=== PATIENT | male | born 1980 ===

== ENCOUNTER 2022-06-20 10:20 | Emergency (ER) | payer MEDICAID, BC, SELFPAY ==
[2022-06-20 10:27] VITALS: BP 155/73; PULSE 99; RESP 18; TEMP 36.6; O2SAT 99; BMI 24.3
[2022-06-20 10:41] LABS: Glucose, Whole Blood 442 mg/dL (60-115)
[2022-06-20 10:59] LABS: MANUAL DIFF FLAG NO
[2022-06-20 11:04] LABS: Basophils Percent Auto 0.3 % (0-2); Eosinophils Absolute Auto 0.1 X10*3/uL (0.0-0.4); Hematocrit 44.6 % (42.0-52.0); Hemoglobin 15.1 g/dl (14.0-18.0); Imm Gran Abs Auto 0.05 X10*3/uL (0.00-0.03); Imm Gran Pct Auto 0.4 % (0.0-0.4); Lymphocytes Absolute Auto 1.5 X10*3/uL (1.2-4.9); Lymphocytes Percent Auto 12.8 % (20-40); Mean Corpuscular HGB Conc 33.9 g/dl (31.0-36.0); Mean Corpuscular Hemoglobin 29.8 pg (27.0-33.0); Mean Platelet Volume 10.1 fL (9.4-12.4); Monocytes Absolute Auto 0.5 X10*3/uL (0.1-1.2); Monocytes Percent Auto 4.7 % (2-11); Neutrophils Absolute Auto 9.3 x10*3/uL (2.0-8.3); Neutrophils Percent Auto 80.8 % (45-73); Platelet Count 311 X10*3/uL (160-400); Red Blood Count 5.07 X10*6/uL (4.60-5.80); Red Cell Distribution Width 12.3 % (11.0-16.0); White Blood Count 11.5 X10*3/uL (4.8-10.8)
[2022-06-20 11:15] LABS: Acetone, serum QL Negative (Negative)
[2022-06-20 11:22] LABS: Anion Gap 19 (12-20); Blood Urea Nitrogen 16 mg/dL (9-16); Calcium 9.5 mg/dL (8.4-10.2); Carbon Dioxide 24 mmol/L (22-29); Chloride 99 mmol/L (96-108); Creatinine Clr Calc Pharmacy 79.2; Estimated Glomerular Filt Rate > 60; Glucose Random 430 mg/dL (60-115); Potassium 4.5 mmol/L (3.3-5.1); Sodium 137 mmol/L (135-145)
[2022-06-20 13:09] LABS: Glucose, Whole Blood 142 mg/dL (60-115)
[2022-06-20 13:39] VITALS: BP 133/93; PULSE 95; RESP 16; TEMP 37.1; O2SAT 98
--- NOTE | 2022-06-20 14:15 | ED.GENADULT ---
HPI - General Adult General Chief complaint: General Medical Stated complaint: Needs insulin does not have PCP Time Seen by Provider: 06/20/22 13:01 History of Present Illness HPI narrative: patient is a 41-year-old male with a long history of diabetes. Just came from [place]. Patient is out of his medication. Was noted to have a sugar of 400. Patient took his insulin prior to arrival. No fever no chills no chest pain or shortness breath no nausea no vomiting. Patient is looking to get his insurance set up his food stamps then set up an a refill of his prescription for insulin. Patient is on 40 units of Lantus insulin every night. On 20 units of Humalog 3 times a day. He has no belly pain no nausea no vomiting Related Data Previous Rx's Medication Instructions Recorded insulin glargine 100 unit/mL 40 unit (0.4 mL) subcut .qhs #10 mL 06/20/22 subcutaneous solution (Lantus U-100 Insulin) insulin lispro 100 unit/mL 20 unit (0.2 mL) subcut TID #10 mL 06/20/22 subcutaneous solution (Humalog U-100 Insulin) Allergies Allergy/AdvReac Type Severity Reaction Status Date / Time No Known Allergies Allergy Verified 06/20/22 10:27 Review of Systems Review of Systems: no fever no chills no chest pain or shortness breath no systemic Yes all other systems are reviewed and are negative [facility] Past Medical History Attestation statement: The following information was validated with the patient. Social History Social History Use of substances other than those prescribed or required for medical reasons: No Advance Directives: No Advance Directives Information Provided: No Physical Exam ED Vital Signs: Vital Signs - 24 hr 06/20/22 10:27 06/20/22 13:39 Temperature 98 F 98.7 F Pulse Rate 99 95 Respiratory Rate 18 16 Blood Pressure 155/73 H 133/93 H Pulse Oximetry 99 98 Oxygen Delivery Method Room Air BMI result Body Mass Index 24.3 Appearance: Alert. Oriented X3. No acute distress. Eyes: Pupils equal, round and reactive to light. ENT: Pharynx normal. Neck: Normal inspection. Neck supple. No lymph nodes noted. No crepitus CVS: Normal heart rate and rhythm. Pulses normal. Normal S1 and S2 Respiratory: No respiratory distress. Breath sounds normal. No Wheezing. No rales Abdomen: Soft and nontender. No rigidity. No distention. good BS x4 Skin: Skin warm and dry. Normal skin color. Normal skin turgor. Extremities: No lower extremity edema. Neurovascular intact to all extremities. No Lacerations. No Rash Neuro: Oriented X 3. No motor deficit. No sensory deficit. Moving all extermities. No slurred speech Medical Decision Making Differential Diagnosis Differential Diagnoses: The differential diagnosis associated with the presentation includes patient has hyperglycemia likely secondary to noncompliance. His sugar was approximately 400 on arrival. He took his own insulin. On recheck the sugar was less than 200. 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 Discussed with patient the need for follow-up here in [place]. Referred to the [facility] for follow-up. Referred to case management for additional help in obtaining his medication. Patient is in stable condition. His labs showed no evidence of diabetic ketoacidosis. He has no anion gap. He has a normal bicarb. He is well-appearing. He has no symptoms. His abdominal exam is soft nontender. Will discharge patient home close follow-up on an outpatient basis Lab Data MDM Lab Attestation statement: I reviewed the patient's lab results. 06/20/22 10:52 06/20/22 10:52 Labs: Lab Results 06/20/22 06/20/22 06/20/22 Range/Units 10:34 10:52 10:52 WBC 11.5 H (4.8-10.8) X10*3/uL RBC 5.07 (4.60-5.80) X10*6/uL Hgb 15.1 (14.0-18.0) g/dl Hct 44.6 (42.0-52.0) % MCV 88.0 (80.0-98.0) fL MCH 29.8 (27.0-33.0) pg MCHC 33.9 (31.0-36.0) g/dl RDW 12.3 (11.0-16.0) % Plt Count 311 (160-400) X10*3/uL MPV 10.1 (9.4-12.4) fL Immature Gran % (Auto) 0.4 (0.0-0.4) % Neut % (Auto) 80.8 H (45-73) % Lymph % (Auto) 12.8 L (20-40) % Swain % (Auto) 4.7 (2-11) % Eos % (Auto) 1.0 (0-4) % Baso % (Auto) 0.3 (0-2) % Lymph # (Auto) 1.5 (1.2-4.9) X10*3/uL Swain # (Auto) 0.5 (0.1-1.2) X10*3/uL Eos # (Auto) 0.1 (0.0-0.4) X10*3/uL Baso # (Auto) 0.0 (0.0-0.2) X10*3/uL Abs Immat Gran (auto) 0.05 H (0.00-0.03) X10*3/uL Absolute Neuts (auto) 9.3 H (2.0-8.3) x10*3/uL Absolute Nucleated RBC 0.000 (0.0-0.012) X10*3/uL Nucleated RBC % (auto) 0.0 (0.0-0.2) /100WBC Sodium 137 (135-145) mmol/L Potassium 4.5 (3.3-5.1) mmol/L Chloride 99 (96-108) mmol/L Carbon Dioxide 24 (22-29) mmol/L Anion Gap 19 (12-20) BUN 16 (9-16) mg/dL Creatinine 1.21 (0.5-1.4) mg/dL Estim Creat Clear Calc 79.2 Estimated GFR > 60 POC Glucose 442 H* (60-115) mg/dL Random Glucose 430 H* (60-115) mg/dL Calcium 9.5 (8.4-10.2) mg/dL Acetone, Qual (Negative) 06/20/22 06/20/22 Range/Units 10:52 13:05 WBC (4.8-10.8) X10*3/uL RBC (4.60-5.80) X10*6/uL Hgb (14.0-18.0) g/dl Hct (42.0-52.0) % MCV (80.0-98.0) fL MCH (27.0-33.0) pg MCHC (31.0-36.0) g/dl RDW (11.0-16.0) % Plt Count (160-400) X10*3/uL MPV (9.4-12.4) fL Immature Gran % (Auto) (0.0-0.4) % Neut % (Auto) (45-73) % Lymph % (Auto) (20-40) % Swain % (Auto) (2-11) % Eos % (Auto) (0-4) % Baso % (Auto) (0-2) % Lymph # (Auto) (1.2-4.9) X10*3/uL Swain # (Auto) (0.1-1.2) X10*3/uL Eos # (Auto) (0.0-0.4) X10*3/uL Baso # (Auto) (0.0-0.2) X10*3/uL Abs Immat Gran (auto) (0.00-0.03) X10*3/uL Absolute Neuts (auto) (2.0-8.3) x10*3/uL Absolute Nucleated RBC (0.0-0.012) X10*3/uL Nucleated RBC % (auto) (0.0-0.2) /100WBC Sodium (135-145) mmol/L Potassium (3.3-5.1) mmol/L Chloride (96-108) mmol/L Carbon Dioxide (22-29) mmol/L Anion Gap (12-20) BUN (9-16) mg/dL Creatinine (0.5-1.4) mg/dL Estim Creat Clear Calc Estimated GFR POC Glucose 142 H (60-115) mg/dL Random Glucose (60-115) mg/dL Calcium (8.4-10.2) mg/dL Acetone, Qual Negative (Negative) Social Determinants Patient?s care significantly limited by Social Determinants of Health including: Low income Discharge Plan Discharge Clinical Impression: Acute hyperglycemia Patient Disposition: Home, Self-Care Instructions: Diabetic Hyperglycemia (ED) Additional Instructions: Please take your insulin as prescribed Prescriptions: New insulin lispro [Humalog U-100 Insulin] 100 unit/mL solution 20 unit subcut TID Qty: 10 2RF insulin glargine [Lantus U-100 Insulin] 100 unit/mL solution 40 unit subcut .[facility] Qty: 10 2RF Referrals: [facility] [Physician] - 06/22/22
--- NOTE | 2022-06-20 14:24 | MHC.CM.ED ---
Received case management consult from Dr Kingston. Patient came to the ER due to not having insulin and needing a PCP. Met with patient in regards to discharge planning. Patient came to [place] from [place] about a week and a half ago. Patient has [place] Medicaid, doesn't have a PCP in [place], and is running out of insulin. Patient states he didn't make any plans for medication or medical needs before coming to [place] because patient thought I would just get everything I need when I came here. T/W explained patient won't qualify for [facility] until he has been a resident of [facility] for at least 60 days. Patient's [place] Medicaid will not be accepted at most of the local pharmacies. Financial counselor information provided. Information about [facility] also provided. No other services can be provided to patient at this time. Dr Kingston aware.
== END 2022-06-20 14:46 | disposition home or self-care (01) ==
PROVIDERS: Emergency Provider Emergency Medicine Emergency Medical Services
DX: E11.65 Type 2 diabetes mellitus with hyperglycemia (principal); Z79.4 Long term (current) use of insulin
CPT/HCPCS: 36415; 80048; 82009; 82947; 85025; 99284

== ENCOUNTER 2022-07-23 14:20 | Emergency (ER) | payer MEDICAID, SELFPAY ==
[2022-07-23 15:09] VITALS: BP 175/90; PULSE 87; RESP 18; TEMP 36.8; O2SAT 99; BMI 24.6
--- NOTE | 2022-07-23 15:19 | ED.GENADULT ---
HPI - General Adult General Chief complaint: General Medical Stated complaint: Medication refill-diabetic Time Seen by Provider: 07/23/22 15:18 Source: patient and old records reviewed Mode of arrival: ambulatory Limitations: no limitations History of Present Illness HPI narrative: 41 yo male with history of type 1 diabetes, diagnosed at age 5 who recently moved here from [place] presents to the ER for insulin refill. He has not been able to get a doctor in the [place] since arriving here. He last got his lantus and humalog filled here. He was seen in Jun after he ran out of insulin and his glucose was 400s. He has been taking his insulin as directed and has 2 days left. MD complaint: med refill Associated symptoms: denies other symptoms Treatments prior to arrival: none Related Data Previous Rx's Medication Instructions Recorded insulin glargine 100 unit/mL 40 unit (0.4 mL) subcut .qhs #10 mL 06/20/22 subcutaneous solution (Lantus U-100 Insulin) insulin lispro 100 unit/mL 20 unit (0.2 mL) subcut TID #10 mL 06/20/22 subcutaneous solution (Humalog U-100 Insulin) blood sugar diagnostic #100 ea 07/23/22 blood-glucose meter #1 ea 07/23/22 insulin glargine 100 unit/mL (3 40 unit (0.4 mL) subcut QPM #15 mL 07/23/22 mL) subcutaneous pen (Lantus Solostar U-100 Insulin) insulin lispro 100 unit/mL 20 unit (0.2 mL) subcut TID #10 mL 07/23/22 subcutaneous solution (Humalog U-100 Insulin) Allergies Allergy/AdvReac Type Severity Reaction Status Date / Time No Known Allergies Allergy Verified 06/20/22 10:27 Review of Systems Review of Systems: Yes all other systems are reviewed and are negative [facility] Social History Social History Advance Directives: No Advance Directives Information Provided: No Physical Exam ED Vital Signs: Vital Signs - 24 hr 07/23/22 15:09 Temperature 98.2 F Pulse Rate 87 Respiratory Rate 18 Blood Pressure 175/90 H Pulse Oximetry 99 Oxygen Delivery Method Room Air BMI result Body Mass Index 24.6 Appearance: Alert. Oriented X3. No acute distress. HEENT: normal external inspection Respiratory: No respiratory distress. Skin: Skin warm and dry. Normal skin color. Normal skin turgor. No rashes. Extremities: normal inspection, normal ROM x4 Neuro: Oriented X 3. No motor deficit. No sensory deficit. Course Course Course Narrative: 41 yo male with hx DM1 here for insulin refill. Has been med compliant. Glucose 197 in triage. Will refill lantus and humalog, send Rx for glucometer and strips. will refer to Endocrinology as well. Stable for d/c home Medical Decision Making Differential Diagnosis Differential Diagnoses: The differential diagnosis associated with the presentation includes DM1 well controlled, med compliant, DM1 poorly controlled. No evidence of DKA Lab Data MDM Lab Attestation statement: I reviewed the patient's lab results. POC 197 External Record Review External record reviewed: Outpatient record Prescription Management I considered prescription management with: Other (insulin) Chronic Conditions Patient?s care impacted by: Diabetes Social Determinants Patient?s care significantly limited by Social Determinants of Health including: Problems related to primary support group and Other Social Determinant of Health unable to get PCP. has [facility] [employer] and is awaiting provider who is accepting new patients Critical Care Time Critical Care Time Critical Care Time: No Discharge Plan Discharge Clinical Impression: Diabetes Patient Disposition: Home, Self-Care Instructions: Diabetes and Nutrition (ED) Additional Instructions: Follow up with Endocrinology or Primary Care doctor as soon as possible. Prescriptions: New insulin glargine [Lantus Solostar U-100 Insulin] 100 unit/mL (3 mL) insulin pen 40 unit subcut QPM Qty: 15 3RF insulin lispro [Humalog U-100 Insulin] 100 unit/mL solution 20 unit subcut TID Qty: 10 3RF (DME) blood-glucose meter Kit See Rx Instructions .Route Qty: 1 0RF Rx Instructions: As directed (DME) blood sugar diagnostic Strip See Rx Instructions .Route Qty: 100 0RF Rx Instructions: As directed No Action insulin lispro [Humalog U-100 Insulin] 100 unit/mL solution 20 unit subcut TID Qty: 10 2RF insulin glargine [Lantus U-100 Insulin] 100 unit/mL solution 40 unit subcut .qhs Qty: 10 2RF Referrals: Donis Lehman MD [Physician] - (DM1, recently moved here from [place] and needs prescriber)
[2022-07-23 15:22] LABS: Glucose, Whole Blood 197 mg/dL (60-115)
== END 2022-07-23 15:23 | disposition home or self-care (01) ==
LOC: HO.ED 15:21
PROVIDERS: Emergency Provider Emergency Medicine
DX: E10.9 Type 1 diabetes mellitus without complications (principal); Z79.899 Other long term (current) drug therapy
CPT/HCPCS: 82947; 99282

== ENCOUNTER 2022-08-29 09:35 | Emergency (ER) | payer MEDICAID, SELFPAY ==
[2022-08-29 09:48] VITALS: BP 156/63; PULSE 95; RESP 16; TEMP 36.7; O2SAT 99; BMI 25.7
[2022-08-29 11:15] VITALS: BP 141/76; PULSE 87; RESP 18; O2SAT 98
--- NOTE | 2022-08-29 11:47 | ED.GENADULT ---
HPI - General Adult General Chief complaint: General Medical Stated complaint: Medication refill Time Seen by Provider: 08/29/22 11:27 Source: patient Mode of arrival: ambulatory Limitations: no limitations History of Present Illness HPI narrative: 41-year-old male with history of type 1 diabetes here seeking refill for his insulin. Patient reports he still has a small amount of insulin left. His last dose this morning. He moved from [place] 2 months ago. He does have insurance but does not have a provider here. He is working on establishing a primary care. No physical complaints Related Data Previous Rx's Medication Instructions Recorded insulin glargine 100 unit/mL 40 unit (0.4 mL) subcut .qhs #10 mL 06/20/22 subcutaneous solution (Lantus U-100 Insulin) insulin lispro 100 unit/mL 20 unit (0.2 mL) subcut TID #10 mL 06/20/22 subcutaneous solution (Humalog U-100 Insulin) blood sugar diagnostic #100 ea 07/23/22 blood-glucose meter #1 ea 07/23/22 insulin glargine 100 unit/mL (3 40 unit (0.4 mL) subcut QPM #15 mL 07/23/22 mL) subcutaneous pen (Lantus Solostar U-100 Insulin) insulin lispro 100 unit/mL 20 unit (0.2 mL) subcut TID #10 mL 07/23/22 subcutaneous solution (Humalog U-100 Insulin) insulin glargine 100 unit/mL (3 40 unit (0.4 mL) subcut QPM #15 mL 08/29/22 mL) subcutaneous pen (Lantus Solostar U-100 Insulin) insulin lispro 100 unit/mL 20 unit (0.2 mL) subcut TID #15 mL 08/29/22 subcutaneous pen pen needle, diabetic 31 gauge x #120 ea 08/29/22 5/16 (BD Ultra-Fine Short Pen Needle) Allergies Allergy/AdvReac Type Severity Reaction Status Date / Time No Known Allergies Allergy Verified 08/29/22 09:51 Review of Systems Review of Systems: Yes all other systems are reviewed and are negative Constitutional: Constitutional: Reports no additional constitutional complaints, Denies body ache(s), Denies chills, Denies fever(s), Denies headache(s) and Denies weakness Eyes: Eyes: Reports no additional eye complaints and Denies change in vision ENT: Reports system reviewed and no additional complaints, except as documented, Denies dizziness, Denies headache(s), Denies nasal congestion, Denies nasal discharge and Denies neck pain Cardiovascular: Cardiovascular: Reports no additional cardiovascular complaints, Denies chest pain, Denies leg edema and Denies dyspnea Respiratory: Respiratory: Reports no additional respiratory complaints, Denies cough and Denies dyspnea Gastrointestinal: Gastrointestinal: Reports no additional gastrointestinal complaints, Denies abdominal pain, Denies diarrhea, Denies nausea and Denies vomiting Genitourinary: Genitourinary: Denies urinary incontinence Musculoskeletal: Musculoskeletal: Reports no additional musculoskeletal complaints, Denies back pain, Denies arthralgias, Denies joint swelling, Denies neck pain, Denies numbness and Denies tingling Integumentary/Breasts: Skin/Breast: Reports system reviewed and no additional complaints, except as docu and Denies rash Neurologic: Reports system reviewed and no additional complaints, except as documented, Denies dizziness, Denies headache(s), Denies numbness, Denies tingling and Denies weakness [facility] Past Medical History Attestation statement: The following information was validated with the patient. Source: old records reviewed and nursing notes reviewed Social History Social History Smoked in Last 30 Days: Yes Use of substances other than those prescribed or required for medical reasons: No Advance Directives: No Advance Directives Information Provided: Yes Physical Exam ED Vital Signs: Vital Signs - 24 hr 08/29/22 09:48 08/29/22 11:15 Temperature 98.0 F Pulse Rate 95 87 Respiratory Rate 16 18 Blood Pressure 156/63 H 141/76 H Pulse Oximetry 99 98 Oxygen Delivery Method Room Air Room Air BMI result Body Mass Index 25.7 Appearance: Alert. Oriented X3. No acute distress. HEENT: normal external inspection Respiratory: No respiratory distress. Skin: Skin warm and dry. Normal skin color. Normal skin turgor. No rashes. Extremities: normal inspection, normal ROM x4 Neuro: Oriented X 3. No motor deficit. No sensory deficit. Medical Decision Making Medical Decision Making MDM Narrative: 41-year-old male here seeking refill of all his insulin. Patient moved here recently and does not have a primary care. He does have insurance and is working on establishing primary care. He has no physical complaints. Will refill patient's Lantus and Humalog as well as his pens/needles. Differential Diagnosis Differential Diagnoses: The differential diagnosis associated with the presentation includes Social Determinants Patient?s care significantly limited by Social Determinants of Health including: Problems related to primary support group Discharge Plan Discharge Clinical Impression: Diabetes type I Patient Disposition: Home, Self-Care Instructions: Diabetes Type 1: Management (ED) Prescriptions: New insulin glargine [Lantus Solostar U-100 Insulin] 100 unit/mL (3 mL) insulin pen 40 unit subcut QPM Qty: 15 0RF insulin lispro 100 unit/mL insulin pen 20 unit subcut TID Qty: 15 0RF (DME) pen needle, diabetic [BD Ultra-Fine Short Pen Needle] 31 gauge x 5/16 needle See Rx Instructions .Route Qty: 120 0RF Rx Instructions: As directed No Action insulin lispro [Humalog U-100 Insulin] 100 unit/mL solution 20 unit subcut TID Qty: 10 2RF insulin glargine [Lantus U-100 Insulin] 100 unit/mL solution 40 unit subcut .qhs Qty: 10 2RF insulin glargine [Lantus Solostar U-100 Insulin] 100 unit/mL (3 mL) insulin pen 40 unit subcut QPM Qty: 15 3RF insulin lispro [Humalog U-100 Insulin] 100 unit/mL solution 20 unit subcut TID Qty: 10 3RF (DME) blood-glucose meter Kit See Rx Instructions .Route Qty: 1 0RF Rx Instructions: As directed (DME) blood sugar diagnostic Strip See Rx Instructions .Route Qty: 100 0RF Rx Instructions: As directed Interventions: ED Discharge Assessment Last Done: 08/29/22 11:57 Discharge Date/Time: 08/29/22 11:57
== END 2022-08-29 11:57 | disposition home or self-care (01) ==
PROVIDERS: Emergency Provider Emergency Medicine
DX: E10.9 Type 1 diabetes mellitus without complications (principal); Z76.0 Encounter for issue of repeat prescription; Z79.4 Long term (current) use of insulin; Z79.899 Other long term (current) drug therapy
CPT/HCPCS: 99283; 99284

== ENCOUNTER 2022-09-23 15:05 | Emergency (ER) | payer OTHER, SELFPAY ==
[2022-09-23 15:51] VITALS: BP 158/78; PULSE 92; RESP 18; TEMP 36.5; O2SAT 99; BMI 26.1
--- NOTE | 2022-09-23 15:53 | ED.GENADULT ---
HPI - General Adult General Chief complaint: General Medical Stated complaint: diabetic/ no insulin Time Seen by Provider: 09/23/22 15:52 Source: patient, RN notes reviewed and old records reviewed Mode of arrival: ambulatory Limitations: no limitations History of Present Illness HPI narrative: 41-year-old male with past medical history significant for type 1 diabetes presents for evaluation and medication refill Patient was family able to get a primary doctor but does not appointment until next month. He needs a refill of his insulin glargine, insulin lispro and needles He also needs Synthroid 50 mcg daily He has no somatic complaints Related Data Previous Rx's Medication Instructions Recorded insulin glargine 100 unit/mL 40 unit (0.4 mL) subcut .qhs #10 mL 06/20/22 subcutaneous solution (Lantus U-100 Insulin) insulin lispro 100 unit/mL 20 unit (0.2 mL) subcut TID #10 mL 06/20/22 subcutaneous solution (Humalog U-100 Insulin) blood sugar diagnostic #100 ea 07/23/22 blood-glucose meter #1 ea 07/23/22 insulin glargine 100 unit/mL (3 40 unit (0.4 mL) subcut QPM #15 mL 07/23/22 mL) subcutaneous pen (Lantus Solostar U-100 Insulin) insulin lispro 100 unit/mL 20 unit (0.2 mL) subcut TID #10 mL 07/23/22 subcutaneous solution (Humalog U-100 Insulin) insulin glargine 100 unit/mL (3 40 unit (0.4 mL) subcut QPM #15 mL 08/29/22 mL) subcutaneous pen (Lantus Solostar U-100 Insulin) insulin lispro 100 unit/mL 20 unit (0.2 mL) subcut TID #15 mL 08/29/22 subcutaneous pen pen needle, diabetic 31 gauge x #120 ea 08/29/22/16 (BD Ultra-Fine Short Pen Needle) insulin glargine 100 unit/mL (3 40 unit (0.4 mL) subcut .evening 09/23/22 mL) subcutaneous pen (Lantus #15 mL Solostar U-100 Insulin) insulin lispro 100 unit/mL 20 unit (0.2 mL) subcut TID #15 mL 09/23/22 subcutaneous pen levothyroxine 50 mcg tablet 50 mcg PO DAILY #30 tabs 09/23/22 (Synthroid) pen needle, diabetic 31 gauge x #120 ea 09/23/22 5/16 (BD Ultra-Fine Short Pen Needle) Allergies Allergy/AdvReac Type Severity Reaction Status Date / Time No Known Allergies Allergy Verified 09/23/22 15:51 Physical Exam ED Const General: healthy appearing, comfortable, no acute distress, alert and awake Nutritional Appearance: well nourished Orientation/consciousness: patient oriented x3 Eyes Eyelids: Yes eyelids normal Conjunctivae: conjunctivae normal Sclerae: sclerae normal Corneas: corneas normal Pupils: Equal, round and reactive pupils present EOM: EOMs intact bilaterally Resp Effort & Inspection: normal respiratory effort, able to speak in complete sentences, no audible wheezes and not labored Cardio Rate: regular rate Rhythm: regular rhythm Skin General skin exam: no rashes or lesions noted and elasticity normal Neuro General: patient oriented x3 Cranial nerves: Yes Equal, round and reactive pupils present and Yes Bilaterally intact EOM present Cognition (Neuro): normal cognition Extrem Other: Moving all extremities well without any obvious deformities Medical Decision Making Medical Decision Making MDM Narrative: Will provide the patient with a 1 month supply of his medications Differential Diagnosis Type 1 diabetes Hypothyroidism Medication refill Well visit Discharge Plan Discharge Clinical Impression: Diabetes type I, Hypothyroidism Patient Disposition: Home, Self-Care Instructions: Diabetes Type 1: Management (ED) Additional Instructions: Take all your medications as prescribed. Follow-up with your primary doctor Prescriptions: New insulin glargine [Lantus Solostar U-100 Insulin] 100 unit/mL (3 mL) insulin pen 40 unit subcut .evening Qty: 15 0RF insulin lispro 100 unit/mL insulin pen 20 unit subcut TID Qty: 15 0RF (DME) pen needle, diabetic [BD Ultra-Fine Short Pen Needle] 31 gauge x 5/16 needle See Rx Instructions .Route Qty: 120 0RF Rx Instructions: As directed levothyroxine [Synthroid] 50 mcg tablet 50 mcg PO DAILY Qty: 30 0RF No Action insulin lispro [Humalog U-100 Insulin] 100 unit/mL solution 20 unit subcut TID Qty: 10 2RF insulin glargine [Lantus U-100 Insulin] 100 unit/mL solution 40 unit subcut .qhs Qty: 10 2RF insulin glargine [Lantus Solostar U-100 Insulin] 100 unit/mL (3 mL) insulin pen 40 unit subcut QPM Qty: 15 3RF insulin lispro [Humalog U-100 Insulin] 100 unit/mL solution 20 unit subcut TID Qty: 10 3RF (DME) blood-glucose meter Kit See Rx Instructions .Route Qty: 1 0RF Rx Instructions: As directed (DME) blood sugar diagnostic Strip See Rx Instructions .Route Qty: 100 0RF Rx Instructions: As directed insulin glargine [Lantus Solostar U-100 Insulin] 100 unit/mL (3 mL) insulin pen 40 unit subcut QPM Qty: 15 0RF insulin lispro 100 unit/mL insulin pen 20 unit subcut TID Qty: 15 0RF (DME) pen needle, diabetic [BD Ultra-Fine Short Pen Needle] 31 gauge x 5/16 needle See Rx Instructions .Route Qty: 120 0RF Rx Instructions: As directed
== END 2022-09-23 16:03 | disposition home or self-care (01) ==
PROVIDERS: Emergency Provider Emergency Medicine Emergency Medical Services
DX: E10.9 Type 1 diabetes mellitus without complications (principal); E03.9 Hypothyroidism, unspecified
CPT/HCPCS: 99282

== ENCOUNTER → 2022-09-25 10:01 | Outpatient (BNVA) | payer OTHER, SELFPAY | PROVIDERS: Visit Provider Internal Medicine | DX: M75.41 Impingement syndrome of right shoulder (principal) | CPT/HCPCS: 73030; 99203 ==

== ENCOUNTER → 2022-10-02 13:04 | Outpatient (BNVA) | payer OTHER, SELFPAY | PROVIDERS: Visit Provider Internal Medicine | DX: M75.41 Impingement syndrome of right shoulder (principal) | CPT/HCPCS: 99213 ==

== ENCOUNTER → 2022-10-09 14:45 | Outpatient (BNVA) | payer OTHER, SELFPAY | PROVIDERS: Visit Provider Internal Medicine | DX: M75.41 Impingement syndrome of right shoulder (principal); S46.811D Strain of other muscles, fascia and tendons at shoulder and upper arm level, right arm, subsequent encounter; X58.XXXD Exposure to other specified factors, subsequent encounter | CPT/HCPCS: 99213 ==

== ENCOUNTER → 2022-10-16 11:41 | Outpatient (BNVA) | payer OTHER, SELFPAY | PROVIDERS: PCP Nurse Practitioner Family; Visit Provider Internal Medicine | DX: S46.011D Strain of muscle(s) and tendon(s) of the rotator cuff of right shoulder, subsequent encounter (principal); S46.811D Strain of other muscles, fascia and tendons at shoulder and upper arm level, right arm, subsequent encounter; X58.XXXD Exposure to other specified factors, subsequent encounter; R20.0 Anesthesia of skin | CPT/HCPCS: 99213 ==

== ENCOUNTER → 2022-10-23 10:46 | Outpatient (BNVA) | payer OTHER, SELFPAY | PROVIDERS: PCP Nurse Practitioner Family; Visit Provider Internal Medicine | DX: S46.011D Strain of muscle(s) and tendon(s) of the rotator cuff of right shoulder, subsequent encounter (principal); S46.811D Strain of other muscles, fascia and tendons at shoulder and upper arm level, right arm, subsequent encounter; X58.XXXD Exposure to other specified factors, subsequent encounter; R20.0 Anesthesia of skin | CPT/HCPCS: 99213 ==

== ENCOUNTER 2022-11-01 16:33 | Outpatient (REF) | payer OTHER, SELFPAY ==
--- NOTE | ~2022-11-01 | MR_ITS ---
EXAMINATION: MR SHOULDER WITHOUT CONTRAST, RIGHT CLINICAL INFORMATION: Hyperextension injury. Pain and weakness. Limited range of motion. COMPARISON: None available. TECHNIQUE: MRI of the shoulder without contrast was performed on a high-field scanner. FINDINGS: ROTATOR CUFF: Intact. No muscle atrophy or fatty infiltration. BICEPS: Normal. CORACOACROMIAL ARCH: The undersurface of the acromion is curved with no subacromial spur. Minimal edema within the acromion. The AC joint is normal. LABRUM/CAPSULE: Normal. GLENOHUMERAL JOINT/MARROW: Glenohumeral joint is normal. Minimal enthesopathic cystic change in the greater tuberosity posteriorly. No effusion. MR/MR shoulder RT wo con IMPRESSION: Minimal edema within the acromion. This could reflect bone contusion or mild stress reaction. Rotator cuff is intact.
== END 2022-11-01 16:34 | disposition home or self-care (01) ==
LOC: HO.MRI 16:33
PROVIDERS: PCP Nurse Practitioner Family; Visit Provider Internal Medicine
DX: M25.511 Pain in right shoulder (principal)
CPT/HCPCS: 73221

== ENCOUNTER 2022-11-09 07:28 | Outpatient (REF) | payer OTHER, SELFPAY ==
[2022-11-09 08:05] LABS: MANUAL DIFF FLAG NO
[2022-11-09 08:45] LABS: Basophils Absolute Auto 0.1 X10*3/uL (0.0-0.2); Basophils Percent Auto 0.5 % (0-2); Eosinophils Absolute Auto 0.1 X10*3/uL (0.0-0.4); Eosinophils Percent Auto 0.9 % (0-4); Hematocrit 47.1 % (42.0-52.0); Hemoglobin 15.6 g/dl (14.0-18.0); Imm Gran Abs Auto 0.08 X10*3/uL (0.00-0.03); Imm Gran Pct Auto 0.5 % (0.0-0.4); Lymphocytes Absolute Auto 1.5 X10*3/uL (1.2-4.9); Mean Corpuscular HGB Conc 33.1 g/dl (31.0-36.0); Mean Corpuscular Hemoglobin 28.6 pg (27.0-33.0); Mean Corpuscular Volume 86.4 fL (80.0-98.0); Mean Platelet Volume 10.2 fL (9.4-12.4); Monocytes Absolute Auto 0.7 X10*3/uL (0.1-1.2); Monocytes Percent Auto 4.6 % (2-11); Neutrophils Absolute Auto 12.5 x10*3/uL (2.0-8.3); Neutrophils Percent Auto 83.5 % (45-73); Platelet Count 320 X10*3/uL (160-400); Red Blood Count 5.45 X10*6/uL (4.60-5.80); Red Cell Distribution Width 12.8 % (11.0-16.0); White Blood Count 14.9 X10*3/uL (4.8-10.8)
[2022-11-09 09:21] LABS: Alanine Aminotransferase 17 U/L (0-40); Albumin Level 4.1 g/dL (3.5-5.0); Alkaline Phosphatase 154 U/L (39-117); Anion Gap 14 (12-20); Aspartate Amino Transferase 14 U/L (5-37); Bilirubin Total 0.5 mg/dL (0.0-1.0); Blood Urea Nitrogen 15 mg/dL (9-16); Calcium 10.2 mg/dL (8.4-10.2); Carbon Dioxide 24 mmol/L (22-29); Chloride 103 mmol/L (96-108); Cholesterol 229 mg/dL; Estimated Glomerular Filt Rate > 60; Glucose Random 286 mg/dL (60-115); HDL Cholesterol 49 mg/dL; LDL Cholesterol Calculated 153 mg/dl; Potassium 4.4 mmol/L (3.3-5.1); Sodium 137 mmol/L (135-145); Total Protein 7.5 g/dL (6.5-8.0); Triglycerides 137 mg/dL
[2022-11-09 09:42] LABS: TSH reflex Free T4 0.91 uIU/mL (0.32-4.0); Vitamin D 25-OH Total 28.5 ng/mL (>30)
[2022-11-12 15:58] LABS: TS Negative Control Passed; TS Panel A 4; TS Panel B 2; TS Positive Control Passed; TSpotTB Negative (Negative)
== END 2022-11-09 07:29 | disposition home or self-care (01) ==
LOC: HO.LAB 07:28
PROVIDERS: Visit Provider Nurse Practitioner Family
DX: Z11.1 Encounter for screening for respiratory tuberculosis (principal); Z13.220 Encounter for screening for lipoid disorders; Z13.21 Encounter for screening for nutritional disorder; Z13.0 Encounter for screening for diseases of the blood and blood-forming organs and certain disorders involving the immune mechanism; E10.9 Type 1 diabetes mellitus without complications; E03.9 Hypothyroidism, unspecified
CPT/HCPCS: 36415; 80053; 80061; 82306; 84443; 85025; 86481

== ENCOUNTER 2023-01-09 14:10 | Outpatient (AMB) | payer OTHER, SELFPAY ==
--- NOTE | 2023-01-09 14:18 | MHC.OFFVIS ---
Intake Vital Signs 01/09/23 14:19 Height 5 ft 8 in Weight 175 lb 14.862 oz BMI 26.7 BP 140/72 H Blood Pressure Location Lt brachial Position Sitting Pulse 82 Pulse Source Pulse Oximeter Intake Visit Reasons: DM1 Intake Note: New patient present for Diabetes Mellitus. Last Diabetic Eye exam: 3 years Last Podiatry Visit: none Random Glucose: 239mg/dl HgA1C: 9.7% Dead Mail Checker Required: No Accompanied by: Self / Same As Patient Allergies No Known Allergies Allergy (Verified 01/09/23 14:26) HPI HPI Comments History of Present Illness Details 42 YO M with is seen in consultation for T1DM at the request of PCP.Since age Initially diagnosed with T1DM in not sure when presented with []. Was initially started on treatment with insulin . Current regimen: Lantus 40 units Humalog 20 units TID Unfortunately, patient did not bring log book or glucometer to visit. Does not have glucometer Reports low sugars rarely . Treats lows with OJ . Not Checks sugar after to ensure it is rising. Family history of autoimmunity in lupus in mother Has eyes checked yearly, last eye exam 3 yrs . Needs to make appt , no retinopathy. Denies neuropathy,Not sees podiatry. Denies nephropathy,Not on RAINER/ARB. UAC [] measured on []. Has HLD, on statin for 1 mo . Denies history of CAD. Had diabetes education yrs ago . Diet/Carb counting: yes Denies recent prior episodes of DKA. Denies prior severe episodes of hypoglycemia requiring help or hospitalization. Labs: [facility] Medical History (Updated 11/12/22 @ 09:50 by ILYA Franklin) Hypothyroidism Social History (Updated 10/11/22 @ 13:23 by ILYA Franklin) Household Members: Family Housing: Apartment Alcohol intake: current Alcohol intake frequency: other Patient Tobacco Use Status: Current everyday Tobacco user Tobacco use type: Cigarette Cigarettes Per Day: 10 service: No Current occupational status: employed and unemployed Cognitive needs: No Hearing needs: No Vision needs: No Physical Exam Vital Signs: BMI result Body Mass Index 26.7 Absence of Cushingoid features. Absence of acromegalic features. Neck exam reveals nl size thyroid about 15 gms. No thyroid nodules palpable. No carotid bruits present. Lungs CTA. Heart S1 S2, Reg R/R. No M/R/ G. Skin exam reveals absence of vitiligo or acanthosis nigricans. Abdominal exam reveals Soft NT/ND with NA BS. No organomegaly present. Extrem Other: Visual exam of foot performed. No ulcerations or open lesions. No onchomycosis, no callouses.Pulses 2 + distally. Sensation intact to monofilament exam. Vibratory sensation sensed 10 seconds decreased in right, 10 seconds in left with 128 Hz tuning fork Results AMB Hemoglobin A1c AMB Hemoglobin A1c 9.7 % Last Edit by Nena Bo on 01/09/23 14:45 Assessment & Plan Assessment & Plan (1) Diabetes type I: Onset Date: ~09/20/22 Comment: DX age 5 Code(s): E10.9 - Type 1 diabetes mellitus without complications Plan: This is a 42-year-old male with history of longstanding-type 1 diabetes with poor glycemic control on basal-bolus insulin and no known microvascular or macrovascular complication. Age of onset raises suspicion of mono genic diabetes or BRI Plan is to have the patient check his point cares pre and post meals. Will prescribe a Dexcom G7. Will have patient see special educator and hotel front desk agent. Will check microalbumin to creatinine ratio. Went over the correlation of poor glycemic control to development and progression of complications with patient. Will also check anti-PENG 65 antibodies to confirm presence of type 1 diabetes. Also prescribed glucagon rescue [place] Orders: Orders Glutamic acid decarboxylase Ab Today E10.9 - Type 1 diabetes mellitus without complications AMB Hemoglobin A1c Today E10.9 - Type 1 diabetes mellitus without complications Referrals Diabetes Education Referral E10.9 - Type 1 diabetes mellitus without complications Nutrition/Dietitian Referral E10.9 - Type 1 diabetes mellitus without complications Medications: New blood-glucose sensor (Dexcom G7 Sensor device) As directed change every 10 days 3 ea 5RF blood-glucose meter (FreeStyle [place] Lite kit) As directed tests 4 X/day 1 ea 0RF blood sugar diagnostic (FreeStyle Lite Strips) As directed tests 4X/day 100 ea 4RF lancets (FreeStyle Lancets) As directed tests 4 X/day 100 ea 4RF glucagon 3 mg/actuation (Baqsimi) 3 mg intranasal ONCE 2 ea 5RF Coding Level of Care Code New Pt Level 5 (79215) Diagnoses Diabetes type I E10.9 Time Spent (min) 60 Comment A total of 60 minutes was spent reviewing chart, seeing patient and dictating
[2023-01-09 14:19] VITALS: BP 140/72; PULSE 82; BMI 26.7
[2023-01-09 14:36] LABS: Glucose, Whole Blood 239 mg/dL (60-115)
== END 2023-01-09 15:11 | disposition home or self-care (01) ==
PROVIDERS: PCP Nurse Practitioner Family; Visit Provider Internal Medicine Endocrinology, Diabetes & Metabolism
DX: E10.9 Type 1 diabetes mellitus without complications (principal)
CPT/HCPCS: 99205

== ENCOUNTER 2023-01-09 14:10 | Outpatient (REF) | payer OTHER, SELFPAY ==
[2023-01-13 21:54] LABS: Glutamic acid decarboxylase Ab <5 IU/mL (<5)
== END 2023-01-09 14:11 | disposition home or self-care (01) ==
LOC: HO.LAB 14:10
PROVIDERS: PCP Nurse Practitioner Family; Visit Provider Internal Medicine Endocrinology, Diabetes & Metabolism
DX: E10.9 Type 1 diabetes mellitus without complications (principal)
CPT/HCPCS: 36415; 82947; 83036; 86341; 99202

== ENCOUNTER 2023-01-24 15:00 | Outpatient (RCR) | payer OTHER, MEDICAID, SELFPAY ==
--- NOTE | 2022-10-04 16:10 | MHC.PT.EP ---
[facility] [place] Office [place] [facility] [place] [facility] [address] [phone] F: [phone] F: [phone] F: [phone] F: [phone] Physical Therapy Plan of Care Date of Evaluation: Date of Surgery: N/A Diagnosis: Impingment R trapezius strain Assessment: Pt is a pleasant 41yo M who presents to PT with R shoulder pain since 09/20/22. He presents to PT with current impairments in pain, decreased R shoulder ROM, decreased R shoulder strength, soft tissue restrictions, and impaired posture. He is extremely TTP throughout R medial scap border, R UT, R levator, and R RTC musculature. He is limited functionally by lifting, reaching, overhead ADLs, reaching behind back and sleeping. He is an excellent candidate for skilled PT in order to address current impairments to facilitate return to PLOF. He is recommended to be seen 2x/week for 4 weeks and will be reassessed at that time. Frequency and Duration: The patient will be seen 2x/week for 4 weeks Short Term Goals: Pt will be I with HEP to promote self management of symptoms Pt will improve R shoulder flexion by at least 10 degrees Pony Rougher Goals: Pt will demonstrate full ROM and strength all planes of R shoulder to assist with lifting and reaching Pt will perform overhead ADLs with minimal to no compensation Pt will demonstrate improvements in function as evidenced by statistically significant improvement in SPADI outcome measure Treatment Plan: Modalities to reduce pain, spasms and effusion. Manual therapy to restore motion and function. Therapeutic exercise to improve strength and flexibility. Neuromuscular re-education for posture and balance. Therapeutic activities to return to functional activities of daily living. Electronically signed by: Ju García, PT, DPT Please sign and return to therapist. Thank you for your referral.
--- NOTE | 2023-02-07 10:30 | MHC.PT.DC ---
[facility] [place] Office [place] Office [place] Office [address] Jonathan Coleman [address] [phone] F: [phone] F: [phone] F: [phone] F: [phone] Physical Therapy Discharge Report Diagnosis: Impingment R trapezius strain Date of Surgery: N/A Date of Evaluation: 10/04/22 Date of Discharge: 02/07/23 Treatments to Date: 19 Cancellations to Date: No Shows to Date: Discharge Status: Insurance Declined Tx Discharge Summary: Pt was seen for PT from 10/04/22-01/24/23. His last scheduled and attended appointment was 01/24/23. He overall improved ROM all planes of R shoulder throughout PT POC, however he had some limitations with end range flexion and ER ROM. He was I with HEP and compliant with HEP. He improved his score on SPADI outcome measure from 64/130 on initial PT evaluation to 20/130 at last attended session. He is being D/C from skilled PT as insurance declined further PT treatment at this time. Electronically signed by: Ju García, PT, DPT Please sign and return to therapist. Thank you for your referral.
== END 2023-02-07 10:30 | disposition home or self-care (01) ==
LOC: HO.PT 15:00
PROVIDERS: Absent Provider Physician Assistant; Visit Provider Internal Medicine
DX: M25.811 Other specified joint disorders, right shoulder (principal); S16.1XXD Strain of muscle, fascia and tendon at neck level, subsequent encounter
CPT/HCPCS: 97014; 97035; 97110; 97140; 97162; 97164; 97530

== ENCOUNTER 2023-02-02 14:52 | Emergency (ER) | payer OTHER, SELFPAY ==
--- NOTE | 2023-02-02 15:13 | ED_ITS ---
HPI - General Adult General Chief complaint: General Medical Stated complaint: med refill Time Seen by Provider: 02/02/23 15:20 Source: patient, RN notes reviewed and old records reviewed Mode of arrival: ambulatory History of Present Illness HPI narrative: 43-year-old male with past medical history of type 1 diabetes presenting to ED requesting refill of his Lispro and Lispro pen needles. Admits has enough for 1 more dose, went to pharmacy however had no more refills. Denies any other complaints at present. Admits he has enough of all of his other medications at present. Onset (ago): hour(s) Related Data Home Medications Medication Instructions Recorded Confirmed cyclobenzaprine 10 mg tablet 10 mg PO BEDTIME 01/09/23 naproxen 500 mg tablet 500 mg PO BID PRN pain 01/09/23 Previous Rx's Medication Instructions Recorded blood sugar diagnostic #100 ea 07/23/22 blood-glucose meter #1 ea 07/23/22 insulin lispro 100 unit/mL 20 unit (0.2 mL) subcut TID #15 mL 10/11/22 subcutaneous pen insulin glargine 100 unit/mL (3 40 unit (0.4 mL) subcut .evening 11/12/22 mL) subcutaneous pen (Lantus #15 mL Solostar U-100 Insulin) pen needle, diabetic 29 gauge x #100 ea 11/21/2206/04 (BD Ultra-Fine Original Pen Needle) levothyroxine 50 mcg tablet 50 mcg PO DAILY #30 tabs 01/02/23 (Synthroid) blood sugar diagnostic (FreeStyle #100 ea 01/09/23 Lite Strips) blood-glucose meter (FreeStyle #1 ea 01/09/23 [place] Lite kit) blood-glucose sensor (Dexcom G7 #3 ea 01/09/23 Sensor device) glucagon 3 mg/actuation nasal 3 mg intranasal ONCE #2 ea 01/09/23 spray (Baqsimi) lancets 28 gauge (FreeStyle #100 ea 01/09/23 Lancets) cholecalciferol (vitamin D3) 25 25 mcg PO DAILY #90 caps 02/01/23 mcg (1,000 unit) capsule (Vitamin D3) rosuvastatin 5 mg tablet 5 mg PO DAILY #90 tabs 02/01/23 insulin lispro 100 unit/mL 20 unit (0.2 mL) subcut TID #15 mL 02/02/23 subcutaneous pen pen needle, diabetic 29 gauge x #100 ea 02/02/23/2 (BD Ultra-Fine Original Pen Needle) Allergies Allergy/AdvReac Type Severity Reaction Status Date / Time No Known Allergies Allergy Verified 01/09/23 14:26 Review of Systems Review of Systems: Constitutional: No Fever, No Chills ENT/Mouth: No Ear Pain, No Nasal Congestion, No Sinus Pain, No Hoarseness, No sore throat, No Rhinorrhea, No Swallowing Difficulty Cardiovascular: No Chest Pain, No SOB Respiratory: No Cough Gastrointestinal: No Nausea, No Vomiting, No Diarrhea, No Constipation, No Abdominal pain Musculoskeletal: No joint pain, No Myalgias, No Joint Swelling Skin: No Skin Lesions, No rash Neuro: No Weakness Yes all other systems are reviewed and are negative Constitutional: Constitutional: Reports as per [facility] Past Medical History Attestation statement: The following information was validated with the patient. Source: old records reviewed Medical History Hypothyroidism Social History Social History Household Members: Family Housing: Apartment Alcohol intake: current Alcohol intake frequency: other Patient Tobacco Use Status: Current everyday Tobacco user Tobacco use type: Cigarette Cigarettes Per Day: 10 Advance Directives: No Advance Directives Information Provided: No service: No Current occupational status: employed and unemployed Cognitive needs: No Hearing needs: No Vision needs: No Physical Exam ED Vital Signs: Vital Signs - 24 hr 02/02/23 15:17 Temperature 98.4 F Pulse Rate 97 Respiratory Rate 18 Blood Pressure 146/82 H Pulse Oximetry 98 Oxygen Delivery Method Room Air BMI result Body Mass Index 26.5 Const General: cooperative, healthy appearing and no acute distress Orientation/consciousness: patient oriented x3 Limitations: no limitations HENMT Head: Yes normal to inspection and Yes atraumatic Ears: hearing grossly normal bilaterally General nose exam: Normal external nose present Face and sinus: Yes normal facial exam Eyes General: appearance normal, both eyes and all related structures EOM: EOMs intact bilaterally Neck Neck: Yes normal visual inspection and Yes no meningeal signs Resp Effort & Inspection: normal respiratory effort and no respiratory distress Cardio Rate: regular rate Skin Rashes: no rashes Wounds: no wounds Neuro General: patient oriented x3, tone normal and no meningeal signs Cranial nerves: Yes CN's II-XII intact bilaterally Gait exam (Neuro): Normal gait present Extrem General: Yes normal to inspection Medical Decision Making Medical Decision Making MDM Narrative: 43-year-old male with past medical history of type 1 diabetes presenting to ED requesting refill of his insulin and pen needles. On exam VSS, NAD, nontoxic appearing. Low suspicion for DKA at this time Plan: Refill medications, encouraged close PCP follow-up Please refer to course for remaining clinical decision making, interpretation of labs/imaging results, and discussions with consultants and/or family members. Results discussed with patient including worrisome signs and symptoms and strict return precautions, and when to return to the emergency department. They verbalized understanding and feel safe for discharge at this time. Differential Diagnosis Differential Diagnoses: The differential diagnosis associated with the presentation includes As above External Record Review External record reviewed: Inpatient record, Office record, Outpatient record, Prior outpatient labs, Prior outpatient radiology, Primary care record and Outside ED record Tests considered The following testing was considered but not selected: As above Chronic Conditions Patient?s care impacted by: Diabetes Discharge Plan Discharge Clinical Impression: Medication refill Patient Disposition: Home, Self-Care Instructions: Medicine Refill (ED) Additional Instructions: Continue to take your medications as prescribed Please follow-up with your doctor You are always welcome to return to the ED Prescriptions: New insulin lispro 100 unit/mL insulin pen 20 unit subcut TID Qty: 15 0RF (DME) pen needle, diabetic [BD Ultra-Fine Orig Pen Needle] 29 gauge x 1/2 needle See Rx Instructions .Route Qty: 100 0RF Rx Instructions: As directed- Use to test 4 Times a day No Action (DME) pen needle, diabetic [BD Ultra-Fine Orig Pen Needle] 29 gauge x 1/2 needle See Rx Instructions .Route Qty: 100 5RF Rx Instructions: test 4 times daily levothyroxine [Synthroid] 50 mcg tablet 50 mcg PO DAILY Qty: 30 3RF cholecalciferol (vitamin D3) [Vitamin D3] 25 mcg (1,000 unit) capsule 25 mcg PO DAILY Qty: 90 1RF rosuvastatin 5 mg tablet 5 mg PO DAILY Qty: 90 1RF (DME) blood-glucose meter Kit See Rx Instructions .Route Qty: 1 0RF Rx Instructions: As directed (DME) blood sugar diagnostic Strip See Rx Instructions .Route Qty: 100 0RF Rx Instructions: As directed insulin lispro 100 unit/mL insulin pen 20 unit subcut TID Qty: 15 3RF insulin glargine [Lantus Solostar U-100 Insulin] 100 unit/mL (3 mL) insulin pen 40 unit subcut .evening Qty: 15 0RF naproxen 500 mg tablet 500 mg PO BID PRN (Reason: pain) cyclobenzaprine 10 mg tablet 10 mg PO BEDTIME (DME) Dexcom G7 Sensor Device See Rx Instructions .Route Qty: 3 5RF Rx Instructions: As directed change every 10 days (DME) blood-glucose meter [FreeStyle [place] Lite] Kit See Rx Instructions .Route Qty: 1 0RF Rx Instructions: As directed tests 4 X/day (DME) FreeStyle Lite Strips Strip See Rx Instructions .Route Qty: 100 4RF Rx Instructions: As directed tests 4X/day (DME) lancets [FreeStyle Lancets] 28 gauge misc See Rx Instructions .Route Qty: 100 4RF Rx Instructions: As directed tests 4 X/day Baqsimi 3 mg/actuation spray,non-aerosol 3 mg intranasal ONCE Qty: 2 5RF Referrals: Maxine Jim FNP [Primary Care Provider] - Discharge Date/Time: 02/02/23 15:31
[2023-02-02 15:17] VITALS: BP 146/82; PULSE 97; RESP 18; TEMP 36.9; O2SAT 98; BMI 26.5
== END 2023-02-02 15:31 | disposition home or self-care (01) ==
PROVIDERS: Emergency Provider Emergency Medicine; PCP Nurse Practitioner Family
DX: Z76.0 Encounter for issue of repeat prescription (principal); E10.9 Type 1 diabetes mellitus without complications; F17.210 Nicotine dependence, cigarettes, uncomplicated; I10 Essential (primary) hypertension; E78.5 Hyperlipidemia, unspecified; Z79.4 Long term (current) use of insulin; Z79.899 Other long term (current) drug therapy
CPT/HCPCS: 99282

== ENCOUNTER 2023-02-08 13:26 | Emergency (ER) | payer OTHER, SELFPAY ==
--- NOTE | ~2023-02-08 | CT_ITS ---
EXAMINATION: CT ABDOMEN AND PELVIS WITHOUT CONTRAST CLINICAL INFORMATION: Left flank pain COMPARISON: None available. TECHNIQUE: Multidetector volumetric imaging was performed from the superior aspect of the liver through the pubic symphysis. Sagittal and coronal reformatted images were obtained on the technologist's workstation. This CT examination was performed using dose optimization techniques as appropriate, variously including the following: *Automated exposure control *Adjustment of mA and/or kV according to patient size (this includes techniques or standardized protocols for targeted exams where dose is matched to indication/reason for exam; i.e. extremities or head) *Use of iterative reconstruction technique DLP: 541 mGy-cm FINDINGS: LUNG BASES: The visualized lung bases are unremarkable. LIVER, GALLBLADDER, AND BILIARY TREE: The liver is normal in size, shape, and attenuation. No focal hepatic lesion or biliary ductal dilatation is present. The gallbladder is unremarkable with no evidence of radiopaque gallstones, gallbladder wall thickening, or obvious pericholecystic inflammatory changes. PANCREAS: Unremarkable. SPLEEN: Unremarkable. ADRENAL GLANDS: Unremarkable. KIDNEYS AND URETERS: The kidneys are normal in size, shape, and attenuation. There are bilateral nonobstructive radiopaque renal calculi in upper mid and lower poles. The largest radiopaque calculi measures 5 mm in upper pole left kidney and 5 mm in midpole right kidney. There is no caliectasis or hydronephrosis. BLADDER: Unremarkable. GASTROINTESTINAL TRACT: Scattered stool and gas is seen throughout the colon without distention. No free air or free fluid. Appendix is normal caliber. ABDOMINAL WALL: No significant hernia is appreciated. LYMPH NODES: Normal. VASCULAR: Unremarkable. PELVIC VISCERA: The prostate gland is normal size. No free fluid OSSEOUS STRUCTURES: No aggressive lytic or sclerotic process. CT/CT abdomen pelvis wo IV con IMPRESSION: 1. Bilateral nonobstructive radiopaque renal calculi. No caliectasis or hydronephrosis. 2. Mild constipation. Fleischner guidelines were followed.
[2023-02-08 14:26] VITALS: BP 189/95; PULSE 100; RESP 18; TEMP 36.8; O2SAT 98; BMI 26.6
--- NOTE | 2023-02-08 14:29 | ED_ITS ---
HPI - General Adult General Chief complaint: Back Pain/Injury Stated complaint: L Lower Back Pain No Injury Related Data Previous Rx's Medication Instructions Recorded blood-glucose meter #1 ea 07/23/22 pen needle, diabetic 29 gauge x #100 ea 11/21/2206/04 (BD Ultra-Fine Original Pen Needle) blood sugar diagnostic (FreeStyle #100 ea 01/09/23 Lite Strips) blood-glucose meter (FreeStyle #1 ea 01/09/23 [place] Lite kit) blood-glucose sensor (Dexcom G7 #3 ea 01/09/23 Sensor device) glucagon 3 mg/actuation nasal 3 mg intranasal ONCE #2 ea 01/09/23 spray (Baqsimi) cholecalciferol (vitamin D3) 25 25 mcg PO DAILY #90 caps 02/01/23 mcg (1,000 unit) capsule (Vitamin D3) pen needle, diabetic 29 gauge x #100 ea 02/02/2306/04 (BD Ultra-Fine Original Pen Needle) insulin lispro 100 unit/mL 20 unit (0.2 mL) subcut TID #90 mL 02/07/23 subcutaneous pen lancets 28 gauge (FreeStyle #100 ea 02/08/23 Lancets) insulin glargine 100 unit/mL (3 40 unit (0.4 mL) subcut .evening 03/18/23 mL) subcutaneous pen (Lantus #15 mL Solostar U-100 Insulin) pyridoxine (vitamin B6) 100 mg 100 mg PO DAILY 90 days #90 tabs 03/29/23 tablet levothyroxine 50 mcg tablet 50 mcg PO DAILY #30 tabs 05/14/23 (Synthroid) lisinopril 5 mg tablet 5 mg PO DAILY #90 tabs 05/14/23 rosuvastatin 5 mg tablet 5 mg PO DAILY #90 tabs 05/14/23 Allergies Allergy/AdvReac Type Severity Reaction Status Date / Time No Known Allergies Allergy Verified 05/14/23 10:01 [facility] Past Medical History Medical History Hypothyroidism Surgical History No pertinent past surgical history Social History Social History Household Members: Family Housing: Apartment Alcohol intake: current Alcohol intake frequency: does not drink Patient Tobacco Use Status: Current everyday Tobacco user Tobacco use type: Cigarette Cigarettes Per Day: 10 e-Cigarette/Vaping Use: Never Used Second Hand Smoke Exposure: Yes service: No Current occupational status: employed and unemployed Cognitive needs: No Hearing needs: No Vision needs: No Physical Exam ED Vital Signs: Vital Signs - 24 hr 02/08/23 14:26 Temperature 98.3 F Pulse Rate 100 Respiratory Rate 18 Blood Pressure 189/95 H Pulse Oximetry 98 Oxygen Delivery Method Room Air BMI result Body Mass Index 26.6 Course Course Course Narrative: RME- 42 year old male presents for evaluation of left flank pain. Reports history of kidney stones. Plan for labs, UA, and CT abdomen and pelvis Medical Decision Making Lab Data 02/08/23 14:42 02/08/23 14:42 Labs: Lab Results 02/08/23 02/08/23 02/08/23 Range/Units 14:42 14:45 20:59 WBC 11.8 H (4.8-10.8) X10*3/uL RBC 6.09 H (4.60-5.80) X10*6/uL Hgb 17.8 (14.0-18.0) g/dl Hct 52.3 H (42.0-52.0) % MCV 85.9 (80.0-98.0) fL MCH 29.2 (27.0-33.0) pg MCHC 34.0 (31.0-36.0) g/dl RDW 13.2 (11.0-16.0) % Plt Count 310 (160-400) X10*3/uL MPV 9.5 (9.4-12.4) fL Immature Gran % (Auto) 0.3 (0.0-0.4) % Neut % (Auto) 74.9 H (45-73) % Lymph % (Auto) 17.3 L (20-40) % [place] % (Auto) 5.3 (2-11) % Eos % (Auto) 1.6 (0-4) % Baso % (Auto) 0.6 (0-2) % Lymph # (Auto) 2.1 (1.2-4.9) X10*3/uL [place] # (Auto) 0.6 (0.1-1.2) X10*3/uL Eos # (Auto) 0.2 (0.0-0.4) X10*3/uL Baso # (Auto) 0.1 (0.0-0.2) X10*3/uL Abs Immat Gran (auto) 0.04 H (0.00-0.03) X10*3/uL Absolute Neuts (auto) 8.8 H (2.0-8.3) x10*3/uL Absolute Nucleated RBC 0.000 (0.0-0.012) X10*3/uL Nucleated RBC % (auto) 0.0 (0.0-0.2) /100WBC Sodium 142 (135-145) mmol/L Potassium 4.4 (3.3-5.1) mmol/L Chloride 107 (96-108) mmol/L Carbon Dioxide 25 (22-29) mmol/L Anion Gap 14 (12-20) BUN 13 (9-16) mg/dL Creatinine 1.01 (0.5-1.4) mg/dL Estim Creat Clear Calc 94.0 Estimated GFR > 60 POC Glucose 62 (60-115) mg/dL Random Glucose 164 H (60-115) mg/dL Calcium 11.0 H D (8.4-10.2) mg/dL Total Bilirubin 0.3 (0.0-1.0) mg/dL AST 13 (5-37) U/L ALT 14 (0-40) U/L Alkaline Phosphatase 128 H (39-117) U/L Total Protein 8.7 H (6.5-8.0) g/dL Albumin 4.7 (3.5-5.0) g/dL Lipase 13 (8-78) U/L Urine Color Yellow Urine Appearance Clear Urine pH 6.0 (5.0-9.0) Ur Specific [place] 1.020 (1.005-1.025) Urine Protein Trace (Neg-Trace) mg/dL Urine Glucose (UA) 100 H (Negative) mg/dL Urine Ketones Negative (Negative) mg/dL Urine Blood Moderate (2+) H (Negative) Urine Nitrite Negative (Negative) Ur Leukocyte Esterase Negative (Negative) Urine RBC 11-20 H (0-2) /HPF Urine WBC 0-5 (0-5) /HPF Ur Squamous Epith Cells 0-2 (0-2) /HPF Urine Bacteria None Seen (None Seen) Hyaline Casts 3-5 (0-2) /LPF Discharge Plan Discharge Clinical Impression: Acute left flank pain Patient Disposition: Elopement Prescriptions: No Action (DME) pen needle, diabetic [BD Ultra-Fine Orig Pen Needle] 29 gauge x 1/2 needle See Rx Instructions .Route Qty: 100 5RF Rx Instructions: test 4 times daily cholecalciferol (vitamin D3) [Vitamin D3] 25 mcg (1,000 unit) capsule 25 mcg PO DAILY Qty: 90 1RF insulin lispro 100 unit/mL insulin pen 20 unit subcut TID Qty: 90 3RF (DME) lancets [FreeStyle Lancets] 28 gauge misc See Rx Instructions .Route Qty: 100 4RF Rx Instructions: As directed tests 4 X/day insulin glargine [Lantus Solostar U-100 Insulin] 100 unit/mL (3 mL) insulin pen 40 unit subcut .evening Qty: 15 3RF (DME) blood-glucose meter Kit See Rx Instructions .Route Qty: 1 0RF Rx Instructions: As directed (DME) pen needle, diabetic [BD Ultra-Fine Orig Pen Needle] 29 gauge x 1/2 needle See Rx Instructions .Route Qty: 100 0RF Rx Instructions: As directed- Use to test 4 Times a day lisinopril 5 mg tablet 5 mg PO DAILY Qty: 90 1RF levothyroxine [Synthroid] 50 mcg tablet 50 mcg PO DAILY Qty: 30 3RF rosuvastatin 5 mg tablet 5 mg PO DAILY Qty: 90 1RF pyridoxine (vitamin B6) 100 mg tablet 100 mg PO DAILY 90 Days Qty: 90 3RF (DME) Dexcom G7 Sensor Device See Rx Instructions .Route Qty: 3 5RF Rx Instructions: As directed change every 10 days (DME) blood-glucose meter [FreeStyle [place] Lite] Kit See Rx Instructions .Route Qty: 1 0RF Rx Instructions: As directed tests 4 X/day (DME) FreeStyle Lite Strips Strip See Rx Instructions .Route Qty: 100 4RF Rx Instructions: As directed tests 4X/day Baqsimi 3 mg/actuation spray,non-aerosol 3 mg intranasal ONCE Qty: 2 5RF Discharge Date/Time: 02/08/23 21:40
[2023-02-08 14:46] LABS: MANUAL DIFF FLAG NO
[2023-02-08 14:56] LABS: Basophils Absolute Auto 0.1 X10*3/uL (0.0-0.2); Basophils Percent Auto 0.6 % (0-2); Eosinophils Absolute Auto 0.2 X10*3/uL (0.0-0.4); Eosinophils Percent Auto 1.6 % (0-4); Hematocrit 52.3 % (42.0-52.0); Hemoglobin 17.8 g/dl (14.0-18.0); Imm Gran Abs Auto 0.04 X10*3/uL (0.00-0.03); Imm Gran Pct Auto 0.3 % (0.0-0.4); Lymphocytes Absolute Auto 2.1 X10*3/uL (1.2-4.9); Lymphocytes Percent Auto 17.3 % (20-40); Mean Corpuscular Hemoglobin 29.2 pg (27.0-33.0); Mean Corpuscular Volume 85.9 fL (80.0-98.0); Mean Platelet Volume 9.5 fL (9.4-12.4); Monocytes Absolute Auto 0.6 X10*3/uL (0.1-1.2); Monocytes Percent Auto 5.3 % (2-11); Neutrophils Absolute Auto 8.8 x10*3/uL (2.0-8.3); Neutrophils Percent Auto 74.9 % (45-73); Platelet Count 310 X10*3/uL (160-400); Red Blood Count 6.09 X10*6/uL (4.60-5.80); Red Cell Distribution Width 13.2 % (11.0-16.0); White Blood Count 11.8 X10*3/uL (4.8-10.8)
[2023-02-08 15:02] LABS: Alanine Aminotransferase 14 U/L (0-40); Albumin Level 4.7 g/dL (3.5-5.0); Alkaline Phosphatase 128 U/L (39-117); Anion Gap 14 (12-20); Aspartate Amino Transferase 13 U/L (5-37); Bilirubin Total 0.3 mg/dL (0.0-1.0); Blood Urea Nitrogen 13 mg/dL (9-16); Carbon Dioxide 25 mmol/L (22-29); Chloride 107 mmol/L (96-108); Estimated Glomerular Filt Rate > 60; Glucose Random 164 mg/dL (60-115); Lipase 13 U/L (8-78); Potassium 4.4 mmol/L (3.3-5.1); Sodium 142 mmol/L (135-145); Total Protein 8.7 g/dL (6.5-8.0)
[2023-02-08 15:05] LABS: Appearance Urine Clear; Color Urine Yellow; Glucose Urine UA 100 mg/dL (Negative); Leukocyte Esterase Urine Negative (Negative); Nitrite Urine Negative (Negative); UMIC TRIGGER UACC YES; Urine Blood Moderate (2+) (Negative); Urine Ketones Negative (Negative); Urine Protein Trace mg/dL (Neg-Trace)
[2023-02-08 15:10] LABS: Bacteria Urine None Seen (None Seen); Squamous Epithelial Cell Urine 0-2 /HPF (0-2); WBC Urine 0-5 /HPF (0-5)
[2023-02-08 21:04] LABS: Glucose, Whole Blood 62 mg/dL (60-115)
== END 2023-02-08 21:40 | disposition left against medical advice (07) ==
PROVIDERS: Physician Assistant; Emergency Provider Emergency Medicine; PCP Nurse Practitioner Family
DX: N20.0 Calculus of kidney (principal); K59.00 Constipation, unspecified; R10.9 Unspecified abdominal pain; E10.9 Type 1 diabetes mellitus without complications; I10 Essential (primary) hypertension; E78.5 Hyperlipidemia, unspecified; F17.210 Nicotine dependence, cigarettes, uncomplicated; Z87.442 Personal history of urinary calculi; Z79.4 Long term (current) use of insulin; Z79.899 Other long term (current) drug therapy
CPT/HCPCS: 36415; 74176; 80053; 81001; 82947; 83690; 85025; 99282; 99284

== ENCOUNTER 2023-02-12 09:09 | Outpatient (AMB) | payer OTHER, SELFPAY ==
--- NOTE | 2023-02-12 09:11 | A.OFFPC_ITS ---
Vital Signs 02/12/23 09:13 Height 5 ft 8 in Weight 185 lb 6 oz BMI 28.2 BP 132/80 Blood Pressure Location Lt brachial Position Sitting Pulse 106 H Pulse Source Pulse Oximeter Pulse Oximetry (%) 96 Oxygen Delivery Method Room Air Intake Visit Reasons: DM type 1,hyperlipidemia Intake Note: Patient is here to follow up on T1DM, Hyperlipidemia. Requesting for lab results and CT scan. Bowling Ball Grader And Marker Required: No Modular Set Crew Member: Not Required per policy Accompanied by: Self / Same As Patient Allergies No Known Allergies Allergy (Verified 02/12/23 09:12) Tobacco use date assessed: 02/12/23 Dental Screening Dental Screen Date: 02/12/23 Did you have a dental visit in the last 12 months?: Yes Did you have a dental problem in the last 6 months where you did not have access to dental care?: No Was dental information given to patient?: Patient has dentist HPI HPI Comments History of Present Illness Details 41-year-old male new patient presents to [facility] to [facility] care.Patient recently moved from [place] in Jun. Past medical history significant for Type 1 DM diagnosed at age 5,hypothyroidism. Patient presents today for physical exam. Hemoglobin A1c: 9.7% in January. Review of the notes patient has been seen by roll wrapper and Dexcom meter was prescribed patient is going to see diabetic grooving lathe tender and and educator. Patient report elevated blood sugars in the morning in 200. Patient's total cholesterol elevated 229 and LDL is 153. Patient previously started on statin medication last visit. Repeat blood work ordered at that time however I do not see the results this. Patient reminded to get repeat fasting lab work completed. Patient was also seen in the emergency room on 02/08/2023 for right flank pain, patient reports felt the same as when he had a kidney stone in the past. patient reports weighted 9 hours and left without seeing a DR. abdominal CT did reveal bilateral nonobstructive renal calculi. Referral placed to urology for this. Patient also reports has been ch ecking his blood pressure daily and states that his blood pressure has been elevated in the 140 systolic we every day, will start patient on low-dose lisinopril for hypertension. [facility] Medical History (Updated 02/12/23 @ 09:41 by ILYA Franklin) Hypothyroidism Surgical History (Updated 02/12/23 @ 09:20 by DAMIAN Carrion) No pertinent past surgical history Social History (Updated 02/12/23 @ 09:20 by DAMIAN Carrion) Household Members: Family Housing: Apartment Alcohol intake: current Alcohol intake frequency: does not drink Patient Tobacco Use Status: Current everyday Tobacco user Tobacco use type: Cigarette Cigarettes Per Day: 7 e-Cigarette/Vaping Use: Never Used Second Hand Smoke Exposure: Yes service: No Current occupational status: employed and unemployed Cognitive needs: No Hearing needs: No Vision needs: No Questionnaire Thrive Questionnaire Date Thrive assessed: 10/11/22 PENG-7 AMB Questionnaire PENG-7 Date PENG - 7 assessed: 11/12/22 Source: Developed by Drs. Donis Morris, Tatyana Caldwell, Toribio Greco and colleagues, with an educational adrienne from [employer]. Review of Systems Const Denies chills, Denies fatigue, Denies fever(s) and Denies poor appetite Eyes Denies no additional complaints ENT Reports Normal hearing present Card Denies chest pain, Denies syncope, Denies rapid heart rate and Denies dyspnea Resp Denies cough and Denies dyspnea GI Denies change in stool character, Denies constipation, Denies diarrhea, Denies nausea and Denies vomiting Denies dysuria, Denies urinary frequency and Denies urinary urgency Neuro Reports Normal hearing present, Denies confusion and Denies syncope Psych Denies confusion Endo Denies fatigue Physical exam (Primary Care) Vital Signs: Last Vital Signs Pulse 106 H 02/12/23 09:13 BP 132/80 02/12/23 09:13 Pulse Ox 96 02/12/23 09:13 Oxygen Delivery Method Room Air 02/12/23 09:13 BMI result Body Mass Index 28.2 Tobacco/Smoking Status: Tobacco use Status Tobacco use date assessed 02/12/23 02/12/23 09:16 Patient Tobacco Use Status Current everyday Tobacco 02/12/23 09:20 Tobacco use type Cigarette 02/12/23 09:20 e-Cigarette/Vaping Use Never Used 02/12/23 09:20 Thrive Assessment: Date of Thrive Assessment Date Thrive assessed 10/11/22 02/12/23 09:16 Const General: No confusion Orientation/consciousness: No confusion HENMT Head: Yes normocephalic and Yes atraumatic Eyes Conjunctivae: conjunctivae normal Chest Chest palpation & inspection: normal inspection of the chest Resp Effort & Inspection: normal respiratory effort Auscultation: clear to auscultation bilaterally, no crackles, no rhonchi and no wheezes Cardio Rate: regular rate Rhythm: regular rhythm Heart sounds: S1 normal heart sound present and S2 normal heart sound present GI Inspection: Yes normal to inspection Neuro General: No confusion Cranial nerves: Yes Normal hearing present Extrem General: No edema Assessment and Plan Assessment & Plan (1) Diabetes type I: Onset Date: ~09/20/22 Comment: DX age 5 Code(s): E10.9 - Type 1 diabetes mellitus without complications Plan: Continue on insulin lispro 20 units t.i.d. and Lantus 40 units in the evening. Continue to follow with endocrinology. Hemoglobin A1c 9.7%, goal < 6.5% Patient educated to decrease the amount of carbohydrate intake such as pasta, bread, rice and potatoes are all sugar in addition to the sweet stuff. Remember that fruits are good but they also have sugar. (2) Hyperlipidemia LDL goal <100: Code(s): E78.5 - Hyperlipidemia, unspecified Plan: Patient advised to get repeat lipid panel completed. LDL goal less than 100. Continue on rosuvastatin. Avoid fried foods, chicken skin, eggs, butter,margarine, pastries and? red meat. (3) Hypothyroidism: Code(s): E03.9 - Hypothyroidism, unspecified Plan: Continue on levothyroxine 50 mcg daily. (4) Vitamin D deficiency: Code(s): E55.9 - Vitamin D deficiency, unspecified Plan: Continue on Vit D supplementation (5) Hypertension: Code(s): I10 - Essential (primary) hypertension Plan: Given patient reports elevated blood pressures daily in the 140 systolic we will start patient on low-dose lisinopril 5 mg daily. Patient advised to continue to monitor blood pressures at home after sitting down for 3-5 minutes and keep a log and notify PCP with any elevated blood pressure readings. Follow low-salt diet and exercise. (6) Renal calculi: Code(s): N20.0 - Calculus of kidney Plan: Referral placed to urology. Plan Follow up in 3 months Orders: Orders TSH reflex Free T4 Today E03.9 - Hypothyroidism, unspecified Referrals Urology Referral N20.0 - Calculus of kidney Medications: New lisinopril 5 mg PO DAILY 90 tabs 1RF I10 - Essential (primary) hypertension Coding Level of Care Code Est Pt Level 4 (52764) Diagnoses Diabetes type I E10.9 Hyperlipidemia LDL goal <100 E78.5 Hypothyroidism E03.9 Vitamin D deficiency E55.9 Hypertension I10 Renal calculi N20.0
[2023-02-12 09:13] VITALS: BP 132/80; PULSE 106; O2SAT 96; BMI 28.2
== END 2023-02-12 09:47 | disposition home or self-care (01) ==
PROVIDERS: PCP Nurse Practitioner Family; Visit Provider Nurse Practitioner Family
DX: E10.9 Type 1 diabetes mellitus without complications (principal); E03.9 Hypothyroidism, unspecified; E55.9 Vitamin D deficiency, unspecified; I10 Essential (primary) hypertension; E78.5 Hyperlipidemia, unspecified; N20.0 Calculus of kidney
CPT/HCPCS: 99214

== ENCOUNTER 2023-02-12 09:52 | Outpatient (REF) | payer OTHER, SELFPAY ==
[2023-02-12 11:05] LABS: Cholesterol 214 mg/dL (<200); HDL Cholesterol 46 mg/dL (>40); LDL Cholesterol Calculated 129 mg/dL (<100); Triglycerides 196 mg/dL (<150)
[2023-02-12 11:26] LABS: TSH reflex Free T4 3.09 uIU/mL (0.32-4.0); Vitamin D 25-OH Total 36.7 ng/mL (>30)
== END 2023-02-12 09:53 | disposition home or self-care (01) ==
LOC: HO.LAB 09:52
PROVIDERS: PCP Nurse Practitioner Family; Visit Provider Nurse Practitioner Family
DX: Z13.220 Encounter for screening for lipoid disorders (principal); Z13.21 Encounter for screening for nutritional disorder; E03.9 Hypothyroidism, unspecified
CPT/HCPCS: 36415; 80061; 82306; 84443

== ENCOUNTER 2023-02-20 14:48 | Outpatient (AMB) | payer OTHER, SELFPAY ==
--- NOTE | 2023-02-20 15:33 | MHC.AMDMED ---
Intake Intake Visit Reasons: DM, voicemail Senior Medical Transcriptionist Required: No Accompanied by: Self / Same As Patient Allergies No Known Allergies Allergy (Verified 02/12/23 09:12) HPI Comprehensive Diabetes Asmnt General Diabetes type type 1 Age of onset 5 years Most Recent Diabetes Results: Cholesterol 214 mg/dL (<200) H 02/12/23 HDL Cholesterol 46 mg/dL (>40) 02/12/23 Triglycerides 196 mg/dL (<150) H 02/12/23 Creatinine 1.01 mg/dL (0.5-1.4) 02/08/23 Blood Urea Nitrogen 13 mg/dL (9-16) 02/08/23 Sodium 142 mmol/L (135-145) 02/08/23 Potassium 4.4 mmol/L (3.3-5.1) 02/08/23 Chloride 107 mmol/L (96-108) 02/08/23 Carbon Dioxide 25 mmol/L (22-29) 02/08/23 Calcium 11.0 mg/dL (8.4-10.2) H 02/08/23 AST 13 U/L (5-37) 02/08/23 ALT 14 U/L (0-40) 02/08/23 Total Protein 8.7 g/dL (6.5-8.0) H 02/08/23 Albumin 4.7 g/dL (3.5-5.0) 02/08/23 PFSH Medical History (Updated 02/12/23 @ 09:41 by ILYA Franklin) Hypothyroidism Surgical History (Updated 02/12/23 @ 09:20 by DAMIAN Carrion) No pertinent past surgical history Social History (Updated 02/12/23 @ 09:20 by DAMIAN Carrion) Household Members: Family Housing: Apartment Alcohol intake: current Alcohol intake frequency: does not drink Patient Tobacco Use Status: Current everyday Tobacco user Tobacco use type: Cigarette Cigarettes Per Day: 7 e-Cigarette/Vaping Use: Never Used Second Hand Smoke Exposure: Yes service: No Current occupational status: employed and unemployed Cognitive needs: No Hearing needs: No Vision needs: No Assessment & Plan Assessment & Plan (1) Diabetes type I: Onset Date: ~09/20/22 Comment: DX age 5 Code(s): E10.9 - Type 1 diabetes mellitus without complications Plan Learning objectives: The patient was provided with verbal and written education on the following topics as outlined below. The patient met all learning objectives and was able to verbalize understanding and provide teach back of education topics discussed . The patient was provided with the opportunity to ask questions and all questions were answered. Patient Assessment Assess patient education level/literacy/barriers Patient questions/concerns, patient was diagnosed with type 1 diabetes at 5 years old. Patient recently moved from [place] in June 2022. He is use Dexcom G7 for approximately 1 month. Current insulin regimen is Lantus 40 units daily, Humalog 20 units before meals. Patient reports that if his glucose is in normal range she will drop Humalog dose to 15 units before meals. Patient also reports he has been taking pre meal insulin to an hour before meals if his glucose levels high and waiting to see trend down reports. Reviewed with patient action of both Lantus and Humalog Recommended to patient he take Humalog 15 minutes before meals best postprandial glucose numbers In addition we discussed if patient we interested in insulin pump therapy. Discussed patient the importance carbohydrate counting when using certain insulin pumps. At next Education visit discuss insulin pump options What is Diabetes? Pathophysiology How the body produces and uses insulin Identify type of DM Risk factors Signs of Diabetes Brief overview of Diabetes Management Monitoring blood sugar Following a meal plan Regular exercise Maintaining a healthy weight Taking medication as needed Members of the care team (PCP, RN, MA, RD, CDE, fast food manager) Blood glucose monitoring When/how often to test Target blood sugar ranges Patient is currently using Dexcom G7 Average glucose for the past 2 weeks 143 mg/dL Patient above target 27% Patient at target 63% Patient below target 10% Patient is having frequent overnight hypoglycemia with some postprandial hypoglycemia Patient reports if he does not eat in the afternoon he has frequently experienced hypoglycemia as well Patient reports he takes Lantus 40 units, will reduce Lantus to 35 units Introduction to Nutrition Importance of healthy diet in managing DM Diet is personalized to individual preference Review patient?s regular diet/food preferences Who prepares meals/does food shopping/ Dining out?/ Barriers? How diet effects glucose Eating 3 balanced meals a day with small, healthy snacks between meals Review food groups Carbohydrates: What is a carbohydrate/Which food/food groups are considered carbohydrates Effect of carbohydrates on blood glucose Portion sizes Reading food labels Basic carb counting (if applicable per nursing assessment) Plate method Meal planning Recommendations: Follow plate method, consistent carbs and read nutritional labels. Smart Goal: Patient will assess the amount of carbohydrate he is eating for meals, patient will keep meals from 45-60 g per meal Educational Materials: The patient was provided with the following written educational materials: Planning Healthy Meals Handout Patient Response to instructions: Comprehension of Instructions: Fair Readiness to make changes: Contemplation How confident they feel about making changes: Fair Patient Instructions: Reduce Lantus from 40 units to 35 units daily Coding Level of Care Code Tele Est Pt Level 1 (20570) Diagnoses Diabetes type I E10.9
== END 2023-02-20 15:41 | disposition home or self-care (01) ==
PROVIDERS: PCP Nurse Practitioner Family; Visit Provider Registered Nurse Diabetes Educator
DX: E10.9 Type 1 diabetes mellitus without complications (principal)
CPT/HCPCS: 99211

== ENCOUNTER → 2023-02-20 14:48 | Outpatient (BNVA) | payer OTHER, SELFPAY | PROVIDERS: PCP Nurse Practitioner Family; Visit Provider Registered Nurse Diabetes Educator ==

== ENCOUNTER 2023-03-20 13:44 | Outpatient (AMB) | payer OTHER, SELFPAY ==
[2023-03-20 14:16] VITALS: BMI 28.3
--- NOTE | 2023-03-20 14:16 | A.OFFVIS_ITS ---
Intake VS Expanded 03/20/23 14:16 03/28/23 20:43 Height 5 ft 8 in 5 ft 8 in Weight 186 lb 1.122 oz 186 lb BMI 28.3 28.3 Intake Visit Reasons: DM, appt confirmed Allergies No Known Allergies Allergy (Verified 02/12/23 09:12) HPI Nutrition Presentation Details Pt presents for MNT for T1 DM since age of 5 yrs old. Pt was referred by Dr. Lehman Pt reports needing review on carb counting. Typical meal B: 1, toast butter , coffee coffee with milk /sugar tsp f not , scrambled eggs with toast and coffee or 1/2 sandwich L: crackers with butter D: rice/beans/chicken /salad, water not counting carbs Not taking MVI Beverages: reg soda/coffee, water fruits: 0-1/d ve-2 serving/wk dairy : 0-1 , cheese mostly or milk in coffee prot: 10-12 oz/d starches > 22 serving/d [id number].Jeor Equation Height 5 ft 8 in Weight 186 lb Resting Metabolic Rate 1730.54 Calculated Activity Level Sedentary Calories Needed to Maintain Weight 2076.65 Diagnosis Nutrition problem #1 excessive oral intake and inadequate protein energy As related to (etiology) #1 diagnosis (A1c at 9.7% (01/2023)) As evidenced by (sign/symptom) #1 food recall and elevated HgbA1c (9.7% (01/2023)) Monitoring/Goals Nutrition problem monitoring HgbA1c, total PRO intake and total CHO intake Nutrition goal/outcome list 3 CHO foods (prot) Outcome progress verbalized understanding Learning/Education Readiness to learn good Stages of change pre-contemplation Educational materials provided Yes (meal planning, carb counting) Most Recent Diabetes Results: Cholesterol 214 mg/dL (<200) H 02/12/23 HDL Cholesterol 46 mg/dL (>40) 02/12/23 Triglycerides 196 mg/dL (<150) H 02/12/23 Creatinine 1.01 mg/dL (0.5-1.4) 02/08/23 Blood Urea Nitrogen 13 mg/dL (9-16) 02/08/23 Sodium 142 mmol/L (135-145) 02/08/23 Potassium 4.4 mmol/L (3.3-5.1) 02/08/23 Chloride 107 mmol/L (96-108) 02/08/23 Carbon Dioxide 25 mmol/L (22-29) 02/08/23 Calcium 11.0 mg/dL (8.4-10.2) H 02/08/23 AST 13 U/L (5-37) 02/08/23 ALT 14 U/L (0-40) 02/08/23 Total Protein 8.7 g/dL (6.5-8.0) H 02/08/23 Albumin 4.7 g/dL (3.5-5.0) 02/08/23 PFSH Medical History (Updated 03/28/23 @ 20:[address], LDN) Hypothyroidism Surgical History (Updated 02/12/23 @ 09:20 by DAMIAN Carrion) No pertinent past surgical history Social History (Updated 02/12/23 @ 09:20 by DAMIAN Carrion) Household Members: Family Housing: Apartment Alcohol intake: current Alcohol intake frequency: does not drink Patient Tobacco Use Status: Current everyday Tobacco user Tobacco use type: Cigarette Cigarettes Per Day: 7 e-Cigarette/Vaping Use: Never Used Second Hand Smoke Exposure: Yes service: No Current occupational status: employed and unemployed Cognitive needs: No Hearing needs: No Vision needs: No Assessment & Plan Assessment & Plan (1) Diabetes type I: Comment: DX age 5 Code(s): E10.9 - Type 1 diabetes mellitus without complications Plan: wt: 84 kg Est kcal needs as per MSJ: 2100 (40% carb, 30% protein/fat) Est fluid needs as per 25-30 ml/d: 2100 Est prot per day as per 1 g/kg bw: 84 Recommend fiber intake : 8-10 g per day and gradually increase to 25-28 g per day for women and 35-38 g for men or as tolerated Recommend sodium intake per day : less than 2000 mg Educated patient on: ( R = reviewed V = verbalizes understanding N/R = needs review N/A = not applicable * Food sources of carbohydrate, adequate serving sizes and its role in various health conditions: R * Differences between complex carbohydrates a simple carbohydrates, role of fiber in diet: R * Differences between types of fats and role in diet (mono on saturated fat fatty acids, saturated fatty acids, trans fats): R basic * Food sources of sodium in salt and healthy modifications for heart health in kidney health: R basic * Vitamins and minerals: R * Healthy plate method concept: R V * Physical activity: Benefits a precaution: R * Hypoglycemia protocol (rule of 15): R * Dietary prevention of Hyperglycemia: R Patient Instructions: Start counting carb at dinner , become familiar with portion of carbs ( goal 80 g of carbs following healthy plate method see meal ideas Coding Level of Care Code Nutr Indiv Intake (01028) Diagnoses Diabetes type I E10.9 Time Spent (min) 30
[2023-03-28 20:43] VITALS: BMI 28.3
== END 2023-03-20 15:11 | disposition home or self-care (01) ==
PROVIDERS: PCP Nurse Practitioner Family; Visit Provider Dietitian, Registered
DX: E10.9 Type 1 diabetes mellitus without complications (principal)

== ENCOUNTER → 2023-03-20 13:44 | Outpatient (BNVA) | payer OTHER, SELFPAY | PROVIDERS: PCP Nurse Practitioner Family; Visit Provider Dietitian, Registered | DX: E10.9 Type 1 diabetes mellitus without complications (principal) | CPT/HCPCS: 97802 ==

== ENCOUNTER 2023-03-29 09:42 | Outpatient (REF) | payer OTHER, SELFPAY ==
[2023-03-29 16:08] LABS: Urine Cytology See Pathology rpt
== END 2023-03-29 09:43 | disposition home or self-care (01) ==
LOC: HO.LAB 09:42
PROVIDERS: PCP Nurse Practitioner Family; Visit Provider Nurse Practitioner Family
DX: R31.9 Hematuria, unspecified (principal); N20.0 Calculus of kidney; Z79.4 Long term (current) use of insulin; Z79.899 Other long term (current) drug therapy
CPT/HCPCS: 81003; 88112

== ENCOUNTER 2023-03-29 09:42 | Outpatient (AMB) | payer OTHER, SELFPAY ==
--- NOTE | 2023-03-29 09:44 | MHC.OFFVIS ---
Intake Intake Visit Reasons: calculus of kidney Intake Note: Pt presents to the office today for a new patient appt for calculus of kidney. Urinalysis done blood thinners:None Urology Meds:None Allergies No Known Allergies Allergy (Verified 03/31/23 14:14) Medication List - Last Reconciled 03/31/23 by OMAR Washburn blood sugar diagnostic (FreeStyle Lite Strips) As directed tests 4X/day blood-glucose meter As directed blood-glucose meter (FreeStyle [place] Lite kit) As directed tests 4 X/day blood-glucose sensor (CleanTie G7 Sensor device) As directed change every 10 days cholecalciferol (vitamin D3) (Vitamin D3) 25 mcg PO DAILY glucagon 3 mg/actuation (Baqsimi) 3 mg intranasal ONCE insulin glargine (Lantus Solostar U-100 Insulin) 40 units (0.4 mL) subcut .evening insulin lispro 20 units (0.2 mL) subcut TID lancets (FreeStyle Lancets) As directed tests 4 X/day levothyroxine (Synthroid) 50 mcg PO DAILY lisinopril 5 mg PO DAILY pen needle, diabetic (BD Ultra-Fine Original Pen Needle) As directed- Use to test 4 Times a day pen needle, diabetic (BD Ultra-Fine Original Pen Needle) test 4 times daily pyridoxine (vitamin B6) 100 mg PO DAILY 90 days rosuvastatin 5 mg PO DAILY HPI HPI Comments History of Present Illness Details Juan Daniel is a very pleasant 42-year-old male patient of . He has a past medical history of hypothyroidism. He presents to the office today as a new patient for nephrolithiasis. In discussion with the patient today reports to be doing and feeling well. He reports previously following up in the emergency room for acute left-sided flank pain at which time a CT of the abdomen was ordered and performed. These results were reviewed with the patient today. The kidneys are normal in size, shape, and attenuation. There are bilateral nonobstructive radiopaque renal calculi in the upper mid and lower poles. The largest radiopaque calculi measuring 5 mm in the upper pole left kidney and 5 mm in the mid pole right kidney. There is no hydronephrosis. The bladder is unremarkable. Patient reports having left emergency room AMA as he had been waiting over 9 hours. He discusses having follow-up with his PCP status post emergency room visit thus his referral here. He reports left-sided flank pain has since subsided. Discussed at length potential causes for nephrolithiasis. Discussed and stressed the importance of drinking plenty of water daily. Patient endorses to not be drinking enough water daily. He states typically he drinks 1-2 8-16 oz bottles of water daily. He otherwise denies any bothersome urinary issues or concerns. He denies urinary urgency, urinary frequency, incontinence, nocturia, hematuria, dysuria, foul smelling urine, changes to urinary stream, flank pain, fever, and or chills. He is happy with his current voiding parameters. Discussed obtaining renal ultrasound in 3 months for surveillance monitoring versus surgical intervention. Discussed surveillance monitoring versus surgical intervention at length. Discussed risks and benefits of surveillance monitoring versus surgical intervention. In office urinalysis results reviewed with the patient today. [facility] Medical History Hypothyroidism Surgical History No pertinent past surgical history Social History (Updated 03/29/23 @ 09:51 by Katy Durán MA) Household Members: Family Housing: Apartment Alcohol intake: current Alcohol intake frequency: does not drink Patient Tobacco Use Status: Current everyday Tobacco user Tobacco use type: Cigarette Cigarettes Per Day: 10 e-Cigarette/Vaping Use: Never Used Second Hand Smoke Exposure: Yes service: No Current occupational status: employed and unemployed Cognitive needs: No Hearing needs: No Vision needs: No Review of Systems Const All systems reviewed & are unremarkable except as noted in HPI and below Reports no additional complaints Eyes Reports no additional complaints ENT Reports no additional complaints Card Reports no additional complaints Resp Reports no additional complaints GI Reports no additional complaints Reports as per HPI Musc Reports no additional complaints Neuro Reports no additional complaints Psych Reports no additional complaints Endo Reports as per HPI Physical Exam Const General: cooperative, comfortable, no acute distress, well developed, alert and awake Orientation/consciousness: patient oriented x3 HEENT Head: Yes normal to inspection, Yes normocephalic and Yes atraumatic Ears: hearing grossly normal bilaterally Eyes General: appearance normal, both eyes and all related structures Neck Neck: Yes normal visual inspection and Yes trachea midline Chest Chest palpation & inspection: normal inspection of the chest Resp Effort & Inspection: normal respiratory effort and able to speak in complete sentences Cardio Rate: regular rate GI Inspection: Yes normal to inspection General: Yes no CVA tenderness Back/Spine/Pelvis Back: no CVA tenderness Skin General skin exam: no rashes or lesions noted Neuro General: patient oriented x3 Extrem General: Yes normal to inspection Psych Appearance: grossly normal and well kempt Mental Status: mental status grossly normal Speech and movement: Normal speech and movement present and Clear speech present Affect: normal affect Attitude: cooperative Thought process: Normal thought process present Thought content: Normal thought content present Results AMB Urinalysis, Automated UA Leukoctes 0 Arielle/uL Last Edit by Katy Durán MA on 03/29/23 09:58 UA Nitrite Negative Last Edit by Katy Durán MA on 03/29/23 09:57 UA Urobilinogen 0.2 mg/dL Last Edit by Katy Durán MA on 03/29/23 09:57 UA Protein 30 mg/dL Last Edit by Katy Durán MA on 03/29/23 09:57 UA pH 5.5 Last Edit by Katy Durán MA on 03/29/23 09:57 UA Blood 200 Tico/uL Last Edit by Katy Durán MA on 03/29/23 09:57 UA Specific Jacob 1.020 Last Edit by Katy Durán MA on 03/29/23 09:57 UA Ketone Positive Last Edit by Katy Durán MA on 03/29/23 09:57 UA Bilirubin 0 mg/dL Last Edit by Katy Durán MA on 03/29/23 09:57 UA Glucose 100 mg/dL Last Edit by Katy Durán MA on 03/29/23 09:57 Results Reviewed Results Reviewed: Laboratory Last Values Urine pH (Auto) 5.5 03/29/23 09:53 Specific Jacob (Auto) 1.020 03/29/23 09:53 Urine Protein (Auto) 30 mg/dL 03/29/23 09:53 Glucose (UA)(Auto) 100 mg/dL 03/29/23 09:53 Urine Ketones (Auto) Positive 03/29/23 09:53 Urine Blood (Auto) 200 Tico/uL 03/29/23 09:53 Urine Nitrite (Auto) Negative 10/27/23 09:53 Urine Bilirubin (Auto) 0 mg/dL 03/29/23 09:53 Urine Urobilinogen (Auto) 0.2 mg/dL 03/29/23 09:53 Leukocyte Esterase (Auto) 0 Arielle/uL 03/29/23 09:53 Date of Service: 02/08/23 EXAMINATION: CT ABDOMEN AND PELVIS WITHOUT CONTRAST FINDINGS: LUNG BASES: The visualized lung bases are unremarkable. LIVER, GALLBLADDER, AND BILIARY TREE: The liver is normal in size, shape, and attenuation. No focal hepatic lesion or biliary ductal dilatation is present. The gallbladder is unremarkable with no evidence of radiopaque gallstones, gallbladder wall thickening, or obvious pericholecystic inflammatory changes. PANCREAS: Unremarkable. SPLEEN: Unremarkable. ADRENAL GLANDS: Unremarkable. KIDNEYS AND URETERS: The kidneys are normal in size, shape, and attenuation. There are bilateral nonobstructive radiopaque renal calculi in upper mid and lower poles. The largest radiopaque calculi measures 5 mm in upper pole left kidney and 5 mm in midpole right kidney. There is no caliectasis or hydronephrosis. BLADDER: Unremarkable. GASTROINTESTINAL TRACT: Scattered stool and gas is seen throughout the colon without distention. No free air or free fluid. Appendix is normal caliber. ABDOMINAL WALL: No significant hernia is appreciated. LYMPH NODES: Normal. VASCULAR: Unremarkable. PELVIC VISCERA: The prostate gland is normal size. No free fluid OSSEOUS STRUCTURES: No aggressive lytic or sclerotic process. IMPRESSION: 1. Bilateral nonobstructive radiopaque renal calculi. No caliectasis or hydronephrosis. 2. Mild constipation. Assessment & Plan Assessment & Plan (1) Renal calculi: Code(s): N20.0 - Calculus of kidney Plan In office urinalysis results reviewed with the patient today; as noted above; will send for urine cytology Discussed at length potential causes of microscopic hematuria; discussed likelihood of microscopic hematuria related to nephrolithiasis however patient does report smoking history Discussed further microscopic hematuria workup with CT urogram, cytology, and in office cystoscopy; however patient declines at this time Recent CT results reviewed with the patient today; as noted above. Discussed at length potential causes of nephrolithiasis. Start vitamin B6 as discussed and prescribed. Discussed importance of drinking plenty of water daily. Discussed adding 1 oz of lemon juice to water daily. Patient reports to be happy with current voiding parameters. Renal ultrasound in 3 months. Follow-up in 3 months with imaging to be completed prior; or sooner with any issues, concerns, and or questions. Orders: Orders US renal BI 3 Months N20.0 - Calculus of kidney Urine Cytology 03/29/23 R31.9 - Hematuria, unspecified AMB Urinalysis Automated 03/29/23 Z13.9 - Encounter for screening, unspecified Medications: New pyridoxine (vitamin B6) 100 mg PO DAILY 90 days 90 tabs 3RF N20.0 - Calculus of kidney Patient Instructions: The patient had an opportunity to ask questions regarding the treatment plan. All questions were answered. Physical exam, labs, and imaging were discussed and reviewed in detail. As well as risks, benefits, and discussion of treatment choices. No major barriers to understanding were identified. The patient expressed understanding and agreement with the above treatment plan. The patient was made aware they should contact our office by phone for worsening of their current condition, the appearance of new symptoms, or with any questions or concerns. Compliance is encouraged with any medications and follow up testing that is ordered. It is a privilege to be allowed the opportunity to participate in? your urological care.? Again, if you have any questions or concerns If you have any questions or concerns please do not hesitate to contact me. The office is [phone]. This note is constructed using voice recognition software. While every effort has been made to ensure accuracy stonemason errors may have been included. Yours sincerely, OMAR Washburn Coding Level of Care Code New Pt Level 4 (05677) Diagnoses Renal calculi N20.0
== END 2023-03-29 10:09 | disposition home or self-care (01) ==
PROVIDERS: PCP Nurse Practitioner Family; Visit Provider Nurse Practitioner Family
DX: N20.0 Calculus of kidney (principal)
CPT/HCPCS: 99204

== ENCOUNTER 2023-04-16 13:52 | Outpatient (AMB) | payer OTHER, SELFPAY ==
--- NOTE | 2023-04-16 14:09 | MHC.OFFVIS ---
Intake Vital Signs 04/16/23 14:10 Height 5 ft 8 in Weight 183 lb 10.321 oz BMI 27.9 BP 118/72 Blood Pressure Location Lt brachial Position Sitting Pulse 95 Pulse Source Pulse Oximeter Intake Visit Reasons: f/u Type 1DM-CONFIRMED Intake Note: Patient present today to follow up on Type 1 Diabetes Mellitus. Patient receives DME supplies through: Pharmacy Last Diabetic Eye exam: Few years ago. Last Podiatry Visit:None Random Glucose: 108 mg/dl HgA1C: 7.2% [place] Technician Required: No Accompanied by: Self / Same As Patient Allergies No Known Allergies Allergy (Verified 04/16/23 14:22) HPI HPI Comments History of Present Illness Details 42 YO M with is seen in consultation for T1DM at the request of PCP.Since age Initially diagnosed with T1DM in not sure when presented with []. Was initially started on treatment with insulin . Current regimen: Lantus 30 units Humalog 6 units TID Dexcom download shows using the sensor to 93% of the time. Average glucose is 157 with G mi of 7.1% and standard deviation 56. 58% range with 36% hyperglycemia and 6% hypoglycemia. Hypoglycemia is primarily occurring overnight Reports low sugars rarely . Treats lows with OJ . Not Checks sugar after to ensure it is rising. Family history of autoimmunity in lupus in mother Has eyes checked yearly, last eye exam . Needs to make appt , no retinopathy. Denies neuropathy,Not sees podiatry. Denies nephropathy,Not on RAINER/ARB. UAC [] measured on []. Has HLD, on statin for 1 mo . Denies history of CAD. Had diabetes education yrs ago . Diet/Carb counting: yes Denies recent prior episodes of DKA. Denies prior severe episodes of hypoglycemia requiring help or hospitalization. Labs: Anti-PENG 65 antibodies were negative COUNTS INCLUDE 234 BEDS AT THE [facility] Medical History Hypothyroidism Surgical History No pertinent past surgical history Social History (Updated 03/29/23 @ 09:51 by Katy Durán MA) Household Members: Family Housing: Apartment Alcohol intake: current Alcohol intake frequency: does not drink Patient Tobacco Use Status: Current everyday Tobacco user Tobacco use type: Cigarette Cigarettes Per Day: 10 e-Cigarette/Vaping Use: Never Used Second Hand Smoke Exposure: Yes service: No Current occupational status: employed and unemployed Cognitive needs: No Hearing needs: No Vision needs: No Physical Exam Vital Signs: Last Vital Signs Pulse 95 04/16/23 14:10 BP 118/72 04/16/23 14:10 BMI result Body Mass Index 27.9 Absence of Cushingoid features. Absence of acromegalic features. Neck exam reveals nl size thyroid about 15 gms. No thyroid nodules palpable. No carotid bruits present. Lungs CTA. Heart S1 S2, Reg R/R. No M/R/ G. Skin exam reveals absence of vitiligo or acanthosis nigricans. Abdominal exam reveals Soft NT/ND with NA BS. No organomegaly present. Extrem Other: Visual exam of foot performed. No ulcerations or open lesions. No onchomycosis, no callouses.Pulses 2 + distally. Sensation intact to monofilament exam. Vibratory sensation sensed 10 seconds decreased in right, 10 seconds in left with 128 Hz tuning fork Results AMB Hemoglobin A1c AMB Hemoglobin A1c 7.2 % Last Edit by Nena Bo on 04/16/23 14:44 Results Reviewed Results Reviewed: 04/16/23 14:19 Glucose, Whole Blood Routine Laboratory Last Values Glucose (Clinic) 108 mg/dL (60-115) 04/16/23 14:19 Assessment & Plan Assessment & Plan (1) Diabetes type I: Comment: DX age 5 Code(s): E10.9 - Type 1 diabetes mellitus without complications Plan: This is a 42-year-old male with history of longstanding-type 1 diabetes with improved glycemic control on basal-bolus insulin and no known microvascular or macrovascular complication. Age of onset raises suspicion of mono genic diabetes or BRI. Anti-PENG 65 AB are negative Plan is to Will have patient see 2 nd opinion at [facility] by a specialist in monogenic diabetes Víctor Resendez Will check microalbumin to creatinine ratio. . Orders: Orders AMB Hemoglobin A1c Today E10.9 - Type 1 diabetes mellitus without complications Referrals Endocrinology Referral E10.9 - Type 1 diabetes mellitus without complications Coding Level of Care Code Est Pt Level 4 (86589) Diagnoses Diabetes type I E10.9
[2023-04-16 14:10] VITALS: BP 118/72; PULSE 95; BMI 27.9
[2023-04-16 14:23] LABS: Glucose, Whole Blood 108 mg/dL (60-115)
== END 2023-04-16 15:00 | disposition home or self-care (01) ==
PROVIDERS: PCP Nurse Practitioner Family; Visit Provider Internal Medicine Endocrinology, Diabetes & Metabolism
DX: E10.9 Type 1 diabetes mellitus without complications (principal)
CPT/HCPCS: 99214

== ENCOUNTER → 2023-04-16 13:52 | Outpatient (BNVA) | payer OTHER, SELFPAY | PROVIDERS: PCP Nurse Practitioner Family; Visit Provider Internal Medicine Endocrinology, Diabetes & Metabolism | DX: E10.9 Type 1 diabetes mellitus without complications (principal) | CPT/HCPCS: 82947; 83036; 99212 ==

== ENCOUNTER 2023-04-24 09:07 | Outpatient (AMB) | payer OTHER, SELFPAY ==
--- NOTE | 2023-04-24 09:27 | MHC.AMDMED ---
Intake Intake Visit Reasons: DM-CONFIRMED [employer] Supervisor Required: No Accompanied by: Self / Same As Patient Allergies No Known Allergies Allergy (Verified 04/16/23 14:22) HPI Comprehensive Diabetes Asmnt Most Recent Diabetes Results: Cholesterol 214 mg/dL (<200) H 02/12/23 HDL Cholesterol 46 mg/dL (>40) 02/12/23 Triglycerides 196 mg/dL (<150) H 02/12/23 Creatinine 1.01 mg/dL (0.5-1.4) 02/08/23 Blood Urea Nitrogen 13 mg/dL (9-16) 02/08/23 Sodium 142 mmol/L (135-145) 02/08/23 Potassium 4.4 mmol/L (3.3-5.1) 02/08/23 Chloride 107 mmol/L (96-108) 02/08/23 Carbon Dioxide 25 mmol/L (22-29) 02/08/23 Calcium 11.0 mg/dL (8.4-10.2) H 02/08/23 AST 13 U/L (5-37) 02/08/23 ALT 14 U/L (0-40) 02/08/23 Total Protein 8.7 g/dL (6.5-8.0) H 02/08/23 Albumin 4.7 g/dL (3.5-5.0) 02/08/23 [facility] Medical History Hypothyroidism Surgical History No pertinent past surgical history Household Members: Family Housing: Apartment Alcohol intake: current Alcohol intake frequency: does not drink Patient Tobacco Use Status: Current everyday Tobacco user Tobacco use type: Cigarette Cigarettes Per Day: 10 e-Cigarette/Vaping Use: Never Used Second Hand Smoke Exposure: Yes service: No Current occupational status: employed and unemployed Cognitive needs: No Hearing needs: No Vision needs: No Assessment & Plan Assessment & Plan (1) Diabetes type I: Comment: DX age 5 Code(s): E10.9 - Type 1 diabetes mellitus without complications Plan: Pump Assessment: Type of DM: Type 1, question of BRI Dx at age: 5 Previous DKA: Denies Current Insulin Rx: MDI Patient takes insulin as prescribed: yes Patient? checks BG patient uses Dexcom G7 sensor Downloaded meter today? yes Patient's average glucose 166 mg/dL Patient above target 40% Patient at target 57% Patient below target 3% Patient? reports glycemic control as: good Most recent Hgb A1C: 7.2% Frequency of low BG:several times a day Low BG treatment: juice Frequency of high BG: several times a week Does patient check Ketones? yes Has pt been on a pump in the past? no Reviewed insulin pump basics today with Patient. Explained pros and cons of insulin pumps. Showed pt various pumps, infusion sets, and cgms currently available. Reviewed need to wear pump 24/7 and need to change infusion set every 3 days. Also stressed importance of frequent BG checks, 4x daily minimum or use pump that is integrated with CGM.? Patient demonstrated motivation for continued insulin pump education and understands the need to complete education prior to starting insulin pump for best outcome. Will follow up for continued education. Next visit will include review of Advanced Carb Counting. Patient reports he uses an insulin to carb ratio of 1-10 He also uses correction factor close to 1-10 Patient is following up with [facility] endocrinology, for labs testing for BRI Patient will follow-up after determination of type of diabetes Coding Level of Care Code Est Pt Level 1 (84268) Diagnoses Diabetes type I E10.9
== END 2023-04-24 10:14 | disposition home or self-care (01) ==
PROVIDERS: PCP Nurse Practitioner Family; Visit Provider Registered Nurse Diabetes Educator
DX: E10.9 Type 1 diabetes mellitus without complications (principal)

== ENCOUNTER → 2023-04-24 09:07 | Outpatient (BNVA) | payer OTHER, SELFPAY | PROVIDERS: PCP Nurse Practitioner Family; Visit Provider Registered Nurse Diabetes Educator | DX: E03.9 Hypothyroidism, unspecified (principal); E10.9 Type 1 diabetes mellitus without complications | CPT/HCPCS: 99211 ==

== ENCOUNTER 2023-04-30 11:00 | Outpatient (RCR) | payer OTHER, SELFPAY ==
[2023-02-28 15:06] VITALS: BP 157/91; PULSE 102
== END 2023-05-21 09:40 | disposition home or self-care (01) ==
LOC: HO.PT 11:00
PROVIDERS: PCP Nurse Practitioner Family; Visit Provider Physician Assistant
DX: M75.01 Adhesive capsulitis of right shoulder (principal)
CPT/HCPCS: 97110; 97140; 97161; 97530

== ENCOUNTER 2023-05-14 09:58 | Outpatient (AMB) | payer OTHER, SELFPAY ==
[2023-05-14 10:01] VITALS: BP 120/50; PULSE 94; O2SAT 98; BMI 26.8
--- NOTE | 2023-05-14 10:01 | A.OFFPC_ITS ---
Vital Signs 05/14/23 10:01 Height 5 ft 8 in Weight 176 lb 4 oz BMI 26.8 BP 120/50 L Blood Pressure Location Lt brachial Position Sitting Pulse 94 Pulse Source Pulse Oximeter Pulse Oximetry (%) 98 Oxygen Delivery Method Room Air Intake Visit Reasons: HTN, Type 1 DM, Hypercholestermia. Retail Shift Leader Required: No Accompanied by: Self / Same As Patient Allergies No Known Allergies Allergy (Verified 05/14/23 10:01) Tobacco use date assessed: 02/12/23 Dental Screening Dental Screen Date: 05/14/23 Did you have a dental visit in the last 12 months?: Yes Did you have a dental problem in the last 6 months where you did not have access to dental care?: No Was dental information given to patient?: Patient has dentist HPI HPI Comments History of Present Illness Details 41-year-old male new patient presents to [facility] for follow up.Past medical history significant for Type 1 DM diagnosed at age 5,hypothyroidism. Patient presents today for physical exam. Hemoglobin A1c:7.2% in Apr. Patient follow with endocrinology Review of the notes Age of onset raises suspicion of mono genic diabetes or BRI. Anti-PENG 65 AB are negative Plan is to Will have patient see 2 nd opinion at [facility] by a specialist in monogenic diabetes Víctor Resendez Will check microalbumin to creatinine ratio. Patient report elevated blood sugars in the morning in 200. Patient's total cholesterol elevated 229 and LDL is 153. (Dr. Lehman). Pateint reminded to get previously ordered fasting lipid panel completed. Patient continues to follow with ortho for Right rotator cuff syndrome, s/p multiple cortisone injection with minimal effect. Patient states will being seeing [facility] for physical therapy and if no improvement may require surgery. Patient following with urology for history of kidney stones was started on vitamin B6 and has follow-up in June. [facility] Medical History Hypothyroidism Surgical History No pertinent past surgical history Social History Household Members: Family Housing: Apartment Alcohol intake: current Alcohol intake frequency: does not drink Patient Tobacco Use Status: Current everyday Tobacco user Tobacco use type: Cigarette Cigarettes Per Day: 10 e-Cigarette/Vaping Use: Never Used Second Hand Smoke Exposure: Yes service: No Current occupational status: employed and unemployed Cognitive needs: No Hearing needs: No Vision needs: No Questionnaire Thrive Questionnaire Date Thrive assessed: 10/11/22 PENG-7 AMB Questionnaire PENG-7 Date PENG - 7 assessed: 11/12/22 Source: Developed by Drs. Donis Morris, Tatyana Caldwell, Toribio Greco and colleagues, with an educational adrienne from [employer]. Review of Systems Const Denies chills, Denies fatigue, Denies fever(s) and Denies poor appetite Eyes Denies no additional complaints ENT Reports Normal hearing present Card Denies chest pain, Denies syncope, Denies rapid heart rate and Denies dyspnea Resp Denies cough and Denies dyspnea GI Denies change in stool character, Denies constipation, Denies diarrhea, Denies nausea and Denies vomiting Denies dysuria, Denies urinary frequency and Denies urinary urgency Neuro Reports Normal hearing present, Denies confusion and Denies syncope Psych Denies confusion Endo Denies fatigue Physical exam (Primary Care) Vital Signs: Last Vital Signs Pulse 94 05/14/23 10:01 BP 120/50 L 05/14/23 10:01 Pulse Ox 98 05/14/23 10:01 Oxygen Delivery Method Room Air 05/14/23 10:01 BMI result Body Mass Index 26.8 Tobacco/Smoking Status: Tobacco use Status Tobacco use date assessed 02/12/23 05/14/23 10:01 Patient Tobacco Use Status Current everyday Tobacco 05/14/23 10:01 Tobacco use type Cigarette 05/14/23 10:01 e-Cigarette/Vaping Use Never Used 05/14/23 10:01 Thrive Assessment: Date of Thrive Assessment Date Thrive assessed 10/11/22 05/14/23 10:01 Const General: No confusion Orientation/consciousness: No confusion HENMT Head: Yes normocephalic and Yes atraumatic Eyes Conjunctivae: conjunctivae normal Chest Chest palpation & inspection: normal inspection of the chest Resp Effort & Inspection: normal respiratory effort Auscultation: clear to auscultation bilaterally, no crackles, no rhonchi and no wheezes Cardio Rate: regular rate Rhythm: regular rhythm Heart sounds: S1 normal heart sound present and S2 normal heart sound present GI Inspection: Yes normal to inspection Neuro General: No confusion Cranial nerves: Yes Normal hearing present Extrem General: No edema Assessment and Plan Assessment & Plan (1) Renal calculi: Code(s): N20.0 - Calculus of kidney Plan: Continue on vitamin B6 Continue to follow urology. (2) Hypertension: Code(s): I10 - Essential (primary) hypertension Plan: Continue on lisinopril 5 mg daily. Follow low-salt diet and exercise. (3) Hyperlipidemia LDL goal <100: Code(s): E78.5 - Hyperlipidemia, unspecified Plan: Patient reminded to get previously ordered fasting lipid panel repeated. Continue on rosuvastatin 5 mg daily. Avoid fried foods, chicken skin, eggs, butter,margarine, pastries and?? red meat. (4) Hypothyroidism: Code(s): E03.9 - Hypothyroidism, unspecified Plan: Continue on levothyroxine 50 mcg daily. (5) Rotator cuff syndrome of right shoulder: Code(s): M75.101 - Unspecified rotator cuff tear or rupture of right shoulder, not specified as traumatic Plan: Continue to proceed with physical therapy and continue to follow with orthopedic. (6) Diabetes type I: Comment: DX age 5 Code(s): E10.9 - Type 1 diabetes mellitus without complications Plan: Continue to follow with endocrinology Has noted a HPI Dr. Lehman recommended patient to [place] for 2nd opinion for possible monogenic diabetes, patient states he does not yet have a appointment for this. Continue on insulin lispro 20 units t.i.d. and Lantus 40 units in the evening. Patient educated to decrease the amount of carbohydrate intake such as pasta, bread, rice and potatoes are all sugar in addition to the sweet stuff. Remember that fruits are good but they also have sugar. Plan Follow-up in 3 months. Medications: Refilled levothyroxine (Synthroid) 50 mcg PO DAILY 30 tabs 3RF rosuvastatin 5 mg PO DAILY 90 tabs 1RF E78.5 - Hyperlipidemia, unspecified lisinopril 5 mg PO DAILY 90 tabs 1RF I10 - Essential (primary) hypertension Coding Level of Care Code Est Pt Level 4 (22133) Diagnoses Renal calculi N20.0 Hypertension I10 Hyperlipidemia LDL goal <100 E78.5 Hypothyroidism E03.9 Rotator cuff syndrome of right shoulder M75.101 Diabetes type I E10.9
== END 2023-05-14 10:19 | disposition home or self-care (01) ==
PROVIDERS: PCP Nurse Practitioner Family; Visit Provider Nurse Practitioner Family
DX: N20.0 Calculus of kidney (principal); I10 Essential (primary) hypertension; E10.9 Type 1 diabetes mellitus without complications; E78.5 Hyperlipidemia, unspecified; E03.9 Hypothyroidism, unspecified; M75.101 Unspecified rotator cuff tear or rupture of right shoulder, not specified as traumatic
CPT/HCPCS: 99214

== ENCOUNTER 2023-05-15 14:03 | Outpatient (AMB) | payer OTHER, SELFPAY ==
[2023-05-15 14:41] VITALS: BMI 27.0
--- NOTE | 2023-05-15 14:41 | A.OFFVIS_ITS ---
Intake VS Expanded 05/15/23 14:41 Height 5 ft 8 in Weight 177 lb 7.554 oz BMI 27.0 Intake Visit Reasons: [id number] Allergies No Known Allergies Allergy (Verified 05/14/23 10:01) HPI Nutrition Presentation Details Pt presents for MNT f/u for T1DM counting carbs: no dairy: 3+ serving/d fruits: 2/d vegetables: 1-2 servings/wk protein foods: fish 1x/wk, poultry4-5 x/wk, beef 1-2x/wk, eggs/cheese/yogurts Typical meal B: oatmeal made with milk, water or glass of milk lunch: fish fillet with salad or nuggets, ranch dressing dinner: rice/beans /poultry/fritter, water or juice diluted with water caffeine: 1-2 c coffee /day, tea occ, energy drinks: denies , lori occ physical activity: daily life actvities Most Recent Diabetes Results: No Data to Display PFSH Medical History Hypothyroidism Surgical History No pertinent past surgical history Social History Household Members: Family Housing: Apartment Alcohol intake: current Alcohol intake frequency: does not drink Patient Tobacco Use Status: Current everyday Tobacco user Tobacco use type: Cigarette Cigarettes Per Day: 10 e-Cigarette/Vaping Use: Never Used Second Hand Smoke Exposure: Yes service: No Current occupational status: employed and unemployed Cognitive needs: No Hearing needs: No Vision needs: No Assessment & Plan Assessment & Plan (1) Diabetes type I: Comment: DX age 5 Code(s): E10.9 - Type 1 diabetes mellitus without complications Plan: wt: 84 kg, 80 kg (05/2023) Est kcal needs as per MSJ: 2100 (40% carb, 30% protein/fat) Est fluid needs as per 25-30 ml/d: 2100 Est prot per day as per 1 g/kg bw: 84 Recommend fiber intake : 8-10 g per day and gradually increase to 25-28 g per day for women and 35-38 g for men or as tolerated Recommend sodium intake per day : less than 2000 mg Educated patient on: ( R = reviewed V = verbalizes understanding N/R = needs review N/A = not applicable * Food sources of carbohydrate, adequate serving sizes and its role in various health conditions: R * Differences between complex carbohydrates a simple carbohydrates, role of fiber in diet: R * Differences between types of fats and role in diet (mono on saturated fat fatty acids, saturated fatty acids, trans fats): R basic * Food sources of sodium in salt and healthy modifications for heart health in kidney health: R basic * Vitamins and minerals: R * Healthy plate method concept: R V * Physical activity: Benefits a precaution: R * Hypoglycemia protocol (rule of 15): R * Dietary prevention of Hyperglycemia: R Patient Instructions: Become familiar with amount of carbohydrates in your foods per serving size Count g of carbohydrates at dinner , see list of of foods /portion/amount of carb per serving size/portions Work on following healthy plate method keep hydrated by having water with meals/snacks Coding Level of Care Code Nutr Indiv Subseq (98353) Diagnoses Diabetes type I E10.9 Time Spent (min) 30
== END 2023-05-15 15:15 | disposition home or self-care (01) ==
PROVIDERS: PCP Nurse Practitioner Family; Visit Provider Dietitian, Registered
DX: E10.9 Type 1 diabetes mellitus without complications (principal)

== ENCOUNTER → 2023-05-15 14:03 | Outpatient (BNVA) | payer OTHER, SELFPAY | PROVIDERS: PCP Nurse Practitioner Family; Visit Provider Dietitian, Registered | DX: E10.9 Type 1 diabetes mellitus without complications (principal) | CPT/HCPCS: 97803 ==

== ENCOUNTER 2023-06-12 12:32 | Outpatient (REF) | payer OTHER, SELFPAY ==
--- NOTE | ~2023-06-12 | US_ITS ---
EXAMINATION: US RETROPERITONEAL LIMITED (RENAL ONLY) CLINICAL INFORMATION: Calculus of kidney. COMPARISON: CT abdomen and pelvis without contrast 02/08/2023. TECHNIQUE: Real-time imaging of the kidneys. FINDINGS: RIGHT KIDNEY: 11.3 x 5.3 x 4.9 cm (SAG x AP x TRV). The kidney is normal in size, contour, and echogenicity. Renal cortical thickness is normal. No hydronephrosis. There are at least 2 right renal calculi measuring 6 mm and 5 mm in the midpole. A 12 mm mid pole cyst is present, for which no specific follow-up is needed. LEFT KIDNEY: 12.5 x 5.6 x 4.9 cm (SAG x AP x TRV). The kidney is normal in size, contour, and echogenicity. Renal cortical thickness is normal. No focal parenchymal lesions or hydronephrosis. There are at least 2 left renal calculi, measuring 4 mm each in the midpole in the lower pole. US/US renal BI IMPRESSION: Bilateral nonobstructing renal calculi.
== END 2023-06-12 12:33 | disposition home or self-care (01) ==
LOC: HO.US 12:32
PROVIDERS: PCP Nurse Practitioner Family; Visit Provider Nurse Practitioner Family
DX: N20.0 Calculus of kidney (principal)
CPT/HCPCS: 76775

== ENCOUNTER 2023-07-08 10:10 | Outpatient (AMB) | payer OTHER, SELFPAY ==
--- NOTE | 2023-07-08 10:16 | A.OFFVIS_ITS ---
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 Required: No Accompanied by: Self / Same As Patient Allergies No Known Allergies Allergy (Verified 07/08/23 11:58) Medication List - Last Reconciled 07/08/23 by OMAR Washburn blood sugar diagnostic (FreeStyle Lite Strips) USE TO TEST 4 TIMES DAILY DIRECTED blood-glucose meter As directed blood-glucose meter (FreeStyle Tobyhanna Lite kit) As directed tests 4 X/day blood-glucose sensor (Dexcom G7 Sensor device) As directed change every 10 days cholecalciferol (vitamin D3) (Vitamin D3) 25 mcg PO DAILY glucagon 3 mg/actuation (Baqsimi) 3 mg intranasal ONCE insulin glargine (Lantus Solostar U-100 Insulin) 40 units (0.4 mL) subcut .evening insulin lispro 20 units (0.2 mL) subcut TID lancets (FreeStyle Lancets) As directed tests 4 X/day levothyroxine (Synthroid) 50 mcg PO DAILY lisinopril 5 mg PO DAILY pen needle, diabetic (BD Ultra-Fine Original Pen Needle) As directed- Use to test 4 Times a day pen needle, diabetic (BD Ultra-Fine Original Pen Needle) test 4 times daily pyridoxine (vitamin B6) 100 mg PO DAILY 90 days rosuvastatin 5 mg PO DAILY HPI HPI Comments History of Present Illness Details Juan Daniel is a very pleasant 42-year-old male patient. He has a past medical history of hypothyroidism and type 1 diabetes diagnosed at 5 years old. He presents to the office today for follow-up of his nephrolithiasis. Recent renal imaging results reviewed with the patient today. Bilateral kidneys normal in size, contour, and echogenicity. Right kidney there are at least 2 right renal calculi measuring 6 mm and 5 mm in the mid pole and a 12 mm mid pole cyst is present which requires no follow-up imaging per radiology report. Left kidney there are at least 2 left renal calculi, measuring approximately 4 mm in the mid and lower pole. In discussion with the patient today he reports to be doing and feeling well. He does report to not be drinking much water daily. Discussed at length importance in doing so with relation to history of nephrolithiasis. He discusses his ongoing therapy for his right shoulder. When asked he denies urinary urgency, urinary frequency, incontinence, nocturia, hematuria, dysuria, foul smelling urine, changes to urinary stream, flank pain, fever, and or chills. He is happy with his current voiding parameters. Discussed surveillance monitoring versus CT KUB with question of surgical intervention at length. Discussed risks and benefits of surveillance monitoring versus surgical intervention. In office urinalysis results reviewed with the patient today. PFSH Medical History Hypothyroidism Surgical History No pertinent past surgical history Social History Household Members: Family Housing: Apartment Alcohol intake: current Alcohol intake frequency: does not drink Patient Tobacco Use Status: Current everyday Tobacco user Tobacco use type: Cigarette Cigarettes Per Day: 10 e-Cigarette/Vaping Use: Never Used Second Hand Smoke Exposure: Yes service: No Current occupational status: employed and unemployed Cognitive needs: No Hearing needs: No Vision needs: No Review of Systems Const All systems reviewed & are unremarkable except as noted in HPI and below Reports no additional complaints Eyes Reports no additional complaints ENT Reports no additional complaints Card Reports no additional complaints Resp Reports no additional complaints GI Reports no additional complaints Reports as per HPI Musc Reports no additional complaints Neuro Reports no additional complaints Psych Reports no additional complaints Endo Reports as per HPI Physical Exam Const General: cooperative, healthy appearing, comfortable, no acute distress, well developed, alert and awake Orientation/consciousness: patient oriented x3 Limitations: no limitations HEENT Head: Yes normal to inspection, Yes normocephalic and Yes atraumatic Ears: hearing grossly normal bilaterally Eyes General: appearance normal, both eyes and all related structures Neck Neck: Yes normal visual inspection and Yes trachea midline Chest Chest palpation & inspection: normal inspection of the chest Resp Effort & Inspection: normal respiratory effort and able to speak in complete sentences Cardio Rate: regular rate GI Inspection: Yes normal to inspection General: Yes no CVA tenderness Back/Spine/Pelvis Back: no CVA tenderness Skin General skin exam: no rashes or lesions noted Neuro General: patient oriented x3 Extrem General: Yes normal to inspection Psych Appearance: grossly normal and well kempt Mental Status: mental status grossly normal Speech and movement: Normal speech and movement present and Clear speech present Affect: normal affect Attitude: cooperative Thought process: Normal thought process present Thought content: Normal thought content present Insight: Fair insight present (Psych) Judgement: Fair judgement present (Psych) Results AMB Urinalysis, Automated UA Leukoctes 0 Arielle/uL Last Edit by [employer] on 07/08/23 10:41 UA Nitrite Negative Last Edit by [employer] on 07/08/23 10:41 UA Urobilinogen 0.2 mg/dL Last Edit by [employer] on 07/08/23 10:41 UA Protein 15 mg/dL Last Edit by [employer] on 07/08/23 10:41 UA pH 6.0 Last Edit by [employer] on 07/08/23 10:41 UA Blood 200 Tico/uL Last Edit by [employer] on 07/08/23 10:41 UA Specific [place] 1.025 Last Edit by [employer] on 07/08/23 10:41 UA Ketone Negative Last Edit by [employer] on 07/08/23 10:41 UA Bilirubin 0 mg/dL Last Edit by [employer] on 07/08/23 10:41 UA Glucose 100 mg/dL Last Edit by [employer] on 07/08/23 10:41 Results Reviewed Results Reviewed: Laboratory Last Values Urine pH (Auto) 6.0 07/08/23 10:17 Specific [place] (Auto) 1.025 07/08/23 10:17 Urine Protein (Auto) 15 mg/dL 07/08/23 10:17 Glucose (UA)(Auto) 100 mg/dL 07/08/23 10:17 Urine Ketones (Auto) Negative 07/08/23 10:17 Urine Blood (Auto) 200 Tico/uL 07/08/23 10:17 Urine Nitrite (Auto) Negative 07/08/23 10:17 Urine Bilirubin (Auto) 0 mg/dL 07/08/23 10:17 Urine Urobilinogen (Auto) 0.2 mg/dL 07/08/23 10:17 Leukocyte Esterase (Auto) 0 Arielle/uL 07/08/23 10:17 Date of Service: 06/12/23 EXAMINATION: US RETROPERITONEAL LIMITED (RENAL ONLY) FINDINGS: RIGHT KIDNEY: 11.3 x 5.3 x 4.9 cm (SAG x AP x TRV). The kidney is normal in size, contour, and echogenicity. Renal cortical thickness is normal. No hydronephrosis. There are at least 2 right renal calculi measuring 6 mm and 5 mm in the midpole. A 12 mm mid pole cyst is present, for which no specific follow-up is needed. LEFT KIDNEY: 12.5 x 5.6 x 4.9 cm (SAG x AP x TRV). The kidney is normal in size, contour, and echogenicity. Renal cortical thickness is normal. No focal parenchymal lesions or hydronephrosis. There are at least 2 left renal calculi, measuring 4 mm each in the midpole in the lower pole. IMPRESSION: Bilateral nonobstructing renal calculi. Assessment & Plan Assessment & Plan (1) Renal calculi: Code(s): N20.0 - Calculus of kidney Plan In office urinalysis results reviewed with the patient today; as noted above. Recent renal imaging results reviewed with the patient today; as noted above. Discussed further workup verses surveillance monitoring; discussed risks and benefits at length of these treatment options Will proceed with surveillance monitoring at this time. Patient currently denies any bothersome urological issues or concerns. Will obtain renal ultrasound in 3 months. Discussed, educated, and stressed the importance of drinking plenty of water daily. Continue adding 1 oz of lemon juice to water daily. Continue vitamin B6 as discussed and prescribed. Follow-up in 3 months with imaging to be completed prior; or sooner with any issues, concerns, and or questions. Orders: Orders AMB Urinalysis Automated Today Z13.9 - Encounter for screening, unspecified US renal BI 3 Months N20.0 - Calculus of kidney Patient Instructions: The patient had an opportunity to ask questions regarding the treatment plan. All questions were answered. Physical exam, labs, and imaging were discussed and reviewed in detail. As well as risks, benefits, and discussion of treatment choices. No major barriers to understanding were identified. The patient expressed understanding and agreement with the above treatment plan. The patient was made aware they should contact our office by phone for worsening of their current condition, the appearance of new symptoms, or with any questions or concerns. Compliance is encouraged with any medications and follow up testing that is ordered. It is a privilege to be allowed the opportunity to participate in? your urological care.? Again, if you have any questions or concerns If you have any questions or concerns please do not hesitate to contact me. The office is [phone]. This note is constructed using voice recognition software. While every effort has been made to ensure accuracy systems integration analyst errors may have been included. Yours sincerely, OMAR Washburn Coding Level of Care Code Est Pt Level 3 (47704) Diagnoses Renal calculi N20.0
== END 2023-07-08 10:53 | disposition home or self-care (01) ==
PROVIDERS: PCP Nurse Practitioner Family; Visit Provider Nurse Practitioner Family
DX: N20.0 Calculus of kidney (principal); Z13.9 Encounter for screening, unspecified
CPT/HCPCS: 99213

== ENCOUNTER 2023-07-08 10:10 | Outpatient (REF) | payer OTHER, SELFPAY ==
[2023-07-08 19:44] LABS: Urine Cytology See Pathology rpt
== END 2023-07-08 10:11 | disposition home or self-care (01) ==
LOC: HO.LNP 10:10
PROVIDERS: PCP Nurse Practitioner Family; Visit Provider Nurse Practitioner Family
DX: N20.0 Calculus of kidney (principal); Z79.4 Long term (current) use of insulin; Z79.899 Other long term (current) drug therapy
CPT/HCPCS: 81003; 88112; 99212

== ENCOUNTER 2023-07-13 12:54 | Emergency (ER) | payer OTHER, SELFPAY ==
--- NOTE | ~2023-07-13 | CT_ITS ---
EXAMINATION: CT HEAD WITHOUT CONTRAST CT FACE AND CT NECK WITH CONTRAST CLINICAL INFORMATION: Left-sided unilateral swelling and pain. COMPARISON: None. TECHNIQUE: CT of the head was performed without contrast. CT of the face and neck was performed with contrast. A total of 60 mL Omnipaque 350 was intravenously administered. This CT examination was performed using dose optimization techniques as appropriate, variously including the following: *Automated exposure control *Adjustment of mA and/or kV according to patient size (this includes techniques or standardized protocols for targeted exams where dose is matched to indication/reason for exam; i.e. extremities or head) *Use of iterative reconstruction technique DLP: 1763 mGy-cm. FINDINGS: CT head: No acute intracranial abnormality. There is no intracranial hemorrhage, extra-axial collection, mass effect, or territorial infarction. The ventricles are normal in size without hydrocephalus. There is mild paranasal sinus mucosal thickening. The mastoids are clear. CT face and neck: There is mild paranasal sinus mucosal thickening without fluid levels. The orbital contents appear normal. There is periapical lucency involving the root of the endodontically treated left lateral maxillary incisor The adenoids are prominent and narrow the nasopharyngeal airway. The oropharynx appears normal. No base of tongue abnormality is seen. The larynx is difficult to evaluate due to the degree of motion artifact throughout this region. There is no retropharyngeal edema. The parotid and submandibular glands appear normal. Nonenlarged cervical chain lymph nodes are seen, slightly more prominent on the left. The thyroid gland is unremarkable. No enlarged upper mediastinal lymph nodes are seen. The upper lungs are clear without consolidation. A 6 mm perifissural nodule seen within left upper lobe. The cervical spine is intact without degenerative changes. The major neck vessels appear patent. CT/CT soft tissue neck w IV con IMPRESSION: 1. No acute intracranial abnormality. 2. No acute abnormality seen within the neck. Nonenlarged cervical chain lymph nodes are seen, slightly more prominent on the left. No neck mass or fluid collection identified. Mild paranasal sinus mucosal thickening. Incidentally noted 6 mm perifissural nodule in the left upper lobe. According to the UPDATED 2017 Fleischner Society recommendations, the advised follow-up imaging for a single 6-8 mm solid nodule is follow-up CT at 6 to 12 months. In high-risk patients, subsequent CT follow-up at 18 to 24 months is recommended. In low-risk patients, subsequent CT follow-up at 18 to 24 months is optional.
--- NOTE | 2023-07-13 13:03 | ED_ITS ---
HPI - General Adult General Chief complaint: General Medical Stated complaint: L side facial pain Time Seen by Provider: 07/13/23 13:39 Source: patient Mode of arrival: ambulatory Limitations: no limitations History of Present Illness HPI narrative: Patient is a 42 year old assigned male at with a history of DM presenting to the emergency department today with left sided face pain. Patient states that over the last 24 hours he has had left sided face pain. Patient denies any dizziness, lightheadedness, abdominal pain, nausea, vomiting, fever, chills, blurry vision, double vision, loss of vision, chest pain, difficulty breathing, shortness of breath, back pain, night sweats, pain with urination, increased urinary frequency, increased urinary urgency, blood in his urine or stool, syncope or a near syncopal episode, recent trauma or falls, bowel incontinence, bladder incontinence, bowel retention, bladder retention, or any other complaints at this time. Onset (ago): day(s) (1) Location: face and left Severity: mild Severity scale (1-10): 3 Quality: aching and dull Pain Consistency: constant Relieving factors: none Exacerbating factors: none Associated symptoms: denies other symptoms Treatments prior to arrival: none Related Data Previous Rx's Medication Instructions Recorded blood-glucose meter #1 ea 07/23/22 pen needle, diabetic 29 gauge x #100 ea 11/21/2206/04 (BD Ultra-Fine Original Pen Needle) blood-glucose meter (FreeStyle #1 ea 01/09/23 Hulen Lite kit) glucagon 3 mg/actuation nasal 3 mg intranasal ONCE #2 ea 01/09/23 spray (Baqsimi) cholecalciferol (vitamin D3) 25 25 mcg PO DAILY #90 caps 02/01/23 mcg (1,000 unit) capsule (Vitamin D3) pen needle, diabetic 29 gauge x #100 ea 02/02/23 1/2 (BD Ultra-Fine Original Pen Needle) insulin lispro 100 unit/mL 20 unit (0.2 mL) subcut TID #90 mL 02/07/23 subcutaneous pen lancets 28 gauge (FreeStyle #100 ea 02/08/23 Lancets) insulin glargine 100 unit/mL (3 40 unit (0.4 mL) subcut .evening 03/18/23 mL) subcutaneous pen (Lantus #15 mL Solostar U-100 Insulin) pyridoxine (vitamin B6) 100 mg 100 mg PO DAILY 90 days #90 tabs 03/29/23 tablet lisinopril 5 mg tablet 5 mg PO DAILY #90 tabs 05/14/23 rosuvastatin 5 mg tablet 5 mg PO DAILY #90 tabs 05/14/23 levothyroxine 50 mcg tablet 50 mcg PO DAILY #30 tabs 06/13/23 (Synthroid) blood sugar diagnostic (FreeStyle #100 strips 06/14/23 Lite Strips) blood-glucose sensor (Dexcom G7 #3 ea 07/11/23 Sensor device) amoxicillin 875 mg-potassium 1 tab PO BID 10 days #20 tabs 07/13/23 clavulanate 125 mg tablet Allergies Allergy/AdvReac Type Severity Reaction Status Date / Time No Known Allergies Allergy Verified 07/13/23 13:07 Review of Systems 2 Constitutional: Constitutional: Reports no additional constitutional complaints, Denies chills, Denies fever(s) and Denies night sweats Eyes: Eyes: Reports no additional eye complaints, Denies blurry vision, Denies change in vision, Denies diplopia, Denies eye discharge, Denies loss of vision and Denies eye pain ENT: Denies dizziness Comments: left sided face pain Cardiovascular: Cardiovascular: Reports no additional cardiovascular complaints, Denies chest pain, Denies lightheadedness, Denies Loss of Consciousness and Denies dyspnea Respiratory: Respiratory: Reports no additional respiratory complaints and Denies dyspnea Gastrointestinal: Gastrointestinal: Reports no additional gastrointestinal complaints, Denies abdominal pain, Denies melena, Denies hematochezia, Denies change in bowel habits and Denies change in stool character Genitourinary: Genitourinary: Reports no additional male genitourinary complaints, Denies hematuria, Denies oliguria, Denies difficulty urinating, Denies dysuria, Denies urinary frequency, Denies urinary hesitancy, Denies urinary incontinence and Denies urinary urgency Musculoskeletal: Musculoskeletal: Reports no additional musculoskeletal complaints, Denies numbness and Denies tingling Neurologic: Denies dizziness, Denies loss of vision, Denies numbness and Denies tingling Psychiatric: Psychiatric: Reports no additional psychiatric complaints Endocrine: Endocrine: Reports no additional endocrine complaints Hematologic/Lymphatic: Hematologic/Lymphatic: Reports no additional hematologic/lymphatic complaints Allergic/Immunologic: Allergic/Immunologic: Reports no additional allergic/immunologic complaints PMFSH Past Medical History Attestation statement: The following information was validated with the patient. Source: old records reviewed and nursing notes reviewed Medical History Hypothyroidism Surgical History No pertinent past surgical history Social History Social History Household Members: Family Housing: Apartment Alcohol intake: current Alcohol intake frequency: does not drink Patient Tobacco Use Status: Current everyday Tobacco user Tobacco use type: Cigarette Cigarettes Per Day: 10 e-Cigarette/Vaping Use: Never Used Second Hand Smoke Exposure: Yes Advance Directives: No Advance Directives Information Provided: No service: No Current occupational status: employed and unemployed Cognitive needs: No Hearing needs: No Vision needs: No Physical Exam ED Vital Signs: Vital Signs - 24 hr 07/13/23 13:04 Temperature 98.1 F Pulse Rate 105 H Respiratory Rate 20 Blood Pressure 168/87 H Pulse Oximetry 99 Oxygen Delivery Method Room Air BMI result Body Mass Index 26.9 Const General: cooperative, no acute distress, alert and awake Nutritional Appearance: well nourished Orientation/consciousness: patient oriented x3 Limitations: no limitations HENMT Head: Yes normal to inspection and Yes atraumatic Ears: hearing grossly normal bilaterally and external ears normal General nose exam: Normal external nose present, no nasal discharge noted and no epistaxis Face and sinus: No abrasion, No laceration, Yes sinus tenderness (left maxillary sinus pain) and Yes other (minimal swelling over the left maxillary sinus) Mouth: Normal oral and palatal mucosa present, no drooling and no muffled voice Eyes General: appearance normal, both eyes and all related structures Periorbital: periorbital findings normal Eyelids: Yes eyelids normal Conjunctivae: conjunctivae normal Pupils: Equal, round and reactive pupils present EOM: EOMs intact bilaterally Neck Neck: Yes normal visual inspection, Yes full ROM and Yes no lymphadenopathy Chest Chest palpation & inspection: normal inspection of the chest Resp Effort & Inspection: normal respiratory effort and able to speak in complete sentences GI Inspection: Yes normal to inspection Neuro General: patient oriented x3 and moves all extremities Cranial nerves: Yes Equal, round and reactive pupils present Cognition (Neuro): normal cognition Motor exam (neuro): 5/5 motor strength present throughout Sensory Exam: Normal double simultaneous stimulation for sensation Coordination: [id number] test normal Extrem General: Yes normal to inspection, Yes full ROM and Yes capillary refill normal Psych Appearance: grossly normal Mental Status: mental status grossly normal Affect: normal affect Attitude: cooperative Thought process: Normal thought process present Thought content: Normal thought content present Insight: Good insight present (Psych) Course Course Course Narrative: This is an RME: Additional HPI, ROS, PE not included below will be deferred to primary provider. Patient is a 42-year-old male who presents emergency department for evaluation. He reports having itchiness to the left side of his mouth that began yesterday, awoke today with swelling to the left upper lip/nose/cheek, pain. Denies recent URI symptoms, trauma. Denies dental pain associated with this. + cavity to right upper molar. Medications Administered Discontinued Medications Generic Name Dose Route Start Last Admin Trade Name Freq PRN Reason Stop Dose Admin Diphenhydramine HCl 25 mg 07/13/23 14:07 07/13/23 14:41 Diphenhydramine Hcl 50 Mg/Ml Vial IVPUSH 07/13/23 14:08 25 mg ONCE ONE Administration Ceftriaxone Sodium 1 gm/ 50 mls @ 100 mls/hr 07/13/23 15:55 07/13/23 16:59 Sodium Chloride IV 07/13/23 16:24 Infused ONCE ONE Infusion Iohexol 100 ml 07/13/23 14:37 07/13/23 14:37 Iohexol 350 Mg/Ml 100 Ml Infus..Btl IV 07/13/23 14:38 60 ml ONCE ONE Administration Methylprednisolone Sodium Succinate 60 mg 07/13/23 14:07 07/13/23 14:40 Methylprednisolone Sod Succ 125 Mg/2 Ml Vial IVPUSH 07/13/23 14:08 60 mg ONCE ONE Administration Morphine Sulfate 4 mg 07/13/23 14:07/13/23 14:40 Morphine Sulfate 4 Mg/Ml Cartridge IVPUSH 07/13/23 14:08 4 mg ONCE ONE Administration Protocol Ondansetron HCl 4 mg 07/13/23 14:07 07/13/23 14:40 Ondansetron Hcl 4 Mg/2 Ml Vial IVPUSH 07/13/23 14:08 4 mg ONCE ONE Administration Medical Decision Making Medical Decision Making [facility] Narrative: Patient is a 42 year old assigned male at with a history of DM presenting to the emergency department today with left sided face pain. Patient's physical exam was as noted in the physical exam portion of this chart. Patient's blood work showed an elevated WBC count of 12.5, ESR of 16, and CRP of 3.12. The rest of the patient's labs were unremarkable. Patient's CT head showed no acute process. Patient's facial CT showed evidence of mild paranasal sinus thickening as well as periapical lucency at the root of the left lateral maxillary incisor. I believe this to be the cause of the patient's pain / swelling. Patient's clinical presentation is most consistent with dental abscess vs. sinusitis. Patient's clinical examination is not consistent with Sepsis (@1524). Additionally, patient's CT soft tissue neck showed no acute process but did see a 6mm left upper lobe lung nodule for which they recommend follow up at 6-12 months. I explained my physical exam findings as well as all test results to the patient. I answered all questions asked by the patient. Patient received IV pain medication and antibiotic while in the department. I stressed the importance of the patient taking his medication as prescribed. I stressed the importance of the patient following up with his primary care provider and i dentist. I stressed the importance of the patient returning to the emergency department immediately if his symptoms were to worsen or if he were to develop any dizziness, shortness of breath, difficulty breathing, chest pain, blurry vision, loss of vision, nausea, vomiting, abdominal pain, fever, chills, back pain, or any other complaints. Patient verbalized agreement and understanding with this treatment plan and discharge. Differential Diagnosis Differential Diagnoses: The differential diagnosis associated with the presentation includes Dental abscess Facial pain Facial swelling Sinusitis Admission/Observation Consideration of admission/observation: Escalation of care including admission/observation considered Patient would have been admitted to the hospital had his work up had any findings where hospital admission was appropriate and his clinical presentation warranted hospital admission. Lab Data [facility] Lab Attestation statement: I reviewed the patient's lab results. My interpretation of these results are in the [facility] Rationale portion of this note. 07/13/23 13:52 07/13/23 13:52 Labs: Lab Results 07/13/23 07/13/23 Range/Units 13:52 14:39 WBC 12.5 H (4.8-10.8) X10*3/uL RBC 5.51 (4.60-5.80) X10*6/uL Hgb 16.2 (14.0-18.0) g/dl Hct 46.7 (42.0-52.0) % MCV 84.8 (80.0-98.0) fL MCH 29.4 (27.0-33.0) pg MCHC 34.7 (31.0-36.0) g/dl RDW 13.2 (11.0-16.0) % Plt Count 280 (160-400) X10*3/uL MPV 9.5 (9.4-12.4) fL Immature Gran % (Auto) 0.3 (0.0-0.4) % Neut % (Auto) 78.0 H (45-73) % Lymph % (Auto) 13.8 L (20-40) % Wright % (Auto) 6.3 (2-11) % Eos % (Auto) 1.2 (0-4) % Baso % (Auto) 0.4 (0-2) % Lymph # (Auto) 1.7 (1.2-4.9) X10*3/uL Wright # (Auto) 0.8 (0.1-1.2) X10*3/uL Eos # (Auto) 0.2 (0.0-0.4) X10*3/uL Baso # (Auto) 0.1 (0.0-0.2) X10*3/uL Abs Immat Gran (auto) 0.04 H (0.00-0.03) X10*3/uL Absolute Neuts (auto) 9.7 H (2.0-8.3) x10*3/uL Absolute Nucleated RBC 0.000 (0.0-0.012) X10*3/uL Nucleated RBC % (auto) 0.0 (0.0-0.2) /100WBC ESR 16 H (0-15) MM/HR Sodium 140 (135-145) mmol/L Potassium 4.2 (3.3-5.1) mmol/L Chloride 104 (96-108) mmol/L Carbon Dioxide 27 (22-29) mmol/L Anion Gap 13 (12-20) BUN 11 (9-16) mg/dL Creatinine 0.87 (0.5-1.4) mg/dL Estim Creat Clear Calc 109.1 Estimated GFR > 60 Random Glucose 129 H (60-115) mg/dL Calcium 9.9 D (8.4-10.2) mg/dL C-Reactive Protein 3.12 H (< or = 0.50) mg/dL COVID-19 (KRISTA) Negative (Negative) COVID-19 Clin Com See Note Monoscreen Negative (Negative) Influenza Type A (RUBIO) Negative (Negative) Influenza Type B (RUBIO) Negative (Negative) Influenza A & B Note See Note S. pyogenes GrpA RUBIO Negative (Negative) Independent Interpretation I performed an independent interpretation of an: CT Scan Interpretation: My interpretation is in agreement with the radiologist's impression of these imaging studies. - EXAMINATION: CT HEAD WITHOUT CONTRAST CT FACE AND CT NECK WITH CONTRAST CLINICAL INFORMATION: Left-sided unilateral swelling and pain. COMPARISON: None. TECHNIQUE: CT of the head was performed without contrast. CT of the face and neck was performed with contrast. A total of 60 mL Omnipaque 350 was intravenously administered. This CT examination was performed using dose optimization techniques as appropriate, variously including the following: *Automated exposure control *Adjustment of mA and/or kV according to patient size (this includes techniques or standardized protocols for targeted exams where dose is matched to indication/reason for exam; i.e. extremities or head) *Use of iterative reconstruction technique DLP: 1763 mGy-cm. FINDINGS: CT head: No acute intracranial abnormality. There is no intracranial hemorrhage, extra-axial collection, mass effect, or territorial infarction. The ventricles are normal in size without hydrocephalus. There is mild paranasal sinus mucosal thickening. The mastoids are clear. CT face and neck: There is mild paranasal sinus mucosal thickening without fluid levels. The orbital contents appear normal. There is periapical lucency involving the root of the endodontically treated left lateral maxillary incisor The adenoids are prominent and narrow the nasopharyngeal airway. The oropharynx appears normal. No base of tongue abnormality is seen. The larynx is difficult to evaluate due to the degree of motion artifact throughout this region. There is no retropharyngeal edema. The parotid and submandibular glands appear normal. Nonenlarged cervical chain lymph nodes are seen, slightly more prominent on the left. The thyroid gland is unremarkable. No enlarged upper mediastinal lymph nodes are seen. The upper lungs are clear without consolidation. A 6 mm perifissural nodule seen within left upper lobe. The cervical spine is intact without degenerative changes. The major neck vessels appear patent. CT/CT facial bones w IV con IMPRESSION: 1. No acute intracranial abnormality. 2. No acute abnormality seen within the neck. Nonenlarged cervical chain lymph nodes are seen, slightly more prominent on the left. No neck mass or fluid collection identified. Mild paranasal sinus mucosal thickening. Incidentally noted 6 mm perifissural nodule in the left upper lobe. According to the UPDATED 2017 Fleischner Society recommendations, the advised follow-up imaging for a single 6-8 mm solid nodule is follow-up CT at 6 to 12 months. In high-risk patients, subsequent CT follow-up at 18 to 24 months is recommended. In low-risk patients, subsequent CT follow-up at 18 to 24 months is optional. Dictated By: ITALO VILLALPANDO MD Signed By: Electronically signed by ITALO VILLALPANDO MD 07/13/23 1524 Radiology Impression Discussion of test interpretation with radiology: I have reviewed the radiologist's reading. Prescription Management I considered prescription management with: Antibiotic (patient prescribed an antibiotic.) Chronic Conditions Patient?s care impacted by: Diabetes Critical Care Time Critical Care Time Critical Care Time: Yes Total Critical Care Time: 45 Attestation: I spent 45 minutes of Critical Care Time with this patient. This does not include time spent on separately reported billable procedures. Discharge Plan Discharge Clinical Impression: Abscess, dental Patient Disposition: Home, Self-Care Instructions: Dental Abscess (ED) Additional Instructions: Take your antibiotic as prescribed. Your CT scan showed an incidental finding of a 6mm long nodule in the left upper lung lobe. This needs to be followed up with by your primary care provider. Follow up with your primary care provider and a dentist. Return to the emergency department immediately if your symptoms worsen or if you develop any dizziness, shortness of breath, difficulty breathing, chest pain, blurry vision, loss of vision, nausea, vomiting, abdominal pain, fever, chills, back pain, or any other complaints. Prescriptions: New amoxicillin-pot clavulanate 875-125 mg tablet 1 tab PO BID 10 Days Qty: 20 0RF No Action (DME) pen needle, diabetic [BD Ultra-Fine Orig Pen Needle] 29 gauge x 1/2 needle See Rx Instructions .Route Qty: 100 5RF Rx Instructions: test 4 times daily cholecalciferol (vitamin D3) [Vitamin D3] 25 mcg (1,000 unit) capsule 25 mcg PO DAILY Qty: 90 1RF insulin lispro 100 unit/mL insulin pen 20 unit subcut TID Qty: 90 3RF (DME) lancets [FreeStyle Lancets] 28 gauge misc See Rx Instructions .Route Qty: 100 4RF Rx Instructions: As directed tests 4 X/day insulin glargine [Lantus Solostar U-100 Insulin] 100 unit/mL (3 mL) insulin pen 40 unit subcut .evening Qty: 15 3RF levothyroxine [Synthroid] 50 mcg tablet 50 mcg PO DAILY Qty: 30 3RF (DME) FreeStyle Lite Strips Strip See Rx Instructions .ROUTE .COMPLEX Qty: 100 4RF Dose Instruction: USE TO TEST 4 TIMES DAILY DIRECTED Rx Instructions: USE TO TEST 4 TIMES DAILY DIRECTED (DME) Dexcom G7 Sensor Device See Rx Instructions .ROUTE .COMPLEX Qty: 3 5RF Dose Instruction: DIRECTED CHANGE EVERY 10 DAYS Rx Instructions: DIRECTED CHANGE EVERY 10 DAYS (DME) blood-glucose meter Kit See Rx Instructions .Route Qty: 1 0RF Rx Instructions: As directed (DME) pen needle, diabetic [BD Ultra-Fine Orig Pen Needle] 29 gauge x 1/2 needle See Rx Instructions .Route Qty: 100 0RF Rx Instructions: As directed- Use to test 4 Times a day lisinopril 5 mg tablet 5 mg PO DAILY Qty: 90 1RF rosuvastatin 5 mg tablet 5 mg PO DAILY Qty: 90 1RF pyridoxine (vitamin B6) 100 mg tablet 100 mg PO DAILY 90 Days Qty: 90 3RF (DME) blood-glucose meter [FreeStyle Hulen Lite] Kit See Rx Instructions .Route Qty: 1 0RF Rx Instructions: As directed tests 4 X/day Baqsimi 3 mg/actuation spray,non-aerosol 3 mg intranasal ONCE Qty: 2 5RF Referrals: Maxine Jim FNP [Primary Care Provider] - Stand Alone Forms: Work/School Release Interventions: ED Discharge Assessment Last Done: 07/13/23 17:21 Discharge Date/Time: 07/13/23 17:22 Print Language: Chinese
[2023-07-13 13:04] VITALS: BP 168/87; PULSE 105; RESP 20; TEMP 36.7; O2SAT 99; BMI 26.9
[2023-07-13 13:57] LABS: MANUAL DIFF FLAG NO
[2023-07-13 13:59] LABS: Basophils Absolute Auto 0.1 X10*3/uL (0.0-0.2); Basophils Percent Auto 0.4 % (0-2); Eosinophils Absolute Auto 0.2 X10*3/uL (0.0-0.4); Eosinophils Percent Auto 1.2 % (0-4); Hematocrit 46.7 % (42.0-52.0); Hemoglobin 16.2 g/dl (14.0-18.0); Imm Gran Abs Auto 0.04 X10*3/uL (0.00-0.03); Imm Gran Pct Auto 0.3 % (0.0-0.4); Lymphocytes Absolute Auto 1.7 X10*3/uL (1.2-4.9); Lymphocytes Percent Auto 13.8 % (20-40); Mean Corpuscular HGB Conc 34.7 g/dl (31.0-36.0); Mean Corpuscular Hemoglobin 29.4 pg (27.0-33.0); Mean Corpuscular Volume 84.8 fL (80.0-98.0); Mean Platelet Volume 9.5 fL (9.4-12.4); Monocytes Absolute Auto 0.8 X10*3/uL (0.1-1.2); Monocytes Percent Auto 6.3 % (2-11); Neutrophils Absolute Auto 9.7 x10*3/uL (2.0-8.3); Platelet Count 280 X10*3/uL (160-400); Red Blood Count 5.51 X10*6/uL (4.60-5.80); Red Cell Distribution Width 13.2 % (11.0-16.0); White Blood Count 12.5 X10*3/uL (4.8-10.8)
[2023-07-13 14:09] LABS: Anion Gap 13 (12-20); Blood Urea Nitrogen 11 mg/dL (9-16); Calcium 9.9 mg/dL (8.4-10.2); Carbon Dioxide 27 mmol/L (22-29); Chloride 104 mmol/L (96-108); Creatinine Clr Calc Pharmacy 109.1; Estimated Glomerular Filt Rate > 60; Glucose Random 129 mg/dL (60-115); Potassium 4.2 mmol/L (3.3-5.1); Sodium 140 mmol/L (135-145)
[2023-07-13 14:26] LABS: C Reactive Protein 3.12 mg/dL (< or = 0.50)
[2023-07-13] MEDS: iohexoL 350 MG/ML 100 ML INFUS..BTL IV (14:37)
[2023-07-13] MEDS: methylPREDNISolone Sod Succ 125 MG/2 ML VIAL 60 MG IVPUSH (14:40)
[2023-07-13] MEDS: Morphine Sulfate 4 MG/ML CARTRIDGE IVPUSH (14:40)
[2023-07-13] MEDS: ondansetron HCL 4 MG/2 ML VIAL IVPUSH (14:40)
[2023-07-13] MEDS: diphenhydrAMINE HCL 50 MG/ML VIAL 25 MG IVPUSH (14:41)
[2023-07-13 15:01] LABS: Erythrocyte Sedimentation Rate 16 MM/HR (0-15)
[2023-07-13 15:02] LABS: IDNOW Serial# 08D9AD1C; Strep A Nucleic Acid Negative (Negative)
[2023-07-13 15:08] LABS: Monotest Negative (Negative)
[2023-07-13 15:10] LABS: COVID-19 Test Negative (Negative); IDNOW Serial# 152EDE1D; IDNOW Serial# 9DB6401D; Influenza A Negative (Negative); Influenza B2 Negative (Negative)
[2023-07-13] MEDS: cefTRIAXone sodium 1 GM in 0.9 % Sodium Chloride 50 ML IV (16:19)
== END 2023-07-13 17:22 | disposition home or self-care (01) ==
PROVIDERS: Nurse Practitioner Family; Physician Assistant Medical; Emergency Provider Emergency Medicine; PCP Nurse Practitioner Family
DX: K04.7 Periapical abscess without sinus (principal); R22.9 Localized swelling, mass and lump, unspecified; Z11.52 Encounter for screening for COVID-19; Z79.4 Long term (current) use of insulin
CPT/HCPCS: 36415; 70450; 70487; 70491; 80048; 85025; 85652; 86140; 86308; 87502; 87635; 87651; 96365; 96375; 99283; 99284; J0696; J1200; J2270; J2405; J2930; Q9967

== ENCOUNTER 2023-08-06 11:04 | Outpatient (REF) | payer OTHER, SELFPAY ==
[2023-08-06 12:01] LABS: Estimated Average Glucose 146 mg/dL; Hemoglobin A1c % 6.7 % (<6.0)
[2023-08-06 12:37] LABS: Alanine Aminotransferase 15 U/L (0-40); Albumin Level 4.2 g/dL (3.5-5.0); Alkaline Phosphatase 91 U/L (39-117); Anion Gap 10 (12-20); Aspartate Amino Transferase 16 U/L (5-37); Bilirubin Total 0.5 mg/dL (0.0-1.0); Blood Urea Nitrogen 12 mg/dL (9-16); Calcium 9.9 mg/dL (8.4-10.2); Carbon Dioxide 26 mmol/L (22-29); Chloride 106 mmol/L (96-108); Cholesterol 123 mg/dL (<200); Estimated Glomerular Filt Rate > 60; Glucose Random 243 mg/dL (60-115); HDL Cholesterol 45 mg/dL (>40); LDL Cholesterol Calculated 64 mg/dL (<100); Sodium 138 mmol/L (135-145); Total Protein 7.5 g/dL (6.5-8.0); Triglycerides 71 mg/dL (<150)
[2023-08-06 12:43] LABS: Creatinine Urine 129.24 mg/dL; Microalbum/Creatinine Ratio Ur 21.6 ug/mg cr (<30)
== END 2023-08-06 11:05 | disposition home or self-care (01) ==
LOC: HO.LAB 11:04
PROVIDERS: Nurse Practitioner Family; Visit Provider Internal Medicine Endocrinology, Diabetes & Metabolism
DX: E10.9 Type 1 diabetes mellitus without complications (principal); I10 Essential (primary) hypertension; E78.5 Hyperlipidemia, unspecified
CPT/HCPCS: 36415; 80053; 80061; 82043; 82570; 83036

== ENCOUNTER 2023-08-07 13:42 | Outpatient (AMB) | payer OTHER, SELFPAY ==
--- NOTE | 2023-08-07 13:44 | MHC.OFFVIS ---
Intake Vital Signs 08/07/23 13:45 Height 5 ft 8 in Weight 180 lb 5.41 oz BMI 27.4 BP 150/82 H Blood Pressure Location Lt brachial Position Sitting Pulse 100 Pulse Source Pulse Oximeter Intake Visit Reasons: f/u ?monogenic diabetes-confirmed Intake Note: Patient presents today to follow up on D1MT. Last Diabetic Eye exam: Over 3 years Last Podiatry Visit: Doesn't have one Random Glucose: 139 mg/dl HgA1c: 6.7% 08/06/23 Inspecting Machine Adjuster Required: No Accompanied by: Self / Same As Patient Allergies No Known Allergies Allergy (Verified 08/07/23 13:49) Medication List - Last Reconciled 08/07/23 by Donis Lehman MD blood sugar diagnostic (FreeStyle Lite Strips) USE TO TEST 4 TIMES DAILY DIRECTED blood-glucose meter As directed blood-glucose meter (FreeStyle Brightwaters Lite kit) As directed tests 4 X/day blood-glucose sensor (Dexcom G7 Sensor device) DIRECTED CHANGE EVERY 10 DAYS cholecalciferol (vitamin D3) (Vitamin D3) 25 mcg PO DAILY glucagon 3 mg/actuation (Baqsimi) 3 mg intranasal ONCE insulin glargine (Lantus Solostar U-100 Insulin) 40 units (0.4 mL) subcut .evening insulin lispro 20 units (0.2 mL) subcut TID lancets (FreeStyle Lancets) As directed tests 4 X/day levothyroxine (Synthroid) 50 mcg PO DAILY lisinopril 5 mg PO DAILY pen needle, diabetic (BD Ultra-Fine Original Pen Needle) As directed- Use to test 4 Times a day pen needle, diabetic (BD Ultra-Fine Original Pen Needle) test 4 times daily pyridoxine (vitamin B6) 100 mg PO DAILY 90 days rosuvastatin 5 mg PO DAILY HPI HPI Comments History of Present Illness Details 42 YO M with is seen in consultation for T1DM at the request of PCP.Since age Initially diagnosed with T1DM in not sure when presented with []. Was initially started on treatment with insulin . Current regimen: Lantus 30 units Humalog 6-8 units TID Dexcom download shows using the sensor to 100% of the time. Average glucose is 161 with G mi of 7.2% and standard deviation 56. 60% range with 37% hyperglycemia and 3% hypoglycemia. Hypoglycemia is primarily occurring after meals Reports low sugars rarely . Treats lows with OJ . Not Checks sugar after to ensure it is rising. Family history of autoimmunity in lupus in mother Has eyes checked yearly, last eye exam . Needs to make appt , no retinopathy. Denies neuropathy,Not sees podiatry. Denies nephropathy,Not on RAINER/ARB. UAC [] measured on []. Has HLD, on statin for 1 mo . Denies history of CAD. Had diabetes education yrs ago . Diet/Carb counting: yes Denies recent prior episodes of DKA. Denies prior severe episodes of hypoglycemia requiring help or hospitalization. Labs: Anti-PENG [address] [facility] Medical History Hypothyroidism Surgical History No pertinent past surgical history Social History Household Members: Family Housing: Apartment Alcohol intake: current Alcohol intake frequency: does not drink Patient Tobacco Use Status: Current everyday Tobacco user Tobacco use type: Cigarette Cigarettes Per Day: 10 e-Cigarette/Vaping Use: Never Used Second Hand Smoke Exposure: Yes service: No Current occupational status: employed and unemployed Cognitive needs: No Hearing needs: No Vision needs: No Physical Exam Vital Signs: Last Vital Signs Pulse 100 08/07/23 13:45 BP 150/82 H 08/07/23 13:45 BMI result Body Mass Index 27.4 Absence of Cushingoid features. Absence of acromegalic features. Neck exam reveals nl size thyroid about 15 gms. No thyroid nodules palpable. No carotid bruits present. Lungs CTA. Heart S1 S2, Reg R/R. No M/R/ G. Skin exam reveals absence of vitiligo or acanthosis nigricans. Abdominal exam reveals Soft NT/ND with NA BS. No organomegaly present. Extrem Other: Visual exam of foot performed. No ulcerations or open lesions. No onchomycosis, no callouses.Pulses 2 + distally. Sensation intact to monofilament exam. Vibratory sensation sensed 10 seconds decreased in right, 10 seconds in left with 128 Hz tuning fork Results Reviewed Results Reviewed: Laboratory Last Values Glucose (Clinic) 139 mg/dL (60-115) H 08/07/23 13:55 Assessment & Plan Assessment & Plan (1) Diabetes type I: Comment: DX age 5 Code(s): E10.9 - Type 1 diabetes mellitus without complications Plan: This is a 42-year-old male with history of longstanding-type 1 diabetes with improved excellent glycemic control on basal-bolus insulin and no known microvascular or macrovascular complication. Age of onset raises suspicion of mono genic diabetes or BRI. Anti-PENG 65 AB are negative Plan is to continue the current regimen Will have patient see 2 nd opinion at [facility] by a specialist in monogenic diabetes Víctor Resendez . Coding Level of Care Code Est Pt Level 4 (56804) Diagnoses Diabetes type I E10.9
[2023-08-07 13:45] VITALS: BP 150/82; PULSE 100; BMI 27.4
[2023-08-07 14:00] LABS: Glucose, Whole Blood 139 mg/dL (60-115)
== END 2023-08-07 14:53 | disposition home or self-care (01) ==
PROVIDERS: PCP Nurse Practitioner Family; Visit Provider Internal Medicine Endocrinology, Diabetes & Metabolism
DX: E10.9 Type 1 diabetes mellitus without complications (principal)
CPT/HCPCS: 99214

== ENCOUNTER → 2023-08-07 13:42 | Outpatient (BNVA) | payer OTHER, SELFPAY | PROVIDERS: PCP Nurse Practitioner Family; Visit Provider Internal Medicine Endocrinology, Diabetes & Metabolism | DX: E10.9 Type 1 diabetes mellitus without complications (principal); Z79.4 Long term (current) use of insulin | CPT/HCPCS: 82947; 99212 ==

== ENCOUNTER 2023-08-14 13:33 | Outpatient (AMB) | payer OTHER, SELFPAY ==
--- NOTE | 2023-08-14 14:02 | A.OFFVIS_ITS ---
Intake VS Expanded 08/14/23 14:02 Weight 179 lb 10.828 oz Intake Visit Reasons: T1DM/CONFIRMED... Allergies No Known Allergies Allergy (Verified 08/07/23 13:49) HPI Nutrition Presentation Details Pt presents for MNT f/u for T1DM. Pt reports doing well carb counting : no Pt reports working on balancing meals : starch/protein/veg, but not counting carbohydrates Reports noticing increased blood glucose when less active and then noticing lower glucose level when going for walks. carries with glucose to treat hypoglycemia - no Today we will review hypoglycemia protocol/prevention and treatment, low sodium concepts and reinforce carb counting Etoh: denies smoking: denies Most Recent Diabetes Results: Microalb/Creat Ratio 21.6 ug/mg cr (<30) 08/06/23 Cholesterol 123 mg/dL (<200) 08/06/23 HDL Cholesterol 45 mg/dL (>40) 08/06/23 Triglycerides 71 mg/dL (<150) 08/06/23 Creatinine 0.96 mg/dL (0.5-1.4) 08/06/23 Blood Urea Nitrogen 12 mg/dL (9-16) 08/06/23 Sodium 138 mmol/L (135-145) 08/06/23 Potassium 4.0 mmol/L (3.3-5.1) 08/06/23 Chloride 106 mmol/L (96-108) 08/06/23 Carbon Dioxide 26 mmol/L (22-29) 08/06/23 Calcium 9.9 mg/dL (8.4-10.2) 08/06/23 AST 16 U/L (5-37) 08/06/23 ALT 15 U/L (0-40) 08/06/23 Total Protein 7.5 g/dL (6.5-8.0) 08/06/23 Albumin 4.2 g/dL (3.5-5.0) 08/06/23 [facility] Medical History Hypothyroidism Surgical History No pertinent past surgical history Social History Household Members: Family Housing: Apartment Alcohol intake: current Alcohol intake frequency: does not drink Patient Tobacco Use Status: Current everyday Tobacco user Tobacco use type: Cigarette Cigarettes Per Day: 10 e-Cigarette/Vaping Use: Never Used Second Hand Smoke Exposure: Yes service: No Current occupational status: employed and unemployed Cognitive needs: No Hearing needs: No Vision needs: No Assessment & Plan Assessment & Plan (1) Diabetes type I: Comment: DX age 5 Code(s): E10.9 - Type 1 diabetes mellitus without complications Plan: wt: 84 kg, 80 kg (05/2023), 81 kg (08/2023) Est kcal needs as per MSJ: 2100 (40% carb, 30% protein/fat) Est fluid needs as per 25-30 ml/d: 2100 Est prot per day as per 1 g/kg bw: 84 Recommend fiber intake : 8-10 g per day and gradually increase to 25-28 g per day for women and 35-38 g for men or as tolerated Recommend sodium intake per day : less than 2000 mg Educated patient on: ( R = reviewed V = verbalizes understanding N/R = needs review N/A = not applicable * Food sources of carbohydrate, adequate serving sizes and its role in various health conditions: R * Differences between complex carbohydrates a simple carbohydrates, role of fiber in diet: R * Differences between types of fats and role in diet (mono on saturated fat fatty acids, saturated fatty acids, trans fats): R basic * Food sources of sodium in salt and healthy modifications for heart health in kidney health: R basic * Vitamins and minerals: R * Healthy plate method concept: R V * Physical activity: Benefits a precaution: R * Hypoglycemia protocol (rule of 15): R * Dietary prevention of Hyperglycemia: R Patient Instructions: Always carry a snack to prevent hypoglycemia ( peanut butter crackers, applesauce as example) and carry glucose tablets to treat hypoglycemia following rule of 15 (15 g of carb to treat low blood sugar which can be 3-4 glucose tablets, 1/2 cup of juice or regular beverage or 4 plain saltine crackers or 1 tbsp of sugar/honey/syrup no sugar free, re test blood sugar 15 minutes after and repeat treatment if blood sugar continues below 70) communicate with your doctor regarding low blood sugar episodes for further assessment. Reduce on sodium intake , goal 500-600 mg at meals by choosing low sodium seasonings, no adding salt to foods, choosing low sodium foods, compare amount of sodium per serving size by reading food labels. See list of low sodium food concepts Coding Level of Care Code Nutr Indiv Subseq (48572) Diagnoses Diabetes type I E10.9 Time Spent (min) 30
== END 2023-08-14 14:22 | disposition home or self-care (01) ==
PROVIDERS: PCP Nurse Practitioner Family; Visit Provider Dietitian, Registered
DX: E10.9 Type 1 diabetes mellitus without complications (principal)

== ENCOUNTER → 2023-08-14 13:33 | Outpatient (BNVA) | payer OTHER, SELFPAY | PROVIDERS: PCP Nurse Practitioner Family; Visit Provider Dietitian, Registered | DX: E10.9 Type 1 diabetes mellitus without complications (principal); Z71.3 Dietary counseling and surveillance | CPT/HCPCS: 97803 ==

== ENCOUNTER 2023-08-22 10:43 | Outpatient (AMB) | payer OTHER, SELFPAY ==
[2023-08-22 10:44] VITALS: BP 152/80; PULSE 101; O2SAT 97; BMI 26.8
--- NOTE | 2023-08-22 10:44 | A.OFFPC_ITS ---
Vital Signs 08/22/23 10:44 08/22/23 11:18 Height 5 ft 8 in Weight 176 lb 0.4 oz BMI 26.8 BP 152/80 H 138/80 Blood Pressure Location Lt brachial Lt brachial Position Sitting Sitting Pulse 101 H Pulse Source Pulse Oximeter Pulse Oximetry (%) 97 Oxygen Delivery Method Room Air Intake Visit Reasons: htn, TYPE 1 dm, HLD (a. o'beth) Intake Note: Patient is here to follow up on HTN, DM, HLD Storage Battery Inspector And Tester Required: No Allergies No Known Allergies Allergy (Verified 08/22/23 10:45) Tobacco use date assessed: 08/22/23 Dental Screening Dental Screen Date: 08/22/23 Did you have a dental visit in the last 12 months?: Yes Did you have a dental problem in the last 6 months where you did not have access to dental care?: No Was dental information given to patient?: Patient has dentist HPI htn, TYPE 1 dm, HLD (a. o'beth) HPI Details 42 Year old diabetes type 1 with hyperte nsion hypercholesterolemia history of nephrolithiasis hypothyroidism coming in for follow-up last seen in May 2023. Patient also has right shoulder rotator cuff syndrome. Patient follows up with endocrinology on Lantus 30 units with Humalog 6-8 units t.i.d. advised by Endocrinology to seek 2nd opinion referral to [facility] for mono genic diabetes. For the nephrolithiasis patient follows up with urology right kidney to stone 6 mm and 5 mm and a 12 mm midpole cyst left kidney to left renal calculi 4 mm discussed about surveillance monitoring add 1 oz of lemon juice to water and continue with vitamin B6. [facility] Medical History Hypothyroidism Surgical History No pertinent past surgical history Social History Household Members: Family Housing: Apartment Alcohol intake: current Alcohol intake frequency: does not drink Patient Tobacco Use Status: Current everyday Tobacco user Tobacco use type: Cigarette Cigarettes Per Day: 10 e-Cigarette/Vaping Use: Never Used Second Hand Smoke Exposure: Yes service: No Current occupational status: employed and unemployed Cognitive needs: No Hearing needs: No Vision needs: No Questionnaire PHQ-9 Over the last 2 weeks, how often have you been bothered by any of the following problems? 1. Little interest or pleasure in doing things: not at all 2. Feeling down, depressed, or hopeless: not at all 3. Trouble falling or staying asleep, or sleeping too much: not at all 4. Feeling tired or having little energy: not at all 5. Poor appetite or overeating: not at all 6. Feeling bad about yourself - or that you are a failure or have let yourself or your family down: not at all 7. Trouble concentrating on things, such as reading the newspaper or watching television: not at all 8. Moving or speaking so slowly that other people could have noticed. Or the opposite - being so fidgety or restless that you have been moving around a lot more than usual: not at all 9. Thoughts that you would be better off or of hurting yourself in some way: not at all Total score: 0 Depression Screening Interpretation: Negative Depression Screening Done: Yes Source: Developed by Drs. Donis Morris, Tatyana Caldwell, Toribio Greco and colleagues, with an educational adrienne from [employer]. Thrive Questionnaire Date Thrive assessed: 08/22/23 I am a: Patient What is your living situation today?: I have a steady place to live Within the past 12 months, did the food you bought not last and you didn't have the money to get more?: Never true Within the past 12 months, did you worry whether your food would run out before you got money to buy more?: Never true Do you have trouble paying for medicines?: No Do you have trouble getting transportation to medical appointments?: No Do you have trouble paying your heating and electricity bill?: No Do you have trouble taking care of your child, family member or friend?: No Do you have trouble with day-to-day activities such as bathing, preparing meals, shopping, managing finances, etc.?: No Are you currently unemployed and looking for a job?: No Are you interested in more education?: No Please select the resources that you would like help with: None THRIVE Score: 0 AUDIT C Alcohol Use Questionnaire (AUDIT-C) 1. How often do you have a drink containing alcohol?: Never 2. How many drinks containing alcohol do you have on a typical day when you are drinking?: 1 or 2 3. How often do you have six or more drinks on one occasion?: Never Total Score: 0 PENG-7 AMB Questionnaire PENG-7 Date PENG - 7 assessed: 08/22/23 Source: Developed by Drs. Donis Morris, Tatyana Caldwell, Toribio Greco and colleagues, with an educational adrienne from [employer]. Physical exam (Primary Care) Vital Signs: Last Vital Signs Pulse 101 H 08/22/23 10:44 BP 138/80 08/22/23 11:18 Pulse Ox 97 08/22/23 10:44 Oxygen Delivery Method Room Air 08/22/23 10:44 BMI result Body Mass Index 26.8 Tobacco/Smoking Status: Tobacco use Status Tobacco use date assessed 08/22/23 08/22/23 10:46 Patient Tobacco Use Status Current everyday Tobacco 08/22/23 10:46 Tobacco use type Cigarette 08/22/23 10:46 e-Cigarette/Vaping Use Never Used 08/22/23 10:46 PHQ-9: PHQ-9 Score PHQ-9: Total score 0 08/22/23 11:12 Depression Screening Interpretation: Negative Thrive Assessment: Date of Thrive Assessment Date Thrive assessed 08/22/23 08/22/23 10:46 Const General: alert; No acute distress Eyes Conjunctivae: conjunctivae normal Resp Auscultation: clear to auscultation bilaterally Cardio Rate: regular rate Rhythm: regular rhythm GI Inspection: Yes normal to inspection Extrem General: Yes normal to inspection and No edema Immunizations pneumoc 20-gal conj-dip cr(PF) 0.5 mL IM syringe Performing Provider: Sonia Grijalva MD [place] [facility] [facility] Administered by: DAMIAN Graham on 08/22/23 11:25 Dose Route Admin Location Dispensed Lot Number Expiration Date NDC Gas Torch [place] 0.5 mL IM Left Deltoid 0.5 mL [id number] 08/01/24 1822-3361-67 WYETH/PFIZER VIS Given Date VIS Provided VIS Publication Date 08/22/23 Single Vaccine 21 Eligibility Eligibility Date Funding Source Not VFC Eligible 08/22/23 Private Assessment and Plan Assessment & Plan (1) Diabetes type I: Comment: DX age 5 Code(s): E10.9 - Type 1 diabetes mellitus without complications Plan: Decrease the amount of carbohydrate intake, pasta, bread, rice and potatoes are all sugar and that is aside from all the sweet stuff, remember that fruits are good but they are Sweet also. Patient has seen Endocrinology and ask for a 2nd opinion for a specialty endocrinology. (2) Hypothyroidism: Code(s): E03.9 - Hypothyroidism, unspecified Plan: Continue with thyroid medication last testing was February 2023. (3) Hyperlipidemia LDL goal <100: Code(s): E78.5 - Hyperlipidemia, unspecified Plan: Avoid fried foods, chicken skin, eggs, butter margarine, pastries and meat. Be it pork or beef they have a lot of cholesterol LDL goal of less than 100 and triglyceride of less than 150. On rosuvastatin 5 mg once a day (4) Hypertension: Code(s): I10 - Essential (primary) hypertension Plan: Continue with blood pressure medication. Decrease salt intake and exercise patient is on lisinopril 5 mg once a day monitoring blood work. (5) Renal calculi: Code(s): N20.0 - Calculus of kidney Plan: Keep well hydrated follows up with urology advised to drink water with lemon juice and vitamin B6. Medications: Refilled insulin lispro 20 units (0.2 mL) subcut TID 90 mL 3RF Coding Level of Care Code Est Pt Level 4 (21023) Diagnoses Diabetes type I E10.9 Hypothyroidism E03.9 Hyperlipidemia LDL goal <100 E78.5 Hypertension I10 Renal calculi N20.0
[2023-08-22 11:18] VITALS: BP 138/80
== END 2023-08-22 11:31 | disposition home or self-care (01) ==
PROVIDERS: PCP Nurse Practitioner Family; Visit Provider Internal Medicine
DX: E10.9 Type 1 diabetes mellitus without complications (principal); E03.9 Hypothyroidism, unspecified; E78.5 Hyperlipidemia, unspecified; I10 Essential (primary) hypertension; N20.0 Calculus of kidney; Z23 Encounter for immunization
CPT/HCPCS: 90471; 90677; 99214

== ENCOUNTER 2023-09-27 07:51 | Outpatient (REF) | payer OTHER, SELFPAY ==
--- NOTE | ~2023-09-27 | US_ITS ---
EXAMINATION: US RETROPERITONEAL LIMITED (RENAL ONLY) CLINICAL INFORMATION: Calculus of kidney. COMPARISON: Renal ultrasound 11/11/2023. CT abdomen and pelvis 02/08/2023. TECHNIQUE: Real-time imaging of the kidneys. FINDINGS: RIGHT KIDNEY: 12.5 x 6.0 x 4.9 cm (SAG x AP x TRV). The kidney is normal in size, contour, and echogenicity. Renal cortical thickness is normal. No hydronephrosis. 1.2 cm thinly septated cyst in the mid kidney. No follow-up imaging is recommended. 4 mm mid pole and 3 mm lower pole nonobstructing calculi. LEFT KIDNEY: 12.4 x 5.7 x 5.9 cm (SAG x AP x TRV). The kidney is normal in size, contour, and echogenicity. Renal cortical thickness is normal. No focal parenchymal lesions or hydronephrosis. 4 mm mid pole, 7 mm mid pole, 6 mm cluster lower pole nonobstructing calculi. US/US renal BI IMPRESSION: Bilateral nonobstructing renal calculi. No hydronephrosis.
== END 2023-09-27 07:52 | disposition home or self-care (01) ==
LOC: HO.US 07:51
PROVIDERS: PCP Nurse Practitioner Family; Visit Provider Nurse Practitioner Family
DX: N20.0 Calculus of kidney (principal)
CPT/HCPCS: 76775

== ENCOUNTER 2023-10-07 08:13 | Outpatient (AMB) | payer OTHER, SELFPAY ==
--- NOTE | 2023-10-07 08:29 | MHC.OFFVIS ---
Intake Visit Reasons: 3m/US(set) Intake Note: Patient presents for follow up Kidney Stone and Ultrasound Results Imagin09/27/23 Urology Medications: Vitamin B6 Blood Thinner: none Internet Security Specialist Required: No Accompanied by: Self / Same As Patient Allergies No Known Allergies Allergy (Verified 10/07/23 08:30) PFSH Medical History Hypothyroidism Surgical History No pertinent past surgical history Social History Household Members: Family Housing: Apartment Alcohol intake: current Alcohol intake frequency: does not drink Patient Tobacco Use Status: Current everyday Tobacco user Tobacco use type: Cigarette Cigarettes Per Day: 10 e-Cigarette/Vaping Use: Never Used Second Hand Smoke Exposure: Yes service: No Current occupational status: employed and unemployed Cognitive needs: No Hearing needs: No Vision needs: No Results AMB Urinalysis, Automated UA Leukoctes 0 Arielle/uL Last Edit by [employer] on 10/07/23 08:40 UA Nitrite Negative Last Edit by [employer] on 10/07/23 08:40 UA Urobilinogen 0.2 mg/dL Last Edit by [employer] on 10/07/23 08:40 UA Protein 15 mg/dL Last Edit by [employer] on 10/07/23 08:40 UA pH 6.0 Last Edit by [employer] on 10/07/23 08:40 UA Blood 10 Tico/uL Last Edit by [employer] on 10/07/23 08:40 UA Specific [place] 1.020 Last Edit by [employer] on 10/07/23 08:40 UA Ketone Negative Last Edit by [employer] on 10/07/23 08:40 UA Bilirubin 0 mg/dL Last Edit by [employer] on 10/07/23 08:40 UA Glucose 500 mg/dL Last Edit by [employer] on 10/07/23 08:40 Results Reviewed Results Reviewed: Laboratory Last Values Urine pH (Auto) 6.0 10/07/23 08:31 Specific [place] (Auto) 1.020 10/07/23 08:31 Urine Protein (Auto) 15 mg/dL 10/07/23 08:31 Glucose (UA)(Auto) 500 mg/dL 10/07/23 08:31 Urine Ketones (Auto) Negative 10/07/23 08:31 Urine Blood (Auto) 10 Tico/uL 10/07/23 08:31 Urine Nitrite (Auto) Negative 10/07/23 08:31 Urine Bilirubin (Auto) 0 mg/dL 10/07/23 08:31 Urine Urobilinogen (Auto) 0.2 mg/dL 10/07/23 08:31 Leukocyte Esterase (Auto) 0 Arielle/uL 10/07/23 08:31 Assessment & Plan Assessment & Plan (1) Microscopic hematuria: Code(s): R31.29 - Other microscopic hematuria Category: Medical (2) Abnormal cytology: Code(s): R89.6 - Abnormal cytological findings in specimens from other organs, systems and tissues Category: Medical Plan . Orders: Orders Urine Cytology Today N20.0 - Calculus of kidney AMB Urinalysis Automated Today Z13.9 - Encounter for screening, unspecified Patient Instructions: . Coding Level of Care Code Left Without Being Seen Diagnoses Microscopic hematuria R31.29 Abnormal cytology R89.6
== END 2023-10-07 08:52 | disposition left against medical advice (07) ==
PROVIDERS: PCP Nurse Practitioner Family; Visit Provider Nurse Practitioner Family
DX: Z13.9 Encounter for screening, unspecified (principal)

== ENCOUNTER 2023-10-07 08:13 | Outpatient (REF) | payer OTHER, SELFPAY ==
[2023-10-07 16:55] LABS: Urine Cytology See Pathology rpt
== END 2023-10-07 08:14 | disposition home or self-care (01) ==
LOC: HO.LNP 08:13
PROVIDERS: PCP Nurse Practitioner Family; Visit Provider Nurse Practitioner Family
DX: N20.0 Calculus of kidney (principal)
CPT/HCPCS: 81003; 88112

== ENCOUNTER 2023-10-08 08:16 | Outpatient (AMB) | payer OTHER, SELFPAY ==
--- NOTE | 2023-10-08 08:23 | A.OFFVIS_ITS ---
Intake Visit Reasons: 3m/US(set) Intake Note: Patient presents for follow up Kidney Stone and Ultrasound Results Imagin09/27/23 Urology Medications: Vitamin B6 Blood Thinner: none Rn Neonatal Icu Required: No Accompanied by: Self / Same As Patient Allergies No Known Allergies Allergy (Verified 10/08/23 09:34) Medication List - Last Reconciled 10/08/23 by OMAR Washburn blood sugar diagnostic (FreeStyle Lite Strips) USE TO TEST 4 TIMES DAILY DIRECTED blood-glucose meter As directed blood-glucose meter (FreeStyle [place] Lite kit) As directed tests 4 X/day blood-glucose sensor (Dex[employer] G7 Sensor device) DIRECTED CHANGE EVERY 10 DAYS cholecalciferol (vitamin D3) (Vitamin D3) 25 mcg PO DAILY glucagon 3 mg/actuation (Baqsimi) 3 mg intranasal ONCE insulin glargine-yfgn 40 units (0.4 mL) subcut QPM insulin lispro 20 units (0.2 mL) subcut TID lancets (FreeStyle Lancets) As directed tests 4 X/day levothyroxine (Synthroid) 50 mcg PO DAILY lisinopril 5 mg PO DAILY pen needle, diabetic (BD Ultra-Fine Original Pen Needle) test 4 times daily pen needle, diabetic (BD Ultra-Fine Original Pen Needle) As directed- Use to test 4 Times a day pyridoxine (vitamin B6) 100 mg PO DAILY 90 days rosuvastatin 5 mg PO DAILY HPI Comments Details: Juan Daniel is a very pleasant 42-year-old male patient. He has a past medical history of hypothyroidism and type 1 diabetes diagnosed at 5 years old. He presents to the office today for follow-up of his nephrolithiasis. Recent renal imaging results reviewed with the patient today. Bilateral kidneys with no hydronephrosis. Left kidney with 4 mm in 3 mm lower pole nonobstructing stones. Left kidney with 4 mm mid pole, 7 mm mid pole, and 6 mm cluster in the lower pole of nonobstructing stones. When asked he currently denies any bothersome urinary issues or concerns. Discussed at length increase in stone burden. Discussed further intervention with surveillance monitoring versus surg ical intervention. Discussed atypical cells in previous cytologies with history of nicotine dependence. Discussed further microscopic hematuria workup to include CT urogram and in office cystoscopy. Discussed risks and benefits of this intervention. He currently denies any bothersome urinary issues or concerns. When asked he denies urinary urgency, urinary frequency, incontinence, nocturia, hematuria, dysuria, foul smelling urine, changes to urinary stream, flank pain, fever, and or chills. He is happy with his current voiding parameters. He discusses his increase in water intake with adding lemon juice to the water. He reports compliance with vitamin B6 daily. He otherwise offers no other issues or concerns at this time [facility] Medical History Hypothyroidism Surgical History No pertinent past surgical history Social History Household Members: Family Housing: Apartment Alcohol intake: current Alcohol intake frequency: does not drink Patient Tobacco Use Status: Current everyday Tobacco user Tobacco use type: Cigarette Cigarettes Per Day: 10 e-Cigarette/Vaping Use: Never Used Second Hand Smoke Exposure: Yes service: No Current occupational status: employed and unemployed Cognitive needs: No Hearing needs: No Vision needs: No Review of Systems Const All systems reviewed & are unremarkable except as noted in HPI and below Reports no additional complaints Eyes Reports no additional complaints ENT Reports no additional complaints Card Reports no additional complaints Resp Reports no additional complaints GI Reports no additional complaints Reports as per HPI Musc Reports no additional complaints Neuro Reports no additional complaints Psych Reports no additional complaints Endo Reports as per HPI Physical Exam Const General: cooperative, healthy appearing, comfortable, no acute distress, well developed, alert and awake Orientation/consciousness: patient oriented x3 Limitations: no limitations HEENT Head: Yes normal to inspection, Yes normocephalic and Yes atraumatic Ears: hearing grossly normal bilaterally Eyes General: appearance normal, both eyes and all related structures Neck Neck: Yes normal visual inspection and Yes trachea midline Chest Chest palpation & inspection: normal inspection of the chest Resp Effort & Inspection: normal respiratory effort and able to speak in complete sentences Cardio Rate: regular rate GI Inspection: Yes normal to inspection General: Yes no CVA tenderness Back/Spine/Pelvis Back: no CVA tenderness Skin General skin exam: no rashes or lesions noted Neuro General: patient oriented x3 Extrem General: Yes normal to inspection Psych Appearance: grossly normal and well kempt Mental Status: mental status grossly normal Speech and movement: Normal speech and movement present and Clear speech present Affect: normal affect Attitude: cooperative Thought process: Normal thought process present Thought content: Normal thought content present Insight: Fair insight present (Psych) Judgement: Fair judgement present (Psych) Results Reviewed Results Reviewed: Date of Service: 09/27/23 EXAMINATION: US RETROPERITONEAL LIMITED (RENAL ONLY) FINDINGS: RIGHT KIDNEY: 12.5 x 6.0 x 4.9 cm (SAG x AP x TRV). The kidney is normal in size, contour, and echogenicity. Renal cortical thickness is normal. No hydronephrosis. 1.2 cm thinly septated cyst in the mid kidney. No follow-up imaging is recommended. 4 mm mid pole and 3 mm lower pole nonobstructing calculi. LEFT KIDNEY: 12.4 x 5.7 x 5.9 cm (SAG x AP x TRV). The kidney is normal in size, contour, and echogenicity. Renal cortical thickness is normal. No focal parenchymal lesions or hydronephrosis. 4 mm mid pole, 7 mm mid pole, 6 mm cluster lower pole nonobstructing calculi. IMPRESSION: Bilateral nonobstructing renal calculi. No hydronephrosis. Assessment & Plan Assessment & Plan (1) Abnormal cytology: Code(s): R89.6 - Abnormal cytological findings in specimens from other organs, systems and tissues Category: Medical (2) Microscopic hematuria: Code(s): R31.29 - Other microscopic hematuria Category: Medical (3) Renal calculi: Code(s): N20.0 - Calculus of kidney Category: Medical Plan In office urinalysis results reviewed with the patient today; as noted above; will send for urine cytology. Recent renal imaging results reviewed with the patient today; as noted above. Reviewed most recent cytologys 03/25 & 07/27: Atypical urothelial cells Patient currently denies any bothersome urinary issues or concerns. Reports be happy with current voiding parameters. Discussed at length atypical cells noted in cytology with history of nicotine dependence; discussed further workup with CT urogram and in office cystoscopy; this was discussed at length; risks and benefits of these interventions were discussed He does not wish to undergo further workup at this time Continue drinking plenty of water daily. Continue adding 1 oz of lemon juice to water daily. Continue vitamin B6 Discussed further metabolic workup with 24 hour urine collection and labs; however patient declines. Will obtain renal ultrasound in 6 months. Follow-up in 6 months with imaging to be completed prior; or sooner with any issues, concerns, and or questions Orders: Orders US renal BI 6 Months N20.0 - Calculus of kidney Patient Instructions: The patient had an opportunity to ask questions regarding the treatment plan. All questions were answered. Physical exam, labs, and imaging were discussed and reviewed in detail. As well as risks, benefits, and discussion of treatment choices. No major barriers to understanding were identified. The patient expressed understanding and agreement with the above treatment plan. The patient was made aware they should contact our office by phone for worsening of their current condition, the appearance of new symptoms, or with any questions or concerns. Compliance is encouraged with any medications and follow up testing that is ordered. It is a privilege to be allowed the opportunity to participate in? your urological care.? Again, if you have any questions or concerns If you have any questions or concerns please do not hesitate to contact me. The office is [phone]. This note is constructed using voice recognition software. While every effort has been made to ensure accuracy pressure dispatcher errors may have been included. Yours sincerely, OMAR Washburn Coding Level of Care Code Est Pt Level 3 (80195) Diagnoses Abnormal cytology R89.6 Microscopic hematuria R31.29 Renal calculi N20.0 Time Spent (min) 20
== END 2023-10-08 08:51 | disposition home or self-care (01) ==
PROVIDERS: PCP Nurse Practitioner Family; Visit Provider Nurse Practitioner Family
DX: R89.6 Abnormal cytological findings in specimens from other organs, systems and tissues (principal); R31.29 Other microscopic hematuria; N20.0 Calculus of kidney
CPT/HCPCS: 99213

== ENCOUNTER → 2023-10-08 08:16 | Outpatient (BNVA) | payer OTHER, SELFPAY | PROVIDERS: PCP Nurse Practitioner Family; Visit Provider Nurse Practitioner Family | DX: R31.29 Other microscopic hematuria (principal); R89.6 Abnormal cytological findings in specimens from other organs, systems and tissues; N20.0 Calculus of kidney | CPT/HCPCS: 99212 ==

== ENCOUNTER 2023-10-31 07:48 | Outpatient (AMB) | payer OTHER, SELFPAY ==
--- NOTE | 2023-10-31 08:07 | A.OFFVIS_ITS ---
Intake Intake Visit Reasons: f/u Type 1DM/CONFIRMED Clay Modeler Required: No Accompanied by: Self / Same As Patient Allergies No Known Allergies Allergy (Verified 10/08/23 09:34) HPI Comprehensive Diabetes Asmnt Most Recent Diabetes Results: Microalb/Creat Ratio 21.6 ug/mg cr (<30) 08/06/23 Cholesterol 123 mg/dL (<200) 08/06/23 HDL Cholesterol 45 mg/dL (>40) 08/06/23 Triglycerides 71 mg/dL (<150) 08/06/23 Creatinine 0.96 mg/dL (0.5-1.4) 08/06/23 Blood Urea Nitrogen 12 mg/dL (9-16) 08/06/23 Sodium 138 mmol/L (135-145) 08/06/23 Potassium 4.0 mmol/L (3.3-5.1) 08/06/23 Chloride 106 mmol/L (96-108) 08/06/23 Carbon Dioxide 26 mmol/L (22-29) 08/06/23 Calcium 9.9 mg/dL (8.4-10.2) 08/06/23 AST 16 U/L (5-37) 08/06/23 ALT 15 U/L (0-40) 08/06/23 Total Protein 7.5 g/dL (6.5-8.0) 08/06/23 Albumin 4.2 g/dL (3.5-5.0) 08/06/23 PFSH Medical History Hypothyroidism Surgical History No pertinent past surgical history Social History Household Members: Family Housing: Apartment Alcohol intake: current Alcohol intake frequency: does not drink Patient Tobacco Use Status: Current everyday Tobacco user Tobacco use type: Cigarette Cigarettes Per Day: 10 e-Cigarette/Vaping Use: Never Used Second Hand Smoke Exposure: Yes service: No Current occupational status: employed and unemployed Cognitive needs: No Hearing needs: No Vision needs: No Assessment & Plan Assessment & Plan (1) Diabetes type I: Comment: DX age 5 Code(s): E10.9 - Type 1 diabetes mellitus without complications Plan: Pump Assessment: Type of DM: Type 1, question of BRI Dx at age: 5 Previous DKA: Denies Current Insulin Rx: MDI Patient takes insulin as prescribed: yes Patient? checks BG patient uses [employer] G7 sensor Downloaded meter today? yes Patient's average glucose 163 mg/dL Patient above target 38% Patient at target 56% Patient below target 6% Patient appears to be having frequent hypoglycemic events overnight, patient reports he drop Lantus to 34 units recommended to patient he reduce Lantus dose to 28 units daily. If hypoglycemia persists contact supervisor tellers for another insulin adjustment Patient? reports glycemic control as: good Most recent Hgb A1C: 6.7% 08/06/23 Frequency of low BG: Frequent overnight hypoglycemia Low BG treatment: juice Frequency of high BG: several times a week Does patient check Ketones? yes Has pt been on a pump in the past? no Reviewed insulin pump basics today with Patient. Explained pros and cons of insulin pumps. Showed pt various pumps, infusion sets, and cgms currently available. Reviewed need to wear pump / and need to change infusion set every 3 days. Also stressed importance of frequent BG checks, 4x daily minimum or use pump that is integrated with CGM.? Patient demonstrated motivation for continued insulin pump education and understands the need to complete education prior to starting insulin pump for best outcome. Reviewed ketone testing with patient Patient reports he has had difficulty making appointment at [facility] in [place] for BRI Patient has decided to go forward with the iLet insulin pump Patient Instructions: DIABETES PROBLEMS HOMECARE INSTRUCTIONS? for High Blood Sugar and When to Test for Ketones Hyperglycemia is the technical term for high blood glucose (blood sugar). High blood sugar happens when the body has too little insulin or when the body can't use insulin properly. What causes hyperglycemia? A number of things can cause hyperglycemia: * If you have type 1, you may not have given yourself enough insulin. ? If you have type 2, your body may have enough insulin, but it is not as effective as it should be. * You ate more than planned or exercised less than planned. * You have stress from an illness, such as a cold or flu. * You have other stress, such as family conflicts or school or dating problems. How to lower your blood sugar level. ? Take medications as directed by physician. ? Drink extra water or noncaffeinated, nonsugared drinks to prevented hydration. ? Exercise if you are not sick However, if your blood sugar is above 250 mg/dl, check your urine for ketones. If you have ketones, do not exercise Exercising when ketones are present may make your blood sugar level go even higher. You'll need to work with your doctor to find the safest way for you to lower your blood sugar level. Regularly check blood sugar or urine for sugar and acetone during illness. Diabetic ketoacidosis (DKA) Is serious condition that can lead to diabetic coma (passing out for a long time) or even . When your cells don't get the glucose they need for energy, your body begins to burn fat for energy, which produces ketones. Ketones are chemicals that the body creates when it breaks down fat to use for energy. The body does this when it doesn?t have enough insulin to use glucose, the body?s normal source of energy. When ketones build up in the blood, they make it more acidic. They are a warning sign that your diabetes is out of control or that you are getting sick. Symptoms of Diabetic Ketoacidosis (DKA) ? DKA usually develops slowly. But when vomiting occurs, this life-threat ening condition can develop in a few hours. Early symptoms include the following: ? Thirst or a very dry mouth ? Frequent urination ? High blood glucose (blood sugar) levels ? High levels of ketones in the urine ? Then, other symptoms appear: ? Constantly feeling tired ? Dry or flushed skin ? Nausea, vomiting, or abdominal pain ? (Vomiting can be caused by many illnesses, not just ketoacidosis. If vomiting continues for more than 2 hours, contact your health care provider.) ? Difficulty breathing ? Fruity odor on breath ? A hard time paying attention, or confusion When should you test for ketones? It is advisable to check for ketones under the following conditions when: Your blood glucose is higher than 250mg/dl. Feeling nauseated, throwing up, or have pains in your abdominal region. Have a cold or flu. Have general body fatigue. Feel thirsty or have a very dry mouth. Have flushed skin. Have a fruity breath or a hard time breathing. You feel perplexed or in fog. How to Test Urine for Ketones You can detect ketones with a simple urine test using a test strip, similar to a blood testing strip. Ask your health care provider when and how you should test for ketones. Many experts advise to check your urine for ketones when your blood glucose is more than 250 mg/dl. When you are ill (when you have a cold or the flu, for example), check for ketones every 4 to 6 hours. And check every 4 to 6 hours when your blood sugar is more than 250 mg/dl. Also, check for ketones when you have any symptoms of DKA. How to lower your blood sugar level. ? Take medications as directed by physician. ? Drink extra water or noncaffeinated, nonsugared drinks to prevented hydration. ? Exercise if you are not sick However, if your blood sugar is above 250 mg/dl, check your urine for ketones. If you have ketones, do not exercise Exercising when ketones are present may make your blood sugar level go even higher. You'll need to work with your doctor to find the safest way for you to lower your blood sugar level. Regularly check blood sugar or urine for sugar and acetone during illness Coding Level of Care Code Est Pt Level 1 (27672) Diagnoses Diabetes type I E10.9
== END 2023-10-31 08:09 | disposition home or self-care (01) ==
PROVIDERS: PCP Nurse Practitioner Family; Visit Provider Registered Nurse Diabetes Educator
DX: E10.9 Type 1 diabetes mellitus without complications (principal)

== ENCOUNTER → 2023-10-31 07:48 | Outpatient (BNVA) | payer OTHER, SELFPAY | PROVIDERS: PCP Nurse Practitioner Family; Visit Provider Registered Nurse Diabetes Educator | DX: E10.9 Type 1 diabetes mellitus without complications (principal); Z46.81 Encounter for fitting and adjustment of insulin pump; Z96.41 Presence of insulin pump (external) (internal); Z79.4 Long term (current) use of insulin | CPT/HCPCS: 99211 ==

== ENCOUNTER 2023-11-20 07:08 | Outpatient (AMB) | payer OTHER, SELFPAY ==
--- NOTE | 2023-11-20 08:41 | A.OFFVIS_ITS ---
Intake Intake Visit Reasons: Pump training/CONFIRMED Store Detective Required: No Accompanied by: Self / Same As Patient Allergies No Known Allergies Allergy (Verified 10/08/23 09:34) HPI Comprehensive Diabetes Asmnt Most Recent Diabetes Results: No Data to Display [facility] Medical History Hypothyroidism Surgical History No pertinent past surgical history Social History Household Members: Family Housing: Apartment Alcohol intake: current Alcohol intake frequency: does not drink Patient Tobacco Use Status: Current everyday Tobacco user Tobacco use type: Cigarette Cigarettes Per Day: 10 e-Cigarette/Vaping Use: Never Used Second Hand Smoke Exposure: Yes service: No Current occupational status: employed and unemployed Cognitive needs: No Hearing needs: No Vision needs: No Assessment & Plan Assessment & Plan (1) Diabetes type I: Comment: DX age 5 Code(s): E10.9 - Type 1 diabetes mellitus without complications Plan: Patient presents for pump training for iLet pump and CGM training today. The following topics were reviewed today: -Pump therapy basic concepts: Basal/bolus -Device settings: Bluetooth/mobile connection (if applicable), correct date and time, sound volume -CGM settings(if integrated system): CGM graft views and trend arrows, alerts and alarms, Start new sensor Insulin delivery settings Instructed patient to only use room temperature insulin, how to load cartridge or fill pod, with insulin. Fill tubing and cannula (if applicable) Inserting infusion set or starting pod Troubleshooting after starting new pod or inserting new insulin set: Occlusion, adhesive tape sensitivity, redness Check BG 2 hours after site change Safety information: Importance of a backup plan, for manual injections, proper prescriptions and emergency supplies ketone strips, and rules for testing for ketones Patient was able to insert insulin set today without difficulty. Patient understands the basic concepts of pump therapy, how to give insulin for meals and snacks, how to troubleshoot for hyper and hypoglycemia. Patient will follow up with CDE as instructed Patient will contact CDE with questions or concerns, patient given IT number to support in any technical issues related to insulin pump Portions of this note were created using voice recognition software, please excuse any words or phrases that may have been misinterpreted. Coding Level of Care Code Est Pt Level 1 (61244) Diagnoses Diabetes type I E10.9
== END 2023-11-20 08:43 | disposition home or self-care (01) ==
PROVIDERS: PCP Nurse Practitioner Family; Visit Provider Registered Nurse Diabetes Educator
DX: E10.9 Type 1 diabetes mellitus without complications (principal)

== ENCOUNTER → 2023-11-20 07:08 | Outpatient (BNVA) | payer OTHER, SELFPAY | PROVIDERS: PCP Nurse Practitioner Family; Visit Provider Registered Nurse Diabetes Educator | DX: E10.9 Type 1 diabetes mellitus without complications (principal) | CPT/HCPCS: 99211 ==

== ENCOUNTER 2023-11-27 07:39 | Outpatient (AMB) | payer OTHER, SELFPAY ==
--- NOTE | 2023-11-27 07:53 | MHC.AMDMED ---
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 Required: No Accompanied by: Self / Same As Patient Allergies No Known Allergies Allergy (Verified 10/08/23 09:34) HPI Comprehensive Diabetes Asmnt Most Recent Diabetes Results: Microalb/Creat Ratio 21.6 ug/mg cr (<30) 08/06/23 Cholesterol 123 mg/dL (<200) 08/06/23 HDL Cholesterol 45 mg/dL (>40) 08/06/23 Triglycerides 71 mg/dL (<150) 08/06/23 Creatinine 0.96 mg/dL (0.5-1.4) 08/06/23 Blood Urea Nitrogen 12 mg/dL (9-16) 08/06/23 Sodium 138 mmol/L (135-145) 08/06/23 Potassium 4.0 mmol/L (3.3-5.1) 08/06/23 Chloride 106 mmol/L (96-108) 08/06/23 Carbon Dioxide 26 mmol/L (22-29) 08/06/23 Calcium 9.9 mg/dL (8.4-10.2) 08/06/23 AST 16 U/L (5-37) 08/06/23 ALT 15 U/L (0-40) 08/06/23 Total Protein 7.5 g/dL (6.5-8.0) 08/06/23 Albumin 4.2 g/dL (3.5-5.0) 08/06/23 PFSH Medical History Hypothyroidism Surgical History No pertinent past surgical history Social History Household Members: Family Housing: Apartment Alcohol intake: current Alcohol intake frequency: does not drink Patient Tobacco Use Status: Current everyday Tobacco user Tobacco use type: Cigarette Cigarettes Per Day: 10 e-Cigarette/Vaping Use: Never Used Second Hand Smoke Exposure: Yes service: No Current occupational status: employed and unemployed Cognitive needs: No Hearing needs: No Vision needs: No Assessment & Plan Assessment & Plan (1) Diabetes type I: Comment: DX age 5 Code(s): E10.9 - Type 1 diabetes mellitus without complications Plan: Patient presents for pump training for iLet pump and CGM training today. The following topics were reviewed today: -Pump therapy basic concepts: Basal/bolus -Always dose 15 minutes prior to meals - Off pump backup insulin plan ??? High Alert: 300 mg/dl ??? Low Alert: 70 mg/dl CGM data: Above target 30.4% At target 66.7% Below target 2.1% Average glucose for the past 7 days 155 mg/dL Patient came off pump on Saturday11/23/23 due to issues with insulin delivery set. When patient tried to insert cannula it kinked multiple times. Patient given sample of contact detach insulin delivery set 11/26/2023. Patient reports success with using contact detached Patient is set at usual target Reviewed with patient the importance announcing meals 15 minutes prior to eating Instructed patient not to take Lantus while using insulin pump Watch for hypoglycemia due to activity during the day, if hypoglycemia becomes a problem at work we can increase target rate TDD:31.4 units Basal:15.6 units Instructed patient to only use room temperature insulin, how to load cartridge or fill pod, with insulin. Fill tubing and cannula (if applicable) Troubleshooting after starting new pod or inserting new insulin set: Occlusion, adhesive tape sensitivity, redness Check BG 2 hours after site change Reviewed Safety information: Importance of a backup plan, for manual injections, proper prescriptions and emergency supplies ketone strips, and rules for testing for ketones Patient understands the basic concepts of pump therapy, how to give insulin for meals and snacks, how to troubleshoot for hyper and hypoglycemia. Patient will follow up with [facility] as instructed Patient will contact [facility] with questions or concerns, patient given IT number to support in any technical issues related to insulin pump Portions of this note were created using voice recognition software, please excuse any words or phrases that may have been misinterpreted. Patient Instructions: Patient has follow-up appointment with Dr. Lehman on 12/04/2023 Patient will follow-up with franchise broker in 1 month Patient instructed to contact franchise broker with questions and concerns Coding Level of Care Code Est Pt Level 1 (99763) Diagnoses Diabetes type I E10.9
== END 2023-11-27 07:56 | disposition home or self-care (01) ==
PROVIDERS: PCP Nurse Practitioner Family; Visit Provider Registered Nurse Diabetes Educator
DX: E10.9 Type 1 diabetes mellitus without complications (principal)

== ENCOUNTER → 2023-11-27 07:39 | Outpatient (BNVA) | payer OTHER, SELFPAY | PROVIDERS: PCP Nurse Practitioner Family; Visit Provider Registered Nurse Diabetes Educator | DX: E10.9 Type 1 diabetes mellitus without complications (principal) | CPT/HCPCS: 99211 ==

== ENCOUNTER 2023-12-04 14:25 | Outpatient (AMB) | payer OTHER, SELFPAY ==
[2023-12-04 14:28] VITALS: BP 108/60; PULSE 101; BMI 24.1
--- NOTE | 2023-12-04 14:28 | A.OFFVIS_ITS ---
Vital Signs 12/04/23 14:28 Height 5 ft 8 in Weight 158 lb 8.198 oz BMI 24.1 BP 108/60 Blood Pressure Location Lt brachial Position Sitting Pulse 101 H Pulse Source Pulse Oximeter Intake Visit Reasons: f/u ?monogenic diabetes-confirmed Intake Note: Patient presents today to follow up to monogenic diabetes. Last Diabetic Eye exam: 5 years ago Last Podiatry Visit: Doesn't have one Random Glucose: 115 mg/dl HgA1c: 7.1% Staff Electronic Warfare Officer Required: No Accompanied by: Self / Same As Patient Allergies No Known Allergies Allergy (Verified 12/04/23 14:35) HPI Comments Details: 43 YO M with is seen in consultation for T1DM at the request of PCP.Since age Initially diagnosed with T1DM in not sure when presented with []. Was initially started on treatment with insulin . Current regimen: iLet device , TDD of 18.0 avg is 153.3 SD of 53.5 CV of 34.9 75% in range with 25 % hyperglycemia and 1.8% low . Target is usual at 120 Reports low sugars rarely . Treats lows with OJ . Not Checks sugar after to ensure it is rising. Family history of autoimmunity in lupus in mother Has eyes checked yearly, last eye exam yrs ago. Needs to make appt . , no retinopathy. Denies neuropathy,Not sees podiatry. Denies nephropathy,Not on RAINER/ARB. UAC [] measured on []. Has HLD, on statin for 1 mo . Denies history of CAD. Had diabetes education yrs ago . Diet/Carb counting: yes Denies recent prior episodes of DKA. Denies prior severe episodes of hypoglycemia requiring help or hospitalization. Labs: Anti-PENG 65 antibodies were negative. Was preparing to go on the iLet pump [facility] Medical History Hypothyroidism Surgical History No pertinent past surgical history Social History Household Members: Family Housing: Apartment Alcohol intake: current Alcohol intake frequency: does not drink Patient Tobacco Use Status: Current everyday Tobacco user Tobacco use type: Cigarette Cigarettes Per Day: 10 e-Cigarette/Vaping Use: Never Used Second Hand Smoke Exposure: Yes service: No Current occupational status: employed and unemployed Cognitive needs: No Hearing needs: No Vision needs: No Physical Exam Vital Signs: Last Vital Signs Pulse 101 H 12/04/23 14:28 BP 108/60 12/04/23 14:28 BMI result Body Mass Index 24.1 Absence of Cushingoid features. Absence of acromegalic features. Neck exam reveals nl size thyroid about 15 gms. No thyroid nodules palpable. No carotid bruits present. Lungs CTA. Heart S1 S2, Reg R/R. No M/R/ G. Skin exam reveals absence of vitiligo or acanthosis nigricans. Abdominal exam reveals Soft NT/ND with NA BS. No organomegaly present. Extrem Other: Visual exam of foot performed. No ulcerations or open lesions. No onchomycosis, no callouses.Pulses 2 + distally. Sensation intact to monofilament exam. Vibratory sensation sensed 10 seconds decreased in right, 10 seconds in left with 128 Hz tuning fork Results AMB Hemoglobin A1c AMB Hemoglobin A1c 7.1 % Last Edit by DAMIAN Clemente on 12/04/23 14:47 Results Reviewed Results Reviewed: Laboratory Last Values Glucose (Clinic) 115 mg/dL (60-115) 12/04/23 14:37 Assessment & Plan Assessment & Plan (1) Diabetes type I: Comment: DX age 5 Code(s): E10.9 - Type 1 diabetes mellitus without complications Category: Medical Plan: This is a 42-year-old male with history of longstanding-type 1 diabetes with improved fair glycemic control on basal-bolus insulin and no known microvascular or macrovascular complication. Age of onset raises suspicion of mono genic diabetes or BRI. Anti-PENG 65 AB are negative . He is having significant overnight hypoglycemia Plan is to continue management with the iLet Will have patient see 2 nd opinion at [facility] by a specialist in monogenic diabetes Víctor Resendez or can consider getting genetic testing . Orders: Orders AMB Hemoglobin A1c Today E10.9 - Type 1 diabetes mellitus without complications, Z13.9 - Encounter for screening, unspecified Coding Level of Care Code Est Pt Level 4 (67939) Diagnoses Diabetes type I E10.9
[2023-12-04 14:42] LABS: Glucose, Whole Blood 115 mg/dL (60-115)
== END 2023-12-04 15:12 | disposition home or self-care (01) ==
PROVIDERS: PCP Nurse Practitioner Family; Visit Provider Internal Medicine Endocrinology, Diabetes & Metabolism
DX: Z13.9 Encounter for screening, unspecified (principal); E10.9 Type 1 diabetes mellitus without complications
CPT/HCPCS: 99214

== ENCOUNTER → 2023-12-04 14:25 | Outpatient (BNVA) | payer OTHER, SELFPAY | PROVIDERS: PCP Nurse Practitioner Family; Visit Provider Internal Medicine Endocrinology, Diabetes & Metabolism | DX: E10.9 Type 1 diabetes mellitus without complications (principal) | CPT/HCPCS: 82947; 83036; 99212 ==

== ENCOUNTER 2023-12-13 08:13 | Outpatient (AMB) | payer OTHER, SELFPAY ==
[2023-12-13 08:30] VITALS: BP 140/76; PULSE 90; O2SAT 98; BMI 23.6
--- NOTE | 2023-12-13 08:30 | MHC.PC.OV ---
Vital Signs 12/13/23 08:30 Height 5 ft 8 in Weight 155 lb 0.4 oz BMI 23.6 BP 140/76 H Blood Pressure Location Lt brachial Position Sitting Pulse 90 Pulse Source Pulse Oximeter Pulse Oximetry (%) 98 Oxygen Delivery Method Room Air Intake Visit Reasons: Diabetes mellitus type 1 hypertension Tree Wrapper Required: No Allergies No Known Allergies Allergy (Verified 12/13/23 08:31) Medication List - Last Reconciled 12/13/23 by Sonia Grijalva MD blood sugar diagnostic (FreeStyle Lite Strips) USE TO TEST 4 TIMES DAILY DIRECTED blood-glucose meter As directed blood-glucose meter (FreeStyle [place] Lite kit) As directed tests 4 X/day blood-glucose sensor ([employer] G7 Sensor device) DIRECTED CHANGE EVERY 10 DAYS cholecalciferol (vitamin D3) (Vitamin D3) 25 mcg PO DAILY glucagon 3 mg/actuation (Baqsimi) 3 mg intranasal ONCE insulin glargine-yfgn 40 units (0.4 mL) subcut QPM insulin lispro 20 units (0.2 mL) subcut TID insulin lispro Infuse up to 100 units per day via insulin pump subcutaneously; lancets (FreeStyle Lancets) As directed tests 4 X/day levothyroxine (Synthroid) 50 mcg PO DAILY lisinopril 5 mg PO DAILY nicotine 1 patch transdermal DAILY nicotine (Nicoderm CQ) 1 patch transdermal DAILY nicotine (polacrilex) (Nicorette) 2 mg buccal Q2H pen needle, diabetic (BD Ultra-Fine Original Pen Needle) test 4 times daily pen needle, diabetic (BD Ultra-Fine Original Pen Needle) As directed- Use to test 4 Times a day pyridoxine (vitamin B6) 100 mg PO DAILY 90 days rosuvastatin 5 mg PO DAILY Tobacco use date assessed: 08/22/23 Dental Screening Dental Screen Date: 08/22/23 HPI Diabetes mellitus type 1 hypertension HPI Details 43-year-old male with diabetes mellitus type 1 hypothyroidism hypercholesterolemia hypertension and history of nephrolithiasis coming in for follow-up. Last seen in August 2023. Review of the notes has seen endocrinology hemoglobin A1c at that time was 7.1 but was advised to get a 2nd opinion at [facility] for mono genic diabetes/genetic testing. Patient was also seen by Urology for the nephrolithiasis left kidney with 4 mm and 3 mm stones left kidney with 4 mm , 7 mm and 6 mm cluster patient was advised CT urogram and cystoscopy patient declined but advised renal ultrasound in 6 months. Review of the notes had CT of the neck done in 07/23/2023 noted to have a 6 mm perifissural nodule in the left upper lobe and has been advised repeat testing in 6-12 months. [facility] Medical History Hypothyroidism Surgical History No pertinent past surgical history Social History Household Members: Family Housing: Apartment Alcohol intake: current Alcohol intake frequency: does not drink Patient Tobacco Use Status: Current everyday Tobacco user Tobacco use type: Cigarette Cigarettes Per Day: 10 e-Cigarette/Vaping Use: Never Used Second Hand Smoke Exposure: Yes service: No Current occupational status: employed and unemployed Cognitive needs: No Hearing needs: No Vision needs: No Questionnaire Thrive Questionnaire Date Thrive assessed: 08/22/23 I am a: Patient What is your living situation today?: I have a steady place to live Within the past 12 months, did the food you bought not last and you didn't have the money to get more?: Never true Within the past 12 months, did you worry whether your food would run out before you got money to buy more?: Never true Do you have trouble paying for medicines?: No Do you have trouble getting transportation to medical appointments?: No Do you have trouble paying your heating and electricity bill?: No Do you have trouble taking care of your child, family member or friend?: No Do you have trouble with day-to-day activities such as bathing, preparing meals, shopping, managing finances, etc.?: No Are you currently unemployed and looking for a job?: No Are you interested in more education?: No Please select the resources that you would like help with: None THRIVE Score: 0 AUDIT C Alcohol Use Questionnaire (AUDIT-C) 1. How often do you have a drink containing alcohol?: Never 2. How many drinks containing alcohol do you have on a typical day when you are drinking?: 1 or 2 3. How often do you have six or more drinks on one occasion?: Never Total Score: 0 PENG-7 AMB Questionnaire PENG-7 Date PENG - 7 assessed: 08/22/23 Source: Developed by Drs. Donis Morris, Tatyana Caldwell, Toribio Greco and colleagues, with an educational adrienne from [employer]. Physical exam (Primary Care) Vital Signs: Last Vital Signs Pulse 90 12/13/23 08:30 BP 140/76 H 12/13/23 08:30 Pulse Ox 98 12/13/23 08:30 Oxygen Delivery Method Room Air 12/13/23 08:30 BMI result Body Mass Index 23.6 Tobacco/Smoking Status: Tobacco use Status Tobacco use date assessed 08/22/23 12/13/23 08:34 Patient Tobacco Use Status Current everyday Tobacco 12/13/23 08:34 Tobacco use type Cigarette 12/13/23 08:34 e-Cigarette/Vaping Use Never Used 12/13/23 08:34 Thrive Assessment: Date of Thrive Assessment Date Thrive assessed 08/22/23 12/13/23 08:34 Const General: alert; No acute distress Eyes Conjunctivae: conjunctivae normal Resp Auscultation: clear to auscultation bilaterally Cardio Rate: regular rate Rhythm: regular rhythm GI Inspection: Yes normal to inspection Extrem General: Yes normal to inspection and No edema Assessment and Plan Assessment & Plan (1) Diabetes type I: Comment: DX age 5 Code(s): E10.9 - Type 1 diabetes mellitus without complications Plan: Patient has been seen by Endocrinology presently to continue present does and advised genetic testing (2) Hypothyroidism: Code(s): E03.9 - Hypothyroidism, unspecified Plan: Continue with thyroid medication thing was done last year. (3) Hyperlipidemia LDL goal <100: Code(s): E78.5 - Hyperlipidemia, unspecified Plan: Avoid fried foods, chicken skin, eggs, butter margarine, pastries and meat. Be it pork or beef they have a lot of cholesterol on rosuvastatin 5 mg once a day at goal 07/23/2023 last test (4) Hypertension: Code(s): I10 - Essential (primary) hypertension Plan: Continue with blood pressure medication. Decrease salt intake and exercise patient takes lisinopril 5 mg once a day (5) Renal calculi: Code(s): N20.0 - Calculus of kidney Plan: Patient has seen Urology and continuing to monitor keep well hydrated. (6) Abnormal cytology: Code(s): R89.6 - Abnormal cytological findings in specimens from other organs, systems and tissues Plan: Patient has seen Urology and has discussed about the cytology as well as workup. Declined further studies and just advised another ultrasound of the kidneys in 6 months. (7) Pulmonary nodule: Comment: 6 mm perifissural left upper lobe nodule July 2023 Code(s): R91.1 - Solitary pulmonary nodule Plan: Incidental finding of left upper lobe nodule advised follow-up CT (8) Tobacco abuse: Code(s): Z72.0 - Tobacco use Plan: Nicotine patches prescribed as well as the gum but advised use gum only on cravings while on the patch but discussed on not touching cigarettes anymore. Orders: Orders Thyroid Stimulating Hormone Today E03.9 - Hypothyroidism, unspecified Free T4 (Free Thyroxine) Today E03.9 - Hypothyroidism, unspecified CT chest wo IV con 2 Months R91.1 - Solitary pulmonary nodule Referrals Ophthalmology Referral E10.9 - Type 1 diabetes mellitus without complications Medications: New nicotine 1 patch transdermal DAILY 28 ea 0RF Z72.0 - Tobacco use nicotine (Nicoderm CQ) 1 patch transdermal DAILY 28 ea 0RF Z72.0 - Tobacco use nicotine (polacrilex) (Nicorette) 2 mg buccal Q2H 100 ea 0RF Z72.0 - Tobacco use Refilled cholecalciferol (vitamin D3) (Vitamin D3) 25 mcg PO DAILY 90 caps 1RF E55.9 - Vitamin D deficiency, unspecified Coding Level of Care Code Est Pt Level 4 (26679) Complex EM visit Add On G2211 Diagnoses Diabetes type I E10.9 Hypothyroidism E03.9 Hyperlipidemia LDL goal <100 E78.5 Hypertension I10 Renal calculi N20.0 Abnormal cytology R89.6 Pulmonary nodule R91.1 Tobacco abuse Z72.0
== END 2023-12-13 08:59 | disposition home or self-care (01) ==
PROVIDERS: PCP Nurse Practitioner Family; Visit Provider Internal Medicine
DX: E10.9 Type 1 diabetes mellitus without complications (principal); E03.9 Hypothyroidism, unspecified; E78.5 Hyperlipidemia, unspecified; I10 Essential (primary) hypertension; N20.0 Calculus of kidney; R89.6 Abnormal cytological findings in specimens from other organs, systems and tissues; R91.1 Solitary pulmonary nodule; Z72.0 Tobacco use
CPT/HCPCS: 99214; G2211

== ENCOUNTER 2023-12-20 09:47 | Outpatient (AMB) | payer OTHER, SELFPAY ==
--- NOTE | 2023-12-20 09:48 | A.OFFVIS_ITS ---
Vital Signs 12/20/23 09:49 Height 5 ft 8 in Weight 152 lb 1.903 oz BMI 23.1 BP 120/78 Blood Pressure Location Rt brachial Position Sitting Pulse 107 H Pulse Source Pulse Oximeter Intake Visit Reasons: DM Intake Note: Patient presents today, having issues with the Pump Settings: Last Diabetic Eye exam: 5 years ago Last Podiatry Visit: Doesn't have one Random Glucose: 368, mg/dL, Today HgA1c: 7.1%, 12/04/2023 Car Checker Required: No Accompanied by: Self / Same As Patient Allergies No Known Allergies Allergy (Verified 12/13/23 08:31) HPI Comments Details: Patient is a type 1 diabetic on an Ilet pump. 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 His blood sugars were in good range this morning in the 80s and 90s. He change to set and then went to work in his blood sugars shot up to the 300 range. He gave himself to correction doses using large breakfast announcement to pump. His sugars have not come down and are now 368. There is no obvious leakage from the site. He does not have backup ilet set with him today but does have his back up lantus/humalog and a way to self inject. [facility] Medical History Hypothyroidism Surgical History No pertinent past surgical history Social History Household Members: Family Housing: Apartment Alcohol intake: current Alcohol intake frequency: does not drink Patient Tobacco Use Status: Current everyday Tobacco user Tobacco use type: Cigarette Cigarettes Per Day: 10 e-Cigarette/Vaping Use: Never Used Second Hand Smoke Exposure: Yes service: No Current occupational status: employed and unemployed Cognitive needs: No Hearing needs: No Vision needs: No Physical Exam Vital Signs: Last Vital Signs Pulse 107 H 12/20/23 09:49 BP 120/78 12/20/23 09:49 BMI result Body Mass Index 23.1 Const General: cooperative and healthy appearing Nutritional Appearance: average body habitus Limitations: no limitations Neck Neck: Yes normal visual inspection Resp Effort & Inspection: normal respiratory effort Results Reviewed Results Reviewed: Laboratory Last Values Glucose (Clinic) 368 mg/dL (60-115) H* 12/20/23 09:53 Assessment & Plan Assessment & Plan (1) Diabetes type I: Comment: DX age 5 Code(s): E10.9 - Type 1 diabetes mellitus without complications Category: Medical Plan: Patient was counseled that if he changes his set and his sugars become elevated despite correction that it is most likely a kinked catheter. He was asked to always have backup islet set with him and to have a way to inject both long and short-acting insulin. He will take Lantus 30 units now which will over him for 24 hours and use usual doses of short acting now and with meals. He will come back to the office today if his sugars do not come down. Coding Level of Care Code Tele Est Pt Level 3 (22615) Complex EM visit Add On G2211 Diagnoses Diabetes type I E10.9
[2023-12-20 09:49] VITALS: BP 120/78; PULSE 107; BMI 23.1
[2023-12-20 09:59] LABS: Glucose, Whole Blood 368 mg/dL (60-115)
== END 2023-12-20 10:01 | disposition home or self-care (01) ==
PROVIDERS: PCP Internal Medicine; Visit Provider Nurse Practitioner Adult Health
DX: E10.9 Type 1 diabetes mellitus without complications (principal)
CPT/HCPCS: 99213; G2211

== ENCOUNTER → 2023-12-20 09:47 | Outpatient (BNVA) | payer OTHER, SELFPAY | PROVIDERS: PCP Internal Medicine; Visit Provider Nurse Practitioner Adult Health | DX: E10.9 Type 1 diabetes mellitus without complications (principal) | CPT/HCPCS: 82947 ==

== ENCOUNTER 2023-12-30 09:25 | Emergency (ER) | payer OTHER, SELFPAY ==
[2023-12-30 09:42] VITALS: BP 122/68; PULSE 124; RESP 16; TEMP 37; O2SAT 99; BMI 23.0
[2023-12-30 09:54] LABS: MANUAL DIFF FLAG NO
[2023-12-30 09:56] LABS: Basophils Absolute Auto 0.1 X10*3/uL (0.0-0.2); Basophils Percent Auto 0.3 % (0-2); Eosinophils Absolute Auto 0.1 X10*3/uL (0.0-0.4); Eosinophils Percent Auto 0.6 % (0-4); Hematocrit 46.5 % (42.0-52.0); Hemoglobin 15.6 g/dl (14.0-18.0); Imm Gran Abs Auto 0.05 X10*3/uL (0.00-0.03); Imm Gran Pct Auto 0.3 % (0.0-0.4); Lymphocytes Absolute Auto 1.8 X10*3/uL (1.2-4.9); Lymphocytes Percent Auto 12.5 % (20-40); Mean Corpuscular HGB Conc 33.5 g/dl (31.0-36.0); Mean Corpuscular Hemoglobin 28.2 pg (27.0-33.0); Mean Corpuscular Volume 83.9 fL (80.0-98.0); Mean Platelet Volume 9.9 fL (9.4-12.4); Monocytes Absolute Auto 1.3 X10*3/uL (0.1-1.2); Monocytes Percent Auto 8.6 % (2-11); Neutrophils Absolute Auto 11.2 x10*3/uL (2.0-8.3); Neutrophils Percent Auto 77.7 % (45-73); Platelet Count 289 X10*3/uL (160-400); Red Blood Count 5.54 X10*6/uL (4.60-5.80); Red Cell Distribution Width 12.6 % (11.0-16.0); White Blood Count 14.5 X10*3/uL (4.8-10.8)
[2023-12-30 10:08] LABS: Anion Gap 14 (12-20); Blood Urea Nitrogen 12 mg/dL (9-16); Carbon Dioxide 29 mmol/L (22-29); Chloride 101 mmol/L (96-108); Creatinine Clr Calc Pharmacy 93.1; Estimated Glomerular Filt Rate > 60; Glucose Random 223 mg/dL (60-115); Potassium 4.5 mmol/L (3.3-5.1); Sodium 139 mmol/L (135-145)
[2023-12-30 10:20] VITALS: BP 122/70; PULSE 115; RESP 18; TEMP 37.3; O2SAT 99
--- NOTE | 2023-12-30 10:42 | ED.DENTAL ---
HPI - Dental/Oral General Chief complaint: Dental/Oral Stated complaint: ? Dental Infection Time Seen by Provider: 12/30/23 10:41 Source: patient Mode of arrival: ambulatory Limitations: no limitations History of Present Illness ED Provider: Susan Jiang PA-C HPI Narrative: 43-year-old male with a history of type 1 diabetes, HTN, HLD, hypothyroidism who presents to the ER for evaluation of a dental infection that started yesterday. He states he noticed the right side of his face was slightly swollen and tender yesterday morning. Today it worsened and includes the right side of his nose, right upper lip. He reports pain with eating and chewing. He has history of multiple crowns and poor dentition. Tried to call his dentist today but they were unable to see him. He reports history of dental abscess on the left side in the past. He denies any fever or chills. His glucose is well controlled at 140. No difficulty opening or closing the mouth. No neck swelling. Location: Tooth # (7) Onset (ago): day(s) (1) Duration: constant Severity: severe Relieving factors: prescription analgesics Exacerbating factors: chewing Context: history of dental caries and poor dental care Associated symptoms: gum swelling Related Data Previous Rx's ?Medication ?Instructions ?Recorded blood-glucose meter #1 ea 07/23/22 pen needle, diabetic 29 gauge x #100 ea 11/21/2206/04 (BD Ultra-Fine Original Pen Needle) blood-glucose meter (FreeStyle #1 ea 01/09/23 [place] Lite kit) glucagon 3 mg/actuation nasal 3 mg intranasal ONCE #2 ea 01/09/23 spray (Baqsimi) lancets 28 gauge (FreeStyle #100 ea 02/08/23 Lancets) pyridoxine (vitamin B6) 100 mg 100 mg PO DAILY 90 days #90 tabs 03/29/23 tablet blood sugar diagnostic (FreeStyle #100 strips 06/14/23 Lite Strips) blood-glucose sensor (Dexcom G7 #3 ea 07/11/23 Sensor device) insulin glargine-yfgn 100 unit/mL 40 unit (0.4 mL) subcut QPM #45 mL 08/18/23 (3 mL) subcutaneous pen insulin lispro 100 unit/mL 20 unit (0.2 mL) subcut TID #90 mL 08/22/23 subcutaneous pen levothyroxine 50 mcg tablet 50 mcg PO DAILY #30 tabs 09/22/23 (Synthroid) lisinopril 5 mg tablet 5 mg PO DAILY #90 tabs 11/08/23 pen needle, diabetic 29 gauge x #100 ea 11/14/2306/04 (BD Ultra-Fine Original Pen Needle) rosuvastatin 5 mg tablet 5 mg PO DAILY #90 tabs 11/14/23 insulin lispro 100 unit/mL See Rx Instructions subcut 11/18/23 subcutaneous solution .COMPLEX #30 mL cholecalciferol (vitamin D3) 25 25 mcg PO DAILY #90 caps 12/13/23 mcg (1,000 unit) capsule (Vitamin D3) nicotine (polacrilex) 2 mg gum 2 mg buccal Q2H #100 ea 12/13/23 (Nicorette) nicotine 14 mg/24 hr daily 1 patch transdermal DAILY #28 ea 12/13/23 transdermal patch (Nicoderm CQ) nicotine 21 mg/24 hr daily 1 patch transdermal DAILY #28 ea 12/13/23 transdermal patch amoxicillin 875 mg-potassium 1 tab PO BID #20 tabs 12/30/23 clavulanate 125 mg tablet chlorhexidine gluconate 0.12 % 15 ml buccal BID #473 mL 12/30/23 mouthwash (Peridex) Allergies Allergy/AdvReac Type Severity Reaction Status Date / Time No Known Allergies Allergy Verified 12/30/23 09:45 Review of Systems Review of Systems: Yes all other systems are reviewed and are negative PMFSH Past Medical History Medical History Hypothyroidism Surgical History No pertinent past surgical history Social History Social History Household Members: Family Housing: Apartment Alcohol intake: current Alcohol intake frequency: does not drink Patient Tobacco Use Status: Current everyday Tobacco user Tobacco use type: Cigarette Cigarettes Per Day: 10 e-Cigarette/Vaping Use: Never Used Second Hand Smoke Exposure: Yes Advance Directives: No Advance Directives Information Provided: Yes service: No Current occupational status: employed and unemployed Cognitive needs: No Hearing needs: No Vision needs: No Physical Exam Vital Signs: Vital Signs: Last Vital Signs Temp 99.2 F 12/30/23 10:20 Pulse 115 H 12/30/23 10:20 Resp 18 12/30/23 10:20 BP 122/70 12/30/23 10:20 Pulse Ox 99 12/30/23 10:20 O2 Del Method Room Air 12/30/23 10:20 BMI result Body Mass Index 23.0 Appearance: Alert. Oriented X3. No acute distress. Head/face: normocephalic, atraumatic. mild swelling to the right maxillary area without erythema. Eyes: Pupils equal, round and reactive to light. ENT: tooth #7 wtih tenderness, associated gingival erythema without fluctuaction. no palpable abscess. lips and tongue are normal. Pharynx normal. No tonsillar swelling or exudate. Neck: Normal inspection. Neck supple. No submandibular swelling. CVS: Normal heart rate and rhythm. Pulses normal. Respiratory: No respiratory distress. Breath sounds normal. Skin: Skin warm and dry. Normal skin color. Normal skin turgor. No rashes. Extremities: No lower extremity edema. No joint swelling. Neuro/psych: Oriented X 3. Grossly normal, nonfocal Normal speech and cognition. Medical Decision Making Medical Decision Making [facility] Narrative: 43-year-old type 1 diabetic presents to the ER for evaluation right-sided facial pain right upper dental pain that started yesterday. On examination he has concerning findings for an early dental abscess. He is tachycardic likely due to pain. No trismus on exam. He is nontoxic appearing, handling his secretions normally. No neck swelling. His glucose is 140. Will start patient on pain control, Augmentin. He will follow-up with his dentist, and a list of emergency dentist have been provided. He was given strict return precautions. Stable for discharge home with close outpatient follow-up. Differential Diagnosis Differential Diagnoses: The differential diagnosis associated with the presentation includes dental abscess, Manfred's angina, toothache, fractured tooth Admission/Observation Consideration of admission/observation: Escalation of care including admission/observation considered Lab Data [facility] Lab Attestation statement: I reviewed the patient's lab results. Leukocytosis, mild hyperglycemia, no anion gap 12/30/23 09:50 12/30/23 09:50 Labs: Lab Results 12/30/23 Range/Units 09:50 WBC 14.5 H (4.8-10.8) X10*3/uL RBC 5.54 (4.60-5.80) X10*6/uL Hgb 15.6 (14.0-18.0) g/dl Hct 46.5 (42.0-52.0) % MCV 83.9 (80.0-98.0) fL MCH 28.2 (27.0-33.0) pg MCHC 33.5 (31.0-36.0) g/dl RDW 12.6 (11.0-16.0) % Plt Count 289 (160-400) X10*3/uL MPV 9.9 (9.4-12.4) fL Immature Gran % (Auto) 0.3 (0.0-0.4) % Neut % (Auto) 77.7 H (45-73) % Lymph % (Auto) 12.5 L (20-40) % Motley % (Auto) 8.6 (2-11) % Eos % (Auto) 0.6 (0-4) % Baso % (Auto) 0.3 (0-2) % Lymph # (Auto) 1.8 (1.2-4.9) X10*3/uL Motley # (Auto) 1.3 H (0.1-1.2) X10*3/uL Eos # (Auto) 0.1 (0.0-0.4) X10*3/uL Baso # (Auto) 0.1 (0.0-0.2) X10*3/uL Abs Immat Gran (auto) 0.05 H (0.00-0.03) X10*3/uL Absolute Neuts (auto) 11.2 H (2.0-8.3) x10*3/uL Absolute Nucleated RBC 0.000 (0.0-0.012) X10*3/uL Nucleated RBC % (auto) 0.0 (0.0-0.2) /100WBC Sodium 139 (135-145) mmol/L Potassium 4.5 (3.3-5.1) mmol/L Chloride 101 (96-108) mmol/L Carbon Dioxide 29 (22-29) mmol/L Anion Gap 14 (12-20) BUN 12 (9-16) mg/dL Creatinine 1.01 (0.5-1.4) mg/dL Estim Creat Clear Calc 93.1 Estimated GFR > 60 Random Glucose 223 H (60-115) mg/dL Calcium 11.0 H D (8.4-10.2) mg/dL External Record Review External record reviewed: Prior outpatient labs chronic leukocytosis noted Tests considered The following testing was considered but not selected: CT of the facial bones was considered however would not change care at this time Prescription Management I considered prescription management with: Pain Medication and Antibiotic Chronic Conditions Patient?s care impacted by: Diabetes and Hypertension Critical Care Time Critical Care Time Critical Care Time: No Discharge Plan Discharge Clinical Impression: Dental abscess Patient Disposition: Home, Self-Care Instructions: Dental Abscess (ED) Additional Instructions: Take the prescribed antibiotics as directed, complete the entire course and do not miss any doses recommend using a warm tea bag on the area 2-3 times per day. You can also use the antiseptic mouthwash 2 times per day. It is important a follow-up with a dentist as soon as possible. Call the numbers below to be seen as soon as possible If you develop new or worsening symptoms call 911 or come back to the ER for further evaluation. Call or visit any of the clinics below to establish with a dentist: [facility] [address] [place] [address] [facility] [address] [place] [address] [facility] [address] [facility], [address] [facility] [address] [place] [address] [facility] [address] [place] [id number] [facility] [address] [place] [address] [place] [address] [place] [address] Prescriptions: New amoxicillin-pot clavulanate 875-125 mg tablet 1 tab PO BID Qty: 20 0RF chlorhexidine gluconate [Peridex] 0.12 % mouthwash 15 ml buccal BID Qty: 473 0RF No Action (DME) pen needle, diabetic [BD Ultra-Fine Orig Pen Needle] 29 gauge x 1/2 needle See Rx Instructions .Route Qty: 100 5RF Rx Instructions: test 4 times daily (DME) lancets [FreeStyle Lancets] 28 gauge misc See Rx Instructions .Route Qty: 100 4RF Rx Instructions: As directed tests 4 X/day (DME) FreeStyle Lite Strips Strip See Rx Instructions .ROUTE .COMPLEX Qty: 100 4RF Dose Instruction: USE TO TEST 4 TIMES DAILY DIRECTED Rx Instructions: USE TO TEST 4 TIMES DAILY DIRECTED (DME) Dexcom G7 Sensor Device See Rx Instructions .ROUTE .COMPLEX Qty: 3 5RF Dose Instruction: DIRECTED CHANGE EVERY 10 DAYS Rx Instructions: DIRECTED CHANGE EVERY 10 DAYS insulin glargine-yfgn 100 unit/mL (3 mL) insulin pen 40 unit subcut QPM Qty: 45 1RF levothyroxine [Synthroid] 50 mcg tablet 50 mcg PO DAILY Qty: 30 1RF lisinopril 5 mg tablet 5 mg PO DAILY Qty: 90 1RF (DME) pen needle, diabetic [BD Ultra-Fine Orig Pen Needle] 29 gauge x 1/2 needle See Rx Instructions .Route Qty: 100 0RF Rx Instructions: As directed- Use to test 4 Times a day rosuvastatin 5 mg tablet 5 mg PO DAILY Qty: 90 1RF insulin lispro 100 unit/mL solution See Rx Instructions subcut .COMPLEX Qty: 30 5RF Rx Instructions: Infuse up to 100 units per day via insulin pump subcutaneously; (DME) blood-glucose meter Kit See Rx Instructions .Route Qty: 1 0RF Rx Instructions: As directed insulin lispro 100 unit/mL insulin pen 20 unit subcut TID Qty: 90 3RF nicotine 21 mg/24 hr patch 24 hour 1 patch transdermal DAILY Qty: 28 0RF nicotine [Nicoderm CQ] 14 mg/24 hr patch 24 hour 1 patch transdermal DAILY Qty: 28 0RF nicotine (polacrilex) [Nicorette] 2 mg gum 2 mg buccal Q2H Qty: 100 0RF cholecalciferol (vitamin D3) [Vitamin D3] 25 mcg (1,000 unit) capsule 25 mcg PO DAILY Qty: 90 1RF pyridoxine (vitamin B6) 100 mg tablet 100 mg PO DAILY 90 Days Qty: 90 3RF (DME) blood-glucose meter [FreeStyle [place] Lite] Kit See Rx Instructions .Route Qty: 1 0RF Rx Instructions: As directed tests 4 X/day Baqsimi 3 mg/actuation spray,non-aerosol 3 mg intranasal ONCE Qty: 2 5RF Referrals: Sonia Grijalva MD [Primary Care Provider] - Stand Alone Forms: Work/School Release Print Language: Yi
[2023-12-30] MEDS: Amoxicillin/Potassium Clav 875 MG TABLET PO (11:12)
[2023-12-30] MEDS: Ketorolac Tromethamine 30 MG/ML VIAL IM (11:12)
[2023-12-30 11:18] VITALS: BP 124/77; PULSE 112; RESP 19; TEMP 37; O2SAT 98
== END 2023-12-30 11:19 | disposition home or self-care (01) ==
PROVIDERS: Emergency Provider Emergency Medicine; PCP Internal Medicine
DX: K04.7 Periapical abscess without sinus (principal); E10.9 Type 1 diabetes mellitus without complications; R51.9 Headache, unspecified; F17.210 Nicotine dependence, cigarettes, uncomplicated; Z79.899 Other long term (current) drug therapy
CPT/HCPCS: 36415; 80048; 85025; 96372; 99284; J1885

== ENCOUNTER 2024-01-15 10:41 | Emergency (ER) | payer OTHER, SELFPAY ==
[2024-01-15 10:43] VITALS: BP 140/63; PULSE 101; RESP 18; TEMP 36.7; O2SAT 98; BMI 23.0
--- NOTE | 2024-01-15 10:50 | ED_ITS ---
HPI - General Adult General Chief complaint: General Medical Stated complaint: tired, heavy eyes Time Seen by Provider: 01/15/24 10:50 Source: patient Mode of arrival: ambulatory Limitations: no limitations History of Present Illness ED Provider: Keri Ag PA-C HPI narrative: 43 year old male with PMH of diabete Type 1, hypothyroidism and hypertension presents today with general fatigue and tiredness, muscle aches and sinus pressure since this morning. He has sick contacts at home who was positive for Covid. Has taken Tylenol this morning at work and it seemed to slightly help the pain, but still endorses tiredness and fatigue. Endorses weakness and tiredness, fatigue, sinus pressure, heavy eyelids, muscle aches, joint pain in the knees. Denies fevers, headaches, difficulty breathing, shortness breath, chest pain, nausea, vomiting, diarrhea, nasal discharge, congestion, sore throat, changes in vision. Has not taken of rapid COVID test at home. Onset (ago): hour(s) (6) Severity: mild Quality: aching (Muscle aches) Treatments prior to arrival: other (Tylenol) Related Data Previous Rx's ?Medication ?Instructions ?Recorded blood-glucose meter #1 ea 07/23/22 pen needle, diabetic 29 gauge x #100 ea 11/21/2206/04 (BD Ultra-Fine Original Pen Needle) blood-glucose meter (FreeStyle #1 ea 01/09/23 [place] Lite kit) glucagon 3 mg/actuation nasal 3 mg intranasal ONCE #2 ea 01/09/23 spray (Baqsimi) lancets 28 gauge (FreeStyle #100 ea 02/08/23 Lancets) pyridoxine (vitamin B6) 100 mg 100 mg PO DAILY 90 days #90 tabs 03/29/23 tablet blood sugar diagnostic (FreeStyle #100 strips 06/14/23 Lite Strips) blood-glucose sensor (DexFoodBox G7 #3 ea 07/11/23 Sensor device) insulin glargine-yfgn 100 unit/mL 40 unit (0.4 mL) subcut QPM #45 mL 08/18/23 (3 mL) subcutaneous pen insulin lispro 100 unit/mL 20 unit (0.2 mL) subcut TID #90 mL 08/22/23 subcutaneous pen levothyroxine 50 mcg tablet 50 mcg PO DAILY #30 tabs 09/22/23 (Synthroid) lisinopril 5 mg tablet 5 mg PO DAILY #90 tabs 11/08/23 pen needle, diabetic 29 gauge x #100 ea 11/14/2306/04 (BD Ultra-Fine Original Pen Needle) rosuvastatin 5 mg tablet 5 mg PO DAILY #90 tabs 11/14/23 insulin lispro 100 unit/mL See Rx Instructions subcut 11/18/23 subcutaneous solution .COMPLEX #30 mL cholecalciferol (vitamin D3) 25 25 mcg PO DAILY #90 caps 12/13/23 mcg (1,000 unit) capsule (Vitamin D3) nicotine (polacrilex) 2 mg gum 2 mg buccal Q2H #100 ea 12/13/23 (Nicorette) nicotine 14 mg/24 hr daily 1 patch transdermal DAILY #28 ea 12/13/23 transdermal patch (Nicoderm CQ) nicotine 21 mg/24 hr daily 1 patch transdermal DAILY #28 ea 12/13/23 transdermal patch amoxicillin 875 mg-potassium 1 tab PO BID #20 tabs 12/30/23 clavulanate 125 mg tablet chlorhexidine gluconate 0.12 % 15 ml buccal BID #473 mL 12/30/23 mouthwash (Peridex) Allergies Allergy/AdvReac Type Severity Reaction Status Date / Time No Known Allergies Allergy Verified 01/15/24 10:46 Review of Systems Review of Systems: Yes all other systems are reviewed and are negative Constitutional: Constitutional: Reports body ache(s), Reports daytime sleepiness, Reports fatigue and Reports lethargy Eyes: Eyes: Denies eye discharge Comments: heavy eyelids, tiredness ENT: Reports Normal hearing present, Denies change in voice, Denies dental pain, Denies nasal congestion, Reports sinus pressure and Denies sore throat Cardiovascular: Cardiovascular: Reports no additional cardiovascular complaints Respiratory: Respiratory: Reports no additional respiratory complaints Gastrointestinal: Gastrointestinal: Reports no additional gastrointestinal complaints Genitourinary: Genitourinary: Reports no additional male genitourinary complaints Musculoskeletal: Musculoskeletal: Reports myalgias Integumentary/Breasts: Skin/Breast: Reports system reviewed and no additional complaints, except as docu Neurologic: Reports Normal hearing present Psychiatric: Psychiatric: Reports no additional psychiatric complaints Endocrine: Endocrine: Reports no additional endocrine complaints and Reports fatigue Hematologic/Lymphatic: Hematologic/Lymphatic: Reports no additional hematologic/lymphatic complaints Allergic/Immunologic: Allergic/Immunologic: Reports no additional allergic/immunologic complaints [facility] Past Medical History Attestation statement: The following information was validated with the patient. Source: old records reviewed and nursing notes reviewed Medical History Hypothyroidism Surgical History No pertinent past surgical history Social History Social History Household Members: Family Housing: Apartment Alcohol intake: current Alcohol intake frequency: does not drink Patient Tobacco Use Status: Current everyday Tobacco user Tobacco use type: Cigarette Cigarettes Per Day: 10 e-Cigarette/Vaping Use: Never Used Second Hand Smoke Exposure: Yes Advance Directives: No Advance Directives Information Provided: No service: No Current occupational status: employed and unemployed Cognitive needs: No Hearing needs: No Vision needs: No Physical Exam ED Vital Signs: Vital Signs - 24 hr 01/15/24 10:43 01/15/24 12:21 Temperature 98.0 F 98.0 F Pulse Rate 101 H 101 H Respiratory Rate 18 18 Blood Pressure 140/63 H 140/63 H Pulse Oximetry 98 98 Oxygen Delivery Method Room Air Room Air BMI result Body Mass Index 23.0 Const General: cooperative, healthy appearing, comfortable, well developed, alert, awake and Physically active Nutritional Appearance: average body habitus Orientation/consciousness: patient oriented x3 Limitations: no limitations HENMT Head: Yes normal to inspection Ears: hearing grossly normal bilaterally General nose exam: Normal external nose present and Normal nasal mucous membranes and turbinates present Face and sinus: Yes normal facial exam and Yes sinuses nontender (slight pressure noted) Mouth: Normal oral and palatal mucosa present Teeth and gingiva: dentition normal Throat: Yes posterior oropharynx normal, Yes tonsils normal and Yes uvula midline Eyes General: appearance normal, both eyes and all related structures Visual Beltran: normal visual beltran by confrontation Periorbital: periorbital findings normal Eyelids: Yes eyelids normal Conjunctivae: conjunctivae normal Pupils: Equal, round and reactive pupils present EOM: EOMs intact bilaterally Neck Neck: Yes normal visual inspection, Yes full ROM and Yes no lymphadenopathy Chest Chest palpation & inspection: normal inspection of the chest Resp Effort & Inspection: normal respiratory effort and able to speak in complete sentences Auscultation: clear to auscultation bilaterally Cardio Jugular venous distension: no JVD Palpation: normal PMI Rate: regular rate Rhythm: regular rhythm Heart sounds: S1 normal heart sound present and S2 normal heart sound present GI Inspection: Yes normal to inspection Palpation (GI): Soft to palpation and nontender Skin General skin exam: no rashes or lesions noted Lesions: no lesions Rashes: no rashes Trauma: no lacerations or abrasions Wounds: no wounds Hair: normal Nails: normal Neuro General: patient oriented x3 Cranial nerves: Yes Equal, round and reactive pupils present and Yes Normal hearing present Cognition (Neuro): normal cognition Extrem General: Yes normal to inspection Psych Appearance: grossly normal Mental Status: mental status grossly normal Speech and movement: Normal speech and movement present Affect: normal affect Attitude: cooperative Thought process: Normal thought process present Thought content: Normal thought content present Insight: Good insight present (Psych) Judgement: Good judgement present (Psych) Medical Decision Making Medical Decision Making [facility] Narrative: 43 year old male with PMH of diabetes Type 1, hypothyroidism, and hypertension presents today with general fatigue and tiredness, muscle aches and sinus pressure since this morning. He has a family member who is sick with Covid, having similar symptoms as him. 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 Physical exam reveals no Rhonchi or wheezing, no decreased lung sounds and no productive cough or difficulty breathing and no fever making pneumonia or sinusitis less likely. Viral panel run and patient tested Covid positive. I explained my physical exam findings and all test results to the patient who verbalized understanding. Patient cleared for discharge. Differential Diagnosis Differential Diagnoses: The differential diagnosis associated with the presentation includes Covid, Influenza, RSV, viral illness, Acute sinusitis Admission/Observation Consideration of admission/observation: Escalation of care including admiss ion/observation considered Patient would have been admitted to the hospital had his work up had any findings where hospital admission was appropriate and his clinical presentation warranted hospital admission. Lab Data [facility] Lab Attestation statement: I reviewed the patient's lab results. My interpretation of these results are in the [facility] Rationale portion of this note. Labs: Lab Results 01/15/24 Range/Units 10:54 Influenza Type A (PCR) NEGATIVE (Negative) Influenza Type B (PCR) NEGATIVE (Negative) RSV RNA Qual (PCR) NEGATIVE (Negative) SARS-CoV-2 RNA (RT-PCR) POSITIVE A (Negative) Discharge Plan Discharge Clinical Impression: COVID-19 Patient Disposition: Home, Self-Care Instructions: COVID-19 (Coronavirus Disease 2019) (ED) Additional Instructions: Follow up with your primary care provider. Return to the emergency department immediately if your symptoms worsen or if you develop any dizziness, shortness of breath, difficulty breathing, chest pain, blurry vision, loss of vision, nausea, vomiting, abdominal pain, fever, chills, back pain, or any other complaints. Prescriptions: No Action (DME) pen needle, diabetic [BD Ultra-Fine Orig Pen Needle] 29 gauge x 1/2 needle See Rx Instructions .Route Qty: 100 5RF Rx Instructions: test 4 times daily (DME) lancets [FreeStyle Lancets] 28 gauge misc See Rx Instructions .Route Qty: 100 4RF Rx Instructions: As directed tests 4 X/day (DME) FreeStyle Lite Strips Strip See Rx Instructions .ROUTE .COMPLEX Qty: 100 4RF Dose Instruction: USE TO TEST 4 TIMES DAILY DIRECTED Rx Instructions: USE TO TEST 4 TIMES DAILY DIRECTED (DME) Dexcom G7 Sensor Device See Rx Instructions .ROUTE .COMPLEX Qty: 3 5RF Dose Instruction: DIRECTED CHANGE EVERY 10 DAYS Rx Instructions: DIRECTED CHANGE EVERY 10 DAYS insulin glargine-yfgn 100 unit/mL (3 mL) insulin pen 40 unit subcut QPM Qty: 45 1RF levothyroxine [Synthroid] 50 mcg tablet 50 mcg PO DAILY Qty: 30 1RF lisinopril 5 mg tablet 5 mg PO DAILY Qty: 90 1RF (DME) pen needle, diabetic [BD Ultra-Fine Orig Pen Needle] 29 gauge x 1/2 nee dle See Rx Instructions .Route Qty: 100 0RF Rx Instructions: As directed- Use to test 4 Times a day rosuvastatin 5 mg tablet 5 mg PO DAILY Qty: 90 1RF insulin lispro 100 unit/mL solution See Rx Instructions subcut .COMPLEX Qty: 30 5RF Rx Instructions: Infuse up to 100 units per day via insulin pump subcutaneously; (DME) blood-glucose meter Kit See Rx Instructions .Route Qty: 1 0RF Rx Instructions: As directed amoxicillin-pot clavulanate 875-125 mg tablet 1 tab PO BID Qty: 20 0RF chlorhexidine gluconate [Peridex] 0.12 % mouthwash 15 ml buccal BID Qty: 473 0RF insulin lispro 100 unit/mL insulin pen 20 unit subcut TID Qty: 90 3RF nicotine 21 mg/24 hr patch 24 hour 1 patch transdermal DAILY Qty: 28 0RF nicotine [Nicoderm CQ] 14 mg/24 hr patch 24 hour 1 patch transdermal DAILY Qty: 28 0RF nicotine (polacrilex) [Nicorette] 2 mg gum 2 mg buccal Q2H Qty: 100 0RF cholecalciferol (vitamin D3) [Vitamin D3] 25 mcg (1,000 unit) capsule 25 mcg PO DAILY Qty: 90 1RF pyridoxine (vitamin B6) 100 mg tablet 100 mg PO DAILY 90 Days Qty: 90 3RF (DME) blood-glucose meter [FreeStyle [place] Lite] Kit See Rx Instructions .Route Qty: 1 0RF Rx Instructions: As directed tests 4 X/day Baqsimi 3 mg/actuation spray,non-aerosol 3 mg intranasal ONCE Qty: 2 5RF Referrals: Sonia Grijalva MD [Primary Care Provider] - Stand Alone Forms: Work/School Release Interventions: ED Discharge Assessment Last Done: 01/15/24 12:21 Discharge Date/Time: 01/15/24 12:23 Print Language: Mosotho
[2024-01-15 11:35] LABS: Influenza A PCR NEGATIVE (Negative); Influenza B PCR NEGATIVE (Negative); Resp Syncy Virus RNA Qual PCR NEGATIVE (Negative); SARS COV2 PCR INHOUSE POSITIVE (Negative)
[2024-01-15 12:21] VITALS: BP 140/63; PULSE 101; RESP 18; TEMP 36.7; O2SAT 98
== END 2024-01-15 12:23 | disposition home or self-care (01) ==
PROVIDERS: Emergency Provider Emergency Medicine; PCP Internal Medicine
DX: U07.1 COVID-19 (principal); M79.10 Myalgia, unspecified site
CPT/HCPCS: 0241U; 99282; 99283

== ENCOUNTER 2024-01-27 08:02 | Emergency (ER) | payer OTHER, SELFPAY ==
--- NOTE | ~2024-01-27 | CT_ITS ---
EXAMINATION: CT FACIAL BONES WITH CONTRAST CLINICAL INFORMATION: Left-sided facial swelling. COMPARISON: CT facial bones July 13, 2023 TECHNIQUE: 85 mL of Omnipaque 350 injected intravenously. Axial images obtained through the facial bones. Coronal and sagittal reformatted images are performed with CT scanner This CT examination was performed using dose optimization techniques as appropriate, variously including the following: *Automated exposure control *Adjustment of mA and/or kV according to patient size (this includes techniques or standardized protocols for targeted exams where dose is matched to indication/reason for exam; i.e. extremities or head) *Use of iterative reconstruction technique DLP: 373 mGy-cm FINDINGS: There is periapical lucency around the frontal incisors both on the right and the left side at the maxilla. This has worsened since prior study of July 13, 2023. Left side is worse than the right side. This suggest periapical abscess. The minimal periapical lucency at the left lateral treated premolar as well as the tip of the posterior root of the left mandibular molar remain unchanged since prior study. There is edema in the soft tissues over the left side of the face there is no periosteal abscess or drainable fluid collections. No abnormal enhancing lesion or collection. Mild lobular mucosal thickening in the right and left maxillary sinuses, ethmoid sinuses and inferior frontal sinuses. Sphenoid sinuses are normal. Mastoid air cells and middle ear cavities are normally aerated. Orbits and retrobulbar structures are normal. Partially visualized intracranial structures unremarkable. The parotid glands and submandibular glands are normal. No significant lymphadenopathy. CT/CT facial bones w IV con IMPRESSION: 1. Periapical lucency around the frontal incisors both on the right and the left side at the maxilla. This has worsened since prior study of July 13, 2023. This suggest periapical abscess. 2. There is edema in the soft tissues over the left side of the face. No periosteal abscess or drainable fluid collections. 3. Mild lobular mucosal thickening in the right and left maxillary sinuses, ethmoid sinuses and inferior frontal sinuses. Electronically signed by: Rajan Zarate MD 01/27/2024 03:27 PM EDT
[2024-01-27 08:33] VITALS: BP 136/74; PULSE 119; RESP 20; TEMP 36.9; O2SAT 99; BMI 22.6
--- NOTE | 2024-01-27 08:36 | ECG_ITS ---
Test Reason : cp/tachycardia Blood Pressure : / mmHG Vent. Rate : 108 BPM Atrial Rate : 108 BPM P-R Int : 136 ms QRS Dur : 080 ms QT Int : 312 ms P-R-T Axes : 041 086 062 degrees QTc Int : 418 ms Sinus tachycardia Nonspecific ST abnormality Abnormal ECG No previous ECGs available Referred By: Generic ED Physician Electronically Signed By:MAVIS BLANK
--- NOTE | 2024-01-27 09:56 | ED_ITS ---
HPI - General Adult General Chief complaint: General Medical Stated complaint: facial swelling l side Time Seen by Provider: 01/27/24 09:54 Source: patient Mode of arrival: ambulatory Limitations: no limitations History of Present Illness ED Provider: ijeoma MATTSON narrative: Patient is a 43-year-old male presenting to the emergency department with complaint of left-sided facial pain and swelling since this morning. States symptoms were present when he woke up. Reports recently treated for right sided dental abscess which has since resolved. Denies dental or jaw pain. Denies discharge or drainage. States he did test positive for Covid prior to onset of dental abscess. MD complaint: facial swelling Onset (ago): hour(s) Location: face Severity: moderate Quality: aching Pain Consistency: constant Exacerbating factors: other (palpation) Associated symptoms: denies other symptoms Treatments prior to arrival: none Related Data Previous Rx's ?Medication ?Instructions ?Recorded blood-glucose meter #1 ea 07/23/22 pen needle, diabetic 29 gauge x #100 ea 11/21/2206/04 (BD Ultra-Fine Original Pen Needle) blood-glucose meter (FreeStyle #1 ea 01/09/23 [place] Lite kit) glucagon 3 mg/actuation nasal 3 mg intranasal ONCE #2 ea 01/09/23 spray (Baqsimi) lancets 28 gauge (FreeStyle #100 ea 02/08/23 Lancets) pyridoxine (vitamin B6) 100 mg 100 mg PO DAILY 90 days #90 tabs 03/29/23 tablet blood sugar diagnostic (FreeStyle #100 strips 06/14/23 Lite Strips) blood-glucose sensor (Dexcom G7 #3 ea 07/11/23 Sensor device) insulin glargine-yfgn 100 unit/mL 40 unit (0.4 mL) subcut QPM #45 mL 08/18/23 (3 mL) subcutaneous pen insulin lispro 100 unit/mL 20 unit (0.2 mL) subcut TID #90 mL 08/22/23 subcutaneous pen levothyroxine 50 mcg tablet 50 mcg PO DAILY #30 tabs 09/22/23 (Synthroid) lisinopril 5 mg tablet 5 mg PO DAILY #90 tabs 11/08/23 pen needle, diabetic 29 gauge x #100 ea 11/14/23 1 (BD Ultra-Fine Original Pen Needle) rosuvastatin 5 mg tablet 5 mg PO DAILY #90 tabs 11/14/23 insulin lispro 100 unit/mL See Rx Instructions subcut 11/18/23 subcutaneous solution .COMPLEX #30 mL cholecalciferol (vitamin D3) 25 25 mcg PO DAILY #90 caps 12/13/23 mcg (1,000 unit) capsule (Vitamin D3) nicotine (polacrilex) 2 mg gum 2 mg buccal Q2H #100 ea 12/13/23 (Nicorette) nicotine 14 mg/24 hr daily 1 patch transdermal DAILY #28 ea 12/13/23 transdermal patch (Nicoderm CQ) nicotine 21 mg/24 hr daily 1 patch transdermal DAILY #28 ea 12/13/23 transdermal patch amoxicillin 875 mg-potassium 1 tab PO BID #20 tabs 12/30/23 clavulanate 125 mg tablet chlorhexidine gluconate 0.12 % 15 ml buccal BID #473 mL 12/30/23 mouthwash (Peridex) amoxicillin 875 mg-potassium 1 tab PO BID #20 tabs 01/27/24 clavulanate 125 mg tablet doxycycline hyclate 100 mg capsule 100 mg PO BID #19 caps 01/27/24 oxycodone 5 mg tablet 5 mg PO Q8H PRN severe pain (scale 01/27/24 score 7-10) #9 tabs Allergies Allergy/AdvReac Type Severity Reaction Status Date / Time No Known Allergies Allergy Verified 01/27/24 08:34 Review of Systems 2 Review of Systems: As per HPI. Yes all other systems are reviewed and are negative Constitutional: Constitutional: Reports as per HPI PMFSH Past Medical History Medical History Hypothyroidism Surgical History No pertinent past surgical history Social History Social History Household Members: Family Housing: Apartment Alcohol intake: current Alcohol intake frequency: does not drink Patient Tobacco Use Status: Current everyday Tobacco user Tobacco use type: Cigarette Cigarettes Per Day: 10 e-Cigarette/Vaping Use: Never Used Second Hand Smoke Exposure: Yes Advance Directives: No Advance Directives Information Provided: No Do you have a plan to hurt others: No Plan service: No Current occupational status: employed and unemployed Cognitive needs: No Hearing needs: No Vision needs: No Physical Exam ED Vital Signs: Vital Signs - 24 hr 01/27/24 08:33 01/27/24 11:59 01/27/24 14:10 Temperature 98.4 F 98.6 F 98.3 F Pulse Rate 119 H 104 H 107 H Respiratory Rate 20 16 18 Blood Pressure 136/74 127/63 123/66 Pulse Oximetry 99 98 100 Oxygen Delivery Method Room Air Room Air Room Air BMI result Body Mass Index 22.6 Vital signs have been reviewed and appear to be correct. Blood pressure normal. Heart rate tachycardic. Respiratory rate normal. Temperature normal. Oxygen saturation normal. Const General: cooperative, healthy appearing and no acute distress Orientation/consciousness: oriented to person, oriented to place, oriented to time and patient oriented x3 Limitations: no limitations HENMT Head: Yes normocephalic and Yes atraumatic Ears: external ears normal General nose exam: Normal external nose present Face and sinus: Yes face symmetric, Yes edema (left sided) and Yes sinus tenderness (left maxillary) Face images: 2 1. swelling and tenderness Mouth: oropharynx normal and moist mucous membranes Teeth and gingiva: gingiva normal Throat: Yes uvula midline Eyes Pupils: Equal, round and reactive pupils present Neck Neck: Yes normal visual inspection and Yes supple Resp Effort & Inspection: normal respiratory effort and able to speak in complete sentences Auscultation: clear to auscultation bilaterally Cardio Rate: regular rate Rhythm: regular rhythm Heart sounds: S1 normal heart sound present and S2 normal heart sound present GI Palpation (GI): Soft to palpation and nontender Auscultation: normoactive bowel sounds General: Yes no CVA tenderness Back/Spine/Pelvis Back: no CVA tenderness Skin General skin exam: elasticity normal and turgor normal Neuro General: oriented to person, oriented to place, oriented to time, patient oriented x3, moves all extremities, no focal motor deficits and CN's II-XI intact bilaterally Cranial nerves: Yes Equal, round and reactive pupils present Cognition (Neuro): normal cognition Extrem General: Yes full ROM, Yes no pedal edema and Yes no calf tenderness Psych Mental Status: mental status grossly normal Affect: normal affect Thought process: Normal thought process present Medications Administered Discontinued Medications Generic Name Dose Route Start Last Admin Trade Name Freq PRN Reason Stop Dose Admin Sodium Chloride 1,000 mls @ 999 mls/hr 01/27/24 10:15 01/27/24 11:41 Ns IV 01/27/24 11:15 Infused .Q1H1M MARQUITA Infusion Ampicillin Sodium/Sulbactam 100 mls @ 200 mls/hr 01/27/24 14:30 01/27/24 14:44 Sodium 3 gm/ Sodium Chloride IV 01/27/24 14:59 200 mls/hr ONCE ONE Administration Iohexol 100 ml 01/27/24 11:46 01/27/24 11:46 Iohexol 350 Mg/Ml 100 Ml Infus..Btl IV 01/27/24 11:47 85 ml ONCE ONE Administration Ketorolac Tromethamine 15 mg 01/27/24 10:14 01/27/24 10:37 Ketorolac Tromethamine 15 Mg/Ml Vial IVPUSH 01/27/24 10:15 15 mg ONCE ONE Administration Oxycodone HCl 5 mg 01/27/24 14:36 01/27/24 14:43 Oxycodone Hcl Immed Release 5 Mg Tablet PO 01/27/24 14:37 5 mg ONCE ONE Administration Medical Decision Making Medical Decision Making MDM Narrative: Patient is a 43-year-old male presenting to the emergency department with complaint of left-sided facial pain and swelling since this morning. On exam patient is awake, A+Ox3, VS WNL, afebrile, normal neurological exam without focal deficits, physical exam findings as above. Given reported symptoms and physical exam findings, initial differential includes dental abscess, cellulitis. Unlikely angioedema given extent of swelling to lower eyelid and tenderness. Patient also evaluated by attending MD, Dr. Ballard, who agrees that presentation is not consistent with angioedema. Labs notable for leukocytosis, elevated ESR and CRP. CT face notable for bilateral periapical lucency around frontal incisors at the maxilla suggesting periapical abscess. My interpretation is in agreement with the radiologist's interpretation. Case again discussed with Dr. Ballard who feels patient can be managed outpatient on doxycycline and Augmentin. Results discussed with patient and all questions answered. Patient instructed to follow up with dentist as soon as possible. Return precautions discussed. Patient verbalized understanding of and agreement with plan. Differential Diagnosis Differential Diagnoses: The differential diagnosis associated with the presentation includes As per MDM. Admission/Observation Consideration of admission/observation: Escalation of care including admission/observation considered Patient would have been admitted to the hospital had their work up had any findings where hospital admission was appropriate and their clinical presentation warranted hospital admission. Lab Data [facility] Lab Attestation statement: I reviewed the patient's lab results. As per [facility]. 01/27/24 11:10 01/27/24 11:11 Labs: Lab Results 01/27/24 01/27/24 Range/Units 11:10 11:11 WBC 13.4 H (4.8-10.8) X10*3/uL RBC 4.77 (4.60-5.80) X10*6/uL Hgb 13.3 L (14.0-18.0) g/dl Hct 39.4 L (42.0-52.0) % MCV 82.6 (80.0-98.0) fL MCH 27.9 (27.0-33.0) pg MCHC 33.8 (31.0-36.0) g/dl RDW 12.7 (11.0-16.0) % Plt Count 283 (160-400) X10*3/uL MPV 10.0 (9.4-12.4) fL Immature Gran % (Auto) 0.3 (0.0-0.4) % Neut % (Auto) 74.8 H (45-73) % Lymph % (Auto) 15.5 L (20-40) % [place] % (Auto) 8.9 (2-11) % Eos % (Auto) 0.3 (0-4) % Baso % (Auto) 0.2 (0-2) % Lymph # (Auto) 2.1 (1.2-4.9) X10*3/uL [place] # (Auto) 1.2 (0.1-1.2) X10*3/uL Eos # (Auto) 0.0 (0.0-0.4) X10*3/uL Baso # (Auto) 0.0 (0.0-0.2) X10*3/uL Abs Immat Gran (auto) 0.04 H (0.00-0.03) X10*3/uL Absolute Neuts (auto) 10.1 H (2.0-8.3) x10*3/uL Absolute Nucleated RBC 0.000 (0.0-0.012) X10*3/uL Nucleated RBC % (auto) 0.0 (0.0-0.2) /100WBC ESR 25 H (0-15) MM/HR Sodium 143 (135-145) mmol/L Potassium 4.0 (3.3-5.1) mmol/L Chloride 109 H (96-108) mmol/L Carbon Dioxide 28 (22-29) mmol/L Anion Gap 10 L (12-20) BUN 8 L (9-16) mg/dL Creatinine 0.70 (0.5-1.4) mg/dL Estim Creat Clear Calc 132.1 Estimated GFR > 60 Random Glucose 80 (60-115) mg/dL Calcium 9.9 D (8.4-10.2) mg/dL Total Bilirubin 0.5 (0.0-1.0) mg/dL AST 15 (5-37) U/L ALT 11 (0-40) U/L Alkaline Phosphatase 92 (39-117) U/L C-Reactive Protein 5.41 H (< or = 0.50) mg/dL Total Protein 6.9 (6.5-8.0) g/dL Albumin 3.8 (3.5-5.0) g/dL Independent Interpretation I performed an independent interpretation of an: CT Scan Interpretation: CT face notable for bilateral periapical lucency around frontal incisors at the maxilla suggesting periapical abscess. Radiology Impression Discussion of test interpretation with radiology: I have reviewed the radiologist's reading. Radiologist Impression: CT/CT facial bones w IV con IMPRESSION: 1. Periapical lucency around the frontal incisors both on the right and the left side at the maxilla. This has worsened since prior study of July 13, 2023. This suggest periapical abscess. 2. There is edema in the soft tissues over the left side of the face. No periosteal abscess or drainable fluid collections. 3. Mild lobular mucosal thickening in the right and left maxillary sinuses, ethmoid sinuses and inferior frontal sinuses. External Record Review External record reviewed: Inpatient record, Office record and Outpatient record Prescription Management I considered prescription management with: Pain Medication and Antibiotic Discharge Plan Discharge Clinical Impression: Periapical abscess with facial involvement Patient Disposition: Home, Self-Care Instructions: Dental Abscess (ED), Cellulitis (DC) Additional Instructions: You were evaluated in the emergency department today for complaint of facial pain and swelling. You are being treated for a dental infection/abscess with antibiotics. Please complete the full courses of antibiotics as prescribed even if your symptoms improve. IT IS IMPORTANT THAT YOU FOLLOW UP WITH YOUR DENTIST. We recommend that you take 600 mg of ibuprofen or 650 mg Tylenol every 6 hours as needed for pain. If necessary, you can alternate these medications every 3 hours. For example, at 9:00 a.m. take Tylenol, then at noon take ibuprofen, then at 3:00 p.m. take Tylenol, etc.. You are being prescribed a short course of oxycodone for severe pain. Do not take this medication with alcohol. Return to the emergency department if you develop worsening pain, swelling, difficulty swallowing, difficulty breathing, fever, or any other concerning symptoms. Call or visit any of the clinics below to establish care with a dentist: [facility] [address] [place] [address] [facility] [address] [facility], [address] [address] [facility] [address] [place] [address] [facility] [address] [place] [address] [place] [address] [place] [address] Prescriptions: New doxycycline hyclate 100 mg capsule 100 mg PO BID Qty: 19 0RF Rx Instructions: Take first dose tomorrow morning amoxicillin-pot clavulanate 875-125 mg tablet 1 tab PO BID Qty: 20 0RF Rx Instructions: Take first dose at 10pm tonight, then next dose tomorrow morning. oxycodone 5 mg tablet 5 mg PO Q8H PRN (Reason: severe pain (scale score 7-10)) Qty: 9 0RF Rx Instructions: Partial Fill upon patient request. No Action (DME) pen needle, diabetic [BD Ultra-Fine Orig Pen Needle] 29 gauge x 1/2 needle See Rx Instructions .Route Qty: 100 5RF Rx Instructions: test 4 times daily (DME) lancets [FreeStyle Lancets] 28 gauge misc See Rx Instructions .Route Qty: 100 4RF Rx Instructions: As directed tests 4 X/day (DME) FreeStyle Lite Strips Strip See Rx Instructions .ROUTE .COMPLEX Qty: 100 4RF Dose Instruction: USE TO TEST 4 TIMES DAILY DIRECTED Rx Instructions: USE TO TEST 4 TIMES DAILY DIRECTED (DME) Dexcom G7 Sensor Device See Rx Instructions .ROUTE .COMPLEX Qty: 3 5RF Dose Instruction: DIRECTED CHANGE EVERY 10 DAYS Rx Instructions: DIRECTED CHANGE EVERY 10 DAYS insulin glargine-yfgn 100 unit/mL (3 mL) insulin pen 40 unit subcut QPM Qty: 45 1RF levothyroxine [Synthroid] 50 mcg tablet 50 mcg PO DAILY Qty: 30 1RF lisinopril 5 mg tablet 5 mg PO DAILY Qty: 90 1RF (DME) pen needle, diabetic [BD Ultra-Fine Orig Pen Needle] 29 gauge x 1/2 needle See Rx Instructions .Route Qty: 100 0RF Rx Instructions: As directed- Use to test 4 Times a day rosuvastatin 5 mg tablet 5 mg PO DAILY Qty: 90 1RF insulin lispro 100 unit/mL solution See Rx Instructions subcut .COMPLEX Qty: 30 5RF Rx Instructions: Infuse up to 100 units per day via insulin pump subcutaneously; (DME) blood-glucose meter Kit See Rx Instructions .Route Qty: 1 0RF Rx Instructions: As directed amoxicillin-pot clavulanate 875-125 mg tablet 1 tab PO BID Qty: 20 0RF chlorhexidine gluconate [Peridex] 0.12 % mouthwash 15 ml buccal BID Qty: 473 0RF insulin lispro 100 unit/mL insulin pen 20 unit subcut TID Qty: 90 3RF nicotine 21 mg/24 hr patch 24 hour 1 patch transdermal DAILY Qty: 28 0RF nicotine [Nicoderm CQ] 14 mg/24 hr patch 24 hour 1 patch transdermal DAILY Qty: 28 0RF nicotine (polacrilex) [Nicorette] 2 mg gum 2 mg buccal Q2H Qty: 100 0RF cholecalciferol (vitamin D3) [Vitamin D3] 25 mcg (1,000 unit) capsule 25 mcg PO DAILY Qty: 90 1RF pyridoxine (vitamin B6) 100 mg tablet 100 mg PO DAILY 90 Days Qty: 90 3RF (DME) blood-glucose meter [FreeStyle [place] Lite] Kit See Rx Instructions .Route Qty: 1 0RF Rx Instructions: As directed tests 4 X/day Baqsimi 3 mg/actuation spray,non-aerosol 3 mg intranasal ONCE Qty: 2 5RF Stand Alone Forms: Work/School Release Print Language: [place]
[2024-01-27] MEDS: 0.9 % Sodium Chloride 1,000 ML 999 ML IV (10:36)
[2024-01-27] MEDS: Ketorolac Tromethamine 15 MG/ML VIAL IVPUSH (10:37)
[2024-01-27 11:16] LABS: MANUAL DIFF FLAG NO
[2024-01-27 11:18] LABS: Basophils Percent Auto 0.2 % (0-2); Eosinophils Percent Auto 0.3 % (0-4); Hematocrit 39.4 % (42.0-52.0); Hemoglobin 13.3 g/dl (14.0-18.0); Imm Gran Abs Auto 0.04 X10*3/uL (0.00-0.03); Imm Gran Pct Auto 0.3 % (0.0-0.4); Lymphocytes Absolute Auto 2.1 X10*3/uL (1.2-4.9); Lymphocytes Percent Auto 15.5 % (20-40); Mean Corpuscular HGB Conc 33.8 g/dl (31.0-36.0); Mean Corpuscular Hemoglobin 27.9 pg (27.0-33.0); Mean Corpuscular Volume 82.6 fL (80.0-98.0); Monocytes Absolute Auto 1.2 X10*3/uL (0.1-1.2); Monocytes Percent Auto 8.9 % (2-11); Neutrophils Absolute Auto 10.1 x10*3/uL (2.0-8.3); Neutrophils Percent Auto 74.8 % (45-73); Platelet Count 283 X10*3/uL (160-400); Red Blood Count 4.77 X10*6/uL (4.60-5.80); Red Cell Distribution Width 12.7 % (11.0-16.0); White Blood Count 13.4 X10*3/uL (4.8-10.8)
[2024-01-27 11:34] LABS: Alanine Aminotransferase 11 U/L (0-40); Albumin Level 3.8 g/dL (3.5-5.0); Alkaline Phosphatase 92 U/L (39-117); Anion Gap 10 (12-20); Aspartate Amino Transferase 15 U/L (5-37); Bilirubin Total 0.5 mg/dL (0.0-1.0); Blood Urea Nitrogen 8 mg/dL (9-16); C Reactive Protein 5.41 mg/dL (< or = 0.50); Calcium 9.9 mg/dL (8.4-10.2); Carbon Dioxide 28 mmol/L (22-29); Chloride 109 mmol/L (96-108); Creatinine Clr Calc Pharmacy 132.1; Estimated Glomerular Filt Rate > 60; Glucose Random 80 mg/dL (60-115); Sodium 143 mmol/L (135-145); Total Protein 6.9 g/dL (6.5-8.0)
[2024-01-27] MEDS: iohexoL 350 MG/ML 100 ML INFUS..BTL IV (11:46)
[2024-01-27 11:57] LABS: Erythrocyte Sedimentation Rate 25 MM/HR (0-15)
[2024-01-27 11:59] VITALS: BP 127/63; PULSE 104; RESP 16; TEMP 37; O2SAT 98
[2024-01-27 14:10] VITALS: BP 123/66; PULSE 107; RESP 18; TEMP 36.8; O2SAT 100
[2024-01-27] MEDS: oxyCODONE HCl Immed Release 5 MG TABLET PO (14:43)
[2024-01-27] MEDS: Ampicillin Sodium/Sulbactam Na 3 GM in 0.9 % Sodium Chloride 100 ML IV (14:44)
[2024-01-27 16:14] VITALS: BP 144/72; PULSE 109; RESP 16; TEMP 37.3; O2SAT 97
[2024-01-27] MEDS: Doxycycline Monohydrate 100 MG CAPSULE PO (16:29)
[2024-01-27 16:32] VITALS: BP 144/72; PULSE 109; RESP 16; TEMP 37.3; O2SAT 97
== END 2024-01-27 16:33 | disposition home or self-care (01) ==
PROVIDERS: Registered Nurse Emergency; Emergency Provider Emergency Medicine; PCP Internal Medicine
DX: L02.01 Cutaneous abscess of face (principal); R51.9 Headache, unspecified; R07.89 Other chest pain; R00.0 Tachycardia, unspecified; R22.0 Localized swelling, mass and lump, head; F17.210 Nicotine dependence, cigarettes, uncomplicated; Z79.899 Other long term (current) drug therapy
CPT/HCPCS: 36415; 70487; 80053; 85025; 85652; 86140; 93005; 96361; 96374; 96375; 99284; J0295; J1885; Q9967

== ENCOUNTER 2024-02-10 08:22 | Outpatient (REF) | payer OTHER, SELFPAY ==
--- NOTE | ~2024-02-10 | CT_ITS ---
EXAMINATION: CT CHEST WITHOUT CONTRAST CLINICAL INFORMATION: Solitary pulmonary nodule, follow-up. COMPARISON: -None available. -CT soft tissue neck 07/13/2023. TECHNIQUE: Multidetector volumetric CT imaging of the chest was done. Axial MIP volume rendering provided. Sagittal and coronal reformatted images were obtained. This CT examination was performed using dose optimization techniques as appropriate, variously including the following: *Automated exposure control *Adjustment of mA and/or kV according to patient size (this includes techniques or standardized protocols for targeted exams where dose is matched to indication/reason for exam; i.e. extremities or head) *Use of iterative reconstruction technique DLP: 160 mGy-cm FINDINGS: PULMONARY NODULES: -4 mm fissural nodule anterior right lower lobe, abutting the major fissure laterally, most likely an intrapulmonary lymph node (series 5, image 387). -6 mm subpleural nodule in the perifissural region of the posteroleft lateral left upper lobe (series 5 image 192), most likely intrapulmonary lymph node and stable. -No additional nodules. LUNGS: -The lungs are otherwise clear. No abnormal opacities. -No pleural effusion or mass. No pneumothorax. -Small airways and central airways are normal. MEDIASTINUM: -Thyroid appears globally mildly enlarged. No discrete nodules seen on this exam. -There is triangular-shaped soft tissue in anterior mediastinum, conforming to the origins of the great vessels, findings highly suggesting thymic hyperplasia/rebound. This was not present on the prior neck CT. Follow-up suggested. -There are subcentimeter mediastinal lymph nodes. There is no pathologic lymph node present. At least one lymph node is calcified. This suggests prior granulomatous disease. -Normal esophagus. -Normal aorta. -Normal pulmonary artery. -Heart size normal. No pericardial effusion. CORONARY ARTERY CALCIFICATION: None visualized on this study. AXILLA/CHEST WALL: National masses or lymphadenopathy. Mild male gynecomastia bilaterally. UPPER ABDOMEN: -There are several nonobstructing calculi in the upper poles of left greater than right kidneys, largest measuring 5 mm in diameter in the superior left kidney . -There is a splenic calcified granuloma as well as a few scattered hepatic granulomas. OSSEOUS STRUCTURES: -No suspicious lytic or blastic bone lesion. No acute findings. CT/CT chest wo IV con IMPRESSION: 1. Stable 6 mm subpleural nodule abutting the left major fissure, most likely an incidental pulmonary lymph node. 2. Similarly, abutting the inferior right major fissure there is a 4 mm nodule, also most likely an incidental pulmonary lymph node. 3. No suspicious pulmonary nodules identified. 4. No active lung disease. Evidence of prior granulomatous disease. 5. Triangular anterior mediastinal soft tissue, conforming to the origins of the great vessels, highly suggestive of thymic rebound/hyperplasia. Given this is a new finding from the prior neck CT 07/13/2023, appropriate short interval [address] follow up recommended. 6. Bilateral nonobstructing renal calculi. Fleischner guidelines were followed. Electronically signed by: Ru Anders MD 04/24/2024 12:51 PM [facility]
== END 2024-02-10 08:23 | disposition home or self-care (01) ==
LOC: HO.CT 08:22
PROVIDERS: PCP Internal Medicine; Visit Provider Internal Medicine
DX: R91.1 Solitary pulmonary nodule (principal)
CPT/HCPCS: 71250

== ENCOUNTER → 2024-02-10 08:24 | Outpatient (BNV) | payer OTHER, SELFPAY | PROVIDERS: PCP Internal Medicine; Visit Provider Radiology Diagnostic Radiology | DX: R91.1 Solitary pulmonary nodule (principal) | CPT/HCPCS: 71250 ==

== ENCOUNTER 2024-03-10 15:24 | Outpatient (AMB) | payer OTHER, SELFPAY ==
--- NOTE | 2024-03-10 15:26 | A.OFFVIS_ITS ---
Vital Signs 03/10/24 15:29 Height 5 ft 8 in Weight 145 lb 8.081 oz BMI 22.1 BP 120/76 Blood Pressure Location Rt brachial Position Sitting Pulse 99 Pulse Source Pulse Oximeter Intake Visit Reasons: f/u diabetes Intake Note: Patient presents today for a follow-up on Type 2 Diabetes Mellitus: Last Diabetic eye exam was on: 01/28/2024 [facility] Last Podiatry exam was on: Does not see a Campaign Manager Most recent HbA1c: 7.2%, 03/10/2024 Random Glucose- 235 mg/dL, Today Loft Worker Required: No Accompanied by: Self / Same As Patient Allergies No Known Allergies Allergy (Verified 03/12/24 10:39) HPI Comments Details: 43 YO M is seen in f/u for T1DM. He has been seen regularly for pump follow-ups Initially diagnosed with T1DM. Was initially started on treatment with insulin . Current regimen: Ilet insulin pump Dexcom average glucose: [ 147.4] 14 day continuous glucose monitor report reviewed Time in ranges: 87.3 percatage using sensors [3.5 ] % very high (above 250) [19.5 ] % high ?(181-250) [73.6 ] % in range ?(70-180] [2.3 ] % low (69-55) [ 1.0] % ?very low (below 54) Interpretation: overall in good range with 3.3% hypoglycemia 18 basal insulin 21.6 bolus insulin announced 5 breqakfastm 10 lunches and 14 dinner over 14 day period meal announcements 2.3 per day Treats lows with O. Checks sugar after to ensure it is rising. Family history of autoimmunity in lupus in mother Has eyes checked yearly, last eye exam 02/24 , no retinopathy. Denies neuropathy,Not sees podiatry. Denies nephropathy,Not on RAINER/ARB. Has HLD, on statin Denies history of CAD. Diet/Carb counting: balanced trying to add more protein to diet Denies recent prior episodes of DKA. Denies prior severe episodes of hypoglycemia requiring help or hospitalization. Labs: Anti-PENG 65 antibodies were negative. Was preparing to go on the iLet pump [facility] Medical History Hypothyroidism Surgical History No pertinent past surgical history Social History Household Members: Family Housing: Apartment Alcohol intake: current Alcohol intake frequency: does not drink Patient Tobacco Use Status: Current everyday Tobacco user Tobacco use type: Cigarette Cigarettes Per Day: 10 e-Cigarette/Vaping Use: Never Used Second Hand Smoke Exposure: Yes service: No Current occupational status: employed and unemployed Cognitive needs: No Hearing needs: No Vision needs: No Physical Exam Vital Signs: Last Vital Signs Pulse 99 03/10/24 15:29 BP 120/76 03/10/24 15:29 BMI result Body Mass Index 22.1 Const Other: Absence of Cushingoid features. Absence of acromegalic features. Neck exam reveals nl size thyroid about 15 gms. No thyroid nodules palpable. Heart S1 S2, Reg R/R. No M/R G. Skin exam reveals absence of vitiligo or acanthosis nigricans. No edema Visual exam of foot performed. No ulcerations or open lesions. No inter digit maceration or fissuring. No onychomycosis, no callouses. Sensation intact to monofilament exam. Vibratory sensation is normal with 128 Hz tuning fork. Office Procedures Glucose Monitoring Details Details: see [facility] [id number] - Glucose monitoring, continuous-physician I&R Procedure code (CPT) selection complete Results AMB Hemoglobin A1c AMB Hemoglobin A1c 7.2 % Last Edit by DAMIAN Beebe on 03/10/24 15:43 Results Reviewed Results Reviewed: Laboratory Last Values Glucose (Clinic) 235 mg/dL (60-115) H 03/10/24 15:33 Hgb A1c (Clinic) 7.2 % (4.0-6.0) H 03/10/24 15:43 Assessment & Plan Assessment & Plan (1) Diabetes type I: Comment: DX age 5 Code(s): E10.9 - Type 1 diabetes mellitus without complications Category: Medical Plan: Type 1 diabetic now under good control on islet bionics pump. Continue current therapy. Stress need to make sure he in puts blood sugar readings manually every 4 hours if he has a sensor failure were does not have a sensor. He was advised a pump we will continue to operate for 72 hours after sensor failure or without sensor provided that he checks his sugars every 4 hours. Orders: Orders AMB Hemoglobin A1c 03/10/24 E10.9 - Type 1 diabetes mellitus without complications AMB Glucose Monitoring Today E10.9 - Type 1 diabetes mellitus without complications Medications: Refilled blood sugar diagnostic (FreeStyle Lite Strips) USE TO TEST 4 TIMES DAILY DIRECTED 100 strips 4RF blood-glucose meter (FreeStyle [place] Lite kit) As directed tests 4 X/day 1 ea 0RF lancets (FreeStyle Lancets) As directed tests 4 X/day 100 ea 4RF Coding Level of Care Code Est Pt Level 4 (19348) Diagnoses Diabetes type I E10.9 CPT Codes Details - CPT: 81360 - Glucose monitoring, continuous-physician I&R ([id number]) Time Spent (min) 30 Comment Reviewing labs/provider notes, glucose sensor/pump reports, face to face, chart doc
[2024-03-10 15:29] VITALS: BP 120/76; PULSE 99; BMI 22.1
[2024-03-10 15:38] LABS: Glucose, Whole Blood 235 mg/dL (60-115)
== END 2024-03-10 15:58 | disposition home or self-care (01) ==
PROVIDERS: PCP Nurse Practitioner Family; Visit Provider Nurse Practitioner Adult Health
DX: E10.9 Type 1 diabetes mellitus without complications (principal)
CPT/HCPCS: 95251; 99214

== ENCOUNTER → 2024-03-10 15:24 | Outpatient (BNVA) | payer OTHER, SELFPAY | PROVIDERS: PCP Nurse Practitioner Family; Visit Provider Nurse Practitioner Adult Health | DX: E10.9 Type 1 diabetes mellitus without complications (principal); Z96.41 Presence of insulin pump (external) (internal) | CPT/HCPCS: 82947; 83036 ==

== ENCOUNTER 2024-03-12 10:29 | Outpatient (AMB) | payer OTHER, SELFPAY ==
--- NOTE | 2024-03-12 10:31 | A.OFFVIS_ITS ---
Intake Visit Reasons: T2DM Intake Note: Patient presents today for D2MT follow up visit. Last Diabetic Eye exam: Last Podiatry Visit: Random Glucose: 422 mg/dL, re-check 348 mg/dL 11:54 AM HgA1c: 7.2% 03/10/24 Supervisor Electronics Assembly Required: No Accompanied by: Self / Same As Patient Allergies No Known Allergies Allergy (Verified 03/12/24 10:39) HPI Comments Details: 43 YO M is seen for rising glucose. He changed his set and glucose started to rise and is now over 400 with negative ketones. Patient was given 12 units of humalog by Endo RN. He was given PO fluids for hydrations. He reports mild nausea. GLucose via sensor reduced to 350 and he placed a new set. He was advised to closely watch his glucose [facility] Medical History Hypothyroidism Surgical History No pertinent past surgical history Social History Household Members: Family Housing: Apartment Alcohol intake: current Alcohol intake frequency: does not drink Patient Tobacco Use Status: Current everyday Tobacco user Tobacco use type: Cigarette Cigarettes Per Day: 10 e-Cigarette/Vaping Use: Never Used Second Hand Smoke Exposure: Yes service: No Current occupational status: employed and unemployed Cognitive needs: No Hearing needs: No Vision needs: No Physical Exam Const Other: Absence of Cushingoid features. Absence of acromegalic features. Neck exam reveals nl size thyroid about 15 gms. No thyroid nodules palpable. Heart S1 S2, Reg R/R. No M/R G. Skin exam reveals absence of vitiligo or acanthosis nigricans. No edema Office Meds Humalog U-100 Insulin 100 unit/mL subcutaneous solution Performing Provider: Miranda Cespedes NP Performing Location: [facility] [place], [place] Endocrinology Administered by: Beena Mahmood RN on 03/12/24 11:00 Dose Route Admin Location Dispensed Lot Number Expiration Date [facility] [employer] 12 unit subcut 0.12 mL [id number] 05/14/25 [id number] [employer] Comments: Miranda Cespedes order 12 units of insulin d/t elevated blood sugars. Ketones were checked. Pt is agreeable to plan. Miranda Cespedes visually confirmed dose of 12 units of humalog in syringe. Pt tolerated injection well. Will recheck blood sugar in one hour. Results UR Ketone Dip UR Ketone Dip 40 Last Edit by DAMIAN Beebe on 03/12/24 11:04 Results Reviewed Results Reviewed: Laboratory Last Values Glucose (Clinic) 348 mg/dL (60-115) H 03/12/24 11:54 Ur Ketones (Stick) 40 03/12/24 10:57 Assessment & Plan Assessment & Plan (1) Diabetes type I: Comment: DX age 5 Code(s): E10.9 - Type 1 diabetes mellitus without complications Category: Medical Plan Type 1 diabetic with rising glucose after insulin set change this am. He removed set in clinic and was given 12 units of short acting insulin. He restarted pump with new set in was advised to closely follow his sugars for any lows he might experience. Troubleshooting after starting new pod or inserting new insulin set: Occlusion, adhesive tape sensitivity, redness Check BG 2 hours after site change Safety information: Importance of a backup plan, for manual injections, proper prescriptions and emergency supplies ketone strips, and rules for testing for ketones Symptoms of DKA were reviewed: early: frequent urination, dry mouth, fatigue, feeling ill, severe symptoms: ketones in the urine, abdominal pain, nausea, vomiting and weakness. It is important to hydrate with sugar free liquids every 30 minutes and bring the sugars down to normal levels. Orders: Orders AMB Ketone Urine Dipstick Today E10.9 - Type 1 diabetes mellitus without complications UA and rflx microscopic Today E10.9 - Type 1 diabetes mellitus without complications AMB Insulin Lispro Injection Practice Supplied Today E10.9 - Type 1 diabetes mellitus without complications Coding Level of Care Code Est Pt Level 3 (30319) Diagnoses Diabetes type I E10.9 Time Spent (min) 30 Comment exam and treatment of low, monitoring, doc
[2024-03-12 10:41] LABS: Glucose, Whole Blood 422 mg/dL (60-115)
[2024-03-12 11:58] LABS: Glucose, Whole Blood 348 mg/dL (60-115)
== END 2024-03-12 11:58 | disposition home or self-care (01) ==
PROVIDERS: PCP Nurse Practitioner Family; Visit Provider Nurse Practitioner Adult Health
DX: E10.9 Type 1 diabetes mellitus without complications (principal)
CPT/HCPCS: 99213

== ENCOUNTER → 2024-03-12 10:29 | Outpatient (BNVA) | payer OTHER, SELFPAY | PROVIDERS: PCP Nurse Practitioner Family; Visit Provider Nurse Practitioner Adult Health | DX: E10.9 Type 1 diabetes mellitus without complications (principal) | CPT/HCPCS: 81002; 82947; 96372; J1815 ==

== ENCOUNTER 2024-03-30 07:53 | Outpatient (REF) | payer OTHER, SELFPAY ==
--- NOTE | ~2024-03-30 | US_ITS ---
EXAMINATION: US RETROPERITONEAL LIMITED (RENAL ONLY) CLINICAL INFORMATION: Calculus. COMPARISON: Ultrasound dated September 27, 2023 TECHNIQUE: Real-time ultrasound of the kidneys using grayscale and color Doppler technique. FINDINGS: RIGHT KIDNEY: 12 x 6 x 6 cm (SAG x AP x TRV). Volume is 237 cc. The kidney is normal in size, contour, and echogenicity. Renal cortical thickness is normal. Multiple punctate less than 4 mm hyperechoic lesions at the pelvicalyceal system. No hydronephrosis. 1.2 cm anechoic lesion in the midportion.. LEFT KIDNEY: 13 x 7 x 6 cm (SAG x AP x TRV). Volume is 291 cc. The kidney is normal in size, contour, and echogenicity. Renal cortical thickness is normal. There are a few scattered, less than 4 mm hyperechoic lesions. No hydronephrosis. No solid or cystic lesion. US/US renal BI IMPRESSION: Bilateral nonobstructing nephrolithiasis. 1.2 cm cyst, right kidney.. Electronically signed by: Alen Morris MD 04/09/2024 02:12 PM [facility]AS
== END 2024-03-30 07:54 | disposition home or self-care (01) ==
LOC: HO.US 07:53
PROVIDERS: PCP Internal Medicine; Visit Provider Nurse Practitioner Family
DX: N20.0 Calculus of kidney (principal)
CPT/HCPCS: 76775

== ENCOUNTER → 2024-03-30 07:54 | Outpatient (BNV) | payer OTHER, SELFPAY | PROVIDERS: PCP Internal Medicine; Visit Provider Radiology Diagnostic Radiology | DX: N20.0 Calculus of kidney (principal) | CPT/HCPCS: 76775 ==

== ENCOUNTER 2024-04-06 14:32 | Outpatient (REF) | payer OTHER, SELFPAY ==
[2024-04-06 15:24] LABS: Appearance Urine Clear; Color Urine Yellow; Glucose Urine UA 250 mg/dL (Negative); Leukocyte Esterase Urine Negative (Negative); Nitrite Urine Negative (Negative); PH 5.5 (5.0-9.0); Urine Blood Negative (Negative); Urine Ketones Trace mg/dL (Negative); Urine Protein Negative (Neg-Trace)
[2024-04-06 16:30] LABS: Free T4 (Free Thyroxine) 2.09 ng/dL (0.71-1.85)
== END 2024-04-06 14:33 | disposition home or self-care (01) ==
LOC: HO.LAB 14:32
PROVIDERS: Nurse Practitioner Adult Health; PCP Internal Medicine; Visit Provider Internal Medicine
DX: E03.9 Hypothyroidism, unspecified (principal); E10.9 Type 1 diabetes mellitus without complications
CPT/HCPCS: 36415; 81003; 84439

== ENCOUNTER 2024-04-07 08:21 | Outpatient (REF) | payer OTHER, SELFPAY | END 2024-04-07 08:22 | disposition home or self-care (01) | LOC: HO.LNP 08:21 | PROVIDERS: PCP Nurse Practitioner Family; Visit Provider Nurse Practitioner Family | DX: R89.6 Abnormal cytological findings in specimens from other organs, systems and tissues (principal) | CPT/HCPCS: 81003; 88121 ==

== ENCOUNTER 2024-04-07 08:21 | Outpatient (AMB) | payer OTHER, SELFPAY ==
--- NOTE | 2024-04-07 08:42 | MHC.OFFVIS ---
Intake Visit Reasons: 6m/US(set) Intake Note: Patient presents today for follow up Kidney Stone and Ultrasound Results Imagin03/30/24 Urology Medications: Vitamin B6 Blood Thinner: none Teachers' Assistant Required: No Accompanied by: Self / Same As Patient Allergies No Known Allergies Allergy (Verified 04/07/24 12:15) Medication List - Last Reconciled 04/07/24 by OMAR Washburn blood sugar diagnostic (FreeStyle Lite Strips) USE TO TEST 4 TIMES DAILY DIRECTED blood-glucose meter As directed blood-glucose meter (FreeStyle [place] Lite kit) As directed tests 4 X/day blood-glucose sensor ([employer] G7 Sensor device) DIRECTED CHANGE EVERY 10 DAYS chlorhexidine gluconate 0.12% (Peridex) 15 mL buccal BID cholecalciferol (vitamin D3) (Vitamin D3) 25 mcg PO DAILY glucagon 3 mg/actuation (Baqsimi) 3 mg intranasal ONCE insulin glargine-yfgn 40 units (0.4 mL) subcut QPM insulin lispro 20 units (0.2 mL) subcut TID insulin lispro Infuse up to 100 units per day via insulin pump subcutaneously; lancets (FreeStyle Lancets) As directed tests 4 X/day levothyroxine (Synthroid) 50 mcg PO DAILY lisinopril 5 mg PO DAILY nicotine 1 patch transdermal DAILY nicotine (Nicoderm CQ) 1 patch transdermal DAILY nicotine (polacrilex) (Nicorette) 2 mg buccal Q2H pen needle, diabetic (BD Ultra-Fine Original Pen Needle) test 4 times daily pen needle, diabetic (BD Ultra-Fine Original Pen Needle) As directed- Use to test 4 Times a day pyridoxine (vitamin B6) 100 mg PO DAILY 90 days rosuvastatin 5 mg PO DAILY HPI Comments Details: Juan Daniel is a very pleasant 43-year-old male patient. He has a past medical history of hypothyroidism and type 1 diabetes diagnosed at 5 years old. He presents to the office today for follow-up of his nephrolithiasis. Recent renal imaging results reviewed with the patient today. Bilateral kidneys are normal in size, contour, and echogenicity. Bilateral kidneys with multiple punctate nephrolithiasis measuring less than 4 mm. No hydronephrosis noted bilaterally. 1.2 cm cyst in the right kidney. In discussion with the patient today reports to be doing and feeling well. He reports no bothersome urinary issues or concerns. We discussed at length increase in stone burden. Discussed further intervention with surveillance monitoring versus surgical intervention. Discussed atypical cells in previous cytologies with history of nicotine dependence. Discussed further microscopic hematuria workup to include CT urogram and in office cystoscopy. Discussed risks and benefits of this intervention. He currently denies any bothersome urinary issues or concerns. When asked he denies urinary urgency, urinary frequency, incontinence, nocturia, hematuria, dysuria, foul smelling urine, changes to urinary stream, flank pain, fever, and or chills. He is happy with his current voiding parameters. He discusses his increase in water intake with adding lemon juice to the water. He reports compliance with vitamin B6 daily. He otherwise offers no other issues or concerns at this time. Previous urine cytologies 03/25, 07/27, and 10/24 Atypical urothelial cells. [facility] Medical History Hypothyroidism Surgical History No pertinent past surgical history Social History Household Members: Family Housing: Apartment Alcohol intake: current Alcohol intake frequency: does not drink Patient Tobacco Use Status: Current everyday Tobacco user Tobacco use type: Cigarette Cigarettes Per Day: 10 e-Cigarette/Vaping Use: Never Used Second Hand Smoke Exposure: Yes service: No Current occupational status: employed and unemployed Cognitive needs: No Hearing needs: No Vision needs: No Review of Systems Const All systems reviewed & are unremarkable except as noted in HPI and below Reports no additional complaints Eyes Reports no additional complaints ENT Reports no additional complaints Card Reports no additional complaints Resp Reports no additional complaints GI Reports no additional complaints Reports as per HPI Musc Reports no additional complaints Neuro Reports no additional complaints Psych Reports no additional complaints Endo Reports as per HPI Physical Exam Const General: cooperative, healthy appearing, comfortable, no acute distress, well developed, alert and awake Orientation/consciousness: patient oriented x3 Limitations: no limitations HEENT Head: Yes normal to inspection, Yes normocephalic and Yes atraumatic Ears: hearing grossly normal bilaterally Eyes General: appearance normal, both eyes and all related structures Neck Neck: Yes normal visual inspection and Yes trachea midline Chest Chest palpation & inspection: normal inspection of the chest Resp Effort & Inspection: normal respiratory effort and able to speak in complete sentences Cardio Rate: regular rate GI Inspection: Yes normal to inspection General: Yes no CVA tenderness Back/Spine/Pelvis Back: no CVA tenderness Skin General skin exam: no rashes or lesions noted Neuro General: patient oriented x3 Extrem General: Yes normal to inspection Psych Appearance: grossly normal and well kempt Mental Status: mental status grossly normal Speech and movement: Normal speech and movement present and Clear speech present Affect: normal affect Attitude: cooperative Thought process: Normal thought process present Thought content: Normal thought content present Insight: Fair insight present (Psych) Judgement: Fair judgement present (Psych) Results AMB Urinalysis, Automated UA Leukoctes 0 Arielle/uL Last Edit by RigobertoTEXbaseshayna RosasMeggatel on 04/07/24 08:56 UA Nitrite Last Edit by [employer] on 04/07/24 08:56 UA Urobilinogen 0.2 mg/dL Last Edit by [employer] AlisonMeggatel on 04/07/24 08:56 UA Protein 0 mg/dL Last Edit by [employer] AlisonMeggatel on 04/07/24 08:56 UA pH 6.0 Last Edit by [employer] on 04/07/24 08:56 UA Blood 10 Tico/uL Last Edit by [employer] AlisonMeggatel on 04/07/24 08:56 UA Specific [place]on 1.015 Last Edit by [employer] on 04/07/24 08:56 UA Ketone Last Edit by [employer] on 04/07/24 08:56 UA Bilirubin 0 mg/dL Last Edit by [employer] on 04/07/24 08:56 UA Glucose 1000 mg/dL Last Edit by [employer] on 04/07/24 08:56 Results Reviewed Results Reviewed: Laboratory Last Values Urine pH (Auto) 6.0 04/07/24 08:48 Specific Weston (Auto) 1.015 04/07/24 08:48 Urine Protein (Auto) 0 mg/dL 04/07/24 08:48 Glucose (UA)(Auto) 1000 mg/dL 04/07/24 08:48 Urine Blood (Auto) 10 Tico/uL 04/07/24 08:48 Urine Bilirubin (Auto) 0 mg/dL 04/07/24 08:48 Urine Urobilinogen (Auto) 0.2 mg/dL 04/07/24 08:48 Leukocyte Esterase (Auto) 0 Arielle/uL 04/07/24 08:48 Date of Service: 03/30/24 EXAMINATION: US RETROPERITONEAL LIMITED (RENAL ONLY) FINDINGS: RIGHT KIDNEY: 12 x 6 x 6 cm (SAG x AP x TRV). Volume is 237 cc. The kidney is normal in size, contour, and echogenicity. Renal cortical thickness is normal. Multiple punctate less than 4 mm hyperechoic lesions at the pelvicalyceal system. No hydronephrosis. 1.2 cm anechoic lesion in the midportion.. LEFT KIDNEY: 13 x 7 x 6 cm (SAG x AP x TRV). Volume is 291 cc. The kidney is normal in size, contour, and echogenicity. Renal cortical thickness is normal. There are a few scattered, less than 4 mm hyperechoic lesions. No hydronephrosis. No solid or cystic lesion. IMPRESSION: Bilateral nonobstructing nephrolithiasis. 1.2 cm cyst, right kidney. Assessment & Plan Assessment & Plan (1) Renal calculi: Code(s): N20.0 - Calculus of kidney Category: Medical (2) Microscopic hematuria: Code(s): R31.29 - Other microscopic hematuria Category: Medical (3) Nicotine dependence: Code(s): F17.200 - Nicotine dependence, unspecified, uncomplicated Category: Medical Plan In office urinalysis results reviewed with the patient today; discussed previous urine cytologies atypical cells; will send for FISH He currently denies any bothersome urinary issues or concerns. He reports be happy with current voiding parameters. We discussed at length increase in stone burden; we discussed surgical intervention verses surveillance monitoring; risks and benefits of these interventions were discussed. Continue vitamin B6. Continue adding 1 oz of lemon juice to water daily. Continue with increase in hydration. We discussed potential causes of microscopic hematuria in the setting of nicotine dependence and further workup to include CT urogram and in office cystoscopy; patient declines; we discussed potential for delay in treatment. Will obtain retroperitoneal ultrasound in 6 months. Follow-up in 6 months with imaging to be completed prior; or sooner with any issues, concerns, and or questions. Orders: Orders AMB Urinalysis Automated 04/07/24 Z13.9 - Encounter for screening, unspecified US retroperitoneal comp 04/07/24 N20.0 - Calculus of kidney, R31.29 - Other microscopic hematuria FISH Bladder Cancer 04/07/24 R89.6 - Abnormal cytological findings in specimens from other organs, systems and tissues Patient Instructions: The patient had an opportunity to ask questions regarding the treatment plan. All questions were answered. Physical exam, labs, and imaging were discussed and reviewed in detail. As well as risks, benefits, and discussion of treatment choices. No major barriers to understanding were identified. The patient expressed understanding and agreement with the above treatment plan. The patient was made aware they should contact our office by phone for worsening of their current condition, the appearance of new symptoms, or with any questions or concerns. Compliance is encouraged with any medications and follow up testing that is ordered. It is a privilege to be allowed the opportunity to participate in? your urological care.? Again, if you have any questions or concerns If you have any questions or concerns please do not hesitate to contact me. The office is [phone]. This note is constructed using voice recognition software. While every effort has been made to ensure accuracy technology trainer errors may have been included. Yours sincerely, OMAR Washburn Coding Level of Care Code Est Pt Level 3 (39489) Diagnoses Renal calculi N20.0 Microscopic hematuria R31.29 Nicotine dependence F17.200
== END 2024-04-07 09:11 | disposition home or self-care (01) ==
LOC: HO.HUSH 08:21
PROVIDERS: PCP Nurse Practitioner Family; Visit Provider Nurse Practitioner Family
DX: N20.0 Calculus of kidney (principal); R31.29 Other microscopic hematuria; F17.200 Nicotine dependence, unspecified, uncomplicated
CPT/HCPCS: 99213

== ENCOUNTER 2024-04-09 12:44 | Outpatient (AMB) | payer OTHER, SELFPAY ==
--- NOTE | 2024-04-09 07:50 | A.OFFVIS_ITS ---
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 Most recent HbA1c: 7.2%, 03/10/2024 Random Glucose- 130 mg/dL, Today Densitometer Reader Required: No Accompanied by: Self / Same As Patient Allergies No Known Allergies Allergy (Verified 04/07/24 12:15) Medication List - Last Reconciled 04/09/24 by Miranda Cespedes NP blood sugar diagnostic (FreeStyle Lite Strips) USE TO TEST 4 TIMES DAILY DIRECTED blood-glucose meter As directed blood-glucose meter (FreeStyle [place] Lite kit) As directed tests 4 X/day blood-glucose sensor (EZ2CAD G7 Sensor device) DIRECTED CHANGE EVERY 10 DAYS chlorhexidine gluconate 0.12% (Peridex) 15 mL buccal BID cholecalciferol (vitamin D3) (Vitamin D3) 25 mcg PO DAILY glucagon 3 mg/actuation (Baqsimi) 3 mg intranasal ONCE insulin glargine-yfgn 40 units (0.4 mL) subcut QPM insulin lispro 20 units (0.2 mL) subcut TID insulin lispro Infuse up to 100 units per day via insulin pump subcutaneously; lancets (FreeStyle Lancets) As directed tests 4 X/day levothyroxine (Synthroid) 50 mcg PO DAILY lisinopril 5 mg PO DAILY nicotine 1 patch transdermal DAILY nicotine (Nicoderm CQ) 1 patch transdermal DAILY nicotine (polacrilex) (Nicorette) 2 mg buccal Q2H pen needle, diabetic (BD Ultra-Fine Original Pen Needle) test 4 times daily pen needle, diabetic (BD Ultra-Fine Original Pen Needle) As directed- Use to test 4 Times a day pyridoxine (vitamin B6) 100 mg PO DAILY 90 days rosuvastatin 5 mg PO DAILY HPI Comments Details: 43 YO M is seen in f/u for T1DM. He has been seen regularly for pump follow- ups. He is on an ilet insulin pump with dexcom sensor. Hgb A1C 7.2% 03/10/24. Initially diagnosed with T1DM at age 5 Was initially started on treatment with insulin . Current regimen: Ilet insulin pump Dexcom average glucose: 146 14 day continuous glucose monitor report reviewed Days with CGM data 87.3 % TIme in ranges: 3.6 % very high (above 250) 17.9 % high ?(181-250) 73.8 % in range ?(70-180] 3.1 % low (69-55) 1.6 % ?very low (below 54) coefficeint variation 34.3 desired less than 36 Interpretation patient in good control but with some hypoglycemia in the middle of the night and occasionally a in the evening Total daily dose of insulin 39.3 Basal 15.6 Usual pre meal dose 6.7 breakfast 6.4 lunch 7.6 supper announces most lunches but only half of breakfast and dinner due to fears of dropping low Treats lows with OJ Checks sugar after to ensure it is rising. Family history of autoimmunity in lupus in mother Has eyes checked yearly, last eye exam 02/24 , no retinopathy. Denies neuropathy,Not sees podiatry. No nephropathy Not on RAINER/ARB. Microalbumin 28.0 08/06/2023 eGFR>60 08/06/23 Has HLD, on statin Denies history of CAD. Diet/Carb counting: balanced trying to add more protein to diet Denies recent prior episodes of DKA. Denies prior severe episodes of hypoglycemia requiring help or hospitalization. Labs: Anti-PENG 65 antibodies were negative. Patient is on 50 mcg of levothyroxine(Synthroid) 50 mcg which he takes daily. TSH has been stable in the past. Had recent free T4 which was elevated 2.04 he has lost weight PFSH Medical History Hypothyroidism Surgical History No pertinent past surgical history Social History Household Members: Family Housing: Apartment Alcohol intake: current Alcohol intake frequency: does not drink Patient Tobacco Use Status: Current everyday Tobacco user Tobacco use type: Cigarette Cigarettes Per Day: 10 e-Cigarette/Vaping Use: Never Used Second Hand Smoke Exposure: Yes service: No Current occupational status: employed and unemployed Cognitive needs: No Hearing needs: No Vision needs: No Physical Exam Vital Signs: Last Vital Signs Pulse 101 H 04/09/24 12:48 BP 122/68 04/09/24 12:48 BMI result Body Mass Index 22.1 Const Other: Absence of Cushingoid features. Absence of acromegalic features. Neck exam reveals nl size thyroid about 15 gms. No thyroid nodules palpable. Heart S1 S2, Reg R/R. No M/R G. Skin exam reveals absence of vitiligo or acanthosis nigricans. NO edema Office Procedures Glucose Monitoring Details Details: see [facility] [id number] - Glucose monitoring, continuous-physician I&R Procedure code (CPT) selection complete Results Reviewed Results Reviewed: Laboratory Last Values Glucose (Clinic) 130 mg/dL (60-115) H 04/09/24 12:51 Assessment & Plan Assessment & Plan (1) Diabetes type I: Comment: DX age 5 Code(s): E10.9 - Type 1 diabetes mellitus without complications Category: Medical Plan: Type 1 diabetic with no known macrovascular/microvascular complications with a recent A1c is 7.2%. He is currently doing well on an islet pump but having some issues with connection of his sensor to the pump. Islet has recently been given the approval to integrate with meebee and we will attempt to switch him over to this. He is having some lows in the middle of the night and in the evening when he is working and at times he is not announcing meals because of fear he will run low. He has lost some weight in his new weight from today was was entered into the pump which should give him less insulin. If this does not prevent lows can change insulin target. Of note patient was diagnosed at age 5 and has no family relatives with type [address] Lehman raise the idea that he may have BRI. We will recheck insulin antibodies C-peptide and gada. If all are negative can consider testing at a referral site for BRI (2) Hypothyroidism: Code(s): E03.9 - Hypothyroidism, unspecified Category: Medical Plan: He was diagnosed with hypothyroidism and [place] and he is not certain any antibody testing was ever done. Recent free T4 is just over 2 which may indicate he is getting too much levothyroxine which the current doses 50 mcg. I consulted with the Dr. Lehman and he recommended that the patient repeat the jae e T4 and TSH to determine if he does in fact need a dose adjustment. Orders: Orders C Peptide Today E10.9 - Type 1 diabetes mellitus without complications Glutamic acid decarboxylase Ab Today E10.9 - Type 1 diabetes mellitus without complications Thyroid Peroxidase Antibodies Today E03.9 - Hypothyroidism, unspecified Islet Cell Antibody Scrn/Titer Today E10.9 - Type 1 diabetes mellitus without complications AMB Glucose Monitoring Today E10.9 - Type 1 diabetes mellitus without complications Free T4 (Free Thyroxine) Today E03.9 - Hypothyroidism, unspecified Medications: New blood-glucose sensor (FreeStyle Gabriel 3 Plus Sensor device) As directed 2 ea 11 RF Coding Level of Care Code Est Pt Level 4 (04662) Complex EM visit Add On G2211 Diagnoses Diabetes type I E10.9 Hypothyroidism E03.9 CPT Codes Details - CPT: 54100 - Glucose monitoring, continuous-physician I&R ([id number]) Time Spent (min) 40 Comment Reviewing labs/provider notes, glucose sensor/pump reports, face to face, chart doc
[2024-04-09 12:48] VITALS: BP 122/68; PULSE 101; BMI 22.1
[2024-04-09 12:59] LABS: Glucose, Whole Blood 130 mg/dL (60-115)
== END 2024-04-09 13:08 | disposition home or self-care (01) ==
LOC: HO.ENCR 12:45
PROVIDERS: PCP Nurse Practitioner Family; Visit Provider Nurse Practitioner Adult Health
DX: E10.9 Type 1 diabetes mellitus without complications (principal); E03.9 Hypothyroidism, unspecified
CPT/HCPCS: 95251; 99214

== ENCOUNTER → 2024-04-09 12:44 | Outpatient (BNVA) | payer OTHER, SELFPAY | PROVIDERS: PCP Nurse Practitioner Family; Visit Provider Nurse Practitioner Adult Health | DX: E10.9 Type 1 diabetes mellitus without complications (principal); E03.9 Hypothyroidism, unspecified; Z96.41 Presence of insulin pump (external) (internal) | CPT/HCPCS: 82947 ==

== ENCOUNTER 2024-04-20 07:57 | Outpatient (REF) | payer OTHER, SELFPAY ==
[2024-04-20 09:21] LABS: Free T4 (Free Thyroxine) 1.89 ng/dL (0.71-1.85)
[2024-04-20 09:26] LABS: Thyroid Stimulating Hormone < 0.01 uIU/mL (0.32-4.0)
[2024-04-21 11:33] LABS: Thyroid Peroxidase Antibodies >900 IU/mL (<9)
[2024-04-21 21:03] LABS: C Peptide < 0.10 ng/mL (0.80-3.85)
[2024-04-23 20:54] LABS: Glutamic acid decarboxylase Ab <5 IU/mL (<5)
[2024-04-26 00:43] LABS: Islet Cell Antibody Screen NEGATIVE (NEGATIVE)
== END 2024-04-20 07:58 | disposition home or self-care (01) ==
LOC: HO.LAB 07:57
PROVIDERS: PCP Internal Medicine; Visit Provider Nurse Practitioner Adult Health
DX: E10.9 Type 1 diabetes mellitus without complications (principal); E03.9 Hypothyroidism, unspecified
CPT/HCPCS: 36415; 84439; 84443; 84681; 86341; 86376

== ENCOUNTER 2024-04-23 22:15 | Emergency (ER) | payer OTHER, SELFPAY ==
[2024-04-23 22:24] VITALS: BP 148/66; PULSE 113; PULSE 115; RESP 12; RESP 20; TEMP 36.7; O2SAT 96; O2SAT 97; BMI 21.7
--- NOTE | 2024-04-23 22:24 | ECG_ITS ---
Test Reason : CHEST PRESSURE Blood Pressure : / mmHG Vent. Rate : 111 BPM Atrial Rate : 111 BPM P-R Int : 146 ms QRS Dur : 082 ms QT Int : 340 ms P-R-T Axes : 067 079 058 degrees QTc Int : 462 ms Sinus tachycardia Otherwise normal ECG When compared with ECG of 27-JAN-2024 08:42, No significant change was found Referred By: Ammy Melgar Electronically Signed By:EUNICE HICKMAN MD
[2024-04-23 22:29] LABS: Glucose, Whole Blood 455 mg/dL (60-115)
[2024-04-23] MEDS: ondansetron HCL 4 MG/2 ML VIAL IVPUSH (22:39)
[2024-04-23] MEDS: 0.9 % Sodium Chloride 1,000 ML 999 ML IV ×2 (22:39→22:40)
[2024-04-23 22:48] LABS: MANUAL DIFF FLAG NO
[2024-04-23 22:50] LABS: Basophils Percent Auto 0.3 % (0-2); Eosinophils Absolute Auto 0.2 X10*3/uL (0.0-0.4); Eosinophils Percent Auto 1.6 % (0-4); Hemoglobin 13.5 g/dl (14.0-18.0); Imm Gran Abs Auto 0.04 X10*3/uL (0.00-0.03); Imm Gran Pct Auto 0.4 % (0.0-0.4); Lymphocytes Absolute Auto 2.8 X10*3/uL (1.2-4.9); Lymphocytes Percent Auto 26.5 % (20-40); Mean Corpuscular HGB Conc 34.6 g/dl (31.0-36.0); Mean Corpuscular Hemoglobin 28.2 pg (27.0-33.0); Mean Corpuscular Volume 81.4 fL (80.0-98.0); Mean Platelet Volume 10.3 fL (9.4-12.4); Monocytes Absolute Auto 0.7 X10*3/uL (0.1-1.2); Neutrophils Absolute Auto 6.7 x10*3/uL (2.0-8.3); Neutrophils Percent Auto 64.2 % (45-73); Platelet Count 245 X10*3/uL (160-400); Red Blood Count 4.79 X10*6/uL (4.60-5.80); Red Cell Distribution Width 13.7 % (11.0-16.0); White Blood Count 10.5 X10*3/uL (4.8-10.8)
[2024-04-23 23:08] LABS: Alanine Aminotransferase 18 U/L (0-40); Albumin Level 4.2 g/dL (3.5-5.0); Alkaline Phosphatase 108 U/L (39-117); Anion Gap 19 (12-20); Aspartate Amino Transferase 27 U/L (5-37); Bilirubin Total 0.6 mg/dL (0.0-1.0); Blood Urea Nitrogen 26 mg/dL (9-16); Calcium 10.2 mg/dL (8.4-10.2); Carbon Dioxide 20 mmol/L (22-29); Chloride 102 mmol/L (96-108); Estimated Glomerular Filt Rate 58; Glucose Random 500 mg/dL (60-115); Magnesium 1.9 mg/dL (1.6-2.6); Potassium 4.5 mmol/L (3.3-5.1); Sodium 136 mmol/L (135-145); Total Protein 7.1 g/dL (6.5-8.0)
[2024-04-23 23:09] LABS: Beta-Hydroxybutyrate 2.71 mmol/L (0.02-0.27)
[2024-04-23 23:13] LABS: Troponin-I High Sensitivity < 2.7 ng/L (<3.5-35.0)
--- NOTE | 2024-04-23 23:27 | PC.NURSE ---
This RN assumed care of patient at 23:00. Patient is awake, alert and oriented x4, VSS. Patient denies chest pain at this time. NS bolus infusing vial 20 G IV line in L AC. Patient offers no complaints at this time. Plan of care ongoing.
[2024-04-23 23:34] VITALS: BP 115/50; PULSE 100; RESP 20; TEMP 36.7; O2SAT 97
--- NOTE | 2024-04-24 00:04 | PC.NURSE ---
Josh neurodiagnostic technologist informed this RN of soft BP 95/43, this RN rechecked BP and noted BP reading at 109/40.
[2024-04-24 00:05] VITALS: BP 109/40; PULSE 73; RESP 20; O2SAT 96
[2024-04-24] MEDS: 0.9 % Sodium Chloride 1,000 ML 999 ML IV ×2 (00:43→00:44)
--- NOTE | 2024-04-24 00:43 | MHC.EDTECH ---
rsv/covid swab collected and sent to lab .
[2024-04-24] MEDS: Erythromycin Base 0.5% Oph Oin 1 GM TUBE 1 CM EYE-BOTH (00:45)
[2024-04-24] MEDS: Loratadine 10 MG TABLET PO (01:02)
--- NOTE | 2024-04-24 01:05 | PC.NURSE ---
BIPAP settings decreased to 16/7 24% by RT.
[2024-04-24 01:18] VITALS: BP 124/48; PULSE 99
[2024-04-24] MEDS: EPINEPHrine 1 MG/ML VIAL 0.3 MG IM (01:18)
[2024-04-24] MEDS: diphenhydrAMINE HCL 50 MG/ML VIAL 25 MG IVPUSH (01:18)
[2024-04-24 01:23] LABS: Influenza A PCR NEGATIVE (Negative); Influenza B PCR NEGATIVE (Negative); Resp Syncy Virus RNA Qual PCR NEGATIVE (Negative); SARS COV2 PCR INHOUSE NEGATIVE (Negative)
--- NOTE | 2024-04-24 01:39 | ED_ITS ---
HPI - Chest Pain General Chief Complaint: Chest Pain Stated Complaint: high BP/high blood sugar Time Seen by Provider: 04/23/24 22:23 Source: patient Limitations: no limitations History of Present Illness ED Provider: Ammy Melgar PA-C HPI narrative: 43-year-old male who is an insulin-dependent type 1 diabetic with an insulin pump, presents with hyperglycemia. Patient states he began to feel diaphoretic, with the palpitations prior to arrival. Associated acute onset nausea with dry heaving. Patient denies abdominal pain, recent illness, cough or cold symptoms, fever. Related Data Previous Rx's ?Medication ?Instructions ?Recorded blood-glucose meter #1 ea 07/23/22 pen needle, diabetic 29 gauge x #100 ea 11/21/22 12 (BD Ultra-Fine Original Pen Needle) glucagon 3 mg/actuation nasal 3 mg intranasal ONCE #2 ea 01/09/23 spray (Baqsimi) pyridoxine (vitamin B6) 100 mg 100 mg PO DAILY 90 days #90 tabs 03/29/23 tablet blood-glucose sensor (Dexcom G7 #3 ea 07/11/23 Sensor device) insulin glargine-yfgn 100 unit/mL 40 unit (0.4 mL) subcut QPM #45 mL 08/18/23 (3 mL) subcutaneous pen insulin lispro 100 unit/mL 20 unit (0.2 mL) subcut TID #90 mL 08/22/23 subcutaneous pen levothyroxine 50 mcg tablet 50 mcg PO DAILY #30 tabs 09/22/23 (Synthroid) lisinopril 5 mg tablet 5 mg PO DAILY #90 tabs 11/08/23 pen needle, diabetic 29 gauge x #100 ea 11/14/23 12 (BD Ultra-Fine Original Pen Needle) rosuvastatin 5 mg tablet 5 mg PO DAILY #90 tabs 11/14/23 insulin lispro 100 unit/mL See Rx Instructions subcut 11/18/23 subcutaneous solution .COMPLEX #30 mL cholecalciferol (vitamin D3) 25 25 mcg PO DAILY #90 caps 12/13/23 mcg (1,000 unit) capsule (Vitamin D3) nicotine (polacrilex) 2 mg gum 2 mg buccal Q2H #100 ea 12/13/23 (Nicorette) nicotine 14 mg/24 hr daily 1 patch transdermal DAILY #28 ea 12/13/23 transdermal patch (Nicoderm CQ) nicotine 21 mg/24 hr daily 1 patch transdermal DAILY #28 ea 12/13/23 transdermal patch chlorhexidine gluconate 0.12 % 15 ml buccal BID #473 mL 12/30/23 mouthwash (Peridex) blood-glucose meter (FreeStyle #1 ea 03/13/24 [place] Lite kit) lancets 28 gauge (FreeStyle #100 ea 03/13/24 Lancets) blood sugar diagnostic (FreeStyle #100 strips 04/09/24 Lite Strips) blood-glucose sensor (FreeStyle #2 ea 04/09/24 Gabriel 3 Plus Sensor device) Allergies Allergy/AdvReac Type Severity Reaction Status Date / Time No Known Allergies Allergy Verified 04/23/24 22:26 Review of Systems 2 Review of Systems: Yes all other systems are reviewed and are negative Constitutional: Constitutional: Denies fatigue and Denies fever(s) Endocrine: Endocrine: Denies fatigue PMFSH Past Medical History Medical History Hypothyroidism Surgical History No pertinent past surgical history Social History Social History Household Members: Family Housing: Apartment Alcohol intake: current Alcohol intake frequency: does not drink Patient Tobacco Use Status: Current everyday Tobacco user Tobacco use type: Cigarette Cigarettes Per Day: 10 Smoked in Last 30 Days: Yes e-Cigarette/Vaping Use: Never Used Second Hand Smoke Exposure: Yes Use of substances other than those prescribed or required for medical reasons: No Advance Directives: No Advance Directives Information Provided: No Do you have a plan to hurt others: No Plan service: No Current occupational status: employed and unemployed Cognitive needs: No Hearing needs: No Vision needs: No Physical Exam 2 Vital Signs: Vital Signs: Last Vital Signs Temp 98.0 F 04/24/24 02:26 Pulse 94 04/24/24 02:26 Resp 16 04/24/24 02:26 BP 120/46 L 04/24/24 02:26 Pulse Ox 97 04/24/24 02:26 O2 Del Method Room Air 04/24/24 02:26 O2 Flow Rate 2 04/24/24 00:05 BMI result Body Mass Index 21.7 Course Reevaluation(s) Reevaluation #1: After receiving the Zofran, the patient acutely developed swelling of his eyes and over the bridge of the nose and cheeks, he sounds congested. He denies angioedema, swelling of tongue, dysphagia, dyspnea. He has no wheezing on exam. He must be developing an allergic reaction. His eyes feel itchy. We will lubricate with the erythromycin ointment, giving loratadine and Benadryl, giving epinephrine. I do not want to give steroid to further elevate his sugars, that would be a secondary treatment regardless. We will continue to monitor for progression of this allergic reaction, we will add it to his allergy profile Reevaluation #2: Improving, we will have to signed out to night team pending resolution of his hyperglycemia and allergic reaction. Time: 01:45 Reevaluation #3: DR. Carmona's note: Patient feels better, improvement of blood sugar now it is 1 ED patient feels hungry patient was instructed to follow his sliding scale insulin management of his diabetes will discharge to follow-up with PCP. Time: 02:54 Medications Administered Discontinued Medications Generic Name Dose Route Start Last Admin Trade Name Freq PRN Reason Stop Dose Admin Diphenhydramine HCl 25 mg 04/24/24 01:13 04/24/24 01:18 Diphenhydramine Hcl 50 Mg/Ml Vial IVPUSH 04/24/24 01:14 25 mg ONCE ONE Administration Epinephrine 0.3 mg 04/24/24 01:13 04/24/24 01:18 Epinephrine 1 Mg/Ml Vial IM 04/24/24 01:14 0.3 mg STAT STA Administration Erythromycin 1 cm 04/24/24 00:33 04/24/24 00:45 Erythromycin Base 0.5% Oph Oin 1 Gm Tube EYE-BOTH 04/24/24 00:34 1 cm ONCE ONE Administration Sodium Chloride 1,000 mls @ 999 mls/hr 04/23/24 22:30 04/23/24 23:45 Ns IV 04/23/24 23:30 Infused .Q1H1M MARQUITA Infusion Sodium Chloride 1,000 mls @ 999 mls/hr 04/23/24 22:30 04/23/24 23:45 Ns IV 04/23/24 23:30 Infused .Q1H1M MARQIUTA Infusion Sodium Chloride 1,000 mls @ 999 mls/hr 04/24/24 00:45 04/24/24 01:45 Ns IV 04/24/24 01:45 Infused .Q1H1M MARQUITA Infusion Sodium Chloride 1,000 mls @ 999 mls/hr 04/24/24 00:45 04/24/24 01:45 Ns IV 04/24/24 01:45 Infused .Q1H1M MARQUITA Infusion Loratadine 10 mg 04/24/24 00:49 04/24/24 01:02 Loratadine 10 Mg Tablet PO 04/24/24 00:50 10 mg ONCE ONE Administration Ondansetron HCl 4 mg 04/23/24 22:23 04/23/24 22:39 Ondansetron Hcl 4 Mg/2 Ml Vial IVPUSH 04/23/24 22:24 4 mg ONCE ONE Administration Medical Decision Making Medical Decision Making MDM Narrative: 43-year-old male who is an insulin-dependent type 1 diabetic with an insulin pump, presents with hyperglycemia. Patient states he began to feel diaphoretic, with the palpitations prior to arrival. Associated acute onset nausea with dry heaving. Patient denies abdominal pain, recent illness, cough or cold symptoms, fever. Problem: Diabetes History: Per patient I have considered the following differential diagnoses: HHS, DKA, infection, malfunctioning insulin pump, Plan: Given acute onset hyperglycemia, I am considering DKA. We will be screening basic labs, beta hydroxy, giving aggressive IV fluid. Giving Zofran for the nausea. He has not been ill recently, has not had fevers, infection less likely. I believe the nausea was triggered by his acute elevation in blood sugar. He is mildly tachycardic, sinus tach I have independently reviewed the following tests: Labs: No leukocytosis, not anemic, creatinine 1.35, blood sugar 500, beta hydroxy 2.7, potassium magnesium are normal EKG: Sinus tachycardia, rate of 111, no ischemic changes no ectopy Lab Data 04/23/24 22:36 04/23/24 22:36 Labs: Lab Results 04/23/24 04/23/24 04/24/24 Range/Units 22:25 22:36 00:43 WBC 10.5 (4.8-10.8) X10*3/uL RBC 4.79 (4.60-5.80) X10*6/uL Hgb 13.5 L (14.0-18.0) g/dl Hct 39.0 L (42.0-52.0) % MCV 81.4 (80.0-98.0) fL MCH 28.2 (27.0-33.0) pg MCHC 34.6 (31.0-36.0) g/dl RDW 13.7 (11.0-16.0) % Plt Count 245 (160-400) X10*3/uL MPV 10.3 (9.4-12.4) fL Immature Gran % (Auto) 0.4 (0.0-0.4) % Neut % (Auto) 64.2 (45-73) % Lymph % (Auto) 26.5 (20-40) % Saunders % (Auto) 7.0 (2-11) % Eos % (Auto) 1.6 (0-4) % Baso % (Auto) 0.3 (0-2) % Lymph # (Auto) 2.8 (1.2-4.9) X10*3/uL Saunders # (Auto) 0.7 (0.1-1.2) X10*3/uL Eos # (Auto) 0.2 (0.0-0.4) X10*3/uL Baso # (Auto) 0.0 (0.0-0.2) X10*3/uL Abs Immat Gran (auto) 0.04 H (0.00-0.03) X10*3/uL Absolute Neuts (auto) 6.7 (2.0-8.3) x10*3/uL Absolute Nucleated RBC 0.000 (0.0-0.012) X10*3/uL Nucleated RBC % (auto) 0.0 (0.0-0.2) /100WBC Sodium 136 (135-145) mmol/L Potassium 4.5 (3.3-5.1) mmol/L Chloride 102 (96-108) mmol/L Carbon Dioxide 20 L (22-29) mmol/L Anion Gap 19 (12-20) BUN 26 H (9-16) mg/dL Creatinine 1.35 (0.5-1.4) mg/dL Estim Creat Clear Calc 66.0 Estimated GFR 58 POC Glucose 455 H* (60-115) mg/dL Random Glucose 500 H* (60-115) mg/dL Calcium 10.2 (8.4-10.2) mg/dL Magnesium 1.9 (1.6-2.6) mg/dL Total Bilirubin 0.6 (0.0-1.0) mg/dL AST 27 (5-37) U/L ALT 18 (0-40) U/L Alkaline Phosphatase 108 (39-117) U/L Troponin I High Sens < 2.7 (<3.5-35.0) ng/L Total Protein 7.1 (6.5-8.0) g/dL Albumin 4.2 (3.5-5.0) g/dL Beta-Hydroxybutyrate 2.71 H (0.02-0.27) mmol/L Influenza Type A (PCR) NEGATIVE (Negative) Influenza Type B (PCR) NEGATIVE (Negative) RSV RNA Qual (PCR) NEGATIVE (Negative) SARS-CoV-2 RNA (RT-PCR) NEGATIVE (Negative) 04/24/24 Range/Units 02:31 WBC (4.8-10.8) X10*3/uL RBC (4.60-5.80) X10*6/uL Hgb (14.0-18.0) g/dl Hct (42.0-52.0) % MCV (80.0-98.0) fL MCH (27.0-33.0) pg MCHC (31.0-36.0) g/dl RDW (11.0-16.0) % Plt Count (160-400) X10*3/uL MPV (9.4-12.4) fL Immature Gran % (Auto) (0.0-0.4) % Neut % (Auto) (45-73) % Lymph % (Auto) (20-40) % Saunders % (Auto) (2-11) % Eos % (Auto) (0-4) % Baso % (Auto) (0-2) % Lymph # (Auto) (1.2-4.9) X10*3/uL Saunders # (Auto) (0.1-1.2) X10*3/uL Eos # (Auto) (0.0-0.4) X10*3/uL Baso # (Auto) (0.0-0.2) X10*3/uL Abs Immat Gran (auto) (0.00-0.03) X10*3/uL Absolute Neuts (auto) (2.0-8.3) x10*3/uL Absolute Nucleated RBC (0.0-0.012) X10*3/uL Nucleated RBC % (auto) (0.0-0.2) /100WBC Sodium (135-145) mmol/L Potassium (3.3-5.1) mmol/L Chloride (96-108) mmol/L Carbon Dioxide (22-29) mmol/L Anion Gap (12-20) BUN (9-16) mg/dL Creatinine (0.5-1.4) mg/dL Estim Creat Clear Calc Estimated GFR POC Glucose 184 H (60-115) mg/dL Random Glucose (60-115) mg/dL Calcium (8.4-10.2) mg/dL Magnesium (1.6-2.6) mg/dL Total Bilirubin (0.0-1.0) mg/dL AST (5-37) U/L ALT (0-40) U/L Alkaline Phosphatase (39-117) U/L Troponin I High Sens (<3.5-35.0) ng/L Total Protein (6.5-8.0) g/dL Albumin (3.5-5.0) g/dL Beta-Hydroxybutyrate (0.02-0.27) mmol/L Influenza Type A (PCR) (Negative) Influenza Type B (PCR) (Negative) RSV RNA Qual (PCR) (Negative) SARS-CoV-2 RNA (RT-PCR) (Negative) Discharge Plan Discharge Clinical Impression: Allergic reaction caused by a drug, Acute hyperglycemia Patient Disposition: Home, Self-Care Instructions: Diabetic Hyperglycemia (ED) Additional Instructions: You were treated for hyperglycemia, you did not have any associated lab abnormalities. We kept her insulin pump running, you received IV fluid hydration. You also developed an allergic reaction to Zofran, this is an antinausea medicine do not take this medication. You were treated for an allergic reaction with Benadryl, Claritin and epinephrine. Follow up with your primary care provider as needed, continue to take your home medications as directed. Prescriptions: No Action (DME) pen needle, diabetic [BD Ultra-Fine Orig Pen Needle] 29 gauge x 1/2 needle See Rx Instructions .Route Qty: 100 5RF Rx Instructions: test 4 times daily (DME) Dexcom G7 Sensor Device See Rx Instructions .ROUTE .COMPLEX Qty: 3 5RF Dose Instruction: DIRECTED CHANGE EVERY 10 DAYS Rx Instructions: DIRECTED CHANGE EVERY 10 DAYS insulin glargine-yfgn 100 unit/mL (3 mL) insulin pen 40 unit subcut QPM Qty: 45 1RF levothyroxine [Synthroid] 50 mcg tablet 50 mcg PO DAILY Qty: 30 1RF lisinopril 5 mg tablet 5 mg PO DAILY Qty: 90 1RF (DME) pen needle, diabetic [BD Ultra-Fine Orig Pen Needle] 29 gauge x 1/2 needle See Rx Instructions .Route Qty: 100 0RF Rx Instructions: As directed- Use to test 4 Times a day rosuvastatin 5 mg tablet 5 mg PO DAILY Qty: 90 1RF insulin lispro 100 unit/mL solution See Rx Instructions subcut .COMPLEX Qty: 30 5RF Rx Instructions: Infuse up to 100 units per day via insulin pump subcutaneously; (DME) blood-glucose meter Kit See Rx Instructions .Route Qty: 1 0RF Rx Instructions: As directed chlorhexidine gluconate [Peridex] 0.12 % mouthwash 15 ml buccal BID Qty: 473 0RF insulin lispro 100 unit/mL insulin pen 20 unit subcut TID Qty: 90 3RF nicotine 21 mg/24 hr patch 24 hour 1 patch transdermal DAILY Qty: 28 0RF nicotine [Nicoderm CQ] 14 mg/24 hr patch 24 hour 1 patch transdermal DAILY Qty: 28 0RF nicotine (polacrilex) [Nicorette] 2 mg gum 2 mg buccal Q2H Qty: 100 0RF cholecalciferol (vitamin D3) [Vitamin D3] 25 mcg (1,000 unit) capsule 25 mcg PO DAILY Qty: 90 1RF pyridoxine (vitamin B6) 100 mg tablet 100 mg PO DAILY 90 Days Qty: 90 3RF (DME) FreeStyle Gabriel 3 Plus Sensor Device See Rx Instructions .ROUTE .MEDSUPPLY Qty: 2 11RF Rx Instructions: As directed (DME) FreeStyle Lite Strips Strip See Rx Instructions .ROUTE .COMPLEX Qty: 100 4RF Dose Instruction: USE TO TEST 4 TIMES DAILY DIRECTED Rx Instructions: USE TO TEST 3 TIMES DAILY DIRECTED prn sensor failure Baqsimi 3 mg/actuation spray,non-aerosol 3 mg intranasal ONCE Qty: 2 5RF (DME) blood-glucose meter [FreeStyle [place] Lite] Kit See Rx Instructions .Route Qty: 1 0RF Rx Instructions: As directed tests 4 X/day (DME) lancets [FreeStyle Lancets] 28 gauge misc See Rx Instructions .Route Qty: 100 4RF Rx Instructions: As directed tests 4 X/day Referrals: Rudi,Sonia Moulton MD [Primary Care Provider] - Print Language: Faroese
[2024-04-24 02:26] VITALS: BP 120/46; PULSE 94; RESP 16; TEMP 36.7; O2SAT 97
--- NOTE | 2024-04-24 02:32 | MHC.EDTECH ---
0200 rounding done ,vitals taken ,blood sugar check ,Provider aware of pt result of 184.
[2024-04-24 02:36] LABS: Glucose, Whole Blood 184 mg/dL (60-115)
[2024-04-24 03:10] VITALS: BP 120/46; PULSE 91; RESP 16; TEMP 36.7; O2SAT 97
== END 2024-04-24 03:11 | disposition home or self-care (01) ==
PROVIDERS: Physician Assistant Medical; Emergency Provider Emergency Medicine; PCP Internal Medicine
DX: E10.65 Type 1 diabetes mellitus with hyperglycemia (principal); R07.89 Other chest pain; R00.0 Tachycardia, unspecified; I10 Essential (primary) hypertension; F17.210 Nicotine dependence, cigarettes, uncomplicated; Z03.818 Encounter for observation for suspected exposure to other biological agents ruled out; Z79.899 Other long term (current) drug therapy; Z79.4 Long term (current) use of insulin
CPT/HCPCS: 0241U; 36415; 80053; 82010; 82947; 83735; 84484; 85025; 93005; 96361; 96372; 96374; 96375; 99285; J0171; J1200; J2405

== ENCOUNTER → 2024-04-23 22:24 | Outpatient (BNV) | payer OTHER, SELFPAY | PROVIDERS: Emergency Provider Emergency Medicine; PCP Internal Medicine; Visit Provider Internal Medicine Cardiovascular Disease | DX: R07.89 Other chest pain (principal) | CPT/HCPCS: 93010 ==

== ENCOUNTER 2024-04-28 13:43 | Outpatient (AMB) | payer OTHER, SELFPAY ==
--- NOTE | 2024-04-28 13:47 | MHC.PC.OV ---
Vital Signs 04/28/24 13:48 Height 5 ft 8 in Weight 145 lb 0.6 oz BMI 22.1 BP 112/60 Blood Pressure Location Lt brachial Position Sitting Pulse 108 H Pulse Source Pulse Oximeter Pulse Oximetry (%) 99 Oxygen Delivery Method Room Air Intake Visit Reasons: annual exam Allergies No Known Allergies Allergy (Verified 04/28/24 14:08) Medication List - Last Reconciled 04/28/24 by Britt Weiss PA-C blood sugar diagnostic (FreeStyle Lite Strips) USE TO TEST 3 TIMES DAILY DIRECTED prn sensor failure blood-glucose meter As directed blood-glucose meter (FreeStyle Fajardo Lite kit) As directed tests 4 X/day blood-glucose sensor ([employer] G7 Sensor device) DIRECTED CHANGE EVERY 10 DAYS blood-glucose sensor (FreeStyle Gabriel 3 Plus Sensor device) As directed chlorhexidine gluconate 0.12% (Peridex) 15 mL buccal BID cholecalciferol (vitamin D3) (Vitamin D3) 25 mcg PO DAILY glucagon 3 mg/actuation (Baqsimi) 3 mg intranasal ONCE insulin glargine-yfgn 40 units (0.4 mL) subcut QPM insulin lispro 20 units (0.2 mL) subcut TID insulin lispro Infuse up to 100 units per day via insulin pump subcutaneously; lancets (FreeStyle Lancets) As directed tests 4 X/day levothyroxine (Synthroid) 50 mcg PO DAILY lisinopril 5 mg PO DAILY nicotine 1 patch transdermal DAILY nicotine (Nicoderm CQ) 1 patch transdermal DAILY nicotine (polacrilex) (Nicorette) 2 mg buccal Q2H pen needle, diabetic (BD Ultra-Fine Original Pen Needle) test 4 times daily pen needle, diabetic (BD Ultra-Fine Original Pen Needle) As directed- Use to test 4 Times a day pyridoxine (vitamin B6) 100 mg PO DAILY 90 days rosuvastatin 5 mg PO DAILY Tobacco use date assessed: 08/22/23 Dental Screening Dental Screen Date: 04/28/24 Did you have a dental visit in the last 12 months?: Yes Did you have a dental problem in the last 6 months where you did not have access to dental care?: No Was dental information given to patient?: Patient has dentist HPI annual exam HPI Details 43-year-old male with past medical history of diabetes mellitus, hypothyroidism, hypercholesterolemia, hypertension and history of nephrolithiasis last seen by Dr. Grijalva December 2023 coming in for annual physical.? In review of the notes patient was seen in [facility] [place] [facility] 04/24/2024 for hyperglycemia and palpitations patient was given Zofran while in the ED and developed an allergic reaction.? Patient was stabilized and discharged home.? Patient was seen by endocrinology 04/09/2024 advised to continue on insulin pump and continue to monitor thyroid labs.? Patient was seen by Urology 04/09/2024 plan for retroperitoneal ultrasound in 6 months. Patient states he has been having low blood sugars typically in the middle of the day when he uses his pump. As a result he typically will not use his pump throughout the afternoon. He will occasionally have lows in the 40s and will be symptomatic. He follows with Dr. Blanco for yearly eye exams. He also had abnormal thyroid labs and reached out to Dr. Lehman who told him to hold the levothyroxine for one month and repeat labs. [facility]LY [facility] Medical History Hypothyroidism Surgical History No pertinent past surgical history Social History Household Members: Family Housing: Apartment Alcohol intake: current Alcohol intake frequency: does not drink Patient Tobacco Use Status: Current everyday Tobacco user Tobacco use type: Cigarette Cigarettes Per Day: 10 e-Cigarette/Vaping Use: Never Used Second Hand Smoke Exposure: Yes service: No Current occupational status: employed and unemployed Cognitive needs: No Hearing needs: No Vision needs: No Questionnaire PHQ-9 Over the last 2 weeks, how often have you been bothered by any of the following problems? 1. Little interest or pleasure in doing things: not at all 2. Feeling down, depressed, or hopeless: not at all 3. Trouble falling or staying asleep, or sleeping too much: not at all 4. Feeling tired or having little energy: not at all 5. Poor appetite or overeating: not at all 6. Feeling bad about yourself - or that you are a failure or have let yourself or your family down: not at all 7. Trouble concentrating on things, such as reading the newspaper or watching television: not at all 8. Moving or speaking so slowly that other people could have noticed. Or the opposite - being so fidgety or restless that you have been moving around a lot more than usual: not at all 9. Thoughts that you would be better off or of hurting yourself in some way: not at all Total score: 0 Depression Screening Interpretation: Negative Depression Screening Done: Yes 27251 - PHQ-9 Billing: Yes Source: Developed by Drs. Donis Morris, Tatyana Caldwell, Toribio Greco and colleagues, with an educational adrienne from [employer]. Thrive Questionnaire Date Thrive assessed: 03/13/24 I am a: Patient What is your living situation today?: I have a steady place to live Within the past 12 months, did the food you bought not last and you didn't have the money to get more?: Never true Within the past 12 months, did you worry whether your food would run out before you got money to buy more?: Never true Do you have trouble paying for medicines?: I choose not to answer this question Do you have trouble getting transportation to medical appointments?: No Do you have trouble paying your heating and electricity bill?: No Do you have trouble taking care of your child, family member or friend?: No Do you have trouble with day-to-day activities such as bathing, preparing meals, shopping, managing finances, etc.?: No Are you currently unemployed and looking for a job?: No Are you interested in more education?: Yes Please select the resources that you would like help with: None Currently or been in a relationship where the following occur: No concerns reported THRIVE Score: 0 AUDIT C Alcohol Use Questionnaire (AUDIT-C) 1. How often do you have a drink containing alcohol?: Never 2. How many drinks containing alcohol do you have on a typical day when you are drinking?: 1 or 2 3. How often do you have six or more drinks on one occasion?: Never Total Score: 0 PENG-7 AMB Questionnaire PENG-7 Date PENG - 7 assessed: 04/28/24 Feeling nervous, anxious, or on edge: 0 = Not at all Not being able to stop or control worryin = Not at all Worrying too much about different things: 0 = Not at all Trouble relaxin = Not at all Being so restless that it is hard to sit still: 0 = Not at all Becoming easily annoyed or irritable: 0 = Not at all Feeling afraid as if something awful might happen: 0 = Not at all Total PENG-7 score (0-4 normal; 5-9 mild; 10-14 moderate; 15-21 severe): 0 Source: Developed by Drs. Donis Morris, Tatyana Caldwell, Toribio Greco and colleagues, with an educational adrienne from [employer]. PENG-7 Assessment Billing PENG-7 Assessment Tool: PENG-7 Assessment 87774 Review of Systems Const Denies body aches, Denies fatigue, Denies fever(s), Denies frequent falls, Denies headache(s) and Denies weakness Eyes Reports no additional complaints and Denies change in vision ENT Denies dysphagia, Denies dizziness, Denies facial pain, Denies headache(s), Denies nasal congestion and Denies odynophagia Card Denies chest pain, Denies syncope, Denies irregular heart rhythm, Denies leg edema, Denies lightheadedness and Denies dyspnea Resp Denies cough and Denies dyspnea GI Denies abdominal pain, Denies constipation, Denies dysphagia, Denies dyspepsia, Denies diarrhea, Denies nausea, Denies odynophagia and Denies vomiting Denies dysuria, Denies urinary frequency, Denies urinary hesitancy and Denies urinary urgency Musc Denies back pain and Denies myalgias Skin/Breast Reports system reviewed and no additional complaints, except as documented Neuro Denies dizziness, Denies syncope, Denies frequent falls, Denies headache(s) and Denies weakness Psych Reports no additional complaints Endo Denies fatigue Physical exam (Primary Care) Vital Signs: Oxygen Delivery Method Room Air 04/28/24 13:48 Tobacco/Smoking Status: Tobacco use Status Tobacco use date assessed 08/22/23 04/08/24 10:44 Patient Tobacco Use Status Current everyday Tobacco 04/08/24 10:44 Tobacco use type Cigarette 04/08/24 10:44 e-Cigarette/Vaping Use Never Used 04/08/24 10:44 Depression Screening Interpretation: Negative Thrive Assessment: Date of Thrive Assessment Date Thrive assessed 03/13/24 04/08/24 10:44 Currently or been in a relationship where the following occur: No concerns reported Const General: cooperative, healthy appearing, comfortable and no acute distress Orientation/consciousness: patient oriented x3 [facility] Head: Yes normocephalic Ears: hearing grossly normal bilaterally, external ears normal, TM's normal bilaterally and EAC's normal General nose exam: Normal external nose present Face and sinus: Yes normal facial exam and Yes sinuses nontender Mouth: Normal oral and palatal mucosa present and tongue normal Throat: Yes posterior oropharynx normal Eyes General: appearance normal, both eyes and all related structures Conjunctivae: conjunctivae normal Pupils: Equal, round and reactive pupils present EOM: EOMs intact bilaterally and No Nystagmus present Neck Neck: Yes normal visual inspection, Yes full ROM and Yes no lymphadenopathy Chest Chest palpation & inspection: normal inspection of the chest Resp Effort & Inspection: normal respiratory effort Auscultation: clear to auscultation bilaterally, no crackles, no rales, no rhonchi, no wheezes and breath sounds present Cardio Rate: regular rate Rhythm: regular rhythm Peripheral pulses: radial pulses present and dorsalis pedis present GI Inspection: Yes normal to inspection and No Abdominal wall edema Palpation (GI): Soft to palpation, not firm and nontender Auscultation: normal bowel sounds Rectal Exam - Male: Yes deferred General: Yes no CVA tenderness Back/Spine/Pelvis Back: no CVA tenderness Skin General skin exam: no rashes or lesions noted Neuro General: patient oriented x3 Cranial nerves: Yes Equal, round and reactive pupils present, Yes Midline tongue present, Yes Ability to bilaterally elevate shoulders present and No Nystagmus present Gait exam (Neuro): Normal gait present Extrem General: Yes normal to inspection, Yes full ROM, No no pedal edema and No edema Psych Speech and movement: Normal speech and movement present Affect: normal affect Insight: Good insight present (Psych) Judgement: Good judgement present (Psych) Coding Level of Care Code Est Pt Prev Care 40-64y(75787) Diagnoses Tobacco abuse Z72.0 Pulmonary nodule R91.1 Renal calculi N20.0 Hyperlipidemia LDL goal <100 E78.5 Vitamin D deficiency E55.9 Hypothyroidism E03.9 Diabetes type I E10.9 Annual physical exam Z00.00 Additional Codes PENG-7 Assessment Billing - PENG-7 Assessment Tool: PENG-7 Assessment 25230 ([id number]) PHQ-9 - 78476 - PHQ-9 Billing: Yes ([id number]) Assessment & Plan Assessment & Plan (1) Tobacco abuse: Code(s): Z72.0 - Tobacco use Category: Medical Plan: Smoking cigarettes and the use of tobacco can be harmful. We discussed the importance of stopping and options to aid in smoking cessation. (2) Pulmonary nodule: Comment: 6 mm perifissural left upper lobe nodule JulyStable 6 mm subpleural nodule abutting the left major fissure, most likely an incidental pulmonary lymph node. 2. Similarly, abutting the inferior right major fissure there is a 4 mm nodule, also most likely an incidental pulmonary lymph node. 3. No suspicious pulmonary nodules identified. 4. No active lung disease. Evidence of prior granulomatous disease. 5. Triangular anterior mediastinal soft tissue, conforming to the origins of the great vessels, highly suggestive of thymic rebound/hyperplasia. Given this is a new finding from the prior neck CT 07/13/2023, appropriate short interval [address] follow up recommended. 6. Bilateral nonobstructing renal calculi. Code(s): R91.1 - Solitary pulmonary nodule Category: Medical Plan: Continue to follow with repeat CT scans (3) Renal calculi: Comment: Aprilable 6 mm subpleural nodule abutting the left major fissure, most likely an incidental pulmonary lymph node. 2. Similarly, abutting the inferior right major fissure there is a 4 mm nodule, also most likely an incidental pulmonary lymph node. 3. No suspicious pulmonary nodules identified. 4. No active lung disease. Evidence of prior granulomatous disease. 5. Triangular anterior mediastinal soft tissue, conforming to the origins of the great vessels, highly suggestive of thymic rebound/hyperplasia. Given this is a new finding from the prior neck CT 07/13/2023, appropriate short interval [address] follow up recommended. 6. Bilateral nonobstructing renal calculi. Code(s): N20.0 - Calculus of kidney Category: Medical Plan: Currently following with Urology sent for retroperitoneal ultrasound and advised to follow up in 6 months. (4) Hyperlipidemia LDL goal <100: Code(s): E78.5 - Hyperlipidemia, unspecified Category: Medical Plan: Avoid foods that are high in cholesterol such as red meat, fried foods, eggs and baked goods. Triglyceride goal of less than 150 and LDL goal of less than 100. Continue on rosuvastatin 5 mg. We will order for updated cholesterol labs (5) Vitamin D deficiency: Code(s): E55.9 - Vitamin D deficiency, unspecified Category: Medical Plan: Continue to monitor on blood work (6) Hypothyroidism: Code(s): E03.9 - Hypothyroidism, unspecified Category: Medical Plan: Currently following with endocrinology continue on levothyroxine 50 mcg (7) Diabetes type I: Comment: DX age 5 Code(s): E10.9 - Type 1 diabetes mellitus without complications Category: Medical Plan: Decrease the amount of carbohydrates such as pasta, bread, rice, and potatoes and limit the amount of sweets. Although fruits are generally healthy they should be eaten in moderation as they are still high in sugar. Hemoglobin A1c goal of less than 7%. Currently following with endocrinology and has insulin pump. (8) Annual physical exam: Code(s): Z00.00 - Encounter for general adult medical examination without abnormal findings Category: Medical Plan: Patient is up-to-date on all recommended routine screenings and vaccinations for his age. We will order for repeat cholesterol labs otherwise blood work is up-to-date. Plan This note was constructed using voice recognition software. While every effort has been made to ensure accuracy and pipe setter, still areas may have been included sometimes these areas may affect the content or meeting of the given symptoms. Total time spent caring for the patient today was 30 minutes. This includes time spent before the visit reviewing the chart, time spent during the visit, and time spent after the visit and documentation.
[2024-04-28 13:48] VITALS: BP 112/60; PULSE 108; O2SAT 99; BMI 22.1
== END 2024-04-28 14:22 | disposition home or self-care (01) ==
PROVIDERS: PCP Nurse Practitioner Family
DX: Z00.00 Encounter for general adult medical examination without abnormal findings (principal); E10.9 Type 1 diabetes mellitus without complications; Z72.0 Tobacco use; R91.1 Solitary pulmonary nodule; N20.0 Calculus of kidney; E78.5 Hyperlipidemia, unspecified; E55.9 Vitamin D deficiency, unspecified; E03.9 Hypothyroidism, unspecified

== ENCOUNTER → 2024-04-28 13:43 | Outpatient (BNVA) | payer OTHER, SELFPAY | PROVIDERS: PCP Nurse Practitioner Family | DX: Z00.00 Encounter for general adult medical examination without abnormal findings (principal); R91.1 Solitary pulmonary nodule; N20.0 Calculus of kidney; E78.5 Hyperlipidemia, unspecified; E55.9 Vitamin D deficiency, unspecified; E03.9 Hypothyroidism, unspecified; E10.9 Type 1 diabetes mellitus without complications; F17.210 Nicotine dependence, cigarettes, uncomplicated; Z79.899 Other long term (current) drug therapy | CPT/HCPCS: 96127 ==

== ENCOUNTER 2024-06-05 09:47 | Outpatient (AMB) | payer OTHER, SELFPAY ==
[2024-06-05 09:53] VITALS: BP 140/78; PULSE 100; TEMP 37; O2SAT 98; BMI 23.0
--- NOTE | 2024-06-05 09:53 | MHC.PC.OV ---
Vital Signs 06/05/24 09:53 Height 5 ft 8 in Weight 151 lb 8 oz BMI 23.0 BP 140/78 H Blood Pressure Location Lt brachial Position Sitting Pulse 100 Pulse Source Pulse Oximeter Temp 98.6 F Temp Source Temporal Artery Scan Pulse Oximetry (%) 98 Oxygen Delivery Method Room Air Intake Visit Reasons: Swelling of eyelid and mouth Allergies No Known Allergies Allergy (Verified 06/05/24 09:57) Tobacco use date assessed: 06/05/24 Dental Screening Dental Screen Date: 04/28/24 HPI Swelling of eyelid and mouth HPI Details The patient is a 43-year-old male presenting with concerns about worsening renal function and facial swelling. During a previous evaluation, there was an increase in serum creatinine from 0.7 to 1.35 observed in blood work from April 23. He reports bilateral edema around the eyes, describing a swelling sensation on the eyes and top lip, without generalized body swelling. These symptoms began after an emergency department visit three weeks ago, where he experienced a sensation of hearing his heartbeat in his ears, suggestive of an allergic reaction, though the exact allergen was not identified. At that time, he received intravenous fluids and medications, including Sulfan, and the swelling reduced but then reappeared a week prior to this visit. Hyperglycemia was noted in the hospital with levels up to 500 mg/dL, attributed to illness-induced insulin resistance exacerbated by a malfunction in the insulin pump, which delivered an excess of 38 units of insulin over three hours. Additionally, thyrotoxicosis was detected with a TSH level of less than 0.01 on April 20, possibly due to excessive thyroid hormone levels, necessitating medication adjustment. The patient has a documented history of nephrolithiasis confirmed on an ultrasound; however, the renal stones are not causing the current renal function abnormality. FORMERLY [facility] Medical History Hypothyroidism Surgical History No pertinent past surgical history Social History Household Members: Family Housing: Apartment Alcohol intake: current Alcohol intake frequency: does not drink Patient Tobacco Use Status: Current everyday Tobacco user Tobacco use type: Cigarette Cigarettes Per Day: 10 e-Cigarette/Vaping Use: Never Used Second Hand Smoke Exposure: Yes service: No Current occupational status: employed and unemployed Cognitive needs: No Hearing needs: No Vision needs: No Questionnaire Thrive Questionnaire Date Thrive assessed: 06/05/24 I am a: Patient What is your living situation today?: I have a steady place to live Within the past 12 months, did the food you bought not last and you didn't have the money to get more?: Never true Within the past 12 months, did you worry whether your food would run out before you got money to buy more?: Never true Do you have trouble paying for medicines?: I choose not to answer this question Do you have trouble getting transportation to medical appointments?: No Do you have trouble paying your heating and electricity bill?: No Do you have trouble taking care of your child, family member or friend?: No Do you have trouble with day-to-day activities such as bathing, preparing meals, shopping, managing finances, etc.?: No Are you currently unemployed and looking for a job?: No Are you interested in more education?: Yes Please select the resources that you would like help with: None Currently or been in a relationship where the following occur: No concerns reported THRIVE Score: 0 PENG-7 AMB Questionnaire PENG-7 Date PENG - 7 assessed: 04/28/24 Source: Developed by Drs. Donis Morris, Tatyana Caldwell, Toribio Greco and colleagues, with an educational adrienne from [employer]. Physical exam (Primary Care) Vital Signs: Last Vital Signs Temp 98.6 F 06/05/24 09:53 Pulse 100 06/05/24 09:53 BP 140/78 H 06/05/24 09:53 Pulse Ox 98 06/05/24 09:53 Oxygen Delivery Method Room Air 06/05/24 09:53 BMI result Body Mass Index 23.0 Tobacco/Smoking Status: Tobacco use Status Tobacco use date assessed 06/05/24 06/05/24 09:53 Patient Tobacco Use Status Current everyday Tobacco 06/05/24 09:53 Tobacco use type Cigarette 06/05/24 09:53 e-Cigarette/Vaping Use Never Used 06/05/24 09:53 Thrive Assessment: Date of Thrive Assessment Date Thrive assessed 06/05/24 06/05/24 09:53 Currently or been in a relationship where the following occur: No concerns reported Const General: alert; No acute distress HENMT Other: periorbital edema with feeling of numbness on the upper lip area - mild redness Resp Auscultation: clear to auscultation bilaterally Cardio Rate: regular rate Rhythm: regular rhythm GI Inspection: Yes normal to inspection Extrem General: Yes normal to inspection and No edema Coding Level of Care Code Est Pt Level 4 (81303) Diagnoses Facial swelling R22.0 Mediastinal mass J98.59 Renal insufficiency N28.9 Hypertension I10 Assessment & Plan Assessment & Plan (1) Facial swelling: Code(s): R22.0 - Localized swelling, mass and lump, head Category: Medical Plan: concern on mediastinal mass ff up ct to be done (2) Mediastinal mass: Code(s): J98.59 - Other diseases of mediastinum, not elsewhere classified Category: Medical (3) Renal insufficiency: Code(s): N28.9 - Disorder of kidney and ureter, unspecified Category: Medical (4) Hypertension: Code(s): I10 - Essential (primary) hypertension Category: Medical Plan - Perform blood work to reassess renal function and glycemic control. - Urgent referral to pulmonology for evaluation of potential obstruction in the chest area due to perceived mass effect. - Arrange thyroid function tests to determine TSH levels for assessment of ongoing thyrotoxicosis and medication adjustment. - Continue monitoring insulin pump function and adjust dosing as needed, particularly during illness, to prevent future episodes of significant hyperglycemia. - Advise on maintaining adequate hydration with balanced fluid intake while avoiding dehydration to assist renal function and prevent further nephrolithiasis formation. - Discuss dietary modifications and continuous glucose monitoring to enhance glycemic management and prevent fluctuations. - The patient is advised to follow up for ongoing evaluation of facial edema and its possible relation to renal function changes. Orders: Orders Complete Blood Count Auto Diff Today J98.59 - Other diseases of mediastinum, not elsewhere classified Comprehensive Met. Panel Today J98.59 - Other diseases of mediastinum, not elsewhere classified Referrals Pulmonology Referral J98.59 - Other diseases of mediastinum, not elsewhere classified, R22.0 - Localized swelling, mass and lump, head
== END 2024-06-05 10:33 | disposition home or self-care (01) ==
PROVIDERS: PCP Internal Medicine; Visit Provider Internal Medicine
DX: R22.0 Localized swelling, mass and lump, head (principal); J98.59 Other diseases of mediastinum, not elsewhere classified; N28.9 Disorder of kidney and ureter, unspecified; I10 Essential (primary) hypertension

== ENCOUNTER 2024-06-05 12:26 | Outpatient (REF) | payer OTHER, SELFPAY ==
[2024-06-05 12:50] LABS: MANUAL DIFF FLAG NO
[2024-06-05 13:40] LABS: Basophils Percent Auto 0.3 % (0-2); Eosinophils Absolute Auto 0.2 X10*3/uL (0.0-0.4); Eosinophils Percent Auto 1.7 % (0-4); Hematocrit 44.6 % (42.0-52.0); Hemoglobin 14.7 g/dl (14.0-18.0); Imm Gran Abs Auto 0.03 X10*3/uL (0.00-0.03); Imm Gran Pct Auto 0.3 % (0.0-0.4); Lymphocytes Absolute Auto 1.8 X10*3/uL (1.2-4.9); Mean Corpuscular Hemoglobin 27.7 pg (27.0-33.0); Mean Corpuscular Volume 84.2 fL (80.0-98.0); Mean Platelet Volume 10.2 fL (9.4-12.4); Monocytes Absolute Auto 0.6 X10*3/uL (0.1-1.2); Neutrophils Percent Auto 72.7 % (45-73); Platelet Count 273 X10*3/uL (160-400); Red Cell Distribution Width 13.4 % (11.0-16.0); White Blood Count 9.6 X10*3/uL (4.8-10.8)
[2024-06-05 14:21] LABS: Alanine Aminotransferase 28 U/L (0-40); Albumin Level 4.3 g/dL (3.5-5.0); Alkaline Phosphatase 128 U/L (39-117); Anion Gap 11 (12-20); Aspartate Amino Transferase 34 U/L (5-37); Bilirubin Total 0.5 mg/dL (0.0-1.0); Blood Urea Nitrogen 14 mg/dL (9-16); Calcium 9.9 mg/dL (8.4-10.2); Carbon Dioxide 29 mmol/L (22-29); Chloride 109 mmol/L (96-108); Cholesterol 121 mg/dL (<200); Estimated Glomerular Filt Rate > 60; Glucose Random 86 mg/dL (60-115); HDL Cholesterol 48 mg/dL (>40); LDL Cholesterol Calculated 62 mg/dL (<100); Potassium 4.2 mmol/L (3.3-5.1); Sodium 145 mmol/L (135-145); Total Protein 7.4 g/dL (6.5-8.0); Triglycerides 58 mg/dL (<150)
[2024-06-05 14:42] LABS: Free T4 (Free Thyroxine) 1.53 ng/dL (0.71-1.85); Thyroid Stimulating Hormone < 0.01 uIU/mL (0.32-4.0)
== END 2024-06-05 12:27 | disposition home or self-care (01) ==
LOC: HO.LAB 12:26
PROVIDERS: Absent Provider Internal Medicine Endocrinology, Diabetes & Metabolism; PCP Internal Medicine; Visit Provider Internal Medicine
DX: J98.59 Other diseases of mediastinum, not elsewhere classified (principal); E78.5 Hyperlipidemia, unspecified; E03.9 Hypothyroidism, unspecified
CPT/HCPCS: 36415; 80053; 80061; 84439; 84443; 85025

== ENCOUNTER 2024-06-09 14:28 | Outpatient (AMB) | payer OTHER, SELFPAY ==
--- NOTE | 2024-06-09 14:45 | A.OFFVIS_ITS ---
Vital Signs 06/09/24 14:46 Height 5 ft 8 in Weight 151 lb 0.266 oz BMI 23.0 BP 120/68 Blood Pressure Location Rt brachial Position Sitting Pulse 97 Pulse Source Pulse Oximeter Pulse Oximetry (%) 100 Oxygen Delivery Method Room Air Intake Visit Reasons: Mediastinal Mass Allergies No Known Allergies Allergy (Verified 06/09/24 14:48) HPI Comments Details: The patient is here for pulmonary evaluation. The patient is a 43-year-old gentleman presenting with abnormal CT scan with a mediastinal mass. The patient was in usual state health. He underwent a CT scan of the chest sometime in February demonstrating multiple pulmonary nodules measuring between 4-6 mm in size. 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 I did look for previous CT scans but I can not find any. He is currently scheduled to have a repeat CT scan in early July. Therefore, will wait for the CAT scan report. In the meantime the patient is having a significant reaction with significant periorbital edema is felt some edema around the lip area. He had been evaluated in [place] for sinusitis likely from a poorly placed root canal. Therefore, he is going to need surgery. Is not clear this periorbital edema is related to sinusitis. Does have significant nasal congestion and some purulent secretions in his nasal passages so therefore starting him on Augmentin and also fluticasone nasal spray will be helpful. In the meantime will stop the RAINER inhibitor just in case she is having allergic reaction to it. He does have significant diabetes and therefore hold off on any prednisone. Patient will need additional allergy testing. But will wait for him to start the antibiotics and treat his nasal congestion and see how he response to stopping the RAINER inhibitor. Which point when he returns after the CAT scan we can order additional testing. If his allergic reaction gets worse he can always call. He can also try some [id number] antihistamine therapy. [facility] Medical History (Updated 06/09/24 @ 19:59 by Casimiro Soares MD) Periorbital edema Hypothyroidism Surgical History No pertinent past surgical history Social History Household Members: Family Housing: Apartment Alcohol intake: current Alcohol intake frequency: does not drink Patient Tobacco Use Status: Current everyday Tobacco user Tobacco use type: Cigarette Cigarettes Per Day: 10 e-Cigarette/Vaping Use: Never Used Second Hand Smoke Exposure: Yes service: No Current occupational status: employed and unemployed Cognitive needs: No Hearing needs: No Vision needs: No Review of Systems Const Denies fever(s) and Reports headache(s) Eyes Denies change in vision and Reports other (periorbital edema) ENT Reports headache(s), Reports nasal discharge and Reports nasal obstruction Card Denies chest pain Resp Denies wheezing GI Reports no additional complaints Musc Reports no additional complaints Skin/Breast Denies rash Neuro Reports headache(s) Raji/Lymph Reports no additional complaints Aller/Immun Denies wheezing Physical Exam Vital Signs: Last Vital Signs Pulse 97 06/09/24 14:46 BP 120/68 06/09/24 14:46 Pulse Ox 100 06/09/24 14:46 Oxygen Delivery Method Room Air 06/09/24 14:46 BMI result Body Mass Index 23.0 Const General: comfortable HEENT Head: Yes normocephalic Mouth: lip abnormal (upper lip with minimal swelling) Eyes Periorbital: periorbital findings abnormal bilateral periorbital swelling and periorbital erythema; no crepitus Neck Neck: Yes supple Chest Chest palpation & inspection: normal inspection of the chest Resp Effort & Inspection: normal respiratory effort and no stridor Auscultation: clear to auscultation bilaterally Cardio Heart sounds: S1 normal heart sound present and S2 normal heart sound present GI Palpation (GI): Soft to palpation Skin General skin exam: no rashes or lesions noted Extrem General: Yes no clubbing, cyanosis or edema Results Reviewed Results Reviewed: personally reviewed CT chest 02/2024 with mediastinal mass and pulmonary nodules, LLL nodule appears to look like a hamartoma. Assessment & Plan Assessment & Plan (1) Facial swelling: Code(s): R22.0 - Localized swelling, mass and lump, head Category: Medical (2) Mediastinal mass: Code(s): J98.59 - Other diseases of mediastinum, not elsewhere classified Category: Medical (3) Nicotine dependence: Code(s): F17.200 - Nicotine dependence, unspecified, uncomplicated Category: Medical Qualifiers: Nicotine product type: cigarettes Substance use status: unspecified nicotine-induced disorder Qualified Code(s): F17.219 - Nicotine dependence, cigarettes, with unspecified nicotine-induced disorders (4) Pulmonary nodule: Comment: 6 mm perifissural left upper lobe nodule JulyStable 6 mm subpleural nodule abutting the left major fissure, most likely an incidental pulmonary lymph node. 2. Similarly, abutting the inferior right major fissure there is a 4 mm nodule, also most likely an incidental pulmonary lymph node. 3. No suspicious pulmonary nodules identified. 4. No active lung disease. Evidence of prior granulomatous disease. 5. Triangular anterior mediastinal soft tissue, conforming to the origins of the great vessels, highly suggestive of thymic rebound/hyperplasia. Given this is a new finding from the prior neck CT 07/13/2023, appropriate short interval [address] follow up recommended. 6. Bilateral nonobstructing renal calculi. Code(s): R91.1 - Solitary pulmonary nodule Category: Medical (5) Periorbital edema: Code(s): R60.0 - Localized edema Category: Medical Plan Repeating CT chest 07/2024, May need an MRI to better address the anterior mediastinal mass. start Augmentin in case of sinusitis start fluticasone tobacco cessation stop RAINER inhibitor for now will need allergy testing in the near future F/U 6-8 weeks Medications: New amoxicillin-pot clavulanate 875-125 mg 1 tab PO BID 20 tabs 0RF 10 days fluticasone propionate 50 mcg/actuation 2 sprays intranasal DAILY 15.8 mL 11RF 30 days J31.0 - Chronic rhinitis Coding Level of Care Code New Pt Level 5 (40515) Diagnoses Facial swelling R22.0 Mediastinal mass J98.59 Cigarette nicotine dependence with nicotine-induced disorder F17.219 Nicotine product type: cigarettes Substance use status: unspecified nicotine-induced disorder Pulmonary nodule R91.1 Periorbital edema R60.0 Time Spent (min) 60
[2024-06-09 14:46] VITALS: BP 120/68; PULSE 97; O2SAT 100; BMI 23.0
== END 2024-06-09 15:18 | disposition home or self-care (01) ==
PROVIDERS: PCP Internal Medicine; Referring Provider Internal Medicine; Visit Provider Hospitalist
DX: J98.59 Other diseases of mediastinum, not elsewhere classified (principal); F17.219 Nicotine dependence, cigarettes, with unspecified nicotine-induced disorders; R91.1 Solitary pulmonary nodule
CPT/HCPCS: 99205

== ENCOUNTER 2024-06-19 13:47 | Outpatient (REF) | payer OTHER, SELFPAY ==
[2024-06-19 15:39] LABS: MANUAL DIFF FLAG NO
[2024-06-19 15:59] LABS: Basophils Percent Auto 0.4 % (0-2); Eosinophils Absolute Auto 0.3 X10*3/uL (0.0-0.4); Eosinophils Percent Auto 3.3 % (0-4); Hemoglobin 14.6 g/dl (14.0-18.0); Imm Gran Abs Auto 0.02 X10*3/uL (0.00-0.03); Imm Gran Pct Auto 0.2 % (0.0-0.4); Lymphocytes Absolute Auto 2.6 X10*3/uL (1.2-4.9); Mean Corpuscular Hemoglobin 27.9 pg (27.0-33.0); Mean Corpuscular Volume 82.2 fL (80.0-98.0); Mean Platelet Volume 10.1 fL (9.4-12.4); Monocytes Absolute Auto 0.5 X10*3/uL (0.1-1.2); Monocytes Percent Auto 5.4 % (2-11); Neutrophils Absolute Auto 5.8 x10*3/uL (2.0-8.3); Neutrophils Percent Auto 62.7 % (45-73); Platelet Count 292 X10*3/uL (160-400); Red Blood Count 5.23 X10*6/uL (4.60-5.80); Red Cell Distribution Width 13.3 % (11.0-16.0); White Blood Count 9.3 X10*3/uL (4.8-10.8)
[2024-06-19 17:14] LABS: Alanine Aminotransferase 33 U/L (0-40); Aspartate Amino Transferase 28 U/L (5-37); Free T4 (Free Thyroxine) 1.88 ng/dL (0.71-1.85); Thyroid Stimulating Hormone < 0.01 uIU/mL (0.32-4.0)
[2024-06-20 08:59] LABS: Triiodothyronine T3 Total 238 ng/dL (76-181)
[2024-06-20 12:33] LABS: Thyroglobulin Antibodies 56 IU/mL (< or = 1)
== END 2024-06-19 13:48 | disposition home or self-care (01) ==
LOC: HO.LAB 13:47
PROVIDERS: PCP Internal Medicine; Visit Provider Nurse Practitioner Adult Health
DX: E05.90 Thyrotoxicosis, unspecified without thyrotoxic crisis or storm (principal); E03.9 Hypothyroidism, unspecified; Z13.1 Encounter for screening for diabetes mellitus
CPT/HCPCS: 36415; 82947; 83036; 84439; 84443; 84450; 84460; 84480; 85025; 86800

== ENCOUNTER 2024-06-19 13:47 | Outpatient (AMB) | payer OTHER, SELFPAY ==
[2024-06-19 13:55] VITALS: BP 130/76; PULSE 103; BMI 22.8
--- NOTE | 2024-06-19 13:55 | A.OFFVIS_ITS ---
Vital Signs 06/19/24 13:55 Height 5 ft 8 in Weight 149 lb 14.629 oz BMI 22.8 BP 130/76 Blood Pressure Location Rt brachial Position Sitting Pulse 103 H Pulse Source Pulse Oximeter Intake Visit Reasons: F/u-diabetes Intake Note: Patient presents today for a follow-up on Type 2 Diabetes Mellitus: Last Diabetic eye exam was on: 01/28/2024 [facility] Last Podiatry exam was on: Does not see a Final Dressing Cutter Most recent HbA1c: 7.0%, 06/19/2024 Random Glucose- 153 mg/dL, Today Gun Sealing Machine Operator Required: No Accompanied by: Self / Same As Patient Allergies No Known Allergies Allergy (Verified 06/09/24 14:48) HPI Comments Details: 43 YO M is seen in f/u for T1DM. He has been seen regularly for pump follow- ups. He is on an ilet insulin pump with dexcom sensor. Hgb A1C 7% 06/19/24, 7.2% 03/10/24. Initially diagnosed with T1DM at age 5 He has a h/o hypothyroidism and was on a stable dose of Levothyroxine 50mcg with stable TSH until the end of April at which time TSH was <0.01. After consulting with Dr. Lehman, He was advised to stop Levothyroxine and levels were repeated approx 4 weeks later. Plan of care was discussed with Dr. Lehman and labs were then repeated again at 2 weeks. He has recently been seen by pulmonary for periorbital edema,angioedema and possible sinus infection treated with anti-biotics and rainer-I was stopped. He has an upcoming CT scan in July to evaluate a possible anterior mediastinal mass we will follow up in Pulmonary. He has had worsening swelling around the eye. He denies eye pain. He was advised to have repeat blood tests after his clinic visit today to recheck thyroid levels with TSI. He denies shortness of breath or palpitations. Diabetes: He had one episode of hyperglycemia to 500 while on pump. Was initially started on treatment with insulin . Dexcom average glucose: 159.1 14 day continuous glucose monitor report reviewed Glucose Managment indicator 6.3 % TIme in ranges: 6.3 % very high (above 250) 27.3 % high ?(181-250) 63.8 % in range ?(70-180] 2 % low (69-55) 1.8 % ?very low (below 54) 35.2 Standard Deviation Interpretation [patient is well-controlled with some scattered hypoglycemia throughout the day and at nighttime ] Total daily dose of insulin 51 Basal 21 Bolus 30 Treats lows with OJ Checks sugar after to ensure it is rising. Family history of autoimmunity in lupus in mother Has eyes checked yearly, last eye exam 02/24 , no retinopathy. Denies neuropathy,Not sees podiatry. No nephropathy Not on RAINER/ARB. Microalbumin 28.0 08/06/2023 eGFR>60 08/06/23 Has HLD, on statin Denies history of CAD. Diet/Carb counting: balanced trying to add more protein to diet Denies recent prior episodes of DKA. Denies prior severe episodes of hypoglycemia requiring help or hospitalization. Labs: Anti-PENG 65 antibodies were negative. Patient had been on 50 mcg of Levothyroxine which was stopped approx 6 weeks ago. Repeat TSH was again suppressed. [facility] Medical History (Updated 06/19/24 @ 14:20 by Miranda Cespedes NP) Hyperthyroidism Periorbital edema Hypothyroidism Surgical History No pertinent past surgical history Social History Household Members: Family Housing: Apartment Alcohol intake: current Alcohol intake frequency: does not drink Patient Tobacco Use Status: Current everyday Tobacco user Tobacco use type: Cigarette Cigarettes Per Day: 10 e-Cigarette/Vaping Use: Never Used Second Hand Smoke Exposure: Yes service: No Current occupational status: employed and unemployed Cognitive needs: No Hearing needs: No Vision needs: No Physical Exam Vital Signs: Last Vital Signs Pulse 103 H 06/19/24 13:55 BP 130/76 06/19/24 13:55 BMI result Body Mass Index 22.8 Const Other: Absence of Cushingoid features. Absence of acromegalic features. Neck exam reveals nl size thyroid about 15 gms. No thyroid nodules palpable. No carotid bruits present. Lungs CTA. Heart S1 S2, Reg rhythm, rate 104. No M/R G. Skin exam reveals absence of vitiligo or acanthosis nigricans. Edema around periorbits without pain to palpation. He has no edema of the legs and reflexes are 2+ Visual exam of foot performed. No ulcerations or open lesions. No inter digit maceration or fissuring. No onychomycosis, no callouses. Sensation intact to monofilament exam. Vibratory sensation is normal with 128 Hz tuning fork. Positive pulse good cap refill Results AMB Hemoglobin A1c AMB Hemoglobin A1c 7.0 % Last Edit by DAMIAN Beebe on 06/19/24 14:25 Results Reviewed Results Reviewed: Laboratory Last Values Glucose (Clinic) 153 mg/dL (60-115) H 06/19/24 13:58 Hgb A1c (Clinic) 7.0 % (4.0-6.0) H 06/19/24 14:24 Assessment & Plan Assessment & Plan (1) Diabetes type I: Comment: DX age 5 Code(s): E10.9 - Type 1 diabetes mellitus without complications Category: Medical Plan: Type 1 diabetic with good glycemic control with some scattered hypoglycemia during the day and more concentrated at night. Target was changed to lower insulin given my pump to usual. For now we will hold off on referral for possible Umer. Hyperthyroid: Case discussed with Dr. Garner and advised to wait until starting methimazole until additional blood work became available. After review of new labs which confirmed hyper thyroidism, a prescription for methimazole 10 mg was started and metoprolol XR 25 mcg. The patient was advised to go to the ER for worsening symptoms elevated heart rate additional swelling around eyes. I will plan to check in with the patient over the weekend to ensure he was able to get his prescriptions. Orders: Orders Complete Blood Count Auto Diff 06/19/24 E05.90 - Thyrotoxicosis, unspecified without thyrotoxic crisis or storm Free T4 (Free Thyroxine) 06/19/24 E05.90 - Thyrotoxicosis, unspecified without thyrotoxic crisis or storm Triiodothyronine T3 Total 06/19/24 E05.90 - Thyrotoxicosis, unspecified without thyrotoxic crisis or storm Alanine Aminotransferase 06/19/24 E05.90 - Thyrotoxicosis, unspecified without thyrotoxic crisis or storm AMB Hemoglobin A1c 06/19/24 E10.9 - Type 1 diabetes mellitus without complications Thyroglobulin Antibodies 06/19/24 E05.90 - Thyrotoxicosis, unspecified without thyrotoxic crisis or storm Aspartate Amino Transferase 06/19/24 E05.90 - Thyrotoxicosis, unspecified wit hout thyrotoxic crisis or storm Medications: New methimazole 10 mg PO DAILY 30 days 30 tabs 2RF metoprolol succinate ER 25 mg PO DAILY 30 days 30 tabs 2RF Coding Level of Care Code Est Pt Level 4 (95417) Complex EM visit Add On G2211 Diagnoses Diabetes type I E10.9 Time Spent (min) 35 Comment Time spent reviewing labs/provider notes, face to face, chart doc
[2024-06-19 14:08] LABS: Glucose, Whole Blood 153 mg/dL (60-115)
== END 2024-06-19 14:26 | disposition home or self-care (01) ==
PROVIDERS: PCP Internal Medicine; Visit Provider Nurse Practitioner Adult Health
DX: E10.9 Type 1 diabetes mellitus without complications (principal)
CPT/HCPCS: 99214

== ENCOUNTER 2024-07-01 13:41 | Outpatient (AMB) | payer OTHER, SELFPAY ==
[2024-07-01 14:12] VITALS: BP 128/62; PULSE 91; BMI 23.2
--- NOTE | 2024-07-01 14:12 | MHC.OFFVIS ---
Vital Signs 07/01/24 14:12 Height 5 ft 8 in Weight 152 lb 12.485 oz BMI 23.2 BP 128/62 Blood Pressure Location Lt brachial Position Sitting Pulse 91 Pulse Source Pulse Oximeter Intake Visit Reasons: Thyroid Intake Note: Patient present today to follow up on Type 1 Diabetes Mellitus. Last Diabetic Eye exam: 01/28/2024 Last Podiatry Visit: Does not see a Wholesale Agronomist Random Glucose:56 mg/dl @ 2:19pm 139 mg/d @ 2:57pm HgA1C: 7.0% 06/19/2024 Linen Checker Required: No Accompanied by: Self / Same As Patient Allergies No Known Allergies Allergy (Verified 07/01/24 14:16) HPI Comments Details: This is a 43-year-old male followed by endocrinology for management of type 1 diabetes. Today's visit focus is on hyperthyroidism. Patient has a history of hypothyroidism is being placed levothyroxine. He was taken off the levothyroxine with continue suppression of TSH and elevation of free T4. He was placed on methimazole 10 mg q.d. [facility] Medical History (Updated 06/19/24 @ 14:20 by Miranda Cespedes NP) Hyperthyroidism Periorbital edema Hypothyroidism Surgical History No pertinent past surgical history Social History Household Members: Family Housing: Apartment Alcohol intake: current Alcohol intake frequency: does not drink Patient Tobacco Use Status: Current everyday Tobacco user Tobacco use type: Cigarette Cigarettes Per Day: 10 e-Cigarette/Vaping Use: Never Used Second Hand Smoke Exposure: Yes service: No Current occupational status: employed and unemployed Cognitive needs: No Hearing needs: No Vision needs: No Physical Exam Vital Signs: Last Vital Signs Pulse 91 07/01/24 14:12 BP 128/62 07/01/24 14:12 BMI result Body Mass Index 23.2 Const Other: Thyroid gland is normal size weighs about 15 g. There are no thyroid nodules palpated. 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 He appears to be clinically euthyroid on methimazole 10 mg q.d. and metoprolol 25 mg QD Plan is to continue the methimazole and recheck thyroid function studies in about 4 weeks' time along with TSI antibodies already ordered. We will go over different options of treatment including the continued use of anti-thyroid medication versus radioactive iodine for surgery. Went over the side effects of anti-thyroid medication including but not limited to skin rash, agranulocytosis and liver toxicity. The patient is opting to stay on the anti-thyroid medication for now pending TSI measurement Orders: Orders Thyroid Stimulating Immunoglob Today E05.90 - Thyrotoxicosis, unspecified without thyrotoxic crisis or storm Coding Level of Care Code Est Pt Level 3 (59742) Diagnoses Hyperthyroidism E05.90
[2024-07-01 14:23] LABS: Glucose, Whole Blood 56 mg/dL (60-115)
[2024-07-01 15:02] LABS: Glucose, Whole Blood 139 mg/dL (60-115)
== END 2024-07-01 14:59 | disposition home or self-care (01) ==
PROVIDERS: PCP Internal Medicine; Visit Provider Internal Medicine Endocrinology, Diabetes & Metabolism
DX: E05.90 Thyrotoxicosis, unspecified without thyrotoxic crisis or storm (principal)
CPT/HCPCS: 99213

== ENCOUNTER → 2024-07-01 13:41 | Outpatient (BNVA) | payer OTHER, SELFPAY | PROVIDERS: PCP Internal Medicine; Visit Provider Internal Medicine Endocrinology, Diabetes & Metabolism | DX: E05.90 Thyrotoxicosis, unspecified without thyrotoxic crisis or storm (principal); E10.9 Type 1 diabetes mellitus without complications | CPT/HCPCS: 82947 ==

== ENCOUNTER 2024-07-06 08:35 | Outpatient (REF) | payer OTHER, SELFPAY ==
[2024-07-14 13:27] LABS: Thyroid Stimulating Immunoglob 506 % baseline (<140)
== END 2024-07-06 08:36 | disposition home or self-care (01) ==
LOC: HO.LAB 08:35
PROVIDERS: PCP Internal Medicine; Visit Provider Internal Medicine Endocrinology, Diabetes & Metabolism
DX: E05.90 Thyrotoxicosis, unspecified without thyrotoxic crisis or storm (principal)
CPT/HCPCS: 36415; 84445

== ENCOUNTER → 2024-07-10 13:29 | Outpatient (BNVA) | payer OTHER, SELFPAY | PROVIDERS: PCP Nurse Practitioner Family; Visit Provider Nurse Practitioner Adult Health | DX: E10.9 Type 1 diabetes mellitus without complications (principal) | CPT/HCPCS: 82947 ==

== ENCOUNTER → 2024-07-10 13:29 | Outpatient (AMB) | payer OTHER, SELFPAY ==
[2024-07-10 13:43] LABS: Glucose, Whole Blood 141 mg/dL (60-115)
== END | disposition home or self-care (01) ==
PROVIDERS: PCP Nurse Practitioner Family; Visit Provider Nurse Practitioner Adult Health
CPT/HCPCS: 99214

== ENCOUNTER 2024-07-29 13:15 | Outpatient (AMB) | payer OTHER, SELFPAY ==
[2024-07-29 13:19] VITALS: BP 122/84; PULSE 81; O2SAT 99; BMI 23.5
--- NOTE | 2024-07-29 13:19 | A.OFFPC_ITS ---
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 Sewing Required: No Accompanied by: Self / Same As Patient Allergies No Known Allergies Allergy (Verified 07/29/24 13:20) Medication List - Last Reconciled 07/29/24 by Britt Weiss PA-C blood sugar diagnostic (FreeStyle Lite Strips) USE TO TEST 3 TIMES DAILY DIRECTED prn sensor failure blood-glucose meter As directed blood-glucose meter (FreeStyle Glasco Lite kit) As directed tests 4 X/day blood-glucose sensor (Exaptive G7 Sensor device) DIRECTED CHANGE EVERY 10 DAYS blood-glucose sensor (FreeStyle Gabriel 3 Plus Sensor device) As directed calcium amino acid chelate mg PO chlorhexidine gluconate 0.12% (Peridex) 15 mL buccal BID cholecalciferol (vitamin D3) (Vitamin D3) 25 mcg PO DAILY fluticasone propionate 50 mcg/actuation 2 sprays intranasal DAILY 30 days glucagon 3 mg/actuation (Baqsimi) 3 mg intranasal ONCE insulin lispro Infuse up to 100 units per day via insulin pump subcutaneously; 30 days lancets (FreeStyle Lancets) As directed tests 4 X/day methimazole 10 mg PO DAILY 30 days metoprolol succinate ER 25 mg PO DAILY 30 days nicotine (Nicoderm CQ) 1 patch transdermal DAILY nicotine 1 patch transdermal DAILY nicotine (polacrilex) (Nicorette) 2 mg buccal Q2H pen needle, diabetic (BD Ultra-Fine Original Pen Needle) test 4 times daily pen needle, diabetic (BD Ultra-Fine Original Pen Needle) As directed- Use to test 4 Times a day pyridoxine (vitamin B6) 100 mg PO DAILY 90 days rosuvastatin 5 mg PO DAILY Tobacco use date assessed: 07/29/24 Dental Screening Dental Screen Date: 07/29/24 Did you have a dental visit in the last 12 months?: Yes Did you have a dental problem in the last 6 months where you did not have access to dental care?: No Was dental information given to patient?: Patient has dentist HPI f/u DM HPI Details 43-year-old male with past medical histo ry of diabetes mellitus, hy perthyroidism, hypercholesterolemia, hypertension and history of nephrolithiasis last seen 06/2024 coming in for follow up of diabetes. In review of the notes, patient was seen by endocrinology 07/10/2024 last A1c 06/19/2024 7%. He was seen by Dr. Lehman 07/01/2024 for hyperthyroidism continued on methimazole and advised to follow up in 1 month. Patient was seen by pulmonology 06/09/[address] scan and started on RAINER inhibitor, Augmentin and fluticasone advised to follow up in 4 weeks. Patient tells us today he has been following with a mud worker Dr. Cali Martin in [place] for management of his thyroid eye disease. He was given an eye drop Loteprednol Etabonate and has some kind of test tomorrow for the eyes with a follow up in August. He continues to see Dr. Lehman and will be seen tomorrow for management of his hyperthyroidism. He noticed since starting on the methimazole he has had a metallic taste in his mouth when smoking cigarettes or drinking coffee which has resulted in him discontinuing these 2 substances. His lisinopril was discontinued and started on metoprolol for management of heart rate in the setting of hyperthyroidism. He has been experiencing intermittent asymptomatic hypoglycemia. He also mentions seeing an refrigeration brazer/solderer in [place] in the next few weeks for management of previous root canals. [facility] Medical History (Updated 06/19/24 @ 14:20 by Miranda Cespedes NP) Hyperthyroidism Periorbital edema Hypothyroidism Surgical History No pertinent past surgical history Social History Household Members: Family Housing: Apartment Alcohol intake: current Alcohol intake frequency: does not drink Patient Tobacco Use Status: Current everyday Tobacco user Tobacco use type: Cigarette Cigarettes Per Day: 10 e-Cigarette/Vaping Use: Never Used Second Hand Smoke Exposure: Yes service: No Current occupational status: employed and unemployed Cognitive needs: No Hearing needs: No Vision needs: No Questionnaire PHQ-9 Over the last 2 weeks, how often have you been bothered by any of the following problems? 1. Little interest or pleasure in doing things: not at all 2. Feeling down, depressed, or hopeless: not at all 3. Trouble falling or staying asleep, or sleeping too much: not at all 4. Feeling tired or having little energy: not at all 5. Poor appetite or overeating: not at all 6. Feeling bad about yourself - or that you are a failure or have let yourself or your family down: not at all 7. Trouble concentrating on things, such as reading the newspaper or watching television: not at all 8. Moving or speaking so slowly that other people could have noticed. Or the opposite - being so fidgety or restless that you have been moving around a lot more than usual: not at all 9. Thoughts that you would be better off or of hurting yourself in some way: not at all Total score: 0 Depression Screening Interpretation: Negative Depression Screening Done: Yes 12978 - PHQ-9 Billing: Yes Source: Developed by Drs. Donis Morris, Tatyana Caldwell, Toribio Greco and colleagues, with an educational adrienne from [employer]. Thrive Questionnaire Date Thrive assessed: 07/29/24 I am a: Patient What is your living situation today?: I have a steady place to live Within the past 12 months, did the food you bought not last and you didn't have the money to get more?: Never true Within the past 12 months, did you worry whether your food would run out before you got money to buy more?: Never true Do you have trouble paying for medicines?: I choose not to answer this question Do you have trouble getting transportation to medical appointments?: No Do you have trouble paying your heating and electricity bill?: No Do you have trouble taking care of your child, family member or friend?: No Do you have trouble with day-to-day activities such as bathing, preparing meals, shopping, managing finances, etc.?: No Are you currently unemployed and looking for a job?: No Are you interested in more education?: Yes Please select the resources that you would like help with: None Currently or been in a relationship where the following occur: No concerns reported THRIVE Score: 0 AUDIT C Alcohol Use Questionnaire (AUDIT-C) 1. How often do you have a drink containing alcohol?: Never 2. How many drinks containing alcohol do you have on a typical day when you are drinking?: 1 or 2 3. How often do you have six or more drinks on one occasion?: Never Total Score: 0 PENG-7 AMB Questionnaire PENG-7 Date PENG - 7 assessed: 07/29/24 Feeling nervous, anxious, or on edge: 0 = Not at all Not being able to stop or control worryin = Not at all Worrying too much about different things: 0 = Not at all Trouble relaxin = Not at all Being so restless that it is hard to sit still: 0 = Not at all Becoming easily annoyed or irritable: 0 = Not at all Feeling afraid as if something awful might happen: 0 = Not at all Total PENG-7 score (0-4 normal; 5-9 mild; 10-14 moderate; 15-21 severe): 0 Source: Developed by Drs. Donis Morris, Tatyana Caldwell, Toribio Greco and colleagues, with an educational adrienne from [employer]. Review of Systems Const Denies body aches, Denies chills, Denies fever(s), Denies headache(s) and Denies poor appetite Eyes Reports no additional complaints ENT Denies dysphagia, Denies dizziness, Denies headache(s) and Denies odynophagia Card Denies chest pain, Denies syncope, Denies edema, Denies irregular heart rhythm, Denies lightheadedness and Denies dyspnea Resp Denies cough and Denies dyspnea GI Denies abdominal pain, Denies constipation, Denies dysphagia, Denies diarrhea, Denies nausea, Denies odynophagia and Denies vomiting Reports no additional complaints Musc Reports no additional complaints and Denies abnormal gait Skin/Breast Reports system reviewed and no additional complaints, except as documented Neuro Denies abnormal gait, Denies dizziness, Denies syncope and Denies headache(s) Psych Reports no additional complaints Physical exam (Primary Care) Vital Signs: Oxygen Delivery Method Room Air 07/29/24 13:19 Tobacco/Smoking Status: Tobacco use Status Tobacco use date assessed 06/05/24 06/05/24 09:53 Patient Tobacco Use Status Current everyday Tobacco 06/05/24 09:53 Tobacco use type Cigarette 06/05/24 09:53 e-Cigarette/Vaping Use Never Used 06/05/24 09:53 Depression Screening Interpretation: Negative Thrive Assessment: Date of Thrive Assessment Date Thrive assessed 06/05/24 07/29/24 13:16 Currently or been in a relationship where the following occur: No concerns reported Const General: cooperative, healthy appearing, comfortable and no acute distress Orientation/consciousness: patient oriented x3 HENMT Head: Yes normocephalic Ears: hearing grossly normal bilaterally General nose exam: Normal external nose present Eyes General: appearance normal, both eyes and all related structures Conjunctivae: conjunctivae normal Neck Neck: Yes full ROM and Yes no lymphadenopathy Resp Effort & Inspection: normal respiratory effort Auscultation: clear to auscultation bilaterally, no crackles, no rales, no rhonchi and no wheezes Cardio Rate: regular rate Rhythm: regular rhythm Skin General skin exam: no rashes or lesions noted Neuro General: patient oriented x3 Gait exam (Neuro): Normal gait present Extrem General: Yes normal to inspection, Yes full ROM and No edema Psych Affect: normal affect Attitude: cooperative Insight: Good insight present (Psych) Judgement: Good judgement present (Psych) Coding Level of Care Code Est Pt Level 3 (55078) Diagnoses Hyperthyroidism E05.90 Mediastinal mass J98.59 Cigarette nicotine dependence with nicotine-induced disorder F17.219 Nicotine product type: cigarettes Substance use status: unspecified nicotine-induced disorder Pulmonary nodule R91.1 Hypertension I10 Hypothyroidism E03.9 Diabetes type I E10.9 Hyperlipidemia LDL goal <100 E78.5 Additional Codes PHQ-9 - 51575 - PHQ-9 Billing: Yes ([id number]) Assessment & Plan Assessment & Plan (1) Hyperthyroidism: Code(s): E05.90 - Thyrotoxicosis, unspecified without thyrotoxic crisis or storm Category: Medical Plan: Currently on methimazole and has follow up with Dr. Lehman in the next coming weeks. Is also scheduled to see a thyroid eye specialists. (2) Mediastinal mass: Code(s): J98.59 - Other diseases of mediastinum, not elsewhere classified Category: Medical Plan: Continue to follow up with pulmonology has CT scan scheduled for the next couple of weeks and pulmonology follow up afterwards. (3) Nicotine dependence: Code(s): F17.200 - Nicotine dependence, unspecified, uncomplicated Category: Medical Qualifiers: Nicotine product type: cigarettes Substance use status: unspecified nicotine-induced disorder Qualified Code(s): F17.219 - Nicotine dependence, cigarettes, with unspecified nicotine-induced disorders Plan: Patient has stopped smoking cigarettes due to metallic taste while smoking. Continue to adhere to smoking cessation (4) Pulmonary nodule: Comment: 6 mm perifissural left upper lobe nodule JulyStable 6 mm subpleural nodule abutting the left major fissure, most likely an incidental pulmonary lymph node. 2. Similarly, abutting the inferior right major fissure there is a 4 mm nodule, also most likely an incidental pulmonary lymph node. 3. No suspicious pulmonary nodules identified. 4. No active lung disease. Evidence of prior granulomatous disease. 5. Triangular anterior mediastinal soft tissue, conforming to the origins of the great vessels, highly suggestive of thymic rebound/hyperplasia. Given this is a new finding from the prior neck CT 07/13/2023, appropriate short interval [address] follow up recommended. 6. Bilateral nonobstructing renal calculi. Code(s): R91.1 - Solitary pulmonary nodule Category: Medical Plan: Has CT scan scheduled for the next few weeks and pulmonology appointment to follow. (5) Hypertension: Code(s): I10 - Essential (primary) hypertension Category: Medical Plan: Continue on current blood pressure medication. Avoid salt intake and encourage healthy diet and regular exercise. (6) Hypothyroidism: Code(s): E03.9 - Hypothyroidism, unspecified Category: Medical Plan: Initially having hypothyroidism however patient now being evaluated by Endocrinology for hyperthyroidism. Continue to follow with Dr. Lehman (7) Diabetes type I: Comment: DX age 5 Code(s): E10.9 - Type 1 diabetes mellitus without complications Category: Medical Plan: Decrease the amount of carbohydrates such as pasta, bread, rice, and potatoes and limit the amount of sweets. Although fruits are generally healthy they should be eaten in moderation as they are still high in sugar. Hemoglobin A1c goal of less than 7%. Last A1c 7.0% continue to follow with endocrinology (8) Hyperlipidemia LDL goal <100: Code(s): E78.5 - Hyperlipidemia, unspecified Category: Medical Plan: Avoid foods that are high in cholesterol such as red meat, fried foods, eggs and baked goods. Triglyceride goal of less than 150 and LDL goal of less than 100. Last cholesterol within goal Plan Patient was informed and verbally consented to the use of an ambient scribe for clinic note documentation during this visit. This note was constructed using voice recognition software. While every effort has been made to ensure accuracy and stain remover, still areas may have been included sometimes these areas may affect the content or meeting of the given symptoms. Total time spent caring for the patient today was 20 minutes. This includes time spent before the visit reviewing the chart, time spent during the visit, and time spent after the visit and documentation. Medications: New glucose until symptoms of low blood sugar are controlled 4 grams PO Q15M PRN 14 tabs 0RF hypoglycemia Discontinued amoxicillin-pot clavulanate 875-125 mg Discontinued Reason: Patient no longer taking 1 tab PO BID 10 days 20 tabs 0RF
== END 2024-07-29 13:54 | disposition home or self-care (01) ==
PROVIDERS: PCP Nurse Practitioner Family
DX: E10.9 Type 1 diabetes mellitus without complications (principal); E05.90 Thyrotoxicosis, unspecified without thyrotoxic crisis or storm; J98.59 Other diseases of mediastinum, not elsewhere classified; F17.219 Nicotine dependence, cigarettes, with unspecified nicotine-induced disorders; R91.1 Solitary pulmonary nodule; I10 Essential (primary) hypertension; E03.9 Hypothyroidism, unspecified; E78.5 Hyperlipidemia, unspecified

== ENCOUNTER → 2024-07-29 13:15 | Outpatient (BNVA) | payer OTHER, SELFPAY | PROVIDERS: PCP Nurse Practitioner Family | DX: E05.90 Thyrotoxicosis, unspecified without thyrotoxic crisis or storm (principal); J98.59 Other diseases of mediastinum, not elsewhere classified; R91.1 Solitary pulmonary nodule; I10 Essential (primary) hypertension; E03.9 Hypothyroidism, unspecified; E10.9 Type 1 diabetes mellitus without complications; E78.5 Hyperlipidemia, unspecified; F17.219 Nicotine dependence, cigarettes, with unspecified nicotine-induced disorders | CPT/HCPCS: 96127 ==

== ENCOUNTER 2024-07-29 13:59 | Outpatient (REF) | payer OTHER, SELFPAY ==
[2024-07-29 20:14] LABS: Free T4 (Free Thyroxine) 0.93 ng/dL (0.71-1.85); Thyroid Stimulating Hormone < 0.01 uIU/mL (0.32-4.0)
[2024-07-30 09:53] LABS: Triiodothyronine T3 Total 126 ng/dL (76-181)
== END 2024-07-29 14:00 | disposition home or self-care (01) ==
LOC: HO.LAB 13:59
PROVIDERS: Visit Provider Nurse Practitioner Adult Health
DX: E05.90 Thyrotoxicosis, unspecified without thyrotoxic crisis or storm (principal)
CPT/HCPCS: 36415; 84439; 84443; 84480

== ENCOUNTER 2024-07-31 14:42 | Outpatient (REF) | payer OTHER, SELFPAY ==
--- NOTE | ~2024-07-31 | CT_ITS ---
CLINICAL HISTORY: stable pulmonary nodules, 3 mo f u recommended by rad CT chest without contrast Comparison: CT/OK/SR - CT CHEST WO IV CON - 02/10/24 08:49 EDT Findings: The heart size is normal. Prominent thyroid gland without discrete nodule visible on noncontrast CT. Soft tissue fullness within the anterior mediastinum without change, most likely on the basis of thymic hyperplasia. No lymphadenopathy. 4 mm right lower lobe nodule associated with the major fissure without change (4, 90). 6 mm nodule within the posterolateral aspect of the left upper lobe without change, likely a partially calcified granuloma (4, 54). No new pulmonary nodule. No consolidation or pleural effusion. There are multiple nonobstructive calculi within the bilateral kidneys. The bones are intact. IMPRESSION: 1. There are 2 small pulmonary nodules without change. 2. Soft tissue fullness within the anterior mediastinum likely on the basis of thymic hyperplasia, without change. 3. Multiple small nonobstructive calculi within the bilateral kidneys. This document has been electronically signed by: Meghna Corcoran MD on 08/03/2024 17:04:33
== END 2024-07-31 14:43 | disposition home or self-care (01) ==
LOC: HO.CT 14:42
PROVIDERS: PCP Internal Medicine; Visit Provider Internal Medicine
DX: J98.59 Other diseases of mediastinum, not elsewhere classified (principal)
CPT/HCPCS: 71250

== ENCOUNTER → 2024-07-31 14:43 | Outpatient (BNV) | payer OTHER, SELFPAY | PROVIDERS: PCP Internal Medicine; Visit Provider Radiology Diagnostic Radiology | DX: R91.8 Other nonspecific abnormal finding of lung field (principal); N20.0 Calculus of kidney | CPT/HCPCS: 71250 ==

== ENCOUNTER 2024-08-06 14:00 | Outpatient (AMB) | payer OTHER, SELFPAY ==
--- NOTE | 2024-08-06 14:03 | MHC.OFFVIS ---
Vital Signs 08/06/24 14:04 Height 5 ft 8 in Weight 156 lb 8.451 oz BMI 23.8 BP 146/78 H Blood Pressure Location Rt brachial Position Sitting Pulse 85 Pulse Source Pulse Oximeter Pulse Oximetry (%) 100 Oxygen Delivery Method Room Air Intake Visit Reasons: Mediastinal Mass/CT Follow Up Allergies No Known Allergies Allergy (Verified 08/06/24 14:08) HPI Comments Details: The patient is a 43-year-old gentleman presenting with abnormal CT scan with a mediastinal mass. The patient was in usual state health. He underwent a CT scan of the chest sometime in February demonstrating multiple pulmonary nodules measuring between 4-6 mm in size. 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 I did look for previous CT scans but I can not find any. He is currently scheduled to have a repeat CT scan in early July. Therefore, will wait for the CAT scan report. In the meantime the patient is having a significant reaction with significant periorbital edema is felt some edema around the lip area. He had been evaluated in [place] for sinusitis likely from a poorly placed root canal. Therefore, he is going to need surgery. Is not clear this periorbital edema is related to sinusitis. Does have significant nasal congestion and some purulent secretions in his nasal passages so therefore starting him on Augmentin and also fluticasone nasal spray will be helpful. In the meantime will stop the RAINER inhibitor just in case she is having allergic reaction to it. He does have significant diabetes and therefore hold off on any prednisone. Patient will need additional allergy testing. But will wait for him to start the antibiotics and treat his nasal congestion and see how he response to stopping the RAINER inhibitor. Which point when he returns after the CAT scan we can order additional testing. If his allergic reaction gets worse he can always call. He can also try some [id number] antihistamine therapy. 08/06/2024 the patient is here for a pulmonary follow-up visit. Overall he is doing okay. Since we last spoke he was diagnosed with Graves disease. He was placed on medication. He still has the periorbital edema. He was placed on metoprolol. Seems to be tolerating it okay. In addition to that he did undergo a repeat CT scan of the chest. I did personally reviewed with him. He has a couple nodules. Largest 1 measuring 6 mm better appears to be partially calcified which is reassuring. In addition to that, the anterior mediastinal masslike density appears to be the thymus gland which is a little hyperplastic. Does not appear to be change compared to previous 1 will plan to repeat the CT scan in year's time. The patient quit smoking which is been good. He also did follow-up with his oral surgeon. He did have his dental procedure now taking antibiotics again for sinuses. If he has any issues prior to the next visit he will call otherwise will follow-up in a year's time with a CT scan of the chest. [facility] Medical History (Updated 08/03/24 @ 18:39 by Sonai Grijalva MD) Hyperthyroidism Periorbital edema Hypothyroidism Surgical History No pertinent past surgical history Social History Household Members: Family Housing: Apartment Alcohol intake: current Alcohol intake frequency: does not drink Patient Tobacco Use Status: Current everyday Tobacco user Tobacco use type: Cigarette Cigarettes Per Day: 10 e-Cigarette/Vaping Use: Never Used Second Hand Smoke Exposure: Yes service: No Current occupational status: employed and unemployed Cognitive needs: No Hearing needs: No Vision needs: No Review of Systems Const Denies fever(s) Eyes Denies change in vision and Reports other (periorbital edema) ENT Reports nasal discharge and Reports nasal obstruction Card Denies chest pain Resp Denies wheezing GI Reports no additional complaints Musc Reports no additional complaints Skin/Breast Denies rash Raji/Lymph Reports no additional complaints Aller/Immun Denies wheezing Physical Exam Vital Signs: Last Vital Signs Pulse 85 08/06/24 14:04 BP 146/78 H 08/06/24 14:04 Pulse Ox 100 08/06/24 14:04 Oxygen Delivery Method Room Air 08/06/24 14:04 BMI result Body Mass Index 23.8 Const General: comfortable HEENT Head: Yes normocephalic Mouth: lip abnormal (upper lip with minimal swelling) Eyes Periorbital: periorbital findings abnormal bilateral periorbital swelling and periorbital erythema; no crepitus Neck Neck: Yes supple Chest Chest palpation & inspection: normal inspection of the chest Resp Effort & Inspection: normal respiratory effort and no stridor Auscultation: clear to auscultation bilaterally Cardio Heart sounds: S1 normal heart sound present and S2 normal heart sound present GI Palpation (GI): Soft to palpation Skin General skin exam: no rashes or lesions noted Extrem General: Yes no clubbing, cyanosis or edema Assessment & Plan Assessment & Plan (1) Facial swelling: Code(s): R22.0 - Localized swelling, mass and lump, head Category: Medical (2) Mediastinal mass: Code(s): J98.59 - Other diseases of mediastinum, not elsewhere classified Category: Medical (3) Nicotine dependence: Code(s): F17.200 - Nicotine dependence, unspecified, uncomplicated Category: Medical Qualifiers: Nicotine product type: cigarettes Substance use status: unspecified nicotine-induced disorder Qualified Code(s): F17.219 - Nicotine dependence, cigarettes, with unspecified nicotine-induced disorders (4) Pulmonary nodule: Comment: 6 mm perifissural left upper lobe nodule JulyStable 6 mm subpleural nodule abutting the left major fissure, most likely an incidental pulmonary lymph node. 2. Similarly, abutting the inferior right major fissure there is a 4 mm nodule, also most likely an incidental pulmonary lymph node. 3. No suspicious pulmonary nodules identified. 4. No active lung disease. Evidence of prior granulomatous disease. 5. Triangular anterior mediastinal soft tissue, conforming to the origins of the great vessels, highly suggestive of thymic rebound/hyperplasia. Given this is a new finding from the prior neck CT 07/13/2023, appropriate short interval [address] follow up recommended. 6. Bilateral nonobstructing renal calculi. July 2024 Code(s): R91.1 - Solitary pulmonary nodule Category: Medical Plan Repeating CT chest 1 yr fluticasone tobacco cessation: quit will need allergy testing in the near future F/U 12 months Orders: Orders CT chest wo IV con 1 Year J98.59 - Other diseases of mediastinum, not elsewhere classified, R91.1 - Solitary pulmonary nodule Coding Level of Care Code Est Pt Level 4 (65529) Diagnoses Facial swelling R22.0 Mediastinal mass J98.59 Cigarette nicotine dependence with nicotine-induced disorder F17.219 Nicotine product type: cigarettes Substance use status: unspecified nicotine-induced disorder Pulmonary nodule R91.1 Time Spent (min) 17
[2024-08-06 14:04] VITALS: BP 146/78; PULSE 85; O2SAT 100; BMI 23.8
== END 2024-08-06 14:19 | disposition home or self-care (01) ==
PROVIDERS: PCP Internal Medicine; Visit Provider Hospitalist
DX: R22.0 Localized swelling, mass and lump, head (principal); J98.59 Other diseases of mediastinum, not elsewhere classified; F17.210 Nicotine dependence, cigarettes, uncomplicated
CPT/HCPCS: 99214

== ENCOUNTER 2024-08-12 13:21 | Outpatient (AMB) | payer OTHER, SELFPAY ==
[2024-08-12 13:25] VITALS: BP 138/70; PULSE 97; O2SAT 98; BMI 23.9
--- NOTE | 2024-08-12 13:25 | MHC.OFFVIS ---
Vital Signs 08/12/24 13:25 Height 5 ft 8 in Weight 156 lb 15.506 oz BMI 23.9 BP 138/70 Blood Pressure Location Rt brachial Position Sitting Pulse 97 Pulse Source Pulse Oximeter Pulse Oximetry (%) 98 Oxygen Delivery Method Room Air Intake Visit Reasons: Hyperthyroidism Intake Note: Patient present today for Hyperthyroidism follow up. Allergies No Known Allergies Allergy (Verified 08/12/24 13:27) Medication List - Last Reconciled 08/12/24 by Donis Lehman MD blood sugar diagnostic (FreeStyle Lite Strips) USE TO TEST 3 TIMES DAILY DIRECTED prn sensor failure blood-glucose meter As directed blood-glucose meter (FreeStyle [place] Lite kit) As directed tests 4 X/day blood-glucose sensor ([employer] G7 Sensor device) DIRECTED CHANGE EVERY 10 DAYS blood-glucose sensor (FreeStyle Gabriel 3 Plus Sensor device) As directed calcium amino acid chelate mg PO chlorhexidine gluconate 0.12% (Peridex) 15 mL buccal BID cholecalciferol (vitamin D3) (Vitamin D3) 25 mcg PO DAILY fluticasone propionate 50 mcg/actuation 2 sprays intranasal DAILY 30 days glucagon 3 mg/actuation (Baqsimi) 3 mg intranasal ONCE glucose 4 grams PO Q15M PRN lancets (FreeStyle Lancets) As directed tests 4 X/day methimazole 10 mg PO DAILY 30 days metoprolol succinate ER 25 mg PO DAILY 30 days nicotine (Nicoderm CQ) 1 patch transdermal DAILY nicotine 1 patch transdermal DAILY nicotine (polacrilex) (Nicorette) 2 mg buccal Q2H pen needle, diabetic (BD Ultra-Fine Original Pen Needle) test 4 times daily pen needle, diabetic (BD Ultra-Fine Original Pen Needle) As directed- Use to test 4 Times a day pyridoxine (vitamin B6) 100 mg PO DAILY 90 days rosuvastatin 5 mg PO DAILY HPI Comments Details: The patient is a 43-year-old male presenting with hyperthyroidism. Previously, his lab results showed TSH suppression and elevated free T4 and T3 levels as well as positive TRAB , prompting the initiation of methimazole. Following two months of treatment, the patient's free T4 and T3 levels have normalized. Exhibiting improvement, his occasional fatigue could imply an overcorrection in thyroid hormone levels. His resting heart rate, although still elevated, is managed with metoprolol. A CAT scan revealed no thyroid nodules, PFSH Medical History Hyperthyroidism Periorbital edema Hypothyroidism Surgical History No pertinent past surgical history Social History Household Members: Family Housing: Apartment Alcohol intake: current Alcohol intake frequency: does not drink Patient Tobacco Use Status: Current everyday Tobacco user Tobacco use type: Cigarette Cigarettes Per Day: 10 e-Cigarette/Vaping Use: Never Used Second Hand Smoke Exposure: Yes service: No Current occupational status: employed and unemployed Cognitive needs: No Hearing needs: No Vision needs: No Physical Exam Vital Signs: Last Vital Signs Pulse 97 08/12/24 13:25 BP 138/70 08/12/24 13:25 Pulse Ox 98 08/12/24 13:25 Oxygen Delivery Method Room Air 08/12/24 13:25 BMI result Body Mass Index 23.9 Const Other: - Neck- Thyroid gland approximately 35 grams, smooth, enlarged, without nodules - Cardiovascular- Heart sounds S1 and S2 regular with a heart rate of 97 bpm - - Neurological- No tremor present - Assessment & Plan Assessment & Plan (1) Hyperthyroidism: Code(s): E05.90 - Thyrotoxicosis, unspecified without thyrotoxic crisis or storm Category: Medical Plan: This is a 43-year-old male with a history of hypothyroidism/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 He appears to be clinically euthyroid on methimazole 10 mg q.d. and metoprolol 25 mg QD. Recent thyroid function studies showed normalization of T4 and T3 but with continued suppression of TSH 1. Hyperthyroidism: The treatment with methimazole is showing positive results with decreased hormone levels, though an overcorrection concern was raised due to intermittent fatigue. Monitoring of thyroid function will continue, and treatment options including radioactive iodine or surgery were discussed in case of insufficient management. 2. Tachycardia: Metoprolol has been prescribed to manage the patient's tachycardia effectively. Current observations suggest stable control, thus continuation of therapy is advised. The patient had an opportunity to ask questions regarding treatment plan. The patient expressed understanding and agreement with the above treatment plan. I discussed with the patient the improvement observed with methimazole therapy and the importance of monitoring thyroid levels. Possible side effects, including fatigue, reflect potential overshoot, which will be reassessed during follow-up testing in 4 weeks. Options of radioactive iodine or surgery were mentioned as alternative treatments. The importance of recognizing signs of infection or rash while on methimazole was reiterated, with advice to seek prompt medical attention if such symptoms appear. Follow-up blood work is scheduled in 4 weeks, and a clinical reevaluation is planned in approximately 6 weeks. Patient was informed and verbally consented to the use of an ambient scribe for clinic note documentation during this visit. Orders: Orders Free T4 (Free Thyroxine) 4 Weeks E05.90 - Thyrotoxicosis, unspecified without thyrotoxic crisis or storm Thyroid Stimulating Hormone 5 Weeks E05.90 - Thyrotoxicosis, unspecified without thyrotoxic crisis or storm Triiodothyronine T3 Total 4 Weeks E05.90 - Thyrotoxicosis, unspecified without thyrotoxic crisis or storm Coding Level of Care Code Est Pt Level 3 (52230) Diagnoses Hyperthyroidism E05.90
== END 2024-08-12 13:41 | disposition home or self-care (01) ==
LOC: HO.ENCR 13:22
PROVIDERS: PCP Internal Medicine; Visit Provider Internal Medicine Endocrinology, Diabetes & Metabolism
DX: E05.90 Thyrotoxicosis, unspecified without thyrotoxic crisis or storm (principal)
CPT/HCPCS: 99213

== ENCOUNTER 2024-09-16 14:17 | Outpatient (REF) | payer OTHER, SELFPAY ==
[2024-09-16 16:26] LABS: Alanine Aminotransferase 25 U/L (0-40); Aspartate Amino Transferase 29 U/L (5-37)
[2024-09-16 16:44] LABS: Free T4 (Free Thyroxine) 0.84 ng/dL (0.71-1.85); Thyroid Stimulating Hormone 0.54 uIU/mL (0.32-4.0)
--- OUTSIDE RECORDS SUMMARY | 2024-09-16 17:02 | XMS_ITS | Data Portability ---
Author Organization [place] - [facility], Allergy Address [address] [address] Care Team Providers Care Necktie Turner Name Role Phone SHERIESAMANTHA Primary Care Provider Assessment No assessment recorded. Plan of Treatment Reminders Order Date Submit Date Provider Last Modified By Organization Details Last Modified Time Details Appointments None record ed. Lab None record ed. Referral None record ed. Procedures None record ed. Surgeries None record ed. Imaging None record ed. Medication Orders None record ed. Patient TargetsNo targets recorded. Patient InstructionsNo instructions recorded. Reason for Referral None Reported. Results Created Date Observation Date Name Description Value Unit Range Abnormal Flag Note LastModifiedBy Organization Detail LastModifiedTime 09/02/1909/01/2024 audio gram No observ ation record ed. [email or web address] [facility] [address], [address], 09/02/2024 09:01:37 Result Notes None recorded. Problems Name Problem SNOMED Code Status Onset Date Resolution Date Notes Provider Name and Address Organization Details Recorded Time Dysfunction of right eustachian tube 9149509152156 101 Active 2024 SHAHID LUCAS, AUD 100 [facility],[address], [address], [facility] 10:49:05 Problem Notes None recorded. Procedures Surgical History Date Name Laterality Status Provider Name and Address Organization Details Recorded Time 09/01/2024 Comp Audio with Tymps (63900 & 16822) completed SHAHID LUCAS, AUD 100 [facility],[address] [address], [place], [address], [place] - [facility] [place] 09/01/2024 10:52:07 Imaging Results Imaging Date Name Status LastModified by Ellie gil Details LastModified Time 09/01/2024 audiogram completed [place] [id number] [facility] [address], [place], [address], 09/02/2024 09:01:37 Procedure Notes None recorded. Medical Equipment None Reported. Medications Name Sig Start Date Stop Date Status Note LastModified by Organization Details LastModified Time doxycycline hyclate 100 mg capsule TAKE 1 CAPSULE BY MOUTH 2 TIMES A DAY, STARTING TOMORROW MORNING active Not Available Not Available No t Available nicotine 14 mg/24 hr daily transdermal patch APPLY 1 PATCH TRANSDERMAL LY DAILY active Not Available Not Available No t Available nicotine (polacrilex) 2 mg gum CHEW 1 PIECE BUCCALLY EVERY 2 HOURS active Not Available Not Available No t Available FreeStyle Lancets 28 gauge DIRECTED TESTS 4 X/DAY active Not Available Not Available No t Available levothyroxin e 50 mcg tablet TAKE 1 TABLET BY MOUTH EVERY DAY active Not Available Not Available No t Available cephalexin 500 mg capsule TAKE 1 CAPSULE BY MOUTH FOUR TIMES A DAY FOR 5 DAYS active Not Available Not Available N ot Available nicotine 21 mg/24 hr daily transdermal patch APPLY 1 PATCH TRANSDERMAL LY DAILY active Not Available Not Available No t Available lisinopril 5 mg tablet TAKE 1 TABLET BY MOUTH EVERY DAY active Not Available Not Available No t Available pyridoxine (vitamin B6) 100 mg tablet TAKE 1 TABLET BY MOUTH EVERY DAY active Not Available Not Available No t Available insulin lispro (U-100) 100 unit/mL subcutaneous solution INFUSE UP TO 100 UNITS PER DAY VIA INSULIN PUMP SUBCUTANEOU SLY active Not Available Not Available No t Available methimazole 10 mg tablet TAKE 1 TABLET BY MOUTH EVERY DAY active Not Available Not Available No t Available amoxicillin 875 mg-potassium clavulanate 125 mg tablet TAKE 1 TABLET BY MOUTH 2 TIMES A DAY. TAKE FIRST DOSE AT 10PM TONIGHT, THEN TWICE A DAY active Not Available Not Available No t Available oxycodone 5 mg tablet TAKE 1 TABLET BY MOUTH EVERY 8 HOURS NEEDED FOR SEVERE PAIN 7 TO 10 ON PAIN SCALE active Not Available Not Available N ot Available insulin lispro (U-100) 100 unit/mL subcutaneous pen INJECT 20 UNITS (0.2 ML) SUBCUTANEOU SLY 3 TIMES A DAY active Not Available Not Available No t Available Vitamin D3 25 mcg (1,000 unit) capsule TAKE 1 CAPSULE BY MOUTH EVERY DAY active Not Available Not Available No t Available rosuvastatin 5 mg tablet TAKE 1 TABLET BY MOUTH EVERY DAY active Not Available Not Available No t Available chlorhexidin e gluconate 0.12 % mouthwash SWISH 15 ML FOR 30 SECONDS THEN SPIT OUT , USE 2 TIMES A DAY active Not Available Not Available Not Available BD Ultra-Fine Original Pen Needle 29 gauge x 1/2 DIRECTED- USE TO TEST 4 TIMES A DAY active Not Available Not Available No t Available FreeStyle Home Lite kit DIRECTED TESTS 4 X/DAY active Not Available Not Available No t Available insulin glargine-yfg n (U-100) 100 unit/mL (3 mL) subcutaneous pen INJECT 40 UNITS (0.4 ML) SUBCUTANEOU SLY EVERY EVENING active Not Available Not Available No t Available Dexcom G7 Sensor device DIRECTED CHANGE EVERY 10 DAYS active Not Available Not Available No t Available Vitals None Recorded Social History None recorded. Functional Status None recorded. Mental Status None recorded. Family History Nothing Reported. Medical History No medical history recorded. Past Encounters Encounter ID Performer Location Encounter Start Date Encounter Closed Date Diagnosis/Indication Diagnosis SNOMED-CT Code Diagnosis ICD10 Code Diagnosis Note [id number] [facility] [address] [address] 09/01/2024 10:45:22 09/01/2024 11:11:41 History of therapy with ototoxic medication 778212052 Z92.29 Right Ear:Normal hearing with excellent speech discrimina tion.Type C tympanogra m.Left Ear:Normal hearing with excellent speech discrimina tion.STONE BREAKER. See audio for UHF results. Dysfunctio n of right eustachian tube [id number] 145144 H69.91 Health Concerns Section Related Observation LastModified by Organization Detai ls LastModified Time None Recorded Concern Status LastModified by Organization Details LastModified Time None Recorded Advance Directives Directive None Recorded Payers Encounter Date Sequence Insurance Name Policy Number Policy Norton Covered Member ID Norton Member ID Guarantor Name 09/01/2024 1 [employer] OF [facility] (EPO) [id number] Juan Daniel Love [id number]
[2024-09-17 05:31] LABS: Triiodothyronine T3 Total 112 ng/dL (76-181)
[2024-09-22 15:54] LABS: Thyroid Stimulating Immunoglob 320 % baseline (<140)
== END 2024-09-16 14:18 | disposition home or self-care (01) ==
LOC: HO.LAB 14:17
PROVIDERS: Absent Provider Nurse Practitioner Adult Health; PCP Internal Medicine; Visit Provider Internal Medicine Endocrinology, Diabetes & Metabolism
DX: E05.90 Thyrotoxicosis, unspecified without thyrotoxic crisis or storm (principal)
CPT/HCPCS: 36415; 84439; 84443; 84445; 84450; 84460; 84480

== ENCOUNTER 2024-09-23 13:19 | Outpatient (AMB) | payer OTHER, SELFPAY ==
[2024-09-23 13:21] VITALS: BP 134/84; PULSE 81; O2SAT 98; BMI 24.2
--- NOTE | 2024-09-23 13:21 | A.OFFVIS_ITS ---
Vital Signs 09/23/24 13:21 Height 5 ft 8 in Weight 158 lb 15.253 oz BMI 24.2 BP 134/84 Blood Pressure Location Lt brachial Position Sitting Pulse 81 Pulse Source Pulse Oximeter Pulse Oximetry (%) 98 Oxygen Delivery Method Room Air Intake Visit Reasons: hyperthyroidism due to Graves Intake Note: Patient present today for Hyperthyroidism follow up. Contact Lens Assistant Required: No Accompanied by: Self / Same As Patient Allergies No Known Allergies Allergy (Verified 09/23/24 13:27) Medication List - Last Reconciled 09/23/24 by Donis Lehman MD blood sugar diagnostic (FreeStyle Lite Strips) USE TO TEST 3 TIMES DAILY DI RECTED prn sensor failure blood-glucose meter As directed blood-glucose meter (FreeStyle [place] Lite kit) As directed tests 4 X/day blood-glucose sensor ([employer] G7 Sensor device) DIRECTED CHANGE EVERY 10 DAYS blood-glucose sensor (FreeStyle Gabriel 3 Plus Sensor device) As directed calcium amino acid chelate mg PO chlorhexidine gluconate 0.12% (Peridex) 15 mL buccal BID cholecalciferol (vitamin D3) (Vitamin D3) 25 mcg PO DAILY fluticasone propionate 50 mcg/actuation 2 sprays intranasal DAILY 30 days glucagon 3 mg/actuation (Baqsimi) 3 mg intranasal ONCE glucose 4 grams PO Q15M PRN lancets (FreeStyle Lancets) As directed tests 4 X/day methimazole 10 mg PO DAILY 30 days metoprolol succinate ER 25 mg PO DAILY 30 days nicotine (Nicoderm CQ) 1 patch transdermal DAILY nicotine 1 patch transdermal DAILY nicotine (polacrilex) (Nicorette) 2 mg buccal Q2H pen needle, diabetic (BD Ultra-Fine Original Pen Needle) test 4 times daily pen needle, diabetic (BD Ultra-Fine Original Pen Needle) As directed- Use to test 4 Times a day pyridoxine (vitamin B6) 100 mg PO DAILY 90 days rosuvastatin 5 mg PO DAILY HPI Comments Details: The patient is a 43-year-old male presenting with hyperthyroidism. Previously, his lab results showed TSH suppression and elevated free T4 and T3 levels as well as positive TRAB , prompting the initiation of methimazole. Following two months of treatment, the patient's free T4 and T3 levels have normalized. Exhibiting improvement, his occasional fatigue could imply an overcorrection in thyroid hormone levels. His resting heart rate, although still elevated, is managed with metoprolol. A CAT scan revealed no thyroid nodules, Currently on methimazole 10 mg q.d. Getting Tepezza for RAZIA first dose The patient is a 43-year-old male presenting with Graves' Disease and associated Thyroid Eye Disease. He has been on methimazole, which has reportedly been effective in managing his symptoms like tremors and palpitations ?none currently present. Recent blood tests confirmed normal levels, with positive antibodies suggestive of Graves' Disease. His thyroid remains slightly enlarged, consistent with prior examinations. Currently undergoing Tepezza infusions for Thyroid Eye Disease, the patient r eports mild improvement in eye puffiness following his first infusion. This treatment regimen involves coordination with another facility, with further appointments planned. Additionally, the patient's diabetes mellitus is managed with an insulin pump, which has been set to maximum settings. Despite this, he experiences heightened blood sugar levels later in the day and lacks the necessary supplies for external insulin management. The patient's medical care involves coordination with specialists, including a retina doctor for additional interventions. [facility] Medical History Hyperthyroidism Periorbital edema Hypothyroidism Surgical History No pertinent past surgical history Social History Household Members: Family Housing: Apartment Alcohol intake: current Alcohol intake frequency: does not drink Patient Tobacco Use Status: Current everyday Tobacco user Tobacco use type: Cigarette Cigarettes Per Day: 10 e-Cigarette/Vaping Use: Never Used Second Hand Smoke Exposure: Yes service: No Current occupational status: employed and unemployed Cognitive needs: No Hearing needs: No Vision needs: No Physical Exam Const Other: - Neck- Thyroid gland approximately 35 grams, smooth, enlarged, without nodules - Cardiovascular- Heart sounds S1 and S2 regular - Neurological- No tremor present - Assessment & Plan Assessment & Plan (1) Hyperthyroidism: Code(s): E05.90 - Thyrotoxicosis, unspecified without thyrotoxic crisis or storm Category: Medical Plan: This is a 43-year-old male with a history of hypothyroidism/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 He appears to be clinically and biochemically euthyroid on methimazole 10 mg q.d. and metoprolol 25 mg QD. 1. Graves' Disease Presented with managed symptoms under methimazole treatment. Discussed possible future interventions, though stability suggests continued monitoring without immediate escalation. 2. Thyroid Eye Disease Ongoing with Tepezza infusions, noting slight improvement. Ongoing coordination with care providers at infusion center, with discussions on surgical options deferred depending on Tepezza results. 3. Diabetes Mellitus Current management with insulin pump, exploring option for additional insulin adjunct following further consultations. Blood sugar pattern reviews essential for effective management. I suggested a follow-up visit for management of the diabetes with Miranda Centeno NP I discussed with the patient the management plans for his Graves' Disease, emphasizing the stability under methimazole while highlighting future potential options such as radioactive iodine or surgery. Regarding Thyroid Eye Disease, I reviewed the initial effects of Tepezza and outlined the continuation plan. The risks and benefits were examined, particularly in avoiding radioactive iodine due to its potential ocular exacerbations. For diabetes management, we reviewed the current insulin pump's limitations and explored adjustments after proper endocrinology input. The necessity for monitoring blood glucose closely was underlined, with follow-up appointments agreed upon to evaluate any shifts in conditions. The patient had an opportunity to ask questions regarding treatment plan. The patient expressed understanding and agreement with the above treatment plan. The patient is aware they should contact our office by phone for worsening glucose readings or for any low blood sugars which may warrant a change in diabetes medication. Compliance is encouraged with medications and any followup testing/consults which may have been ordered. Patient was informed and verbally consented to the use of an ambient scribe for clinic note documentation during this visit. Patient was informed and verbally consented to the use of an ambient scribe for clinic note documentation during this visit. Orders: Orders Free T4 (Free Thyroxine) 6 Months E05.90 - Thyrotoxicosis, unspecified without thyrotoxic crisis or storm Triiodothyronine T3 Free 6 Months E05.90 - Thyrotoxicosis, unspecified without thyrotoxic crisis or storm Thyroid Stimulating Hormone 6 Months E05.90 - Thyrotoxicosis, unspecified without thyrotoxic crisis or storm Coding Level of Care Code Est Pt Level 3 (01458) Diagnoses Hyperthyroidism E0
--- OUTSIDE RECORDS SUMMARY | 2024-09-23 15:43 | XMS_ITS | Data Portability ---
Author Organization [place] - [facility], Allergy Address [address] [address] Care Team Providers Care Diaper Machine Tender Name Role Phone SHERIESAMANTHA Primary Care Provider [...] Abnormal Flag Note LastModifiedBy Organization Detail LastModifiedTime 09/02/19 25 09/01/2024 audio gram No observ ation record ed. [email or web address] [facility] [address], [address], 09/02/2024 09:01:37 Result Notes None recorded. Problems Name Problem SNOMED Code Status Onset Date Resolution Date Notes Provider Name and Address Organization Details Recorded Time Dysfunction of right eustachian tube 5202991805969 101 Active 2024 SHAHID LUCAS, AUD 100 [facility],[address], [address], [facility] 10:49:05 Problem Notes None recorded. Procedures Surgical History Date Name Laterality Status Provider Name and Address Organization Details Recorded Time 09/01/2024 Comp Audio with Tymps (62228 & 34188) completed SHAHID LUCAS, AUD 100 [facility],[address] [address] [address], [place], [address], [place] - [facility] [place] 09/01/2024 10:52:07 Imaging Results Imaging Date Name Status LastModified by Ellie gil Details LastModified Time 09/01/2024 audiogram completed [place] [id number] [facility] [address], [place], [address], 09/02/2024 09:01:37 Procedure Notes None recorded. Medical [...] Available Not Available No t Available FreeStyle [place] Lite kit DIRECTED TESTS 4 X/DAY active [...] SNOMED-CT Code Diagnosis ICD10 Code Diagnosis Note [id number] [facility] [address] [address] 09/01/2024 10:45:22 09/01/2024 11:11:41 History of therapy with ototoxic medication [id number] Z92.29 Right Ear:Normal hearing with excellent speech discrimina tion.Type C tympanogra m.Left Ear:Normal hearing with excellent speech discrimina tion.CAFE LEAD. See audio for UHF results. Dysfunctio n of right eustachian tube [id number] 954119 H69.91 Health Concerns Section Related Observation LastModified by Organization Detai ls LastModified Time None Recorded Concern Status LastModified by Organization Details LastModified Time None Recorded Advance Directives Directive None Recorded Payers Encounter Date Sequence Insurance Name Policy Number Policy Norton Covered Member ID [place] Member ID Guarantor Name 09/01/2024 1 [employer] OF [facility] (EPO) [id number] Juan Daniel Love [id number] Love
== END 2024-09-23 13:38 | disposition home or self-care (01) ==
LOC: HO.ENCR 13:19
PROVIDERS: PCP Internal Medicine; Visit Provider Internal Medicine Endocrinology, Diabetes & Metabolism
DX: E05.90 Thyrotoxicosis, unspecified without thyrotoxic crisis or storm (principal)
CPT/HCPCS: 99213

== ENCOUNTER 2024-10-09 13:56 | Outpatient (AMB) | payer OTHER, SELFPAY ==
--- NOTE | 2024-10-09 10:18 | A.OFFVIS_ITS ---
Vital Signs 10/09/24 13:59 Height 5 ft 8 in Weight 163 lb 2.273 oz BMI 24.8 BP 144/76 H Blood Pressure Location Rt brachial Position Sitting Pulse 86 Pulse Source Pulse Oximeter Oxygen Delivery Method Room Air Intake Visit Reasons: DM Intake Note: Patient presents today for a follow-up on Type 1 Diabetes Mellitus: Last Diabetic eye exam was on: 01/28/2024 [facility] Last Podiatry exam was on: Does not see a Card Checker Most recent HbA1c: 7.3%, 10/09/2024 Random Glucose- 131 mg/dL, Today Complaint Inspector Required: No Accompanied by: Self / Same As Patient Allergies No Known Allergies Allergy (Verified 10/09/24 14:00) HPI Comments Details: 43 YO M is seen in f/u for T1DM. He has been seen regularly for pump follow- ups. He is on an ilet insulin pump with dexcom sensor. Hgb A1C % 10/09/24 7% 06/19/24, 7.2% 03/10/24. Initially diagnosed with T1DM at age 5 He was recently seen by Dr. Lehman for hyperthyroidism and is on methimazole with a beta hector. He had f/u in March with Dominik Parson. HE c/o a pruritic rash and his left lower leg. He denies fever, sore throat Pump download is in excellent range with occational low. Treats lows with OJ Checks sugar after to ensure it is rising. Family history of autoimmunity in lupus in mother Has eyes checked yearly, last eye exam 02/24 , no retinopathy. Denies neuropathy, Does not see podiatry. No nephropathy Not on RAINER/ARB. Microalbumin 28.0 08/06/2023 eGFR>60 08/06/23 Has HLD, on statin Denies history of CAD. Diet/Carb counting: balanced trying to add more protein to diet Denies recent prior episodes of DKA. Denies prior severe episodes of hypoglycemia requiring help or hospitalization. Labs: Anti-PENG 65 antibodies were negative. [facility] Medical History Hyperthyroidism Periorbital edema Hypothyroidism Surgical History No pertinent past surgical history Social History Household Members: Family Housing: Apartment Alcohol intake: current Alcohol intake frequency: does not drink Patient Tobacco Use Status: Current everyday Tobacco user Tobacco use type: Cigarette Cigarettes Per Day: 10 e-Cigarette/Vaping Use: Never Used Second Hand Smoke Exposure: Yes service: No Current occupational status: employed and unemployed Cognitive needs: No Hearing needs: No Vision needs: No Physical Exam Vital Signs: Last Vital Signs Pulse 86 10/09/24 13:59 BP 144/76 H 10/09/24 13:59 Oxygen Delivery Method Room Air 10/09/24 13:59 BMI result Body Mass Index 24.8 Const Other: Absence of Cushingoid features. Absence of acromegalic features. Neck exam reve als nl size thyroid about 15 gms. No thyroid nodules palpable. Heart S1 S2, Reg R/R. No M/R G. Skin exam reveals absence of vitiligo or acanthosis nigricans. Rash lower left leg, no excoriations or open areas. Results AMB Hemoglobin A1c AMB Hemoglobin A1c 7.3 % Last Edit by DAMIAN Beebe on 10/09/24 14:19 Results Reviewed Results Reviewed: Laboratory Last Values Glucose (Clinic) 131 mg/dL (60-115) H 10/09/24 14:08 Hgb A1c (Clinic) 7.3 % (4.0-6.0) H 10/09/24 14:11 Assessment & Plan Assessment & Plan (1) Diabetes type I: Comment: DX age 5 Code(s): E10.9 - Type 1 diabetes mellitus without complications Category: Medical Plan: This is a 43-year-old type 1 diabetic with the excellent glycemic control on islet pump. He is having a few lows but they are very mild and transient. He carries a sugar source at all times. A1c is up slightly this month to 7.3% which he attributes to the medication he is on for Graves eye disease. The patient had an opportunity to ask questions regarding treatment plan. The patient expressed understanding and agreement with the above treatment plan. The patient is aware they should contact our office by phone for worsening glucose readings or for any low blood sugars which may warrant a change in diabetes medication. Compliance is encouraged with medications and any followup testing/consults which may have been ordered. (2) Rash: Code(s): R21 - Rash and other nonspecific skin eruption Category: Medical Plan: He has a pruritic rash left lower leg which does not look infected. He has been scratching and rubbing that area and he was advised that unless he stops this threshold not clear. Steroid cream given. The rash does not improve he will follow up with his PCP. CBC with diff was done and there is no eosinophilia. Orders: Orders AMB Hemoglobin A1c 10/09/24 E10.9 - Type 1 diabetes mellitus without complications Complete Blood Count Auto Diff 10/09/24 E05.90 - Thyrotoxicosis, unspecified without thyrotoxic crisis or storm Medications: New insulin lispro (Humalog U-100 Insulin) 60 units per day via insulin pump subcutaneously use as directed; 30 days 30 mL 11RF MDD 60 per day mometasone 0.1% 1 appl topical DAILY 3 weeks PRN 45 grams 0RF allergic reaction NS Refilled methimazole 10 mg PO DAILY 30 days 30 tabs 6RF Coding Level of Care Code Est Pt Level 4 (80790) Complex EM visit Add On G2211 Diagnoses Diabetes type I E10.9 Rash R21
[2024-10-09 13:59] VITALS: BP 144/76; PULSE 86; BMI 24.8
--- OUTSIDE RECORDS SUMMARY | 2024-10-09 13:59 | XMS_ITS | Data Portability ---
Author Organization [place] - [facility], Allergy Address [address] [facility] [address] [place] [address] Care Team Providers Care Diamond Sizer And Grader Name Role Phone SHERIESAMANTHA Primary Care Provider [...] audio gram No observ ation record ed. [email or web address] [facility] [address], [address], 09/02/2024 09:01:37 Result Notes None recorded. Problems Name Problem SNOMED Code Status Onset Date Resolution Date Notes Provider Name and Address Organization Details Recorded Time Dysfunction of right eustachian tube 7171820972682 101 Active 2024 SHAHID LUCAS, AUD 100 [facility] [address], [place], [address], [place] [facility] 10:49:05 Problem Notes None recorded. Procedures Surgical History Date Name Laterality Status Provider Name and Address Organization Details Recorded Time 09/01/2024 Comp Audio with Tymps - 49057 & 44735 completed SHAHID LUCAS, AUD 100 [facility],[place] [address], [place], [address], [place] [facility] [place] 09/01/2024 10:52:07 Imaging Results Imaging Date Name Status LastModified by Organiz ation Details LastModified Time 09/01/2024 audiogram [place] [id number] [facility] [address], [place], [address], 09/02/2024 09:01:37 Procedure Notes None recorded. 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 See audio for UHF results. Dysfunctio n of right eustachian tube [id number] 536554 H69.91 Health Concerns Section Related Observation LastModified by Organization Detai ls LastModified Time None Recorded Concern Status LastModified by Organization Details LastModified Time None Recorded Advance Directives Directive None Recorded Payers Insurance Date Sequence Insurance Name Policy Number Policy Norton Covered Member ID Norton Member ID Guarantor Name 09/08/2024 PAYMENT PLAN Ambrocio Love 09/01/2024 1 [employer] [id number] [id number] Juan Daniel Love [id number] Ambrocio Love
[2024-10-09 14:12] LABS: Glucose, Whole Blood 131 mg/dL (60-115)
== END 2024-10-09 14:27 | disposition home or self-care (01) ==
PROVIDERS: PCP Nurse Practitioner Family; Visit Provider Nurse Practitioner Adult Health
DX: E10.9 Type 1 diabetes mellitus without complications (principal)

== ENCOUNTER → 2024-10-09 13:56 | Outpatient (BNVA) | payer OTHER, SELFPAY | PROVIDERS: PCP Nurse Practitioner Family; Visit Provider Nurse Practitioner Adult Health | DX: E10.9 Type 1 diabetes mellitus without complications (principal); E05.90 Thyrotoxicosis, unspecified without thyrotoxic crisis or storm; R21 Rash and other nonspecific skin eruption; Z96.41 Presence of insulin pump (external) (internal) | CPT/HCPCS: 82947; 83036 ==

== ENCOUNTER 2024-10-28 13:17 | Outpatient (REF) | payer OTHER, SELFPAY ==
--- NOTE | ~2024-10-28 | US_ITS ---
EXAMINATION: US RETROPERITONEUM HISTORY: R31.29 - Other microscopic hematuria TECHNIQUE: Real-time grayscale ultrasound imaging of the kidneys was performed and images were reviewed. COMPARISON: Comparison is made with the prior examination dated 03/30/2024. FINDINGS: Right kidney: The right kidney measures 11.6 x 5.4 x 5.4 cm. Renal parenchymal echotexture and thickness are normal. Multiple cysts are noted measuring up to 10 mm in size. There is a 4 mm nonobstructing calculus in the interpolar region. There is no hydronephrosis. Left Kidney: The left kidney measures 12.6 x 5.5 x 4.9 cm. Renal parenchymal echotexture and thickness are normal. There are no masses. Multiple nonobstructing calculi are noted measuring up to 6 x 3 x 8 mm in the interpolar region. There is no hydronephrosis. The urinary bladder is unremarkable. Bilateral ureteral jets are identified. Before voiding, the urinary bladder measured 11.1 x 6.6 x 8.1 cm, for an estimated volume of 310 mL. After voiding, the urinary bladder measured 7.2 x 3.8 x 7.3 cm, for an estimated volume of 103 mL. The prostate measures 3.3 x 2.9 x 4.1 cm, for an estimated volume of 20.4 mL. US/US retroperitoneal comp IMPRESSION: 1. Right renal cysts measuring up to 10 mm in size. 2. Bilateral nephrolithiasis as described. No hydronephrosis. 3. Post void bladder residual of 103 mL. Electronically signed by: Donis Kelly MD 10/28/2024 03:15 PM EDT
--- OUTSIDE RECORDS SUMMARY | 2024-10-28 14:08 | XMS_ITS | Data Portability ---
Author Organization [place] - [facility], Allergy Address [address] [facility] 100 [place] [address] Care Team Providers Care Health Actuary Name Role Phone SHERIESAMANTHA Primary Care Provider [...] audio gram No observ ation record ed. [email or web address] [facility] [address], [address], 09/02/2024 09:01:37 Result Notes None recorded. Problems Name Problem SNOMED Code Status Onset Date Resolution Date Notes Provider Name and Address Organization Details Recorded Time Dysfunction of right eustachian tube 8736914991945 101 Active 2024 SHAHID LUCAS, AUD 100 [facility] [address], [place], [address] , [place] [facility] 10:49:05 Problem Notes None recorded. Procedures Surgical History Date Name Laterality Status Provider Name and Address Organization Details Recorded Time 09/01/2024 Comp Audio with Tymps - 38115 & 98623 completed SHAHID LUCAS, AUD 100 [facility],[place] [address], [place], [address], [place] [facility] 09/01/2024 10:52:07 Imaging Results None recorded. Procedure Notes None recorded. 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 See audio for UHF results. Dysfunctio n of right eustachian tube [id number] H69.91 Health Concerns Section Related Observation LastModified by Organization Detai ls LastModified Time None Recorded Concern Status LastModified by Organization Details LastModified Time None Recorded Advance Directives Directive None Recorded Payers Insurance Date Sequence Insurance Name Policy Number Policy Norton Covered Member ID Norton Member ID Guarantor Name 09/08/2024 PAYMENT PLAN Ambrocio Love 09/01/2024 1 [employer] [id number]) [id number] Juan Daniel Love [id number] Ambrocio Love
== END 2024-10-28 13:18 | disposition home or self-care (01) ==
LOC: HO.US 13:17
PROVIDERS: PCP Internal Medicine; Visit Provider Nurse Practitioner Family
DX: R31.29 Other microscopic hematuria (principal); N20.0 Calculus of kidney
CPT/HCPCS: 76770

== ENCOUNTER → 2024-10-28 13:19 | Outpatient (BNV) | payer OTHER, SELFPAY | PROVIDERS: PCP Internal Medicine; Visit Provider Radiology Diagnostic Radiology | DX: N28.1 Cyst of kidney, acquired (principal); N20.0 Calculus of kidney; R39.14 Feeling of incomplete bladder emptying | CPT/HCPCS: 76770 ==

== ENCOUNTER 2024-10-29 13:50 | Outpatient (REF) | payer OTHER, SELFPAY ==
[2024-10-29 14:02] LABS: MANUAL DIFF FLAG NO
[2024-10-29 15:03] LABS: Basophils Absolute Auto 0.1 X10*3/uL (0.0-0.2); Basophils Percent Auto 1.1 % (0-2); Eosinophils Absolute Auto 0.3 X10*3/uL (0.0-0.4); Eosinophils Percent Auto 3.9 % (0-4); Hemoglobin 14.2 g/dl (14.0-18.0); Imm Gran Abs Auto 0.02 X10*3/uL (0.00-0.03); Imm Gran Pct Auto 0.3 % (0.0-0.4); Lymphocytes Absolute Auto 1.9 X10*3/uL (1.2-4.9); Lymphocytes Percent Auto 29.1 % (20-40); Mean Corpuscular HGB Conc 34.6 g/dl (31.0-36.0); Mean Corpuscular Hemoglobin 29.2 pg (27.0-33.0); Mean Corpuscular Volume 84.4 fL (80.0-98.0); Mean Platelet Volume 9.9 fL (9.4-12.4); Monocytes Absolute Auto 0.4 X10*3/uL (0.1-1.2); Monocytes Percent Auto 5.9 % (2-11); Neutrophils Absolute Auto 3.9 x10*3/uL (2.0-8.3); Neutrophils Percent Auto 59.7 % (45-73); Platelet Count 225 X10*3/uL (160-400); Red Blood Count 4.86 X10*6/uL (4.60-5.80); Red Cell Distribution Width 13.2 % (11.0-16.0); White Blood Count 6.5 X10*3/uL (4.8-10.8)
[2024-10-29 15:47] LABS: Free T4 (Free Thyroxine) 0.92 ng/dL (0.71-1.85); Thyroid Stimulating Hormone 0.71 uIU/mL (0.32-4.0)
[2024-10-30 05:08] LABS: Triiodothyronine T3 Free 3.5 pg/mL (2.3-4.2)
== END 2024-10-29 13:51 | disposition home or self-care (01) ==
LOC: HO.LAB 13:50
PROVIDERS: Absent Provider Internal Medicine Endocrinology, Diabetes & Metabolism; PCP Internal Medicine; Visit Provider Nurse Practitioner Adult Health
DX: E05.90 Thyrotoxicosis, unspecified without thyrotoxic crisis or storm (principal)
CPT/HCPCS: 36415; 84439; 84443; 84481; 85025

== ENCOUNTER 2024-12-03 12:49 | Outpatient (AMB) | payer OTHER, SELFPAY ==
--- NOTE | 2024-12-03 12:55 | A.OFFVIS_ITS ---
Intake Visit Reasons: US Follow up(set) Intake Note: Patient presents today for follow up Kidney Stone and Ultrasound Results Imaging Completed: 10/28/24 Urology Medications: Vitamin B6 Blood Thinner: none Genetic Supervisor Required: No Accompanied by: Self / Same As Patient Allergies No Known Allergies Allergy (Verified 12/03/24 15:38) Medication List - Last Reconciled 12/03/24 by ANGIE Washburn blood sugar diagnostic (FreeStyle Lite Strips) USE TO TEST 3 TIMES DAILY DIRECTED prn sensor failure blood-glucose meter As directed blood-glucose meter (FreeStyle [place] Lite kit) As directed tests 4 X/day blood-glucose sensor (DexVisiprise G7 Sensor device) DIRECTED CHANGE EVERY 10 DAYS blood-glucose sensor (FreeStyle Gabriel 3 Plus Sensor device) As directed calcium amino acid chelate mg PO cholecalciferol (vitamin D3) (Vitamin D3) 25 mcg PO DAILY glucagon 3 mg/actuation (Baqsimi) 3 mg intranasal ONCE glucose 4 grams PO Q15M PRN insulin lispro (Humalog U-100 Insulin) 60 units per day via insulin pump subcutaneously use as directed; 30 days MDD 60 per day lancets (FreeStyle Lancets) As directed tests 4 X/day methimazole 10 mg PO DAILY 30 days metoprolol succinate ER 25 mg PO DAILY 30 days mometasone 0.1% 1 appl topical DAILY PRN 3 weeks NS pen needle, diabetic (BD Ultra-Fine Original Pen Needle) test 4 times daily pen needle, diabetic (BD Ultra-Fine Original Pen Needle) As directed- Use to test 4 Times a day pyridoxine (vitamin B6) 100 mg PO DAILY 90 days teprotumumab-trbw (Tepezza) IV HPI Comments Details: Juan Daniel is a very pleasant 44-year-old male patient. He has a past medical history of hypothyroidism and type 1 diabetes diagnosed at 5 years old. He presents to the office today for follow-up of his nephrolithiasis and microscopic hematuria. In discussion with the patient today he reports since his last office visit here he has since been diagnosed with hyperthyroidism. He reports having followed up with endocrinology for ongoing periorbital edema, weight loss, insomnia, and palpitations he had been experiencing at which time he was diagnosed with hyperthyroidism and has since started methimazole. He reports urologically he has been doing and feeling well. He denies having had any bothersome urinary issues or concerns. Recent renal imaging results were reviewed 10/25 bilateral kidneys are normal in echotexture and thickness. Multiple right renal cysts measuring 10 mm in size. There is a 4 mm nonobstructing calculus in the interpolar region of the right kidney. There is no right-sided hydronephrosis. Left kidney with multiple nonobstructing calculi measuring up to 6 x 3 x 8 mm in the interpolar region. There is no left-sided hydronephrosis. The urinary bladder is unremarkable. The prostate measures approximately 20 mL. Previous urine cytology results were reviewed Urine cytologies: 03/25, 07/27, and 10/24 Atypical urothelial cells. He does have a previous history of nicotine dependence however quit 3 months ago. We did discussed at length potential causes of microscopic hematuria as well as abnormal cytologies. We discussed further microscopic hematuria workup to include CT urogram and cystoscopy. Discussed risks and benefits of this intervention. He currently denies any bothersome urinary issues or concerns. When asked he denies urinary urgency, urinary frequency, incontinence, nocturia, hematuria, dysuria, foul smelling urine, changes to urinary stream, flank pain, fever, and or chills. He is happy with his current voiding parameters. He discusses his increase in water intake with adding lemon juice to the water. He reports compliance with vitamin B6 daily. I discussed reasons for blood in the urine may include but are not limited to kidney stones, cancer in the urinary tract, BPH, kidney stone disease or inflammatory conditions of the urinary tra ct. I have discussed workup to include cystoscopy evaluation. He otherwise offers no other issues or concerns at this time. [facility] Medical History Hyperthyroidism Periorbital edema Hypothyroidism Surgical History No pertinent past surgical history Social History Household Members: Family Housing: Apartment Alcohol intake: current Alcohol intake frequency: does not drink Patient Tobacco Use Status: Current everyday Tobacco user Tobacco use type: Cigarette Cigarettes Per Day: 10 e-Cigarette/Vaping Use: Never Used Second Hand Smoke Exposure: Yes service: No Current occupational status: employed and unemployed Cognitive needs: No Hearing needs: No Vision needs: No Review of Systems Const All systems reviewed & are unremarkable except as noted in HPI and below Reports no additional complaints Eyes Reports no additional complaints ENT Reports no additional complaints Card Reports no additional complaints Resp Reports no additional complaints GI Reports no additional complaints Reports as per HPI Musc Reports no additional complaints Neuro Reports no additional complaints Psych Reports no additional complaints Endo Reports as per HPI Physical Exam Const General: cooperative, healthy appearing, comfortable, no acute distress, well developed, alert and awake Orientation/consciousness: patient oriented x3 Limitations: no limitations HEENT Head: Yes normal to inspection, Yes normocephalic and Yes atraumatic Ears: hearing grossly normal bilaterally Eyes General: appearance normal, both eyes and all related structures Neck Neck: Yes normal visual inspection and Yes trachea midline Chest Chest palpation & inspection: normal inspection of the chest Resp Effort & Inspection: normal respiratory effort and able to speak in complete sentences Cardio Rate: regular rate GI Inspection: Yes normal to inspection General: Yes no CVA tenderness Back/Spine/Pelvis Back: no CVA tenderness Skin General skin exam: no rashes or lesions noted Neuro General: patient oriented x3 Extrem General: Yes normal to inspection Psych Appearance: grossly normal and well kempt Mental Status: mental status grossly normal Speech and movement: Normal speech and movement present and Clear speech present Affect: normal affect Attitude: cooperative Thought process: Normal thought process present Thought content: Normal thought content present Insight: Fair insight present (Psych) Judgement: Fair judgement present (Psych) Results AMB Urinalysis, Automated UA Leukoctes 70 Arielle/uL Last Edit by HAIDER Humphries on 12/03/24 13:34 UA Nitrite Last Edit by HAIDER Humphries on 12/03/24 13:34 UA Urobilinogen 0.2 mg/dL Last Edit by HAIDER Humphries on 12/03/24 13:3 4 UA Protein 15 mg/dL Last Edit by Rigobertohaileeshayna Murphy CCMA on 12/03/24 13:34 UA pH 6.0 Last Edit by Manuelshayna Rosaslucius, [facility] on 12/03/24 13:34 UA Blood 25 Tico/uL Last Edit by Mitchell Murphy, [facility] on 12/03/24 13:34 UA Specific Graham 1.015 Last Edit by Mitchell Murpyh, [facility] on 12/03/24 13: 34 UA Ketone Last Edit by Mitchell Alisonlucius, [facility] on 12/03/24 13:34 UA Bilirubin 0 mg/dL Last Edit by Mitchell Alisonlucius, [facility] on 12/03/24 13:34 UA Glucose 0 mg/dL Last Edit by Mitchell Alisonlucius [facility] on 12/03/24 13:34 Results Reviewed Results Reviewed: Laboratory Last Values Urine pH (Auto) 6.0 12/03/24 13:33 Specific Graham (Auto) 1.015 12/03/24 13:33 Urine Protein (Auto) 15 mg/dL 12/03/24 13:33 Glucose (UA)(Auto) 0 mg/dL 12/03/24 13:33 Urine Blood (Auto) 25 Tico/uL 12/03/24 13:33 Urine Bilirubin (Auto) 0 mg/dL 12/03/24 13:33 Urine Urobilinogen (Auto) 0.2 mg/dL 12/03/24 13:33 Leukocyte Esterase (Auto) 70 Arielle/uL 12/03/24 13:33 Date of Service: 10/28/24 Procedure(s): US retroperitoneal comp FINDINGS: Right kidney: The right kidney measures 11.6 x 5.4 x 5.4 cm. Renal parenchymal echotexture and thickness are normal. Multiple cysts are noted measuring up to 10 mm in size. There is a 4 mm nonobstructing calculus in the interpolar region. There is no hydronephrosis. Left Kidney: The left kidney measures 12.6 x 5.5 x 4.9 cm. Renal parenchymal echotexture and thickness are normal. There are no masses. Multiple nonobstructing calculi are noted measuring up to 6 x 3 x 8 mm in the interpolar region. There is no hydronephrosis. The urinary bladder is unremarkable. Bilateral ureteral jets are identified. Before voiding, the urinary bladder measured 11.1 x 6.6 x 8.1 cm, for an estimated volume of 310 mL. After voiding, the urinary bladder measured 7.2 x 3.8 x 7.3 cm, for an estimated volume of 103 mL. The prostate measures 3.3 x 2.9 x 4.1 cm, for an estimated volume of 20.4 mL. IMPRESSION: 1. Right renal cysts measuring up to 10 mm in size. 2. Bilateral nephrolithiasis as described. No hydronephrosis. 3. Post void bladder residual of 103 mL. Assessment & Plan Assessment & Plan (1) Renal calculi: Comment: April 2024Stable 6 mm subpleural nodule abutting the left major fissure, most likely an incidental pulmonary lymph node. 2. Similarly, abutting the inferior right major fissure there is a 4 mm nodule, also most likely an incidental pulmonary lymph node. 3. No suspicious pulmonary nodules identified. 4. No active lung disease. Evidence of prior granulomatous disease. 5. Triangular anterior mediastinal soft tissue, conforming to the origins of the great vessels, highly suggestive of thymic rebound/hyperplasia. Given this is a new finding from the prior neck CT 07/13/2023, appropriate short interval [address] follow up recommended. 6. Bilateral nonobstructing renal calculi. July 2024 Code(s): N20.0 - Calculus of kidney Category: Medical (2) Microscopic hematuria: Code(s): R31.29 - Other microscopic hematuria Category: Medical (3) Nicotine dependence in remission: Code(s): F17.201 - Nicotine dependence, unspecified, in remission Category: Medical (4) Abnormal cytology: Code(s): R89.6 - Abnormal cytological findings in specimens from other organs, systems and tissues Category: Medical Plan In office urinalysis results reviewed with the patient today; will send for urine cytology. Recent retroperitoneal ultrasound results reviewed with the patient today; as noted above. He currently denies any bothersome urinary issues or concerns. He reports be happy with current voiding parameters. We did discussed at length potential causes of microscopic hematuria as well as abnormal cytologies and further workup to include CT urogram and cystoscopy. We discussed further workup of nephrolithiasis to include Litholink and labs. Continue vitamin B6 Continue adding 1 oz of lemon juice to water daily. We discussed at length the importance of adequate hydration relation to nephrolithiasis as well as overall health and well-being. We did discussed potential for delay in treatment however patient would like to continue with surveillance monitoring at this time. All questions were answered Follow-up in 3 months; or sooner with any issues, concerns, and or questions. Orders: Orders AMB Urinalysis Automated Today Z13.9 - Encounter for screening, unspecified Urine Cytology Today R31.29 - Other microscopic hematuria Coding Level of Care Code Est Pt Level 3 (04843) Diagnoses Renal calculi N20.0 Microscopic hematuria R31.29 Nicotine dependence in remission F17.201 Abnormal cytology R89.6
--- OUTSIDE RECORDS SUMMARY | 2024-12-03 12:56 | XMS_ITS | Data Portability ---
Author Organization [facility], Allergy Address [address] [address] Care Team Providers Care Quality Technician [employer]erglass Name Role Phone SHERIE TADEOSURI Primary Care Provider [phone] Assessment No assessment recorded. Plan of Treatment [...] audio gram No observ ation record ed. [email or web address] [facility] [address], [address], 09/02/2024 09:01:37 Result Notes None recorded. Problems Name Problem SNOMED Code Status Onset Date Resolution Date Notes Provider Name and Address Organization Details Recorded Time Dysfunction of right eustachian tube 8357482520536 101 Active 2024 SHAHID LUCAS [facility] [address], [address], [facility] 10:49:05 Problem Notes None recorded. Procedures Surgical History Date Name Laterality Status Provider Name and Address Organization Details Recorded Time 09/01/2024 Comp Audio with Tymps - 64087 & [id number] completed SHAHID LUCAS AUD 100 [facility],[place] [address], [place], [address], [facility] - [facility] 09/01/2024 10:52:07 Imaging Results None recorded. 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 See audio for UHF results. Dysfunctio n of right eustachian tube [id number] H69.91 Health Concerns Section Related Observation LastModified by Organization Detai ls LastModified Time None Recorded Concern Status LastModified by Organization Details LastModified Time None Recorded Advance Directives Directive None Recorded Payers Insurance Date Sequence Insurance Name Policy Number Policy Norton Covered Member ID Norton Member ID Guarantor Name 09/08/2024 PAYMENT PLAN Ambrocio Love 09/01/2024 1 [employer] [id number]) [id number] Juan Daniel Love [id number] Ambrocio Love
== END 2024-12-03 13:33 | disposition home or self-care (01) ==
LOC: HO.HUSH 12:50
PROVIDERS: PCP Internal Medicine; Visit Provider Nurse Practitioner Family
DX: N20.0 Calculus of kidney (principal); R31.29 Other microscopic hematuria; F17.201 Nicotine dependence, unspecified, in remission; R89.6 Abnormal cytological findings in specimens from other organs, systems and tissues; Z13.9 Encounter for screening, unspecified
CPT/HCPCS: 99213

== ENCOUNTER 2024-12-03 12:49 | Outpatient (REF) | payer OTHER, SELFPAY | END 2024-12-03 12:50 | disposition home or self-care (01) | LOC: HO.LNP 12:49 | PROVIDERS: PCP Internal Medicine; Visit Provider Nurse Practitioner Family | DX: R31.29 Other microscopic hematuria (principal) | CPT/HCPCS: 81003; 88112 ==

== ENCOUNTER 2025-01-12 10:44 | Inpatient (IN) | payer OTHER, SELFPAY ==
[2025-01-12] VITALS (8 sets, daily range): BP systolic 120–167; BP diastolic 49–72; PULSE 80–105; RESP 16–18; TEMP 36.1–37.1; O2SAT 94–97; BMI 24.2; BMI 24.6
--- NOTE | ~2025-01-12 | CT_ITS ---
EXAMINATION: CT ABDOMEN PELVIS WITH IV CONTRAST HISTORY: RLQ pain COMPARISON: Comparison is made with the prior examination dated 02/08/2023. TECHNIQUE: CT scan of the abdomen and pelvis was performed following administration of 85 mL Omnipaque 350 using standard departmental protocol. Coronal and sagittal reformatted images were generated and reviewed. Oral contrast material was not administered at the request of the referring physician. This CT exam was performed with one or more of the following dose reduction techniques: automated exposure control, adjustment of the mA and/or kV according to patient size, use of iterative reconstruction technique. DLP: 400 mGy-cm FINDINGS: LOWER CHEST: The visualized lung bases are clear. There is no pleural effusion. CARDIOVASCULATURE: The heart is normal in size. There is no pericardial effusion. LIVER: The liver is normal in size and contour. No liver mass is identified. The hepatic and portal veins are patent. GALLBLADDER / BILE DUCTS: The gallbladder is unremarkable. There is no intra or extrahepatic biliary ductal dilatation. SPLEEN: The spleen is normal in size. No focal splenic lesion is identified. PANCREAS: The pancreas is unremarkable in appearance. ADRENAL GLANDS: Within normal limits. KIDNEYS/RETROPERITONEUM: There are nonobstructing renal calculi measuring up to 4 mm at the upper pole of the right kidney and the upper pole of the left kidney. Smaller additional bilateral renal calculi are noted. There is no hydronephrosis. There are probable cysts in both kidneys measuring up to 1.5 cm. LYMPH NODES: No abdominal or pelvic lymphadenopathy. VASCULATURE: The abdominal aorta is normal in caliber. MESENTERY/PERITONEUM: No free fluid. No masses. There is no free intraperitoneal gas. STOMACH: The stomach is collapsed, limiting evaluation. SMALL BOWEL: The small bowel is normal in caliber. COLON: The colon is unremarkable. APPENDIX: The appendix is dilated measuring up to 11 mm in diameter and is fluid-filled. There are numerous intraluminal calcified appendicoliths. There is minimal periappendiceal inflammatory stranding. Findings are consistent with early appendicitis. URINARY BLADDER/PELVIC ORGANS: The urinary bladder is collapsed, limiting evaluation. The prostate is enlarged. BONES / SOFT TISSUES: No suspicious bony or soft tissue abnormalities. CT/CT abdomen pelvis w IV con IMPRESSION: Findings consistent with early acute appendicitis as described. Electronically signed by: Donis Kelly MD 01/12/2025 12:23 PM EDT RP
--- NOTE | 2025-01-12 10:52 | ED.GENADULT ---
HPI - General Adult General Chief complaint: Abdominal Pain Stated complaint: Lower abd pain, nausea, vomiting Time Seen by Provider: 01/12/25 10:57 Source: patient Mode of arrival: ambulatory Limitations: no limitations History of Present Illness ED Provider: Dr. Aliza Veronica HPI narrative: Patient comes to the emergency room complaining of right lower quadrant pain that started at 03:00, 8 hours ago. Patient has been complaining of nausea vomiting, no diarrhea, no flank pain, no hematuria or dysuria. Patient states that when he went to sleep last night he was doing well. The pain is constant, nonradiating. Related Data Home Medications ?Medication ?Instructions ?Recorded ?Confirmed teprotumumab-trbw 500 mg 500 mg IV Q3W 12/03/24 01/12/25 intravenous solution (Tepezza) insulin lispro 100 unit/mL See Rx Instructions subcut QIDACHS 01/12/25 01/12/25 subcutaneous pen (Humalog KwikPen PRN Pump Failure (U-100) Insulin) rosuvastatin 5 mg tablet 5 mg PO DAILY 01/12/25 01/12/25 Previous Rx's ?Medication ?Instructions ?Recorded blood-glucose meter #1 ea 07/23/22 pen needle, diabetic 29 gauge x #100 ea 11/21/2206/04 (BD Ultra-Fine Original Pen Needle) glucagon 3 mg/actuation nasal 3 mg intranasal ONCE #2 ea 01/09/23 spray (Baqsimi) blood-glucose sensor (Dexcom G7 #3 ea 07/11/23 Sensor device) blood-glucose meter (FreeStyle #1 ea 03/13/24 [place] Lite kit) lancets 28 gauge (FreeStyle #100 ea 03/13/24 Lancets) blood sugar diagnostic (FreeStyle #100 strips 04/09/24 Lite Strips) blood-glucose sensor (FreeStyle #2 ea 05/06/24 Gabriel 3 Plus Sensor device) cholecalciferol (vitamin D3) 25 25 mcg PO DAILY #90 caps 07/08/24 mcg (1,000 unit) capsule (Vitamin D3) glucose 4 gram chewable tablet 4 g PO Q15M PRN hypoglycemia #14 07/29/24 tabs insulin lispro 100 unit/mL See Rx Instructions subcut 10/09/24 subcutaneous solution (Humalog USEASDIRECTD 30 days #30 mL U-100 Insulin) methimazole 10 mg tablet 10 mg PO DAILY 30 days #30 tabs 10/09/24 mometasone 0.1 % topical cream 1 appl topical DAILY PRN allergic 10/12/24 reaction 3 weeks #45 grams pen needle, diabetic 29 gauge x #100 ea 12/14/24 1/2 pyridoxine (vitamin B6) 100 mg 100 mg PO DAILY 90 days #90 tabs 12/29/24 tablet metoprolol succinate 25 mg 25 mg PO DAILY 30 days #30 tabs 01/03/25 tablet,extended release 24 hr Allergies Allergy/AdvReac Type Severity Reaction Status Date / Time No Known Allergies Allergy Verified 01/12/25 10:53 Review of Systems Review of Systems: Constitutional : No Weight loss, No Fever, No Chills, No Night Sweats, No Fatigue, No Malaise ENT/Mouth : No Hearing loss, No Ear Pain, No Nasal Congestion, No Sinus Pain, No Hoarseness, No sore throat, No Rhinorrhea, No Swallowing Difficulty Eyes: No Eye Pain, No Swelling, No Redness, No Foreign Body, No Discharge, No Vision Changes Cardiovascular : No Chest Pain, No SOB, No Dyspnea on Exertion, No Orthopnea, No Edema, No Palpitations Respiratory : No Cough, No Sputum, No Wheezing, No Smoke Exposure, No Dyspnea Gastrointestinal : Complaining of nausea and vomiting, no diarrhea, complaining of constant nonradiating right lower quadrant pain Genitourinary : no irregular bleeding, No Dysuria, No Urinary Frequency, No Hematuria, No Urinary Incontinence, No Urgency, No Flank Pain, No Urinary Flow Changes, No Hesitancy Musculoskeletal : No joint pain, No Myalgias, No Joint Swelling Skin : No Skin Lesions, No rash Neuro : No Weakness, No Numbness, No Paresthesias, No Loss of Consciousness, No Dizziness, No Headache Psych : No Anxiety/Panic, No Depression, No SI/HI/AH/VH, No Social Issues, Heme/Lymph: No Bruising, No Bleeding,No Lymphadenopathy Endocrine : No Polyuria, No Polydipsia, No Temperature Intolerance [facility] Past Medical History Medical History (Updated 01/12/25 @ 14:12 by Rayo Sims PA-C) Diabetes type I Hyperthyroidism Periorbital edema Hypothyroidism Surgical History No pertinent past surgical history Social History Social History Household Members: Family Housing: Apartment Alcohol intake: current Alcohol intake frequency: does not drink Patient Tobacco Use Status: Never used Tobacco Tobacco use type: Cigarette Cigarettes Per Day: 10 Smoked in Last 30 Days: No e-Cigarette/Vaping Use: Never Used Second Hand Smoke Exposure: Yes Use of substances other than those prescribed or required for medical reasons: No Are you DNR?: No Advance Directives: No Advance Directives Information Provided: Yes Do you have a plan to hurt others: No Plan service: No Current occupational status: employed and unemployed Cognitive needs: No Hearing needs: No Vision needs: No Physical Exam ED Exam Exam: Appearance: Alert. Oriented X3. Patient looks pale, diaphoretic, very uncomfortable Eyes: Pupils equal, round and reactive to light. ENT: Pharynx normal. Neck: Normal inspection. Neck supple. No lymph nodes noted. No crepitus CVS: Normal heart rate and rhythm. Pulses normal. Normal S1 and S2 Respiratory: No respiratory distress. Breath sounds normal. No Wheezing. No rales Abdomen: Soft , tenderness to palpation in right lower quadrant, with guarding and rebound, no CVA tenderness in the right Skin: Skin warm and dry. Normal skin color. Normal skin turgor. Extremities: No lower extremity edema. No Lacerations. No Rash Neuro: Oriented X 3. No motor deficit. No sensory deficit. Moving all extremities. No slurred speech. CN 2 through 12 grossly intact Psych: calm, cooperative, normal affect Vital Signs: Vital Signs - 24 hr 01/12/25 10:52 01/12/25 12:00 Temperature 97.7 F 98.0 F Pulse Rate 105 H 80 Respiratory Rate 18 18 Blood Pressure 167/72 H 131/63 Pulse Oximetry 97 95 Oxygen Delivery Method Room Air Room Air BMI result Body Mass Index 24.2 Course Course Course Narrative: Rapid medical examination performed in triage by Keri Ag PA-C. Patient is a 44 year old assigned male at presenting to the emergency department with RLQ abdominal pain, nausea, and vomiting. Detailed physical exam and review of systems are deferred to the licensed clinician. Labs ordered. Patient placed into room 9. Medications Administered Discontinued Medications Generic Name Dose Route Start Last Admin Trade Name Freq PRN Reason Stop Dose Admin Sodium Chloride 1,000 mls @ 999 mls/hr 01/12/25 11:01 01/12/25 12:48 Ns IVCONT 01/12/25 12:01 Infused .Q1H1M ONE Infusion Piperacillin Sod/Tazobactam 50 mls @ 100 mls/hr 01/12/25 12:25 01/12/25 12:47 Sod 3.375 gm/ Sodium Chloride IV 01/12/25 12:54 100 mls/hr ONCE ONE Administration Ketorolac Tromethamine 30 mg 01/12/25 11:01 01/12/25 11:19 Ketorolac Tromethamine 30 Mg/Ml Vial IVPUSH 01/12/25 11:02 30 mg ONCE ONE Administration Morphine Sulfate 4 mg 01/12/25 11:33 01/12/25 11:39 Morphine Sulfate 4 Mg/Ml Cartridge IVPUSH 01/12/25 11:34 4 mg ONCE ONE Administration Protocol Ondansetron HCl 4 mg 01/12/25 11:01 01/12/25 11:19 Ondansetron Hcl 4 Mg/2 Ml Vial IVPUSH 01/12/25 11:02 4 mg ONCE ONE Administration Prochlorperazine Edisylate 10 mg 01/12/25 11:33 01/12/25 11:39 Prochlorperazine Edisylate 10 Mg/2 Ml Vial IVPUSH 01/12/25 11:34 10 mg ONCE ONE Administration Medical Decision Making Medical Decision Making MDM Narrative: Patient receiving IV fluids, Zofran and ketorolac All of patient's labs pending I discussed with the patient that it is possible that he may have appendicitis versus renal calculi. CT scan of the abdomen/pelvis pending. Overall, patient continued having pain and nausea despite Zofran and ketorolac, patient was given Compazine and morphine. My interpretation of labs: Patient's white blood cell count is 20.1, rest of hematology and chemistry within normal limits, serology report negative for influenza RSV and COVID CT scan: The appendix is dilated up to 11 mm in diameter and is fluid feels, there are numerous intraluminal calcified appendicolith. Findings are consistent with early appendicitis Physical exam is consistent with appendicitis I discussed the patient with Dr. Daniels, patient to be admitted Differential Diagnosis Differential Diagnoses: The differential diagnosis associated with the presentation includes (Appendicitis, diverticulitis, small-bowel perforation, renal calculi) Admission/Observation Consideration of admission/observation: Escalation of care including admission/observation considered Consult Healthcare Provider Management of the patient was discussed with: Practice Lead Lab Data MDM Lab Attestation statement: I reviewed the patient's lab results. 01/12/25 11:15 01/12/25 11:15 Labs: Lab Results 01/12/25 01/12/25 Range/Units 11:15 12:39 WBC 20.1 H (4.8-10.8) X10*3/uL RBC 4.59 L (4.60-5.80) X10*6/uL Hgb 14.1 (14.0-18.0) g/dl Hct 39.4 L (42.0-52.0) % MCV 85.8 (80.0-98.0) fL MCH 30.7 (27.0-33.0) pg MCHC 35.8 (31.0-36.0) g/dl RDW 12.8 (11.0-16.0) % Plt Count 222 (160-400) X10*3/uL MPV 9.5 (9.4-12.4) fL Immature Gran % (Auto) Cancelled Neut % (Auto) Cancelled Lymph % (Auto) Cancelled [place] % (Auto) Cancelled Eos % (Auto) Cancelled Baso % (Auto) Cancelled Lymph # (Auto) Cancelled [place] # (Auto) Cancelled Eos # (Auto) Cancelled Baso # (Auto) Cancelled Abs Immat Gran (auto) Cancelled Absolute Neuts (auto) Cancelled Absolute Nucleated RBC 0.000 (0.0-0.012) X10*3/uL Nucleated RBC % (auto) 0.0 (0.0-0.2) /100WBC Neutrophils % (Manual) 90 H (45-73) % Band Neutrophils % 1 L (3-5) % Lymphocytes % (Manual) 6 L (20-40) % Monocytes % (Manual) 2 (2-11) % Basophils % (Manual) 1 (0-2) % Abs Neuts (Manual) 18.3 H (2.0-8.3) X10*3/uL Lymphocytes # (Manual) 1.2 (1.2-4.9) X10*3/uL Monocytes # (Manual) 0.4 (0.1-1.2) X10*3/uL Basophils # (Manual) 0.2 (0.0-0.2) X10*3/uL Platelet Estimate NORMAL (NORMAL) Plt Morphology Comment NORMAL RBC Morphology NORMAL Sodium 143 (135-145) mmol/L Potassium 4.1 (3.3-5.1) mmol/L Chloride 107 (96-108) mmol/L Carbon Dioxide 26 (22-29) mmol/L Anion Gap 14 (12-20) BUN 14 (9-16) mg/dL Creatinine 0.96 (0.5-1.4) mg/dL Estim Creat Clear Calc 96.9 Estimated GFR > 60 Random Glucose 178 H (60-115) mg/dL Lactic Acid 0.8 (0.5-2.0) mmol/L Calcium 9.2 D (8.4-10.2) mg/dL Magnesium 1.9 (1.6-2.6) mg/dL Total Bilirubin 0.6 (0.0-1.0) mg/dL AST 32 (5-37) U/L ALT 25 (0-40) U/L Alkaline Phosphatase 70 (39-117) U/L Total Protein 7.9 (6.5-8.0) g/dL Albumin 4.8 (3.5-5.0) g/dL Influenza Type A (PCR) NEGATIVE (Negative) Influenza Type B (PCR) NEGATIVE (Negative) RSV RNA Qual (PCR) NEGATIVE (Negative) SARS-CoV-2 RNA (RT-PCR) NEGATIVE (Negative) Independent Interpretation I performed an independent interpretation of an: CT Scan Radiology Impression Discussion of test interpretation with radiology: I have reviewed the radiologist's reading. Radiologist Impression: APPENDIX: The appendix is dilated measuring up to 11 mm in diameter and is fluid-filled. There are numerous intraluminal calcified appendicoliths. There is minimal periappendiceal inflammatory stranding. Findings are consistent with early appendicitis. Critical Care Time Critical Care Time Critical Care Time: Yes Total Critical Care Time: 60 Attestation: I have personally provided critical care time. Time includes review of lab data, radiology results, discussion with consultants, and monitoring for potential decompensation. Intervention performed as documented. Discharge Plan Discharge Clinical Impression: Acute appendicitis Qualifiers: Acute appendicitis type: with localized peritonitis Appendicitis gangrene presence: without gangrene Appendicitis perforation presence: without perforation Appendicitis abscess presence: without abscess Qualified Code(s): K35.30 - Acute appendicitis with localized peritonitis, without perforation or gangrene Patient Disposition: Admitted As Inpatient Discharge Date/Time: 01/12/25 16:03
[2025-01-12 11:22] LABS: Hematocrit 39.4 % (42.0-52.0); Hemoglobin 14.1 g/dl (14.0-18.0); Mean Corpuscular HGB Conc 35.8 g/dl (31.0-36.0); Mean Corpuscular Hemoglobin 30.7 pg (27.0-33.0); Mean Corpuscular Volume 85.8 fL (80.0-98.0); NRBC Abs Auto 0.000 X10*3/uL (0.0-0.012); NRBC Pct Auto 0.0 /100WBC (0.0-0.2); Platelet Count 222 X10*3/uL (160-400); Red Blood Count 4.59 X10*6/uL (4.60-5.80); WBC ABN SCTR FOR CBC 1
[2025-01-12 11:39] LABS: Alanine Aminotransferase 25 U/L (0-40); Albumin Level 4.8 g/dL (3.5-5.0); Alkaline Phosphatase 70 U/L (39-117); Anion Gap 14 (12-20); Aspartate Amino Transferase 32 U/L (5-37); Blood Urea Nitrogen 14 mg/dL (9-16); Calcium 9.2 mg/dL (8.4-10.2); Carbon Dioxide 26 mmol/L (22-29); Chloride 107 mmol/L (96-108); Creatinine Clr Calc Pharmacy 96.9; Estimated Glomerular Filt Rate > 60; Magnesium 1.9 mg/dL (1.6-2.6); Potassium 4.1 mmol/L (3.3-5.1); Sodium 143 mmol/L (135-145); Total Protein 7.9 g/dL (6.5-8.0)
[2025-01-12 11:59] LABS: Resp Syncy Virus RNA Qual PCR NEGATIVE (Negative); SARS COV2 PCR INHOUSE NEGATIVE (Negative)
[2025-01-12 12:16] LABS: Band Neutrophils Percent 1 % (3-5); Basophils Percent Manual 1 % (0-2); Lymphocytes Percent Manual 6 % (20-40); Monocytes Percent Manual 2 % (2-11); Neutrophils Percent Manual 90 % (45-73)
[2025-01-12 12:17] LABS: Basophils Abs Manual 0.2 X10*3/uL (0.0-0.2); Lymphocytes Absolute Manual 1.2 X10*3/uL (1.2-4.9); Monocytes Absolute Manual 0.4 X10*3/uL (0.1-1.2); Neutrophils Absolute Manual 18.3 X10*3/uL (2.0-8.3); RBC Morphology NORMAL; White Blood Count 20.1 X10*3/uL (4.8-10.8)
--- NOTE | 2025-01-12 13:50 | PM.HPGS ---
History of Present Illness History of Present Illness Date of Service: 01/12/25 <Rayo Sims PA-C - Last Filed: 01/12/25 14:34> 01/12/25 <Naila Daniels MD - Last Filed: 01/12/25 16:34> Chief complaint: Acute appendiciis <Rayo Sims PA-C - Last Filed: 01/12/25 14:34> Narrative: Juan Daniel Love is a 44 year old male with a history of T1DM, HTN, Hyperthyroidism, renal insufficiency, mediastinal mass, renal calculi, vitamin d deficiency, presenting to the ED with RLQ abdominal pain that began suddenly at 3 am, with associated nausea and vomiting and subjective chills. He has no previous episodes of this. Has been unable to eat. He denies constipation or diarrhea, urinary symptoms. On presentation to the ED he was found to have leukocytosis, 20.1, on CT found to have early appendicitis with multiple calcified appendicolith, fluid filled appendiceal dilation. he was started on IV zosyn, fluid and pain regimen. pain has improved with the current regimen but is still very uncomfortable at rest and with ambulation. He denies current smoking, he is a former smoker. Denies alcohol or drug use. he denies abdominal surgical history <Rayo Sims PA-C - Last Filed: 01/12/25 14:34> Review of Systems Review of Systems: Yes all other systems are reviewed and are negative <Rayo Sims PA-C - Last Filed: 01/12/25 14:34> [facility] Past Medical History Medical History: Medical History (Updated 01/12/25 @ 14:12 by Rayo Sims PA-C) Diabetes type I Hyperthyroidism Periorbital edema Hypothyroidism <Rayo Sims PA-C - Last Filed: 01/12/25 14:34> Surgical History Surgical History: Surgical History No pertinent past surgical history <Rayo Sims PA-C - Last Filed: 01/12/25 14:34> Social History Social History: Social History Household Members: Family Housing: Apartment Alcohol intake: current Alcohol intake frequency: does not drink Patient Tobacco Use Status: Never used Tobacco Tobacco use type: Cigarette Cigarettes Per Day: 10 Smoked in Last 30 Days: No e-Cigarette/Vaping Use: Never Used Second Hand Smoke Exposure: Yes Use of substances other than those prescribed or required for medical reasons: No Are you DNR?: No Advance Directives: No Advance Directives Information Provided: Yes Do you have a plan to hurt others: No Plan service: No Current occupational status: employed and unemployed Cognitive needs: No Hearing needs: No Vision needs: No <Rayo Sims PA-C - Last Filed: 01/12/25 14:34> Meds Allergies/Adverse reactions: Allergies Allergy/AdvReac Type Severity Reaction Status Date / Time No Known Allergies Allergy Verified 01/12/25 10:53 <Rayo Sims PA-C - Last Filed: 01/12/25 14:34> Active Medications: Current Medications Acetaminophen (Acetaminophen 325 Mg Tablet) 650 mg PO Q6H PRN PRN Reason: Pain, Mild 1-3,fever,headache Calcium Carbonate (Calcium Carbonate 750 Mg Tab.Chew) 750 mg PO Q4H PRN PRN Reason: Heartburn Lactated Ringer's (Lr) 1,000 mls @ 100 mls/hr IVCONT .Q10H MARQUITA Piperacillin Sod/Tazobactam (Sod 3.375 gm/ Sodium Chloride) 50 mls @ 100 mls/hr IV Q6H MARQUITA Magnesium Hydroxide (Milk Of Magnesia 30 Ml Oral.Susp) 30 ml PO DAILY PRN PRN Reason: Constipation Melatonin (Melatonin 3 Mg Tablet) 6 mg PO BEDTIME PRN PRN Reason: Insomnia Morphine Sulfate (Morphine Sulfate 4 Mg/Ml Cartridge) 3 mg IVPUSH Q4H PRN; Protocol PRN Reason: Pain, Severe (Pain Scale 7-10) Oxycodone HCl (Oxycodone Hcl Immed Release 5 Mg Tablet) 5 mg PO Q6H PRN PRN Reason: Pain, Moderate(Pain Scale 4-6) Sodium Chloride (0.9 % Sodium Chloride Flush 3 Ml Syringe) 3 ml IVFLUSH QSHIFT MARQUITA <Rayo Sims PA-C - Last Filed: 01/12/25 14:34> Home medications: Home Medications ?Medication ?Instructions ?Recorded ?Confirmed ?Last Taken ?Type teprotumumab-trbw 500 mg 500 mg IV Q3W 12/03/24 01/12/25 Unknown History intravenous solution (Tepezza) insulin lispro 100 unit/mL See Rx Instructions subcut QIDACHS 01/12/25 01/12/25 Unknown History subcutaneous pen (Humalog KwikPen PRN Pump Failure (U-100) Insulin) rosuvastatin 5 mg tablet 5 mg PO DAILY 01/12/25 01/12/25 01/11/25 History <Rayo Sims PA-C - Last Filed: 01/12/25 14:34> Physical Exam Vital Signs: Vital Signs: Last Vital Signs Temp 98.0 F 01/12/25 12:00 Pulse 80 01/12/25 12:00 Resp 18 01/12/25 12:00 BP 131/63 01/12/25 12:00 Pulse Ox 95 01/12/25 12:00 O2 Del Method Room Air 01/12/25 12:00 BMI result Body Mass Index 24.2 <Rayo Sims PA-C - Last Filed: 01/12/25 14:34> Const: General: no acute distress, alert and awake; No comfortable <Rayo Sims PA-C - Last Filed: 01/12/25 14:34> Orientation/consciousness: patient oriented x3 <Rayo Sims PA-C Last Filed: 01/12/25 14:34> Resp: Effort & Inspection: normal respiratory effort and able to speak in complete sentences <Rayo Sims PA-C - Last Filed: 01/12/25 14:34> GI: Inspection: No distended <Rayo Sims PA-C Last Filed: 01/12/25 14:34> Palpation (GI): Soft to palpation and Tenderness to palpation present (GI) in the RLQ, at McBurney's point, with rebound tenderness and Rovsing's sign positive <ISAMAR Toth Last Filed: 01/12/25 14:34> Neuro: General: patient oriented x3 <ISAMAR Toth Last Filed: 01/12/25 14:34> Results Results Labs: Short CBC 01/12/25 Range/Units 11:15 WBC 20.1 H (4.8-10.8) X10*3/uL Hgb 14.1 (14.0-18.0) g/dl Hct 39.4 L (42.0-52.0) % Plt Count 222 (160-400) X10*3/uL BMP 01/12/25 11:15 Sodium 143 Potassium 4.1 Chloride 107 Carbon Dioxide 26 BUN 14 Creatinine 0.96 Calcium 9.2 D Liver Function 01/12/25 Range/Units 11:15 Total Bilirubin 0.6 (0.0-1.0) mg/dL AST 32 (5-37) U/L ALT 25 (0-40) U/L Alkaline Phosphatase 70 (39-117) U/L Albumin 4.8 (3.5-5.0) g/dL <Rayo Sims PA-C - Last Filed: 01/12/25 14:34> Assessment and Plan (1) Acute appendicitis: Qualifiers: Acute appendicitis type: with localized peritonitis Appendicitis abscess presence: without abscess Appendicitis gangrene presence: without gangrene Appendicitis perforation presence: without perforation Qualified Code(s): K35.30 - Acute appendicitis with localized peritonitis, without perforation or gangrene <ISAMAR Toth Last Filed: 01/12/25 14:34> Status: Acute <ISAMAR Toth Last Filed: 01/12/25 14:34> Juan Daniel Love is a 44 year old male with a history of T1DM, HTN, Hyperthyroidism, renal insufficiency, mediastinal mass, renal calculi, vitamin d deficiency, presenting to the ED with RLQ abdominal pain that began suddenly at 3 am with associated nausea, vomiting and chills. Currently he reports improvent in pain, n/v since he was given meds in the ED but still appears uncomfortable, having difficulty with changing positions in the bed. He has leukocytosis 20.1 on labs in ED. CT finding suggestive of early appendicitis, multiple calcified appendicolith, fluid filled appendix, appendiceal dilation. On exam he is afebrile, very tender in the RLQ, with positive mcburneys, rosvings and rebound tenderness. We will admit for further management. We discussed possible interventions incluind laparoscopic appendectomy, possible open vs antibiotics. patient agreeable to surgical intervention. He understands risks including, bleeding, infection, damage to surrounding organs. He is currently NPO, has not eaten today. He was started on zosyn in the ED, we will continue this as scheduled. Has pain regimen and fluids on board. He was added onto the OR schedule for later this evening. continue IV zosyn lap appy, possible open added to OR add on schedule. pain control sliding scale for DM managment med rec pending, will resume appropriate home meds <Rayo Sims PA-C - Last Filed: 01/12/25 14:34> Juan Daniel Love is a 44 year old male with a history of T1DM, HTN, Hyperthyroidism, renal insufficiency, mediastinal mass, renal calculi, vitamin d deficiency, presenting to the ED with RLQ abdominal pain that began suddenly at 3 am with associated nausea, vomiting and chills. Currently he reports improvent in pain, n/v since he was given meds in the ED but still appears uncomfortable, having difficulty with changing positions in the bed. He has leukocytosis 20.1 on labs in ED. CT finding suggestive of early appendicitis, multiple calcified appendicolith, fluid filled appendix, appendiceal dilation. On exam he is afebrile, very tender in the RLQ, with positive mcburneys, rosvings and rebound tenderness. We will admit for further management. We discussed possible interventions incluind laparoscopic appendectomy, possible open vs antibiotics. patient agreeable to surgical intervention. He understands risks including, bleeding, infection, damage to surrounding organs. He is currently NPO, has not eaten today. He was started on zosyn in the ED, we will continue this as scheduled. Has pain regimen and fluids on board. He was added onto the OR schedule for later this evening. continue IV zosyn lap appy, possible open added to OR add on schedule. pain control sliding scale for DM managment med rec pending, will resume appropriate home meds The patient is a 44-year-old male seen and examined independently who presents with right lower quadrant pain elevated white count tender in the right lower quadrant and CT scan findings consistent with appendicolith and early acute appendicitis. Plan is to carry out laparoscopic appendectomy admit NPO IV fluids IV antibiotics. Risks and benefits were discussed with the patient including but limited to bleeding infection possible open procedure possible bowel injury possible other organ injury but despite this he wishes to proceed. <Naila Daniels MD - Last Filed: 01/12/25 16:34> Quality Stroke Does the patient have a stroke diagnosis?: No <Rayo Sims PA-C - Last Filed: 01/12/25 14:34> VTE Prior VTE?: No <Rayo Sims PA-C - Last Filed: 01/12/25 14:34> VTE Risk Level:: Surgical - moderate <Rayo Sims PA-C - Last Filed: 01/12/25 14:34> VTE Device Contraindication: N/A - Device Ordered <Rayo Sims PA-C - Last Filed: 01/12/25 14:34> VTE Drug Contraindication: Treatment Not Indicated <Rayo Sims PA-C - Last Filed: 01/12/25 14:34> Procedures Date of Service Date of Service: 01/12/25 <Rayo Sims PA-C - Last Filed: 01/12/25 14:34> 01/12/25 <Naila Daniels MD - Last Filed: 01/12/25 16:34>
--- NOTE | 2025-01-12 14:55 | P.CONAN_ITS ---
HPI - Anesthesia Eval Consult details Narrative: 44 yr old male for laparascopic appendectomy, possible open. 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 s/p right shoulder arthroscopy with [facility] in 2023. Type 1 diabetes: A1C 7.3%, on insulin pump, follows with [facility] [place] endo + tongue piercing former smoker: quit 6 months ago PMFSH Active Problems Active Problems: All Active Problems Acute appendicitis (Acute) Nicotine dependence in remission (Acute) Rash (Acute) Hyperthyroidism (Acute) Periorbital edema (Acute) Renal insufficiency (Acute) Facial swelling (Acute) Annual physical exam (Acute) Mediastinal mass (Acute) Nicotine dependence (Acute) COVID-19 (Acute) Tobacco abuse (Acute) Pulmonary nodule (Acute) Abnormal cytology (Acute) Microscopic hematuria (Acute) Renal calculi (Acute) Hypertension (Acute) Vitamin D deficiency (Acute) Hyperlipidemia LDL goal <100 (Acute) Hypothyroidism (Acute) Rotator cuff syndrome of right shoulder (Acute) Diabetes type I (Acute) Past Medical History Medical History (Updated 01/12/25 @ 14:12 by Rayo Sims PA-C) Diabetes type I Hyperthyroidism Periorbital edema Hypothyroidism Family History Family history of problems with anesthesia: No Surgical History Surgical History (Updated 01/19/25 @ 07:53 by DAMIAN Ybarra) History of laparoscopic appendectomy (01/12/25) No pertinent past surgical history History of Problems with Anesthesia: No Social History Social History Household Members: None Housing: Apartment Do you presently have visiting nurse or other home services: No Alcohol intake: current Alcohol intake frequency: does not drink Patient Tobacco Use Status: Never used Tobacco Tobacco use type: Cigarette Cigarettes Per Day: 10 e-Cigarette/Vaping Use: Never Used Second Hand Smoke Exposure: Yes service: No Current occupational status: employed and unemployed Cognitive needs: No Hearing needs: No Vision needs: No Meds Allergies Allergy/AdvReac Type Severity Reaction Status Date / Time No Known Allergies Allergy Verified 01/19/25 10:35 Active Medications: Current Medications Acetaminophen (Acetaminophen 325 Mg Tablet) 650 mg PO Q6H PRN PRN Reason: Pain, Mild 1-3,fever,headache Calcium Carbonate (Calcium Carbonate 750 Mg Tab.Chew) 750 mg PO Q4H PRN PRN Reason: Heartburn Dextrose (Dextrose 50 % 25 Gm/50 Ml Syringe) 25 gm IVPUSH Q15M PRN; Protocol PRN Reason: per Hypoglycemia Standing Ord. Glucose (Glucose Gel 15 Gm Gel..Gram.) 15 gm PO Q15M PRN; Protocol PRN Reason: per Hypoglycemia Standing Ord. Lactated Ringer's (Lr) 1,000 mls @ 100 mls/hr IVCONT .Q10H MARQUITA Piperacillin Sod/Tazobactam (Sod 3.375 gm/ Sodium Chloride) 50 mls @ 100 mls/hr IV Q6H MARQUITA Insulin Human Lispro (Insulin Lispro 100 Unit/Ml 3 Ml Vial) 0 unit SUBCUT QIDACHS [facility]; Protocol Magnesium Hydroxide (Milk Of Magnesia 30 Ml Oral.Susp) 30 ml PO DAILY PRN PRN Reason: Constipation Melatonin (Melatonin 3 Mg Tablet) 6 mg PO BEDTIME PRN PRN Reason: Insomnia Morphine Sulfate (Morphine Sulfate 4 Mg/Ml Cartridge) 3 mg IVPUSH Q4H PRN; Protocol PRN Reason: Pain, Severe (Pain Scale 7-10) Oxycodone HCl (Oxycodone Hcl Immed Release 5 Mg Tablet) 5 mg PO Q6H PRN PRN Reason: Pain, Moderate(Pain Scale 4-6) Sodium Chloride (0.9 % Sodium Chloride Flush 3 Ml Syringe) 3 ml IVFLUSH QSHIFT [facility] Home Medications ?Medication ?Instructions ?Recorded ?Confirmed ?Last Taken ?Type teprotumumab-trbw 500 mg 500 mg IV Q3W 12/03/2401/12 Unknown History intravenous solution (Tepezza) insulin lispro 100 unit/mL See Rx Instructions subcut QIDACHS 01/12/25 01/19/25 Unknown History subcutaneous pen (Humalog KwikPen PRN Pump Failure (U-100) Insulin) rosuvastatin 5 mg tablet 5 mg PO DAILY 01/12/2501/1901/11/25 History Exam Height,Weight and Vital Signs: Height 5 ft 8 in Weight 72.2 kg Last Vital Signs Temp 98.0 F 01/12/25 12:00 Pulse 80 01/12/25 12:00 Resp 18 01/12/25 12:00 BP 131/63 01/12/25 12:00 Pulse Ox 95 01/12/25 12:00 O2 Del Method Room Air 01/12/25 12:00 Pertinent Lab Results Pertinent Lab Results: Laboratory Tests 01/12/25 01/12/25 11:15 12:39 WBC 20.1 H RBC 4.59 L Hgb 14.1 Hct 39.4 L MCV 85.8 MCH 30.7 MCHC 35.8 RDW 12.8 Plt Count 222 MPV 9.5 Immature Gran % (Auto) Cancelled Neut % (Auto) Cancelled Lymph % (Auto) Cancelled [place] % (Auto) Cancelled Eos % (Auto) Cancelled Baso % (Auto) Cancelled Lymph # (Auto) Cancelled [place] # (Auto) Cancelled Eos # (Auto) Cancelled Baso # (Auto) Cancelled Abs Immat Gran (auto) Cancelled Absolute Neuts (auto) Cancelled Absolute Nucleated RBC 0.000 Nucleated RBC % (auto) 0.0 Neutrophils % (Manual) 90 H Band Neutrophils % 1 L Lymphocytes % (Manual) 6 L Monocytes % (Manual) 2 Basophils % (Manual) 1 Abs Neuts (Manual) 18.3 H Lymphocytes # (Manual) 1.2 Monocytes # (Manual) 0.4 Basophils # (Manual) 0.2 Platelet Estimate NORMAL Plt Morphology Comment NORMAL RBC Morphology NORMAL Sodium 143 Potassium 4.1 Chloride 107 Carbon Dioxide 26 Anion Gap 14 BUN 14 Creatinine 0.96 Estim Creat Clear Calc 96.9 Estimated GFR > 60 Random Glucose 178 H Lactic Acid 0.8 Calcium 9.2 D Magnesium 1.9 Total Bilirubin 0.6 AST 32 ALT 25 Alkaline Phosphatase 70 Total Protein 7.9 Albumin 4.8 Influenza Type A (PCR) NEGATIVE Influenza Type B (PCR) NEGATIVE RSV RNA Qual (PCR) NEGATIVE SARS-CoV-2 RNA (RT-PCR) NEGATIVE Airway Mallampati Class: II TM Dist: >3cm Neck ROM: Full Loose/Missing/Broken Teeth: Yes, Upper (M posteriorly; crowns 8/9) and Lower (M posteriorly) Heart: RRR Lungs: CTAB Assessment and Plan Final Anesthetic Review Family History of Problems with Anesthesia: No History of Problems with Anesthesia: No
--- NOTE | 2025-01-12 15:01 | PHA.MEDREC ---
Addendum entered by Kourtney Kunz [facility] 01/12/25 15:12: reviewed by [facility] Addendum entered by Dora Perez 01/12/25 15:10: Pt confirmed his Lisinopril stopped when he started the Metoprolol. Original Note: Pharmacy Consult ? Medication Reconciliation Pharmacy has completed the medication reconciliation. Spoke with pt and he confirmed his medications. Pt using an iLet pump with humalog and has a humalog kwikpen as needed if the pump fails on him. Pt confirmed he gets Tepezza 500mg once every 3 weeks from [facility] and states he is due for it 02/06. Pt states he is still taking Rosuvastatin 10mg tabs once daily for his cholesterol and states he has a bunch at home .
--- NOTE | 2025-01-12 16:05 | HO.ANESPROP2 ---
[facility] Active Problems Active Problems: All Active Problems Acute appendicitis (Acute) Nicotine dependence in remission (Acute) Rash (Acute) Hyperthyroidism (Acute) Periorbital edema (Acute) Renal insufficiency (Acute) Facial swelling (Acute) Annual physical exam (Acute) Mediastinal mass (Acute) Nicotine dependence (Acute) COVID-19 (Acute) Tobacco abuse (Acute) Pulmonary nodule (Acute) Abnormal cytology (Acute) Microscopic hematuria (Acute) Renal calculi (Acute) Hypertension (Acute) Vitamin D deficiency (Acute) Hyperlipidemia LDL goal <100 (Acute) Hypothyroidism (Acute) Rotator cuff syndrome of right shoulder (Acute) Diabetes type I (Acute) Past Medical History Medical History (Updated 01/12/25 @ 14:12 by Rayo Sims PA-C) Diabetes type I Hyperthyroidism Periorbital edema Hypothyroidism Family History Family history of problems with anesthesia: No Surgical History Surgical History No pertinent past surgical history History of Problems with Anesthesia: No Social History Social History Household Members: Family Housing: Apartment Alcohol intake: current Alcohol intake frequency: does not drink Patient Tobacco Use Status: Never used Tobacco Tobacco use type: Cigarette Cigarettes Per Day: 10 Smoked in Last 30 Days: No e-Cigarette/Vaping Use: Never Used Second Hand Smoke Exposure: Yes Use of substances other than those prescribed or required for medical reasons: No Are you DNR?: No Advance Directives: No Advance Directives Information Provided: Yes Do you have a plan to hurt others: No Plan service: No Current occupational status: employed and unemployed Cognitive needs: No Hearing needs: No Vision needs: No Meds Allergies Allergy/AdvReac Type Severity Reaction Status Date / Time No Known Allergies Allergy Verified 01/12/25 10:53 Active Medications: Current Medications Acetaminophen (Acetaminophen 325 Mg Tablet) 650 mg PO Q6H PRN PRN Reason: Pain, Mild 1-3,fever,headache Calcium Carbonate (Calcium Carbonate 750 Mg Tab.Chew) 750 mg PO Q4H PRN PRN Reason: Heartburn Dextrose (Dextrose 50 % 25 Gm/50 Ml Syringe) 25 gm IVPUSH Q15M PRN; Protocol PRN Reason: per Hypoglycemia Standing Ord. Glucose (Glucose Gel 15 Gm Gel..Gram.) 15 gm PO Q15M PRN; Protocol PRN Reason: per Hypoglycemia Standing Ord. Lactated Ringer's (Lr) 1,000 mls @ 100 mls/hr IVCONT .Q10H MARQUITA Piperacillin Sod/Tazobactam (Sod 3.375 gm/ Sodium Chloride) 50 mls @ 100 mls/hr IV Q6H [facility]ITA Insulin Human Lispro (Insulin Lispro 100 Unit/Ml 3 Ml Vial) 0 unit SUBCUT QIDACHS [facility]; Protocol Magnesium Hydroxide (Milk Of Magnesia 30 Ml Oral.Susp) 30 ml PO DAILY PRN PRN Reason: Constipation Melatonin (Melatonin 3 Mg Tablet) 6 mg PO BEDTIME PRN PRN Reason: Insomnia Morphine Sulfate (Morphine Sulfate 4 Mg/Ml Cartridge) 3 mg IVPUSH Q4H PRN; Protocol PRN Reason: Pain, Severe (Pain Scale 7-10) Oxycodone HCl (Oxycodone Hcl Immed Release 5 Mg Tablet) 5 mg PO Q6H PRN PRN Reason: Pain, Moderate(Pain Scale 4-6) Sodium Chloride (0.9 % Sodium Chloride Flush 3 Ml Syringe) 3 ml IVFLUSH QSHIFT [facility] Home Medications ?Medication ?Instructions ?Recorded ?Confirmed ?Last Taken ?Type teprotumumab-trbw 500 mg 500 mg IV Q3W 12/03/24 01/12/25 Unknown History intravenous solution (Tepezza) insulin lispro 100 unit/mL See Rx Instructions subcut QIDACHS 01/12/25 01/12/25 Unknown History subcutaneous pen (Humalog KwikPen PRN Pump Failure (U-100) Insulin) rosuvastatin 5 mg tablet 5 mg PO DAILY 01/12/25 01/12/25 01/11/25 History Exam Height,Weight and Vital Signs: Height 5 ft 8 in Weight 72.2 kg Last Vital Signs Temp 98.0 F 01/12/25 12:00 Pulse 80 01/12/25 12:00 Resp 18 01/12/25 12:00 BP 131/63 01/12/25 12:00 Pulse Ox 95 01/12/25 12:00 O2 Del Method Room Air 01/12/25 12:00 Pertinent Lab Results Pertinent Lab Results: Laboratory Tests 01/12/25 01/12/25 11:15 12:39 WBC 20.1 H RBC 4.59 L Hgb 14.1 Hct 39.4 L MCV 85.8 MCH 30.7 MCHC 35.8 RDW 12.8 Plt Count 222 MPV 9.5 Immature Gran % (Auto) Cancelled Neut % (Auto) Cancelled Lymph % (Auto) Cancelled [place] % (Auto) Cancelled Eos % (Auto) Cancelled Baso % (Auto) Cancelled Lymph # (Auto) Cancelled [place] # (Auto) Cancelled Eos # (Auto) Cancelled Baso # (Auto) Cancelled Abs Immat Gran (auto) Cancelled Absolute Neuts (auto) Cancelled Absolute Nucleated RBC 0.000 Nucleated RBC % (auto) 0.0 Neutrophils % (Manual) 90 H Band Neutrophils % 1 L Lymphocytes % (Manual) 6 L Monocytes % (Manual) 2 Basophils % (Manual) 1 Abs Neuts (Manual) 18.3 H Lymphocytes # (Manual) 1.2 Monocytes # (Manual) 0.4 Basophils # (Manual) 0.2 Platelet Estimate NORMAL Plt Morphology Comment NORMAL RBC Morphology NORMAL Sodium 143 Potassium 4.1 Chloride 107 Carbon Dioxide 26 Anion Gap 14 BUN 14 Creatinine 0.96 Estim Creat Clear Calc 96.9 Estimated GFR > 60 Random Glucose 178 H Lactic Acid 0.8 Calcium 9.2 D Magnesium 1.9 Total Bilirubin 0.6 AST 32 ALT 25 Alkaline Phosphatase 70 Total Protein 7.9 Albumin 4.8 Influenza Type A (PCR) NEGATIVE Influenza Type B (PCR) NEGATIVE RSV RNA Qual (PCR) NEGATIVE SARS-CoV-2 RNA (RT-PCR) NEGATIVE Airway Mallampati Class: II TM Dist: >3cm Neck ROM: Full Assessment and Plan Assessment Anesthesia Assessment: Anesthesia Plan Discussed and Chart Reviewed Final Anesthetic Review Family History of Problems with Anesthesia: No History of Problems with Anesthesia: No NPO: Yes ASA Class: III and Emergency Final Preanesthetic Review: No Changes in Pt Med Stat, Meds/Allgs Chart Reviewed, Consent Obtained/Reviewed, Anes Risks/Benef Reviewed and DNR Form (If Appl.) Patient Risk: Intermediate Procedure Risk: Intermediate Anesthetic Plan Anesthetic Plan: GA Disposition: Standard PACU
[2025-01-12] MEDS: Lactated Ringers 1,000 ML 100 ML IVCONT ×2 (16:15→20:23)
--- NOTE | 2025-01-12 18:12 | W.PM.OPN ---
Operative Note Operative Note Date of Service: 01/12/25 Narrative: Preop diagnosis--acute appendicitis Postop diagnosis--acute appendicitis Procedure done--laparoscopic appendectomy Surgeon-Jeremiah Anesthesia--general endotracheal tube anesthesia Patient is a 44-year-old male who presents to the emergency room with right lower quadrant pain elevated white count CT scan showing findings consistent with the acute appendicitis as a result comes in now to undergo laparoscopic appendectomy. Findings--acutely inflamed appendix Procedure-- Patient was brought to the operative room under Anesthesia guidance intubated he had compression stockings placed before induction received preoperative antibiotics. his abdomen was prepped and draped in standard surgical fashion. An infraumbilical incision was created after numbing up the area with a 0.25% Marcaine with epinephrine. Dissection was carried down to the anterior abdominal wall fascia which was grasped with Calrence's and transected. 5 mm port was placed and pneumoperitoneum established. Two 5 mm ports were then placed under direct visualization 1 the suprapubic area and 1 in the left lower quadrant also using local. The 5 mm port site at the umbilical area was converted to Bardales trocar. The appendix was then encountered in the right lower quadrant and was noted to be thickened rigid consistent with acute appendicitis. It was grasped and elevated and using the [place] dissector a plane was made at the base of the appendix cecal area and then the LigaSure was used to come across the mesentery to this area. The appendiceal artery area was LigaSure and then the Endo-SUMMER 45 purple load was fired across the base of the appendix cecal area. Little strand was slept holding on but with the clarence went all the way across and this was resected the strand with the scissors. The appendix was then removed from the infraumbilical port site. Pneumoperitoneum was worried established in the right lower quadrant area evaluated again. The appendiceal stump looked good intact and there was no significant bleeding noted. The ports were then removed under direct visualization and the inferior the infraumbilical port site a pursestring 0 Vicryl suture was used to approximate the fascial edges. More local was used here. 4-0 Monocryl was then used in a interrupted subcuticular fashion to approximate the skin edges with Steri-Strips and Tegaderm gauze dressings. At the end of the case all sponge instrument needle counts were correct estimated blood loss was minimal specimens sent was the appendix. Patient was extubated returned stable to recovery room
[2025-01-12] MEDS: 0.9 % Sodium Chloride Flush 3 ML SYRINGE IVFLUSH (19:52)
[2025-01-12 20:42] LABS: Glucose, Whole Blood 330 mg/dL (60-115)
[2025-01-12 21:32] LABS: Appearance Urine Clear; Glucose Urine UA >=1000 mg/dL (Negative); PH 6.5 (5.0-9.0); Specific Gravity - Urine >= 1.030 (1.005-1.025); UMIC TRIGGER UACC YES
[2025-01-12 22:41] LABS: Glucose, Whole Blood 326 mg/dL (60-115)
[2025-01-12] MEDS: Insulin Glargine,Hum.rec.anlog 100 UNIT/ML 10 ML VIAL 25 UNIT SUBCUT (23:27)
[2025-01-13 01:49] LABS: Glucose, Whole Blood 266 mg/dL (60-115)
[2025-01-13 03:01] VITALS: BP 133/84; PULSE 80; RESP 18; TEMP 36.1; O2SAT 97
[2025-01-13] MEDS: oxyCODONE HCl Immed Release 5 MG TABLET 10 MG PO ×3 (03:34→11:46)
[2025-01-13 04:25] LABS: Glucose, Whole Blood 185 mg/dL (60-115)
[2025-01-13 06:06] LABS: Anion Gap 12 (12-20); Blood Urea Nitrogen 12 mg/dL (9-16); Calcium 8.6 mg/dL (8.4-10.2); Carbon Dioxide 26 mmol/L (22-29); Chloride 107 mmol/L (96-108); Creatinine Clr Calc Pharmacy 99.0; Estimated Glomerular Filt Rate > 60; Potassium 4.0 mmol/L (3.3-5.1); Sodium 141 mmol/L (135-145)
[2025-01-13 06:15] LABS: Hematocrit 38.2 % (42.0-52.0); Hemoglobin 13.2 g/dl (14.0-18.0); Mean Corpuscular HGB Conc 34.6 g/dl (31.0-36.0); Mean Corpuscular Hemoglobin 30.2 pg (27.0-33.0); Mean Corpuscular Volume 87.4 fL (80.0-98.0); NRBC Abs Auto 0.000 X10*3/uL (0.0-0.012); NRBC Pct Auto 0.0 /100WBC (0.0-0.2); Platelet Count 207 X10*3/uL (160-400); Red Blood Count 4.37 X10*6/uL (4.60-5.80); White Blood Count 16.1 X10*3/uL (4.8-10.8)
[2025-01-13 07:09] VITALS: BP 140/67; PULSE 67; RESP 16; TEMP 36.2; O2SAT 98
[2025-01-13 07:40] LABS: Glucose, Whole Blood 157 mg/dL (60-115)
[2025-01-13] MEDS: Metoprolol Succinate ER 25 MG TAB.ER.24H PO (07:41)
--- NOTE | 2025-01-13 08:01 | P.PNGS_ITS ---
Subjective Subjective Date of Service: 01/13/25 Interval history: Current appendectomy last night Has good pain control Says he feels well overall Tolerating diet so far Physical Exam 2 Vital Signs: Vital Signs: Last Vital Signs Temp 97.2 F 01/13/25 07:09 Pulse 67 01/13/25 07:09 Resp 16 01/13/25 07:09 BP 140/67 H 01/13/25 07:09 Pulse Ox 98 01/13/25 07:09 O2 Del Method Room Air 01/13/25 07:09 BMI result Body Mass Index 24.6 Const: Other: Looks well General: comfortable and no acute distress Resp: Effort & Inspection: normal respiratory effort Cardio: Rate: regular rate GI: Other: Dressings in place Palpation (GI): Soft to palpation, not firm and no guarding Objective Data Active Medications Acetaminophen (Acetaminophen 325 Mg Tablet) 650 mg PO Q6H PRN PRN Reason: Pain, Mild 1-3,fever,headache Calcium Carbonate (Calcium Carbonate 750 Mg Tab.Chew) 750 mg PO Q4H PRN PRN Reason: Heartburn Dextrose (Dextrose 50 % 25 Gm/50 Ml Syringe) 25 gm IVPUSH Q15M PRN; Protocol PRN Reason: per Hypoglycemia Standing Ord. Glucose (Glucose Gel 15 Gm Gel..Gram.) 15 gm PO Q15M PRN; Protocol PRN Reason: per Hypoglycemia Standing Ord. Lactated Ringer's (Lr) 1,000 mls @ 100 mls/hr IVCONT .Q10H [facility] Last Infusion: 01/13/25 07:02 Dose: Infused Documented By: GAURI Piperacillin Sod/Tazobactam (Sod 3.375 gm/ Sodium Chloride) 50 mls @ 100 mls/hr IV Q6H [facility] Last Admin: 01/13/25 07:41 Dose: 100 mls/hr Documented By: GAURI Insulin Glargine (Insulin Glargine,Hum.Rec.Anlog 100 Unit/Ml 10 Ml Vial) 25 unit SUBCUT BEDTIME [facility] Last Admin: 01/12/25 23:27 Dose: 25 unit Documented By: SHAYNA Insulin Human Lispro (Insulin Lispro 100 Unit/Ml 3 Ml Vial) 0 unit SUBCUT QIDACHS [facility]; Protocol Last Admin: 01/13/25 07:42 Dose: 2 unit Documented By: GAURI Ketorolac Tromethamine (Ketorolac Tromethamine 15 Mg/Ml Vial) 15 mg IVPUSH Q6H [facility] Stop: 01/17/25 19:59 Last Admin: 01/13/25 07:41 Dose: 15 mg Documented By: GAURI Magnesium Hydroxide (Milk Of Magnesia 30 Ml Oral.Susp) 30 ml PO DAILY PRN PRN Reason: Constipation Melatonin (Melatonin 3 Mg Tablet) 6 mg PO BEDTIME PRN PRN Reason: Insomnia Methimazole (Methimazole 10 Mg Tablet) 10 mg PO DAILY [facility] Last Admin: 01/13/25 07:41 Dose: 10 mg Documented By: GAURI Metoprolol Succinate (Metoprolol Succinate Er 25 Mg Tab.Er.24h) 25 mg PO DAILY [facility]; Protocol Last Admin: 01/13/25 07:41 Dose: 25 mg Documented By: GAURI Morphine Sulfate (Morphine Sulfate 4 Mg/Ml Cartridge) 3 mg IVPUSH Q4H PRN; Protocol PRN Reason: Pain, Severe (Pain Scale 7-10) Naloxone HCl (Naloxone Hcl 0.4 Mg/Ml Vial) 0.04 mg IVPUSH Q5M PRN PRN Reason: Excessive sedation or RR < 8 Oxycodone HCl (Oxycodone Hcl Immed Release 5 Mg Tablet) 5 mg PO Q6H PRN PRN Reason: Pain, Moderate(Pain Scale 4-6) Oxycodone HCl (Oxycodone Hcl Immed Release 5 Mg Tablet) 10 mg PO Q4H PRN PRN Reason: Pain, Severe (Pain Scale 7-10) Last Admin: 01/13/25 07:40 Dose: 10 mg Documented By: GAURI Sodium Chloride (0.9 % Sodium Chloride Flush 3 Ml Syringe) 3 ml IVFLUSH QSHIFT [facility] Last Admin: 01/13/25 07:42 Dose: Not Given Documented By: GAURI Non-Admin Reason: IV Running Labs 01/13/25 05:38 01/13/25 05:38 Labs: Laboratory Results - last 24 hr 01/12/25 01/12/25 01/12/25 11:15 12:39 19:31 MCV 85.8 MCH 30.7 MCHC 35.8 RDW 12.8 Plt Count 222 MPV 9.5 Immature Gran % (Auto) Cancelled Neut % (Auto) Cancelled Lymph % (Auto) Cancelled Dewitt % (Auto) Cancelled Eos % (Auto) Cancelled Baso % (Auto) Cancelled Lymph # (Auto) Cancelled [place]itt # (Auto) Cancelled Eos # (Auto) Cancelled Baso # (Auto) Cancelled Abs Immat Gran (auto) Cancelled Absolute Neuts (auto) Cancelled Absolute Nucleated RBC 0.000 Nucleated RBC % (auto) 0.0 Neutrophils % (Manual) 90 H Band Neutrophils % 1 L Lymphocytes % (Manual) 6 L Monocytes % (Manual) 2 Basophils % (Manual) 1 Abs Neuts (Manual) 18.3 H Lymphocytes # (Manual) 1.2 Monocytes # (Manual) 0.4 Basophils # (Manual) 0.2 Platelet Estimate NORMAL Plt Morphology Comment NORMAL RBC Morphology NORMAL Anion Gap 14 Estim Creat Clear Calc 96.9 Estimated GFR > 60 POC Glucose 330 H Random Glucose 178 H Lactic Acid 0.8 Calcium 9.2 D Magnesium 1.9 Total Bilirubin 0.6 AST 32 ALT 25 Alkaline Phosphatase 70 Total Protein 7.9 Albumin 4.8 Urine Color Urine Appearance Urine pH Ur Specific [place] Urine Protein Urine Glucose (UA) Urine Ketones Urine Blood Urine Nitrite Ur Leukocyte Esterase Urine RBC Urine WBC Ur Squamous Epith Cells Urine Bacteria Hyaline Casts Influenza Type A (PCR) NEGATIVE Influenza Type B (PCR) NEGATIVE RSV RNA Qual (PCR) NEGATIVE SARS-CoV-2 RNA (RT-PCR) NEGATIVE 01/12/25 01/12/25 01/13/25 21:15 22:30 01:45 MCV MCH MCHC RDW Plt Count MPV Immature Gran % (Auto) Neut % (Auto) Lymph % (Auto) Dewitt % (Auto) Eos % (Auto) Baso % (Auto) Lymph # (Auto) Dewitt # (Auto) Eos # (Auto) Baso # (Auto) Abs Immat Gran (auto) Absolute Neuts (auto) Absolute Nucleated RBC Nucleated RBC % (auto) Neutrophils % (Manual) Band Neutrophils % Lymphocytes % (Manual) Monocytes % (Manual) Basophils % (Manual) Abs Neuts (Manual) Lymphocytes # (Manual) Monocytes # (Manual) Basophils # (Manual) Platelet Estimate Plt Morphology Comment RBC Morphology Anion Gap Estim Creat Clear Calc Estimated GFR POC Glucose 326 H 266 H Random Glucose Lactic Acid Calcium Magnesium Total Bilirubin AST ALT Alkaline Phosphatase Total Protein Albumin Urine Color Yellow Urine Appearance Clear Urine pH 6.5 Ur Specific [place] >= 1.030 H Urine Protein Trace Urine Glucose (UA) >=1000 H Urine Ketones 15 Urine Blood Small (1+) H Urine Nitrite Negative Ur Leukocyte Esterase Negative Urine RBC 3-5 H Urine WBC 0-5 Ur Squamous Epith Cells 0-2 Urine Bacteria None Seen Hyaline Casts 3-5 Influenza Type A (PCR) Influenza Type B (PCR) RSV RNA Qual (PCR) SARS-CoV-2 RNA (RT-PCR) 01/13/25 01/13/25 01/13/25 04:19 05:38 07:13 MCV 87.4 MCH 30.2 MCHC 34.6 RDW 12.8 Plt Count 207 MPV 10.1 Immature Gran % (Auto) Neut % (Auto) Lymph % (Auto) [place] % (Auto) Eos % (Auto) Baso % (Auto) Lymph # (Auto) Dewitt # (Auto) Eos # (Auto) Baso # (Auto) Abs Immat Gran (auto) Absolute Neuts (auto) Absolute Nucleated RBC 0.000 Nucleated RBC % (auto) 0.0 Neutrophils % (Manual) Band Neutrophils % Lymphocytes % (Manual) Monocytes % (Manual) Basophils % (Manual) Abs Neuts (Manual) Lymphocytes # (Manual) Monocytes # (Manual) Basophils # (Manual) Platelet Estimate Plt Morphology Comment RBC Morphology Anion Gap 12 Estim Creat Clear Calc 99.0 Estimated GFR > 60 POC Glucose 185 H 157 H Random Glucose 192 H Lactic Acid Calcium 8.6 D Magnesium Total Bilirubin AST ALT Alkaline Phosphatase Total Protein Albumin Urine Color Urine Appearance Urine pH Ur Specific [place] Urine Protein Urine Glucose (UA) Urine Ketones Urine Blood Urine Nitrite Ur Leukocyte Esterase Urine RBC Urine WBC Ur Squamous Epith Cells Urine Bacteria Hyaline Casts Influenza Type A (PCR) Influenza Type B (PCR) RSV RNA Qual (PCR) SARS-CoV-2 RNA (RT-PCR) Procedures Date of Service Date of Service: 01/13/25 Progress Note: A&P Assessment and plan (1) Acute appendicitis: Status: Acute Assessment and Plan: Status post laparoscopic appendectomy last night Looks well overall Abdomen is soft and benign Has good pain control Stable vital signs Okay to DC home today Discharge instructions reinforced with the patient Time Spent With Patient Time: Total time managing care of this patient today ____ minutes. Quality Stroke Does the patient have a stroke diagnosis?: No VTE Prior VTE?: No VTE Risk Level:: Surgical - moderate VTE Device Contraindication: N/A - Device Ordered VTE Drug Contraindication: Treatment Not Indicated
--- NOTE | 2025-01-13 10:14 | HO.POSTANES ---
Post Anesthesia Evaluation Post Anesthesia Evaluation Date of Service: 01/13/25 Vital Signs: Vital Signs Temp Pulse Resp BP Pulse Ox O2 Del Method 01/13/25 07:09 97.2 F 67 16 140/67 H 98 Room Air 01/13/25 03:01 96.9 F 80 18 133/84 97 Room Air Anesthesia: General Mental Status: Awake Pain Control: Satisfactory Nausea/Vomiting: None Hydration: Adequate Anesthesia-Related Issues: No Anes. Related Issues
[2025-01-13 11:40] LABS: Glucose, Whole Blood 238 mg/dL (60-115)
--- NOTE | 2025-01-13 12:08 | MHC.CM.PN ---
Patient dc'd home self care via private transport prior to CM assessment.
--- NOTE | 2025-01-13 13:32 | P.DS_ITS ---
DS: Providers Provider Date of Service: 01/13/25 Date of admission: 01/12/25 13:24 Date of discharge: 01/13/25 Primary care physician: Sonia Grijalva MD Admitting clinician: Naila Daniels Attending physician on admission: Naila Daniels Attending physician on discharge: Butch Tian DS: Diagnosis Discharge Diagnosis (1) Acute appendicitis: Status: Acute DS: Summary Hospital Course Hospital Course: Admission HPI: Juan Daniel Love is a 44 year old male with a history of T1DM, HTN, Hyperthyroidism, renal insufficiency, mediastinal mass, renal calculi, vitamin d deficiency, presenting to the ED with RLQ abdominal pain that began suddenly at 3 am, with associated nausea and vomiting and subjective chills. He has no previous episodes of this. Has been unable to eat. He denies constipation or diarrhea, urinary symptoms. On presentation to the ED he was found to have leukocytosis, 20.1, on CT found to have early appendicitis with multiple calcified appendicolith, fluid filled appendiceal dilation. he was started on IV zosyn, fluid and pain regimen. pain has improved with the current regimen but is still very uncomfortable at rest and with ambulation. He denies current smoking, he is a former smoker. Denies alcohol or drug use. he denies abdominal surgical history Hospital course: Patient was admitted for further management of acute appendicitis, He was consented for a laparoscopic appendectomy. He was brought to the operating room on the evening or 8/12. The procedure was uncomplicated and he toelrated it well. He was transferred to the PACU in stable condition and was later transferred to [facility] floor for further observation. Diet was advanced that night. He decided not to eat due to his sugars being high. On POD1 patient was doing well, much improved overall. Pain was well controlled. he ate breakfast without symptoms and felt ready to be discharged. On exam his abdomen was soft and benign, experiencing appropriate tenderness around incision sites. There was some strikethrough on the umbilical dressing, so this was changed by the nurse. incisions remained intact and were clean. At the time of discahrge the patient was in stable conditioni. Status at Discharge Functional status at discharge: independent ambulation Overall status at discharge: patient is progressing back to baseline Time Attestation Discharge Coordination Time (in mins): 30 Quality: Safe Use of Opioids Does Pt have an Active Cancer Diagnosis on the Problem List?: No Quality: Stroke Does the patient have a stroke diagnosis?: No Physical Exam Vital Signs: Vital Signs: Last Vital Signs Temp 97.2 F 01/13/25 07:09 Pulse 67 01/13/25 07:09 Resp 16 01/13/25 07:09 BP 140/67 H 01/13/25 07:09 Pulse Ox 98 01/13/25 07:09 O2 Del Method Room Air 01/13/25 07:09 BMI result Body Mass Index 24.6 Const: Other: Looks well General: comfortable and no acute distress Resp: Effort & Inspection: normal respiratory effort Cardio: Rate: regular rate GI: Other: Dressings in place Palpation (GI): Soft to palpation, not firm and no guarding DS: Data Data Completed and Pending Pending studies at discharge: Pending at discharge 01/12/25 17:39 Surgical [PTH] Routine Labs on day of discharge: Laboratory Results - last 24 hr 01/12/25 01/12/25 01/12/25 19:31 21:15 22:30 WBC RBC Hgb Hct MCV MCH MCHC RDW Plt Count MPV Absolute Nucleated RBC Nucleated RBC % (auto) Sodium Potassium Chloride Carbon Dioxide Anion Gap BUN Creatinine Estim Creat Clear Calc Estimated GFR POC Glucose 330 H 326 H Random Glucose Calcium Urine Color Yellow Urine Appearance Clear Urine pH 6.5 Ur Specific [place] >= 1.030 H Urine Protein Trace Urine Glucose (UA) >=1000 H Urine Ketones 15 Urine Blood Small (1+) H Urine Nitrite Negative Ur Leukocyte Esterase Negative Urine RBC 3-5 H Urine WBC 0-5 Ur Squamous Epith Cells 0-2 Urine Bacteria None Seen Hyaline Casts 3-5 01/13/25 01/13/25 01/13/25 01:45 04:19 05:38 WBC 16.1 H RBC 4.37 L Hgb 13.2 L Hct 38.2 L MCV 87.4 MCH 30.2 MCHC 34.6 RDW 12.8 Plt Count 207 MPV 10.1 Absolute Nucleated RBC 0.000 Nucleated RBC % (auto) 0.0 Sodium 141 Potassium 4.0 Chloride 107 Carbon Dioxide 26 Anion Gap 12 BUN 12 Creatinine 0.94 Estim Creat Clear Calc 99.0 Estimated GFR > 60 POC Glucose 266 H 185 H Random Glucose 192 H Calcium 8.6 D Urine Color Urine Appearance Urine pH Ur Specific [place] Urine Protein Urine Glucose (UA) Urine Ketones Urine Blood Urine Nitrite Ur Leukocyte Esterase Urine RBC Urine WBC Ur Squamous Epith Cells Urine Bacteria Hyaline Casts 01/13/25 01/13/25 07:13 11:34 WBC RBC Hgb Hct MCV MCH MCHC RDW Plt Count MPV Absolute Nucleated RBC Nucleated RBC % (auto) Sodium Potassium Chloride Carbon Dioxide Anion Gap BUN Creatinine Estim Creat Clear Calc Estimated GFR POC Glucose 157 H 238 H Random Glucose Calcium Urine Color Urine Appearance Urine pH Ur Specific [place] Urine Protein Urine Glucose (UA) Urine Ketones Urine Blood Urine Nitrite Ur Leukocyte Esterase Urine RBC Urine WBC Ur Squamous Epith Cells Urine Bacteria Hyaline Casts Discharge Plan Discharge Anticipated Discharge Date/Time: 01/13/25 10:37 Patient Disposition: Home, Self-Care Discharge Diagnosis: acute appendicitis, s/p laparoscopic appenedectomy Referrals: Butch Tian MD [Physician, General Surgery] - 2 Weeks Po,Sonia Moulton MD [Primary Care Provider, Internal Medicine] - 1 Week Discharge Medications: New oxycodone 5 mg tablet 5 mg PO Q6H PRN (Reason: pain, severe) Qty: 16 0RF Rx Instructions: Partial Fill upon patient request. docusate sodium [Colace] 100 mg capsule 100 mg PO BID Qty: 30 0RF Continued (DME) pen needle, diabetic [BD Ultra-Fine Orig Pen Needle] 29 gauge x 1/2 needle See Rx Instructions .Route Qty: 100 5RF Rx Instructions: test 4 times daily (DME) Dexcom G7 Sensor Device See Rx Instructions .ROUTE .COMPLEX Qty: 3 5RF Dose Instruction: DIRECTED CHANGE EVERY 10 DAYS Rx Instructions: DIRECTED CHANGE EVERY 10 DAYS (DME) FreeStyle Gabriel 3 Plus Sensor Device See Rx Instructions .ROUTE .MEDSUPPLY Qty: 2 11RF Rx Instructions: As directed cholecalciferol (vitamin D3) [Vitamin D3] 25 mcg (1,000 unit) capsule 25 mcg PO DAILY Qty: 90 1RF (DME) pen needle, diabetic 29 gauge x 1/2 needle See Rx Instructions .Route Qty: 100 0RF Rx Instructions: As directed- Use to test 4 Times a day pyridoxine (vitamin B6) 100 mg tablet 100 mg PO DAILY 90 Days Qty: 90 3RF metoprolol succinate 25 mg tablet extended release 24 hr 25 mg PO DAILY 30 Days Qty: 30 2RF (DME) blood-glucose meter Kit See Rx Instructions .Route Qty: 1 0RF Rx Instructions: As directed insulin lispro [Humalog KwikPen Insulin] 100 unit/mL insulin pen See Rx Instructions subcut QIDACHS PRN (Reason: Pump Failure ) Rx Instructions: subcutaneously 4 times a day before meal/bed; upto 20 units in a day to use in addition to pump rosuvastatin 5 mg tablet 5 mg PO DAILY (DME) FreeStyle Lite Strips Strip See Rx Instructions .ROUTE .COMPLEX Qty: 100 4RF Dose Instruction: USE TO TEST 4 TIMES DAILY DIRECTED Rx Instructions: USE TO TEST 3 TIMES DAILY DIRECTED prn sensor failure insulin lispro [Humalog U-100 Insulin] 100 unit/mL solution See Rx Instructions subcut USEASDIRECTD MDD 60 per day 30 Days Qty: 30 11RF Rx Instructions: 60 units per day via insulin pump subcutaneously use as directed; Uses iLet pump. methimazole 10 mg tablet 10 mg PO DAILY 30 Days Qty: 30 6RF mometasone 0.1 % cream 1 appl topical DAILY PRN (Reason: allergic reaction) 21 Days Qty: 45 0RF Tepezza 500 mg recon soln 500 mg IV Q3W Rx Instructions: Next Dose / per pt at [facility]. Baqsimi 3 mg/actuation spray,non-aerosol 3 mg intranasal ONCE Qty: 2 5RF (DME) blood-glucose meter [FreeStyle Pettus Lite] Kit See Rx Instructions .Route Qty: 1 0RF Rx Instructions: As directed tests 4 X/day (DME) lancets [FreeStyle Lancets] 28 gauge misc See Rx Instructions .Route Qty: 100 4RF Rx Instructions: As directed tests 4 X/day glucose 4 gram tablet,chewable 4 g PO Q15M PRN (Reason: hypoglycemia) Qty: 14 0RF Rx Instructions: until symptoms of low blood sugar are controlled Discharge Orders: Discharge Order (Routine); Ordered 01/13/25 Ordered By: Butch Tian Diet: Advance to usual diet Activity on Discharge: No heavy lifting Stand Alone Forms: Patient Portal Discharge page Print Language: Nigerian Activity Restrictions/Additional Instructions: If your incision site is sore, you may apply ice to the area for short periods of time (no more than 20 minutes at a time, followed by 20 minutes off). You were prescribed oxycodone to assist with pain management as needed. You can additionally use OTC ibuprofen or acetaminophen as needed for pain. You can remove the dressings at home after 2 days, they do not need to be redressed. Steri strips can remain in place and will likely fall on their own or in the shower. No heavy lifting >20 pounds No strenuous activity. Do not use creams, lotion, ointment on the incision sites You will follow up with General Surgery in the office in 1 week, you can call the office to schedule the appointment ) If your incision site is sore, you may apply ice to the area for short periods of time (no more than 20 minutes at a time, followed by 20 minutes off). You were prescribed oxycodone to assist with pain management as needed. You can additionally use OTC ibuprofen or acetaminophen as needed for pain. You can remove the dressings at home, they do not need to be redressed. Steri strips can remain in place and will likely fall on their own or in the shower. No heavy lifting >20 pounds No strenuous activity. Do not use creams, lotion, ointment on the incision sites You will follow up with Dr. Smart in the office in 1 week, you can call the office to schedule the appointment ) Care Plan Goals: return to baseline level of health Health Concerns: post op pain T1DM HTN Plan of Treatment: follow up in the office in 1-2 weeks Assessment: patient doing well Discharge Date/Time: 01/13/25 11:59
== END 2025-01-13 11:59 | disposition home or self-care (01) | DRG 234 ==
LOC: HO.ED 12:34 → HO.EDOVER 13:39 → HO.S3 16:22
PROVIDERS: Internal Medicine; Physician Assistant Medical; Surgery; Emergency Provider Emergency Medicine; PCP Internal Medicine
PROC: 0DTJ4ZZ Resection of Appendix, Percutaneous Endoscopic Approach (ICD-10-PCS; CPT 44970; principal; 2025-01-12 16:10)
DX: K35.80 Unspecified acute appendicitis (principal); E10.9 Type 1 diabetes mellitus without complications; I10 Essential (primary) hypertension; E21.3 Hyperparathyroidism, unspecified; Z20.822 Contact with and (suspected) exposure to COVID-19; Z79.899 Other long term (current) drug therapy
CPT/HCPCS: 36415; 74177; 80048; 80053; 81001; 82947; 83605; 83735; 85007; 85027; 87040; 87637; 88304; 99284; J0131; J0737; J1100; J1885; J2003; J2250; J2270; J2405; J2543; J2704; J3010; J7120

== ENCOUNTER → 2025-01-12 10:58 | Outpatient (BNV) | payer OTHER, SELFPAY | PROVIDERS: Emergency Provider Emergency Medicine; PCP Internal Medicine; Visit Provider Radiology Diagnostic Radiology | DX: R10.31 Right lower quadrant pain (principal) | CPT/HCPCS: 74177 ==

== ENCOUNTER → 2025-01-12 13:24 | Outpatient (BNV) | payer OTHER, SELFPAY | PROVIDERS: Emergency Provider Emergency Medicine; PCP Internal Medicine | DX: K35.30 Acute appendicitis with localized peritonitis, without perforation or gangrene (principal) | CPT/HCPCS: 44970; 99222 ==

== ENCOUNTER 2025-01-19 10:11 | Outpatient (AMB) | payer OTHER, SELFPAY ==
--- NOTE | 2025-01-19 10:31 | MHC.OFFVIS ---
Vital Signs 01/19/25 10:33 Height 5 ft 8 in Weight 160 lb BMI 24.3 BP 150/74 H Position Sitting Respiration 16 Pulse 76 Intake Visit Reasons: s/p accute appendicitis Intake Note: Pt states, I'm feeling well, just some soreness around my belly button. 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 Allergies No Known Allergies Allergy (Verified 01/19/25 10:35) Medication List - Last Reconciled 01/19/25 by Frankie Hollingsworth RN blood sugar diagnostic (FreeStyle Lite Strips) USE TO TEST 3 TIMES DAILY DIRECTED prn sensor failure blood-glucose meter As directed blood-glucose meter (FreeStyle [place] Lite kit) As directed tests 4 X/day blood-glucose sensor ([employer] G7 Sensor device) DIRECTED CHANGE EVERY 10 DAYS blood-glucose sensor (FreeStyle Gabriel 3 Plus Sensor device) As directed cholecalciferol (vitamin D3) (Vitamin D3) 25 mcg PO DAILY docusate sodium (Colace) 100 mg PO BID glucagon 3 mg/actuation (Baqsimi) 3 mg intranasal ONCE glucose 4 grams PO Q15M PRN insulin lispro (Humalog KwikPen (U-100) Insulin) subcutaneously 4 times a day before meal/bed; upto 20 units in a day to use in addition to pump insulin lispro (Humalog U-100 Insulin) 60 units per day via insulin pump subcutaneously use as directed; Uses iLet pump. 30 days MDD 60 per day lancets (FreeStyle Lancets) As directed tests 4 X/day methimazole 10 mg PO DAILY 30 days metoprolol succinate ER 25 mg PO DAILY 30 days mometasone 0.1% 1 appl topical DAILY PRN 3 weeks NS pen needle, diabetic (BD Ultra-Fine Original Pen Needle) test 4 times daily pen needle, diabetic As directed- Use to test 4 Times a day pyridoxine (vitamin B6) 100 mg PO DAILY 90 days rosuvastatin 5 mg PO DAILY teprotumumab-trbw (Tepezza) 500 mg IV Q3W HPI HPI s/p accute appendicitis: Details: Mr. Dick Love is 44 year old male who initially presented to the ED with complaints of RLQ abd pain on 01/12/25. CT confirmed acute appendicitis and he underwent laparoscopic appendectomy that day. He tolerated the procedure well and was discharged to home on 01/13/25. He reports doing well since the surgery. He only took two oxycodone pills at home. He only has mild discomfort at his umbilical incision. He is eating without nausea or vomiting and moving his bowels normally. He has no concerns. He would like to go back to work. [facility] Medical History (Updated 01/12/25 @ 14:12 by Rayo Sims PA-C) Diabetes type I Hyperthyroidism Periorbital edema Hypothyroidism Surgical History (Updated 01/19/25 @ 07:53 by Nena Jones Dhaval) History of laparoscopic appendectomy (01/12/25) No pertinent past surgical history Social History Household Members: None Housing: Apartment Do you presently have visiting nurse or other home services: No Alcohol intake: current Alcohol intake frequency: does not drink Patient Tobacco Use Status: Never used Tobacco Tobacco use type: Cigarette Cigarettes Per Day: 10 e-Cigarette/Vaping Use: Never Used Second Hand Smoke Exposure: Yes service: No Current occupational status: employed and unemployed Cognitive needs: No Hearing needs: No Vision needs: No Review of Systems Const All systems reviewed & are unremarkable except as noted in HPI and below Physical Exam Vital Signs: Last Vital Signs Pulse 76 01/19/25 10:33 Resp 16 01/19/25 10:33 BP 150/74 H 01/19/25 10:33 BMI result Body Mass Index 24.3 Const General: comfortable, no acute distress and alert Orientation/consciousness: patient oriented x3 Resp Effort & Inspection: normal respiratory effort GI Other: steri strips removed from all incision sites and all are well approximated; umbilical incision with very mild erythema surrounding, no drainage noted, suprapubic and LLQ incisions clean appearing without edema or induration Inspection: No distended Palpation (GI): Soft to palpation, Tenderness to palpation present (GI) (mild incisional) and no guarding Skin General skin exam: no rashes or lesions noted Neuro General: patient oriented x3 and moves all extremities Results Reviewed Results Reviewed: Appendix, appendectomy: Acute appendicitis and periappendicitis with fibrinous adhesions Assessment & Plan Assessment & Plan (1) Acute appendicitis: Code(s): K35.80 - Unspecified acute appendicitis Category: Medical Qualifiers: Acute appendicitis type: with localized peritonitis Appendicitis abscess presence: without abscess Appendicitis gangrene presence: without gangrene Appendicitis perforation presence: without perforation Qualified Code(s): K35.30 - Acute appendicitis with localized peritonitis, without perforation or gangrene Plan 44 year old male s/p laparoscopic appendectomy on 01/12/25. He tolerated the procedure well. His abdomen is benign. His incisions are well healed but he does have some mild incisional erythema at the umbilical site. I anticipate this will improve following the steri strip removal and keeping the site dry however he was instructed to monitor this and if it does not improve or the erythema begins to worsen, develops drainage, fevers/chills, nausea/vomiting he was instructed to call. He can return to work as tolerated and a note was provided for this however he was instructed to continue lifting restrictions for another two weeks. He can follow up as needed. He is comfortable with the plan. Medications: Refilled docusate sodium (Colace) 100 mg PO BID 30 caps 0RF Coding Level of Care Code Global (89493) Diagnoses Acute appendicitis with localized peritonitis, without perforation, abscess, or gangrene K35.30 Acute appendicitis type: with localized peritonitis Appendicitis abscess presence: without abscess Appendicitis gangrene presence: without gangrene Appendicitis perforation presence: without perforation
[2025-01-19 10:33] VITALS: BP 150/74; PULSE 76; RESP 16; BMI 24.3
== END 2025-01-19 10:52 | disposition home or self-care (01) ==
LOC: HO.HGS 10:12
PROVIDERS: PCP Internal Medicine; Visit Provider Physician Assistant Surgical
DX: K35.30 Acute appendicitis with localized peritonitis, without perforation or gangrene (principal)
CPT/HCPCS: 99024

== ENCOUNTER 2025-01-27 12:36 | Outpatient (AMB) | payer OTHER, SELFPAY ==
--- NOTE | 2025-01-27 12:49 | MHC.OFFVIS ---
Vital Signs 01/27/25 13:01 Height 5 ft 8 in Weight 160 lb 11.472 oz BMI 24.4 BP 102/64 Blood Pressure Location Lt brachial Position Sitting Pulse 74 Pulse Source Pulse Oximeter Pulse Oximetry (%) 97 Oxygen Delivery Method Room Air Intake Visit Reasons: Type 1 DM Intake Note: Patient present today to follow up on Type 1 Diabetes Mellitus. Patient receives Dexcom G7 supplies through: [facility] Last Diabetic Eye exam: 01/28/2024, Has an upcoming appointment. Last Podiatry Visit: Does not see a Nuclear Reactor Operator Random Glucose: 144 mg/dl HgA1C: 7.3% 01/27/2025 Pattern Setter Required: No Accompanied by: Self / Same As Patient Allergies No Known Allergies Allergy (Verified 01/27/25 12:53) Medication List - Last Reconciled 01/27/25 by Donis Lehman MD blood sugar diagnostic (FreeStyle Lite Strips) USE TO TEST 3 TIMES DAILY DIRECTED prn sensor failure blood-glucose meter As directed blood-glucose meter (FreeStyle Telephone Lite kit) As directed tests 4 X/day blood-glucose sensor (Dexcom G7 Sensor device) DIRECTED CHANGE EVERY 10 DAYS blood-glucose sensor (FreeStyle Gabriel 3 Plus Sensor device) As directed cholecalciferol (vitamin D3) (Vitamin D3) 25 mcg PO DAILY docusate sodium (Colace) 100 mg PO BID glucagon 3 mg/actuation (Baqsimi) 3 mg intranasal ONCE glucose 4 grams PO Q15M PRN insulin lispro (Humalog KwikPen (U-100) Insulin) subcutaneously 4 times a day before meal/bed; upto 20 units in a day to use in addition to pump insulin lispro (Humalog U-100 Insulin) 60 units per day via insulin pump subcutaneously use as directed; Uses iLet pump. 30 days MDD 60 per day lancets (FreeStyle Lancets) As directed tests 4 X/day lisinopril 5 mg PO DAILY methimazole 10 mg PO DAILY 30 days metoprolol succinate ER 25 mg PO DAILY 30 days mometasone 0.1% 1 appl topical DAILY PRN 3 weeks NS pen needle, diabetic (BD Ultra-Fine Original Pen Needle) test 4 times daily pen needle, diabetic As directed- Use to test 4 Times a day pyridoxine (vitamin B6) 100 mg PO DAILY 90 days rosuvastatin 5 mg PO DAILY teprotumumab-trbw (Tepezza) 500 mg IV Q3W HPI Comments Details: 44 YO M is seen in f/u for T1DM. He has been seen regularly for pump follow-ups. He is on an ilet insulin pump with dexcom sensor. He was last seen by Miranda Centeno NP on 10/09/24 Initially diagnosed with T1DM at age 5 He was recently seen for hyperthyroidism and is on methimazole with a beta hector. He had f/u in March with Dominik Parson. HE c/o a pruritic rash and his left lower leg. He denies fever, sore throat Pump download is in excellent range with occational low. Average glucose is 156 with G mi of 7.1%, standard deviation of 49.5, CV of 31.6%. 73% range with 25% hyperglycemia and 0.9% hypoglycemia and 0.6% very low He has announcing his breakfast 71% as usual lunch is 68% as usual and 47% usual for dinner. Total daily insulin for basal is 28.2 with total daily insulin dose of 62.2 Treats lows with OJ Checks sugar after to ensure it is rising. Family history of autoimmunity in lupus in mother Has eyes checked yearly, last eye exam 02/24 , no retinopathy. Denies neuropathy, Does not see podiatry. No nephropathy Not on RAINER/ARB. Microalbumin 28.0 08/06/2023 eGFR>60 08/06/23 Has HLD, on statin Denies history of CAD. Diet/Carb counting: balanced trying to add more protein to diet Denies recent prior episodes of DKA. Denies prior severe episodes of hypoglycemia requiring help or hospitalization. Seeing retinal specialist- has appt tomorrow for laser Labs: Anti-PENG 65 antibodies were negative. Getting methimazole 10 mg for Graves . On Tepezza prescribed byDr. Simms. Helping with [facility] Medical History (Updated 01/21/25 @ 00:02 by Hal Conner) Diabetes type I Hyperthyroidism Periorbital edema Hypothyroidism Surgical History (Updated 01/19/25 @ 07:53 by Nena Jones Dhaval) History of laparoscopic appendectomy (01/12/25) No pertinent past surgical history Social History Household Members: None Housing: Apartment Do you presently have visiting nurse or other home services: No Alcohol intake: current Alcohol intake frequency: does not drink Patient Tobacco Use Status: Never used Tobacco Tobacco use type: Cigarette Cigarettes Per Day: 10 e-Cigarette/Vaping Use: Never Used Second Hand Smoke Exposure: Yes service: No Current occupational status: employed and unemployed Cognitive needs: No Hearing needs: No Vision needs: No Physical Exam Vital Signs: Last Vital Signs Pulse 74 01/27/25 13:01 BP 102/64 01/27/25 13:01 Pulse Ox 97 01/27/25 13:01 Oxygen Delivery Method Room Air 01/27/25 13:01 BMI result Body Mass Index 24.4 Absence of Cushingoid features. Absence of acromegalic features. Neck exam reveals nl size thyroid about 15 gms. No thyroid nodules palpable. No carotid bruits present. Lungs CTA. Heart S1 S2, Reg R/R. No M/R/ G. Skin exam reveals absence of vitiligo or acanthosis nigricans. Abdominal exam reveals Soft NT/ND with NA BS. No organomegaly present. Extrem Other: Visual exam of foot performed. No ulcerations or open lesions. No onchomycosis, no callouses.Pulses 2 + distally. Sensation intact to monofilament exam. Vibratory sensation sensed 10 seconds decreased in right, 10 seconds in left with 128 Hz tuning fork Results AMB Hemoglobin A1c AMB Hemoglobin A1c 7.3 % Last Edit by DAMIAN Costa on 01/27/25 13:17 Results Reviewed Results Reviewed: Laboratory Last Values Glucose (Clinic) 144 mg/dL (60-115) H 01/27/25 12:59 Assessment & Plan Assessment & Plan (1) Diabetes type I: Comment: DX age 5 Code(s): E10.9 - Type 1 diabetes mellitus without complications Category: Medical Plan: This is a 42-year-old male with history of longstanding-type 1 diabetes with improved good glycemic control on iLet pump and no known microvascular or macrovascular complication. Plan is to continue management with the iLet. we will check microalbumin to creatinine ratio . (2) Hyperthyroidism: Code(s): E05.90 - Thyrotoxicosis, unspecified without thyrotoxic crisis or storm Category: Medical Plan: Graves disease with hyperthyroidism currently on methimazole 10 mg q.d. We will recheck TSH, free T4 and free T3 adjust methimazole accordingly. We will go over definitive treatment of Graves disease with patient including thyroidectomy and radioactive iodine. Orders: Orders Microalbumin, Random (w Creat) Today E10.9 - Type 1 diabetes mellitus without complications Triiodothyronine T3 Free Today E05.90 - Thyrotoxicosis, unspecified without thyrotoxic crisis or storm AMB Hemoglobin A1c Today E10.9 - Type 1 diabetes mellitus without complications Free T4 (Free Thyroxine) Today E05.90 - Thyrotoxicosis, unspecified without thyrotoxic crisis or storm Thyroid Stimulating Hormone Today E05.90 - Thyrotoxicosis, unspecified without thyrotoxic crisis or storm Coding Level of Care Code Est Pt Level 4 (77429) Complex EM visit Add On G2211 Diagnoses Diabetes type I E10.9 Hyperthyroidism E05.90
[2025-01-27 13:01] VITALS: BP 102/64; PULSE 74; O2SAT 97; BMI 24.4
[2025-01-27 13:04] LABS: Glucose, Whole Blood 144 mg/dL (60-115)
== END 2025-01-27 13:15 | disposition home or self-care (01) ==
LOC: HO.ENCR 12:37
PROVIDERS: PCP Internal Medicine; Visit Provider Internal Medicine Endocrinology, Diabetes & Metabolism
DX: E10.9 Type 1 diabetes mellitus without complications (principal); E05.90 Thyrotoxicosis, unspecified without thyrotoxic crisis or storm
CPT/HCPCS: 99214

== ENCOUNTER → 2025-01-27 12:36 | Outpatient (BNVA) | payer OTHER, SELFPAY | PROVIDERS: PCP Internal Medicine; Visit Provider Internal Medicine Endocrinology, Diabetes & Metabolism | DX: E10.9 Type 1 diabetes mellitus without complications (principal) | CPT/HCPCS: 82947; 83036 ==

== ENCOUNTER 2025-02-03 13:54 | Outpatient (REF) | payer OTHER, SELFPAY ==
[2025-02-03 15:43] LABS: Free T4 (Free Thyroxine) 0.84 ng/dL (0.71-1.85); Thyroid Stimulating Hormone 6.80 uIU/mL (0.32-4.0)
[2025-02-03 16:11] LABS: Microalbum/Creatinine Ratio Ur 25.6 ug/mg cr (<30)
== END 2025-02-03 13:55 | disposition home or self-care (01) ==
LOC: HO.LAB 13:54
PROVIDERS: PCP Internal Medicine; Visit Provider Internal Medicine Endocrinology, Diabetes & Metabolism
DX: E10.9 Type 1 diabetes mellitus without complications (principal); E05.90 Thyrotoxicosis, unspecified without thyrotoxic crisis or storm
CPT/HCPCS: 36415; 82043; 82570; 84439; 84443; 84481

== ENCOUNTER 2025-03-04 13:33 | Outpatient (AMB) | payer OTHER, SELFPAY ==
--- NOTE | 2025-03-04 13:35 | A.OFFVIS_ITS ---
Intake Visit Reasons: 3m/PVR Intake Note: patient presents today for: 3m/PVR urology medications: vit b6 blood thinners: none today's PVR: 163mls Funding Specialist Required: No Accompanied by: Self / Same As Patient Allergies No Known Allergies Allergy (Verified 03/04/25 14:16) Medication List - Last Reconciled 03/04/25 by OMAR Washburn alfuzosin ER 10 mg PO BEDTIME 30 days blood sugar diagnostic (FreeStyle Lite Strips) USE TO TEST 3 TIMES DAILY DIRECTED prn sensor failure blood-glucose meter As directed blood-glucose meter (FreeStyle [place] Lite kit) As directed tests 4 X/day blood-glucose sensor ([employer] G7 Sensor device) DIRECTED CHANGE EVERY 10 DAYS blood-glucose sensor (FreeStyle Gabriel 3 Plus Sensor device) As directed cholecalciferol (vitamin D3) (Vitamin D3) 25 mcg PO DAILY docusate sodium (Colace) 100 mg PO BID glucagon 3 mg/actuation (Baqsimi) 3 mg intranasal ONCE glucose 4 grams PO Q15M PRN insulin lispro (Humalog KwikPen (U-100) Insulin) subcutaneously 4 times a day before meal/bed; upto 20 units in a day to use in addition to pump insulin lispro (Humalog U-100 Insulin) 60 units per day via insulin pump subcutaneously use as directed; Uses iLet pump. 30 days MDD 60 per day lancets (FreeStyle Lancets) As directed tests 4 X/day lisinopril 5 mg PO DAILY methimazole 7.5 mg (1.5 x 5 mg) PO DAILY 30 days metoprolol succinate ER 25 mg PO DAILY 30 days mometasone 0.1% 1 appl topical DAILY PRN 3 weeks NS pen needle, diabetic (BD Ultra-Fine Original Pen Needle) test 4 times daily pen needle, diabetic As directed- Use to test 4 Times a day pyridoxine (vitamin B6) 100 mg PO DAILY 90 days rosuvastatin 5 mg PO DAILY teprotumumab-trbw (Tepezza) 500 mg IV Q3W HPI Comments Details: Juan Daniel is a very pleasant 44-year-old male patient. He has a past medical history of hypothyroidism and type 1 diabetes diagnosed at 5 years old. He presents to the office today for follow-up of his nephrolithiasis, microscopic hematuria, incomplete bladder emptying, and abnormal cytology. In discussion with the patient today he reports since his last office visit here he has since undergone treatment for his Graves disease with IV infusions. He also reports having underwent an appendectomy in January for appendicitis. He reports over the last 2 months he has been noting episodes of urinary frequency and incomplete bladder emptying in office urinalysis results reviewed with the patient today. PVR 163mls. Previous workup has included a renal ultrasound 10/25 bilateral kidneys are normal in echotexture and thickness. Multiple right renal cysts measuring 10 mm in size. There is a 4 mm nonobstructing calculus in the interpolar region of the right kidney. There is no right-sided hydronephrosis. Left kidney with multiple nonobstructing calculi measuring up to 6 x 3 x 8 mm in the interpolar region. There is no left-sided hydronephrosis. The urinary bladder is unremarkable. The prostate measures approximately 20 mL. Previous urine cytology results were reviewed Urine cytologies: 03/25, 07/27, and 10/25, 12/25 Atypical urothelial cells He does have a previous history of nicotine dependence however quit 3 months ago. We did discussed at length potential causes of microscopic hematuria as well as abnormal cytologies. We discussed further microscopic hematuria workup to include CT urogram and cystoscopy. We discussed risks and benefits of this intervention. When asked he denies incontinence, nocturia, hematuria, dysuria, foul smelling urine, changes to urinary stream, flank pain, fever, and or chills. He discusses his increase in water intake with adding lemon juice to the water. He reports compliance with vitamin B6 daily. I discussed reasons for blood in the urine may include but are not limited to kidney stones, cancer in the urinary tract, BPH, kidney stone disease or inflammatory conditions of the urinary tract. I have discussed workup to include cystoscopy evaluation. He ot herwise offers no other issues or concerns at this time. [facility] Medical History Diabetes type I Hyperthyroidism Periorbital edema Hypothyroidism Surgical History History of laparoscopic appendectomy (01/12/25) No pertinent past surgical history Social History Household Members: None Housing: Apartment Do you presently have visiting nurse or other home services: No Alcohol intake: current Alcohol intake frequency: does not drink Patient Tobacco Use Status: Never used Tobacco Tobacco use type: Cigarette Cigarettes Per Day: 10 e-Cigarette/Vaping Use: Never Used Second Hand Smoke Exposure: Yes service: No Current occupational status: employed and unemployed Cognitive needs: No Hearing needs: No Vision needs: No Review of Systems Const All systems reviewed & are unremarkable except as noted in HPI and below Reports no additional complaints Eyes Reports no additional complaints ENT Reports no additional complaints Card Reports no additional complaints Resp Reports no additional complaints GI Reports no additional complaints Reports as per HPI Musc Reports no additional complaints Neuro Reports no additional complaints Psych Reports no additional complaints Endo Reports as per HPI Physical Exam Const General: cooperative, healthy appearing, comfortable, no acute distress, well developed, alert and awake Orientation/consciousness: patient oriented x3 Limitations: no limitations HEENT Head: Yes normal to inspection, Yes normocephalic and Yes atraumatic Ears: hearing grossly normal bilaterally Eyes General: appearance normal, both eyes and all related structures Neck Neck: Yes normal visual inspection and Yes trachea midline Chest Chest palpation & inspection: normal inspection of the chest Resp Effort & Inspection: normal respiratory effort and able to speak in complete sentences Cardio Rate: regular rate GI Inspection: Yes normal to inspection General: Yes no CVA tenderness Back/Spine/Pelvis Back: no CVA tenderness Skin General skin exam: no rashes or lesions noted Neuro General: patient oriented x3 Extrem General: Yes normal to inspection Psych Appearance: grossly normal and well kempt Mental Status: mental status grossly normal Speech and movement: Normal speech and movement present and Clear speech present Affect: normal affect Attitude: cooperative Thought process: Normal thought process present Thought content: Normal thought content present Insight: Fair insight present (Psych) Judgement: Fair judgement present (Psych) Office Procedures Post Void Residual Post Residual Void Post Void Residual (PVR): 163 [id number] Void Residual by ultrasound Results AMB Urinalysis, Automated UA Leukoctes 0 Arielle/uL Last Edit by HAIDER Lacy on 03/04/25 13:49 UA Nitrite Last Edit by HAIDER Lacy on 03/04/25 13:49 UA Urobilinogen 0.2 mg/dL Last Edit by HAIDER Lacy on 03/04/25 13:4 9 UA Protein 15 mg/dL Last Edit by Shavon Miller [facility] on 03/04/25 13:49 UA pH 6.0 Last Edit by Shavon Miller [facility] on 03/04/25 13:49 UA Blood 25 Tico/uL Last Edit by Shavon Miller [facility] on 03/04/25 13:49 UA Specific [place] 1.015 Last Edit by Shavon Miller [facility] on 03/04/25 13: 49 UA Ketone Last Edit by Shavon Miller [facility] on 03/04/25 13:49 UA Bilirubin 0 mg/dL Last Edit by Shavon Miller [facility] on 03/04/25 13:49 UA Glucose 500 mg/dL Last Edit by Shavon Miller [facility] on 03/04/25 13:49 Results Reviewed Results Reviewed: Laboratory Last Values Urine pH (Auto) 6.0 03/04/25 13:49 Specific [place] (Auto) 1.015 03/04/25 13:49 Urine Protein (Auto) 15 mg/dL 03/04/25 13:49 Glucose (UA)(Auto) 500 mg/dL 03/04/25 13:49 Urine Blood (Auto) 25 Tico/uL 03/04/25 13:49 Urine Bilirubin (Auto) 0 mg/dL 03/04/25 13:49 Urine Urobilinogen (Auto) 0.2 mg/dL 03/04/25 13:49 Leukocyte Esterase (Auto) 0 Arielle/uL 03/04/25 13:49 Assessment & Plan Assessment & Plan (1) Abnormal cytology: Code(s): R89.6 - Abnormal cytological findings in specimens from other organs, systems and tissues Category: Medical Plan In office urinalysis results reviewed with the patient today; will send for fish. We did discussed at length further treatment options of microscopic hematuria as well as abnormal cytologies that have been noted. We discussed potential delay in treatment. He is aware PVR 163 mL. We did discussed attempting to double void to assist with bladder emptying. Start alfuzosin as discussed and prescribed. All questions were answered. We discussed the importance of continuing with adequate hydration relation to nephrolithiasis as well as overall health and well-being. Continue adding 1 oz of lemon juice to water daily. Continue vitamin B6 as discussed and prescribed. Follow-up in 1-3 months with PVR; or sooner with any issues, concerns, and or questions. Orders: Orders AMB Post Void Residual by ultrasound Today N20.0 - Calculus of kidney AMB Urinalysis Automated Today Z13.9 - Encounter for screening, unspecified Urine Cytology Today R89.6 - Abnormal cytological findings in specimens from other organs, systems and tissues FISH Bladder Cancer Today R89.6 - Abnormal cytological findings in specimens from other organs, systems and tissues Medications: New alfuzosin ER Take before bedtime 10 mg PO BEDTIME 30 tabs 3RF 30 days N32.0 - Bladder- neck obstruction, N40.1 - Benign prostatic hyperplasia with lower urinary tract symptoms, R33.9 - Retention of urine, unspecified, R35.1 - Nocturia, R39.12 - Poor urinary stream Patient Instructions: The patient had an opportunity to ask questions regarding the treatment plan. All questions were answered. Physical exam, labs, and imaging were discussed and reviewed in detail. As well as risks, benefits, and discussion of treatment choices. No major barriers to understanding were identified. The patient expressed understanding and agreement with the above treatment plan. The patient was made aware they should contact our office by phone for worsening of their current condition, the appearance of new symptoms, or with any questions or concerns. Compliance is encouraged with any medications and follow up testing that is ordered. It is a privilege to be allowed the opportunity to participate in? your urological care.? Again, if you have any questions or concerns If you have any questions or concerns please do not hesitate to contact me. The office is [phone]. This note is constructed using voice recognition software. While every effort has been made to ensure accuracy quality assurance monitor body errors may have been included. Yours sincerely, OMAR Washburn Coding Level of Care Code Est Pt Level 4 (31643) Diagnoses Abnormal cytology R89.6 CPT Codes Post Residual Void - PVR CPT Code: 92342-Djoy Void Residual by ultrasound ([id number])
== END 2025-03-04 14:17 | disposition home or self-care (01) ==
LOC: HO.HUSH 13:34
PROVIDERS: PCP Internal Medicine; Visit Provider Nurse Practitioner Family
DX: R89.6 Abnormal cytological findings in specimens from other organs, systems and tissues (principal); Z13.9 Encounter for screening, unspecified
CPT/HCPCS: 99214

== ENCOUNTER 2025-03-04 13:33 | Outpatient (REF) | payer OTHER, SELFPAY | END 2025-03-04 13:34 | disposition home or self-care (01) | LOC: HO.LAB 13:33 | PROVIDERS: PCP Internal Medicine; Visit Provider Nurse Practitioner Family | DX: N20.0 Calculus of kidney (principal); N32.0 Bladder-neck obstruction; N40.1 Benign prostatic hyperplasia with lower urinary tract symptoms; R89.6 Abnormal cytological findings in specimens from other organs, systems and tissues; R33.9 Retention of urine, unspecified; R35.1 Nocturia; R39.12 Poor urinary stream; Z13.89 Encounter for screening for other disorder | CPT/HCPCS: 51798; 81003; 88112; 88121 ==

== ENCOUNTER 2025-04-15 12:00 | Outpatient (REF) | payer OTHER, SELFPAY ==
[2025-04-15 13:17] LABS: Free T4 (Free Thyroxine) 1.51 ng/dL (0.71-1.85); Thyroid Stimulating Hormone 4.47 uIU/mL (0.32-4.0)
== END 2025-04-15 12:01 | disposition home or self-care (01) ==
LOC: HO.LAB 12:00
PROVIDERS: PCP Internal Medicine; Visit Provider Internal Medicine Endocrinology, Diabetes & Metabolism
DX: E05.90 Thyrotoxicosis, unspecified without thyrotoxic crisis or storm (principal)
CPT/HCPCS: 36415; 84439; 84443; 84481

== ENCOUNTER 2025-04-21 09:46 | Outpatient (AMB) | payer OTHER, SELFPAY ==
--- NOTE | 2025-04-21 09:49 | A.OFFVIS_ITS ---
Vital Signs 04/21/25 09:53 Height 5 ft 8 in Weight 159 lb 6.307 oz BMI 24.2 BP 108/66 Blood Pressure Location Lt brachial Position Sitting Pulse 76 Pulse Source Pulse Oximeter Pulse Oximetry (%) 96 Oxygen Delivery Method Room Air Intake Visit Reasons: f/u Type 1 Dm / Graves hyperthyroidism Intake Note: Patient present today to follow up on Type 1 Diabetes Mellitus and Hype rthyroidism. Patient receives Dexcom G7 supplies through: [facility] Last Diabetic Eye exam: Has an appointment today, has been seeing Retina specialist approx every 2 months Last Podiatry Visit: Does not see a Counting Machine Operator Random Glucose: 185 mg/dl HgA1C: 6.8% 04/21/2025 Mercerizing Range Controller Required: No Accompanied by: Self / Same As Patient Allergies No Known Allergies Allergy (Verified 04/21/25 10:05) Medication List - Last Reconciled 04/21/25 by Donis Lehman MD alfuzosin ER 10 mg PO BEDTIME 30 days blood sugar diagnostic (FreeStyle Lite Strips) USE TO TEST 3 TIMES DAILY DIRECTED prn sensor failure blood-glucose meter As directed blood-glucose meter (FreeStyle Avon Lite kit) As directed tests 4 X/day blood-glucose sensor (Dexcom G7 Sensor device) DIRECTED CHANGE EVERY 10 DAYS blood-glucose sensor (FreeStyle Gabriel 3 Plus Sensor device) As directed cholecalciferol (vitamin D3) (Vitamin D3) 25 mcg PO DAILY docusate sodium (Colace) 100 mg PO BID glucagon 3 mg/actuation (Baqsimi) 3 mg intranasal ONCE glucose 4 grams PO Q15M PRN insulin lispro (Humalog KwikPen (U-100) Insulin) subcutaneously 4 times a day before meal/bed; upto 20 units in a day to use in addition to pump insulin lispro (Humalog U-100 Insulin) 60 units per day via insulin pump subcutaneously use as directed; Uses iLet pump. 30 days MDD 60 per day lancets (FreeStyle Lancets) As directed tests 4 X/day lisinopril 5 mg PO DAILY methimazole 5 mg PO DAILY 30 days metoprolol succinate ER 25 mg PO DAILY 30 days mometasone 0.1% 1 appl topical DAILY PRN 3 weeks NS pen needle, diabetic (BD Ultra-Fine Original Pen Needle) test 4 times daily pen needle, diabetic As directed- Use to test 4 Times a day pyridoxine (vitamin B6) 100 mg PO DAILY 90 days rosuvastatin 5 mg PO DAILY teprotumumab-trbw (Tepezza) 500 mg IV Q3W HPI Comments Details: 44 YO M is seen in f/u for T1DM. He has been seen regularly for pump follow- ups. He is on an ilet insulin pump with dexcom sensor. Initially diagnosed with T1DM at age 5 He was recently seen for hyperthyroidism and is on methimazole with a beta hector. . HE c/o a pruritic rash and his left lower leg. He denies fever, sore throat Pump download is in excellent range with occational low. Average glucose is 157.6 with G mi of 7.1%, standard deviation of 50.1, CV of 31.8%. 70% range with 24% hyperglycemia and 1.2% hypoglycemia and 0.6% very low He has announcing his breakfast 71% as usual lunch is 68% as usual and 47% usual for dinner. Total daily insulin for basal is 28.2 with total daily insulin dose of 62.2 Treats lows with OJ Checks sugar after to ensure it is rising. Family history of autoimmunity in lupus in mother Has eyes checked yearly, last eye exam , no retinopathy. Denies neuropathy, Does not see podiatry. No nephropathy Not on RAINER/ARB. Microalbumin 28.0 08/06/2023 eGFR>60 08/06/23 Has HLD, on statin Denies history of CAD. Diet/Carb counting: balanced trying to add more protein to diet Denies recent prior episodes of DKA. Denies prior severe episodes of hypoglycemia requiring help or hospitalization. Seeing retinal specialist- has appt tomorrow for laser Labs: Anti-PENG 65 antibodies were negative. Getting methimazole 5 mg for Graves . Was On Tepezza prescribed byDr. Simms. Helping with GO. Methimazole dose was recently decreased to 5 mg [facility] Medical History Diabetes type I Hyperthyroidism Periorbital edema Hypothyroidism Surgical History History of laparoscopic appendectomy (01/12/25) No pertinent past surgical history Social History Household Members: None Housing: Apartment Do you presently have visiting nurse or other home services: No Alcohol intake: current Alcohol intake frequency: does not drink Patient Tobacco Use Status: Never used Tobacco Tobacco use type: Cigarette Cigarettes Per Day: 10 e-Cigarette/Vaping Use: Never Used Second Hand Smoke Exposure: Yes service: No Current occupational status: employed and unemployed Cognitive needs: No Hearing needs: No Vision needs: No Physical Exam Vital Signs: Last Vital Signs Pulse 76 04/21/25 09:53 BP 108/66 04/21/25 09:53 Pulse Ox 96 04/21/25 09:53 Oxygen Delivery Method Room Air 04/21/25 09:53 BMI result Body Mass Index 24.2 Absence of Cushingoid features. Absence of acromegalic features. Neck exam reveals nl size thyroid about 15 gms. No thyroid nodules palpable. No carotid bruits present. Lungs CTA. Heart S1 S2, Reg R/R. No M/R/ G. Skin exam reveals absence of vitiligo or acanthosis nigricans. Abdominal exam reveals Soft NT/ND with NA BS. No organomegaly present. Extrem Other: Visual exam of foot performed. No ulcerations or open lesions. No onchomycosis, no callouses.Pulses 2 + distally. Sensation intact to monofilament exam. Vibratory sensation sensed 10 seconds decreased in right, 10 seconds in left with 128 Hz tuning fork Results AMB Hemoglobin A1c AMB Hemoglobin A1c 6.8 % Last Edit by DAMIAN Costa on 04/21/25 10:08 Results Reviewed Results Reviewed: Laboratory Last Values Glucose (Clinic) 185 mg/dL (60-115) H 04/21/25 09:58 Assessment & Plan Assessment & Plan (1) Diabetes type I: Comment: DX age 5 Code(s): E10.9 - Type 1 diabetes mellitus without complications Category: Medical Plan: This is a 42-year-old male with history of longstanding-type 1 diabetes with improved good glycemic control on iLet pump and no known microvascular or macrovascular complication. Plan is to continue management with the iLet. (2) Hyperthyroidism: Code(s): E05.90 - Thyrotoxicosis, unspecified without thyrotoxic crisis or storm Category: Medical Plan: Graves disease with hyperthyroidism currently on methimazole 5 mg q.d. We will recheck TSH, free T4 and free T3 adjust methimazole accordingly. We will go over definitive treatment of Graves disease with patient including thyroidectomy and radioactive iodine. Orders: Orders AMB Hemoglobin A1c Today E10.9 - Type 1 diabetes mellitus without complications Thyroid Stimulating Immunoglob Today E0590 - Thyrotoxicosis, unspecified without thyrotoxic crisis or storm Medications: Changed From blood-glucose sensor (FreeStyle Gabriel 3 Plus Sensor device) As directed 2 ea 11RF To blood-glucose sensor (FreeStyle Gabriel 3 Plus Sensor device) As directed change every 15 days 2 ea 11RF Coding Level of Care Code Est Pt Level 4 (09016) Complex EM visit Add On G2211 Diagnoses Diabetes type I E10.9 Hyperthyroidism E0590
[2025-04-21 09:53] VITALS: BP 108/66; PULSE 76; O2SAT 96; BMI 24.2
[2025-04-21 10:03] LABS: Glucose, Whole Blood 185 mg/dL (60-115)
== END 2025-04-21 10:34 | disposition home or self-care (01) ==
LOC: HO.ENCR 09:47
PROVIDERS: PCP Internal Medicine; Visit Provider Internal Medicine Endocrinology, Diabetes & Metabolism
DX: E10.9 Type 1 diabetes mellitus without complications (principal); E05.90 Thyrotoxicosis, unspecified without thyrotoxic crisis or storm
CPT/HCPCS: 99214

== ENCOUNTER → 2025-04-21 09:46 | Outpatient (BNVA) | payer OTHER, SELFPAY | PROVIDERS: PCP Internal Medicine; Visit Provider Internal Medicine Endocrinology, Diabetes & Metabolism | DX: E10.9 Type 1 diabetes mellitus without complications (principal) | CPT/HCPCS: 82947; 83036 ==

== ENCOUNTER 2025-04-22 13:41 | Outpatient (REF) | payer OTHER, SELFPAY | END 2025-04-22 13:42 | disposition home or self-care (01) | LOC: HO.LAB 13:41 | PROVIDERS: PCP Internal Medicine; Visit Provider Internal Medicine Endocrinology, Diabetes & Metabolism | DX: E05.90 Thyrotoxicosis, unspecified without thyrotoxic crisis or storm (principal) | CPT/HCPCS: 36415; 84445 ==

== ENCOUNTER 2025-05-17 08:19 | Outpatient (REF) | payer OTHER, SELFPAY | END 2025-05-17 08:20 | disposition home or self-care (01) | LOC: HO.LAB 08:19 | PROVIDERS: PCP Internal Medicine; Visit Provider Nurse Practitioner Family | DX: R31.29 Other microscopic hematuria (principal); N20.0 Calculus of kidney; R89.6 Abnormal cytological findings in specimens from other organs, systems and tissues; R33.9 Retention of urine, unspecified; Z13.89 Encounter for screening for other disorder | CPT/HCPCS: 51798; 81003; 88112 ==

== ENCOUNTER 2025-05-17 08:19 | Outpatient (AMB) | payer OTHER, SELFPAY ==
--- NOTE | 2025-05-17 08:24 | MHC.OFFVIS ---
Intake Visit Reasons: 2m/PVR/UA Intake Note: Reason for Visit: UA/PVR Follow Up Urology Medication: Vitamin B6, Alfuzosin Blood Thinners: None Imaging: Abdomen/Pelvis CT- 01/12/2025 Labs: None Cytology: 03/05/2025 FISH Cytology: 03/04/2025 Last PVR: 163ml PVR: 30ml Textile Engineer Required: No Accompanied by: Self / Same As Patient Allergies No Known Allergies Allergy (Verified 05/17/25 14:31) Medication List - Last Reconciled 05/17/25 by ANGIE Washburn blood sugar diagnostic (FreeStyle Lite Strips) USE TO TEST 3 TIMES DAILY DIRECTED prn sensor failure blood-glucose meter As directed blood-glucose meter (FreeStyle [place] Lite kit) As directed tests 4 X/day blood-glucose sensor (BlueSpace G7 Sensor device) DIRECTED CHANGE EVERY 10 DAYS blood-glucose sensor (FreeStyle Gabriel 3 Plus Sensor device) As directed change every 15 days cholecalciferol (vitamin D3) (Vitamin D3) 25 mcg PO DAILY docusate sodium (Colace) 100 mg PO BID glucagon 3 mg/actuation (Baqsimi) 3 mg intranasal ONCE glucose 4 grams PO Q15M PRN insulin lispro (Humalog KwikPen (U-100) Insulin) subcutaneously 4 times a day before meal/bed; upto 20 units in a day to use in addition to pump insulin lispro (Humalog U-100 Insulin) 60 units per day via insulin pump subcutaneously use as directed; Uses iLet pump. 30 days MDD 60 per day lancets (FreeStyle Lancets) As directed tests 4 X/day lisinopril 5 mg PO DAILY methimazole 5 mg PO DAILY 30 days metoprolol succinate ER 25 mg PO DAILY 30 days mometasone 0.1% 1 appl topical DAILY PRN 3 weeks NS pen needle, diabetic (BD Ultra-Fine Original Pen Needle) test 4 times daily pen needle, diabetic As directed- Use to test 4 Times a day pyridoxine (vitamin B6) 100 mg PO DAILY 90 days rosuvastatin 5 mg PO DAILY tamsulosin 0.4 mg PO BEDTIME 30 days teprotumumab-trbw (Tepezza) 500 mg IV Q3W HPI Comments Details: Juan Daniel is a very pleasant 44-year-old male patient. He has a past medical history of hypothyroidism and type 1 diabetes diagnosed at 5 years old. He presents to the office today for follow-up of his nephrolithiasis, microscopic hematuria, incomplete bladder emptying, and abnormal cytology. In discussion with the patient today he reports somewhat improvement in lower urinary tract symptoms he had been experiencing. He reports improvement in episodes of urinary urgency with minimal void amounts as well as urinary frequency. However, he does continue to experience episodes of feeling of incomplete bladder emptying. During last office visit PVR was noted to be 163 mL which is much improved during today's office visit that was noted to be 30 mL. Previous workup has included a renal ultrasound 10/25 bilateral kidneys are normal in echotexture and thickness. Multiple right renal cysts measuring 10 mm in size. There is a 4 mm nonobstructing calculus in the interpolar region of the right kidney. There is no right-sided hydronephrosis. Left kidney with multiple nonobstructing calculi measuring up to 6 x 3 x 8 mm in the interpolar region. There is no left-sided hydronephrosis. The urinary bladder is unremarkable. The prostate measures approximately 20 mL. Previous urine cytology results were reviewed Urine cytologies: 03/25, 07/27, and 10/25, 12/25 Atypical urothelial cells; 03/27 Negative for high-grade urothelial carcinoma. He does have a previous history of nicotine dependence however quit 6 months ago. We did discuss at length potential causes of microscopic hematuria as well as abnormal cytologies. We discussed further microscopic hematuria workup to include CT urogram and cystoscopy. We discussed risks and benefits of this intervention. When asked he denies incontinence, nocturia, hematuria, dysuria, foul smelling urine, changes to urinary stream, flank pain, fever, and or chills. He discusses his increase in water intake with adding lemon juice to the water. He reports compliance with vitamin B6 daily. I discussed reasons for blood in the urine may include but are not limited to kidney stones, cancer in the urinary tract, BPH, kidney stone disease or inflammatory conditions of the urinary tract. I have discussed workup to include cystoscopy evaluation. He otherwise offers no other issues or concerns at this time. [facility] Medical History Diabetes type I Hyperthyroidism Periorbital edema Hypothyroidism Surgical History History of laparoscopic appendectomy (01/12/25) No pertinent past surgical history Social History Household Members: None Housing: Apartment Do you presently have visiting nurse or other home services: No Alcohol intake: current Alcohol intake frequency: does not drink Patient Tobacco Use Status: Never used Tobacco Tobacco use type: Cigarette Cigarettes Per Day: 10 e-Cigarette/Vaping Use: Never Used Second Hand Smoke Exposure: Yes service: No Current occupational status: employed and unemployed Cognitive needs: No Hearing needs: No Vision needs: No Review of Systems Const All systems reviewed & are unremarkable except as noted in HPI and below Reports no additional complaints Eyes Reports no additional complaints ENT Reports no additional complaints Card Reports no additional complaints Resp Reports no additional complaints GI Reports no additional complaints Reports as per HPI Musc Reports no additional complaints Neuro Reports no additional complaints Psych Reports no additional complaints Endo Reports as per HPI Physical Exam Const General: cooperative, healthy appearing, comfortable, no acute distress, well developed, alert and awake Orientation/consciousness: patient oriented x3 Limitations: no limitations HEENT Head: Yes normal to inspection, Yes normocephalic and Yes atraumatic Ears: hearing grossly normal bilaterally Eyes General: appearance normal, both eyes and all related structures Neck Neck: Yes normal visual inspection and Yes trachea midline Chest Chest palpation & inspection: normal inspection of the chest Resp Effort & Inspection: normal respiratory effort and able to speak in complete sentences Cardio Rate: regular rate GI Inspection: Yes normal to inspection General: Yes no CVA tenderness Back/Spine/Pelvis Back: no CVA tenderness Skin General skin exam: no rashes or lesions noted Neuro General: patient oriented x3 Extrem General: Yes normal to inspection Psych Appearance: grossly normal and well kempt Mental Status: mental status grossly normal Speech and movement: Normal speech and movement present and Clear speech present Affect: normal affect Attitude: cooperative Thought process: Normal thought process present Thought content: Normal thought content present Insight: Fair insight present (Psych) Judgement: Fair judgement present (Psych) Office Procedures Post Void Residual Post Residual Void Post Void Residual (PVR): 30 13339-Wpyl Void Residual by ultrasound Results AMB Urinalysis, Automated UA Leukoctes 0 Arielle/uL Last Edit by DAMIAN Savage on 05/17/25 08:46 UA Nitrite Negative Last Edit by Neha Rodriguez, RMA on 05/17/25 08:46 UA Urobilinogen 0.2 mg/dL Last Edit by Neha Rodriguez, RMA on 05/17/25 08:46 UA Protein 15 mg/dL Last Edit by Neha Rodriguez, RMA on 05/17/25 08:46 UA pH 6.0 Last Edit by Neha Rodriguez, RMA on 05/17/25 08:46 UA Blood 200 Tico/uL Last Edit by Neha Rodriguez, RMA on 05/17/25 08:46 UA Specific Palmer 1.020 Last Edit by Neha Rodriguez, RMA on 05/17/25 08:46 UA Ketone Negative Last Edit by Neha Rodriguez, RMA on 05/17/25 08:46 UA Bilirubin 0 mg/dL Last Edit by Neha Rodriguez, RMA on 05/17/25 08:46 UA Glucose 500 mg/dL Last Edit by Neha Rodriguez, RMA on 05/17/25 08:46 Results Reviewed Results Reviewed: Laboratory Last Values Urine pH (Auto) 6.0 05/17/25 08:44 Specific Palmer (Auto) 1.020 05/17/25 08:44 Urine Protein (Auto) 15 mg/dL 05/17/25 08:44 Glucose (UA)(Auto) 500 mg/dL 05/17/25 08:44 Urine Ketones (Auto) Negative 05/17/25 08:44 Urine Blood (Auto) 200 Tico/uL 05/17/25 08:44 Urine Nitrite (Auto) Negative 05/17/25 08:44 Urine Bilirubin (Auto) 0 mg/dL 05/17/25 08:44 Urine Urobilinogen (Auto) 0.2 mg/dL 05/17/25 08:44 Leukocyte Esterase (Auto) 0 Arielle/uL 05/17/25 08:44 Assessment & Plan Assessment & Plan (1) Microscopic hematuria: Code(s): R31.29 - Other microscopic hematuria Category: Medical (2) Renal calculi: Comment: April 2024Stable 6 mm subpleural nodule abutting the left major fissure, most likely an incidental pulmonary lymph node. 2. Similarly, abutting the inferior right major fissure there is a 4 mm nodule, also most likely an incidental pulmonary lymph node. 3. No suspicious pulmonary nodules identified. 4. No active lung disease. Evidence of prior granulomatous disease. 5. Triangular anterior mediastinal soft tissue, conforming to the origins of the great vessels, highly suggestive of thymic rebound/hyperplasia. Given this is a new finding from the prior neck CT 07/13/2023, appropriate short interval [address] follow up recommended. 6. Bilateral nonobstructing renal calculi. July 2024 Code(s): N20.0 - Calculus of kidney Category: Medical (3) Abnormal cytology: Code(s): R89.6 - Abnormal cytological findings in specimens from other organs, systems and tissues Category: Medical (4) Incomplete bladder emptying: Code(s): R33.9 - Retention of urine, unspecified Category: Medical Plan In office urinalysis results with the patient today; as noted above. PVR today 30 mL which is significantly decreased from previous office visit 163 mL. Patient does continue to experience episodes of feeling of incomplete bladder emptying. Will stop alfuzosin. Start tamsulosin as discussed and prescribed. Previous urine cytology results reviewed with the patient today; as noted above. We did discuss diabetes in relation to incomplete bladder emptying as well as lower urinary tract symptoms he is experiencing. We also discussed in office cystoscopy given patient's previous history of nicotine dependence and previous abnormal urine cytologies; patient declines at this time and would like to continue with surveillance monitoring. All questions were answered. We discussed the importance of management and diabetes for improvement in urological health as well as overall health and well-being. Follow-up in 1-3 months with PVR; or sooner with any issues, concerns, and or questions. Orders: Orders AMB Post Void Residual by ultrasound Today Z13.9 - Encounter for screening, unspecified Urine Cytology Today R31.29 - Other microscopic hematuria AMB Urinalysis Automated Today Z13.9 - Encounter for screening, unspecified Medications: New tamsulosin 0.4 mg PO BEDTIME 30 caps 3RF 30 days N40.1 - Benign prostatic hyperplasia with lower urinary tract symptoms, R35.1 - Nocturia Discontinued alfuzosin ER Take before bedtime Discontinued Reason: Doctor's Order 10 mg PO BEDTIME 30 tabs 3RF 30 days N32.0 - Bladder-neck obstruction, N40.1 - Benign prostatic hyperplasia with lower urinary tract symptoms, R33.9 - Retention of urine, unspecified, R35.1 - Nocturia, R39.12 - Poor urinary stream Patient Instructions: The patient had an opportunity to ask questions regarding the treatment plan. All questions were answered. Physical exam, labs, and imaging were discussed and reviewed in detail. As well as risks, benefits, and discussion of treatment choices. No major barriers to understanding were identified. The patient expressed understanding and agreement with the above treatment plan. The patient was made aware they should contact our office by phone for worsening of their current condition, the appearance of new symptoms, or with any questions or concerns. Compliance is encouraged with any medications and follow up testing that is ordered. It is a privilege to be allowed the opportunity to participate in? your urological care.? Again, if you have any questions or concerns If you have any questions or concerns please do not hesitate to contact me. The office is [phone]. This note is constructed using voice recognition software. While every effort has been made to ensure accuracy rib stiffener and heel dipper errors may have been included. Yours sincerely, OMAR Washburn Coding Level of Care Code Est Pt Level 4 (17084) Diagnoses Microscopic hematuria R31.29 Renal calculi N20.0 Abnormal cytology R89.6 Incomplete bladder emptying R33.9 CPT Codes Post Residual Void - PVR CPT Code: 82258-Mqug Void Residual by ultrasound ([id number])
== END 2025-05-17 08:59 | disposition home or self-care (01) ==
LOC: HO.HUSH 08:20
PROVIDERS: PCP Internal Medicine; Visit Provider Nurse Practitioner Family
DX: R31.29 Other microscopic hematuria (principal); N20.0 Calculus of kidney; R89.6 Abnormal cytological findings in specimens from other organs, systems and tissues; R33.9 Retention of urine, unspecified; Z13.9 Encounter for screening, unspecified
CPT/HCPCS: 99214